=== PATIENT | female | born 1955 | race Caucasian/White ===

== ENCOUNTER 2018-04-28 15:55 | Inpatient (IN) | payer MEDICARE, OTHER, SELFPAY ==
--- NOTE | 2018-04-28 16:03 | DI.US.S_ITS ---
PROCEDURE: US ABDOMEN COMPLETE INDICATIONS: ruq pain TECHNIQUE: Real-time scanning was performed of the abdominal and retroperitoneal organs, with image documentation. COMPARISON: None. FINDINGS: Liver: Liver is normal in size and homogeneous in echotexture, prominently hyperechoic likely representing fatty infiltration. Gallbladder: 1 appears to be a combination of sludge and gallstones within the gallbladder lumen render the gallbladder fossa relatively poorly visualized. The gallbladder wall is at the upper limits of normal at 3 mm. Biliary ducts: Intrahepatic bile ducts are non-dilated. Extrahepatic bile duct caliber measures 5.0 mm. Normal is 6-7 mm or less in diameter, or 10 mm or less post-cholecystectomy. Pancreas: Visualized portions of the pancreas are sonographically normal. Spleen: Spleen is normal in size and homogeneous in echotexture. Kidneys: Kidneys are normal in size and echotexture. Right kidney measures 11.6 cm long; left kidney measures 12.6 cm long. No hydronephrosis or nephrolithiasis. No solid masses. Aorta: Not seen due to bowel gas. Iliacs: Not seen due to bowel gas. IVC: Not seen due to bowel gas and fatty infiltration throughout the liver. Miscellaneous: No free abdominal fluid. IMPRESSION: Prominently hyperechoic liver echotexture consistent with severe fatty infiltration. Gallstones are present within the gallbladder lumen of the gallbladder wall is at the upper limits of normal at 3 mm. Acute cholecystitis is not currently suspected. Note is made of poor visualization of significant portions of the retroperitoneum and peritoneal space due to bowel gas. It may be warranted to obtain followup CT scanning, depending on clinical status. Dictated by: Nico Barbosa M.D. on 04/28/2018 at 17:07 Approved by: Nico Barbosa M.D. on 04/28/2018 at 17:09
[2018-04-28 16:05] VITALS: BP 150/91; PULSE 105; RESP 18; TEMP 36.5; O2SAT 96
--- NOTE | 2018-04-28 16:58 | ED.ABDPAIN ---
HPI - Abdominal Pain General Chief Complaint: Abdominal Pain Stated Complaint: ETOH W/D, Abd pain Time Seen by Provider: 04/28/18 16:02 Source: patient and EMS Limitations: no limitations History of Present Illness HPI narrative: Patient is 62-year-old female who presents with right upper quadrant pain and epigastric pain. She has a known alcoholic she says she has not had anything to drink for the last 4 days. She has not been nauseated or vomiting. She was given Ativan, thiamine and magnesium on [place] she is feeling a bit better but still having some epigastric pain. She has not had any fever no pain or shortness of breath. She has only that she does have fatty liver MD complaint: abdominal pain Related Data Previous Rx's Medication Instructions Recorded clonidine HCl 0.1 mg tablet 0.3 mg PO HS #90 tab 11/02/17 gabapentin 300 mg capsule 900 mg PO SEE INSTRUCTIONS #90 cap 11/02/17 fluoxetine 20 mg capsule 60 mg PO QDAY #90 cap 03/02/18 lamotrigine 100 mg tablet 150 mg PO QDAY #45 tab 03/02/18 trazodone 50 mg tablet 50 mg PO HS #30 tab 03/02/18 Allergies Allergy/AdvReac Type Severity Reaction Status Date / Time clindamycin Allergy Mild RASH & N/V Verified 04/28/18 17:49 Review of Systems Review of Systems GENERAL: Denies chills, fatigue, malaise, fever, sweats, travel HEENT: Denies sinus pain, ear pain, sore throat, difficulty swallowing, neck pain RESPIRATORY: Denies dyspnea, cough, wheezing, hemoptysis, sputum. CARDIOVASCULAR: Denies chest pain, palpitations, orthopnea, edema GASTROINTESTINAL: See HPI : Denies dysuria, frequency, incontinence, hematuria, urinary retention, flank pain. MUSCULOSKELETAL: Denies weakness, joint pain, or bony pain SKIN: No rash, no erythema, no pruritus NEUROLOGIC: Denies weakness, dizziness, headache, numbness, change in speech, confusion PSYCHIATRIC: Alcohol abuse 12 point review of systems is negative except for those stated above and HPI PFSH Surgical History Status post appendectomy Status post surgery (06/23/14) Social History alcohol intake: current Exam Initial Vital Signs Initial Vital Signs: Vital Signs Temperature 97.7 F 04/28/18 16:05 Pulse Rate 105 H 04/28/18 16:05 Respiratory Rate 18 04/28/18 16:05 Blood Pressure 150/91 H 04/28/18 16:05 Pulse Oximetry 96 04/28/18 16:05 GENERAL: Disheveled alert female no acute distress, overweight HEENT: Head atraumatic,EOMI, pupils reactive, face symmetric, CARDIOVASCULAR: Regular rate and rhythm without murmurs, rubs or gallops. RESPIRATORY: Breath sounds equal bilaterally, no wheezes rales or rhonchi. ABDOMEN: Obese, epigastric pain mild right upper quadrant pain no guarding no rebound EXTREMITIES: Normal range of motion, no clubbing or edema. Neurovascularly intact NEUROLOGICAL: Alert and oriented x4.Normal gait and speech. Cranial nerves II through XII grossly intact. SKIN: Warm, dry, no laceration, no petechiae, no rashes or lesions. Course Orders Ordered: ED Orders 04/28/18 16:03 US abdomen complete Stat EKG-12 Lead Stat 04/28/18 16:35 Complete Blood Count AUTO DIFF Stat Comprehensive Metabolic Panel Stat Lipase Stat Discontinued Medications Magnesium Sulfate 2 gm/ Folic Acid 1 mg/ Thiamine HCl 100 mg / Multivitamins 10 ml/ Sodium Chloride 1,015.2 mls @ 125 mls/hr IV NOW ONE Stop: 04/29/18 00:10 Sodium Chloride (Normal Saline 0.9%) 1,000 mls @ 1,000 mls/hr IV BOLUS ONE Stop: 04/28/18 17:14 Last Infusion: 04/28/18 18:37 Dose: 0 mls/hr Admin: 04/28/18 17:05 Dose: 1,000 mls/hr Lorazepam (Ativan) 1 mg IV NOW ONE Stop: 04/28/18 16:04 Last Admin: 04/28/18 17:05 Dose: 1 mg Morphine Sulfate (Morphine) 4 mg IV NOW ONE Stop: 04/28/18 18:11 Last Admin: 04/28/18 18:15 Dose: 4 mg Ondansetron HCl (Zofran) 4 mg IV NOW ONE Stop: 04/28/18 16:04 Pantoprazole Sodium (Protonix) 40 mg IV NOW ONE Stop: 04/28/18 16:08 Last Admin: 04/28/18 17:05 Dose: 40 mg Vital Signs - 8 hr 04/28/18 16:05 04/28/18 18:27 Temperature 97.7 F Pulse Rate 105 H 103 H Respiratory Rate 18 15 Blood Pressure 150/91 H Blood Pressure [Left Arm] 139/66 Pulse Oximetry 96 95 MDM - Abdominal Pain Lab Data Attestation: I reviewed the patient's lab results. Result diagrams: 04/28/18 16:35 04/28/18 16:35 Lab Results 04/28/18 04/28/18 Range/Units 16:35 16:35 WBC 6.7 (4.5-11.0) X10^3/uL RBC 3.32 L (4.0-5.2) X10^6/uL Hgb 11.3 L (12.0-16.0) g/dL Hct 33.2 L (36-46) % MCV 99.9 (80-100) fL MCH 34.1 H (26-34) PG MCHC 34.1 (30-36) % RDW 17.6 H (11.6-14.8) % Plt Count 61 L (150-400) X10^3/uL Neut % (Auto) 82.1 H (50-75) % Lymph % (Auto) 6.3 L (25-40) % [place] % (Auto) 11.4 (3-14) % Eos % (Auto) 0.0 L (2-4) % Baso % (Auto) 0.2 (0-2) % Neut # (Auto) 5500 (7901-6163) /uL Sodium 135 L (137-145) mmol/L Potassium 3.5 (3.4-5.1) mmol/L Chloride 92 L (98-107) mmol/L Carbon Dioxide 24 (22-32) mmol/L BUN 25 H (7-17) mg/dL Creatinine 0.90 (0.52-1.04) mg/dL Estimated GFR > 60.0 (>60) mL/min BUN/Creatinine Ratio 27.8 H (6-22) Glucose 88 (80-110) mg/dL Calcium 9.3 (8.4-10.2) mg/dL Total Bilirubin 2.4 H (0.2-1.3) mg/dL AST 152 H (14-36) IU/L ALT 98 H (9-52) IU/L Alkaline Phosphatase 259 H (38-126) U/L Total Protein 7.1 (6.3-8.2) g/dL Albumin 4.5 (3.5-5.0) g/dL Globulin 2.6 (1.7-4.1) g/dL Albumin/Globulin Ratio 1.7 (1.0-2.8) Lipase 1639 H (23-300) U/L Imaging Data US - abdomen: Radiologist's impression: ADDENDUM This report includes an Addendum and supersedes previous reports for this exam. PROCEDURE: US ABDOMEN COMPLETE INDICATIONS: ruq pain TECHNIQUE: Real-time scanning was performed of the abdominal and retroperitoneal organs, with image documentation. COMPARISON: None. FINDINGS: Liver: Liver is normal in size and homogeneous in echotexture, prominently hyperechoic likely representing fatty infiltration. Gallbladder: 1 appears to be a combination of sludge and gallstones within the gallbladder lumen render the gallbladder fossa relatively poorly visualized. The gallbladder wall is at the upper limits of normal at 3 mm. Biliary ducts: Intrahepatic bile ducts are non-dilated. Extrahepatic bile duct caliber measures 5.0 mm. Normal is 6-7 mm or less in diameter, or 10 mm or less post-cholecystectomy. Pancreas: Visualized portions of the pancreas are sonographically normal. Spleen: Spleen is normal in size and homogeneous in echotexture. Kidneys: Kidneys are normal in size and echotexture. Right kidney measures 11.6 cm long; left kidney measures 12.6 cm long. No hydronephrosis or nephrolithiasis. No solid masses. Aorta: Not seen due to bowel gas. Iliacs: Not seen due to bowel gas. IVC: Not seen due to bowel gas and fatty infiltration throughout the liver. Miscellaneous: No free abdominal fluid. IMPRESSION: Prominently hyperechoic liver echotexture consistent with severe fatty infiltration. Gallstones are present within the gallbladder lumen of the gallbladder wall is at the upper limits of normal at 3 mm. Acute cholecystitis is not currently suspected. Note is made of poor visualization of significant portions of the retroperitoneum and peritoneal space due to bowel gas. It may be warranted to obtain followup CT scanning, depending on clinical status. Dictated by: Nico Barbosa M.D. on 04/28/2018 at 17:07 Approved by: Nico Barbosa M.D. on 04/28/2018 at 17:09 ADDENDUM: Correction to be above: The common bile duct measures 5 mm. Dictated by: Char Rosado M.D. on 04/28/2018 at 18:09 Approved by: Char Rosado M.D. on 04/28/2018 at 18:10 Addendum Dictated By: Char Rosado MD Addendum Signed By: Addendum Cosigned By: DD/ TD/TT: 04/28/18 PROCEDURE: US ABDOMEN COMPLETE INDICATIONS: ruq pain TECHNIQUE: Real-time scanning was performed of the abdominal and retroperitoneal organs, with image documentation. COMPARISON: None. FINDINGS: Liver: Liver is normal in size and homogeneous in echotexture, prominently hyperechoic likely representing fatty infiltration. Gallbladder: 1 appears to be a combination of sludge and gallstones within the gallbladder lumen render the gallbladder fossa relatively poorly visualized. The gallbladder wall is at the upper limits of normal at 3 mm. Biliary ducts: Intrahepatic bile ducts are non-dilated. Extrahepatic bile duct caliber measures 5.0 mm. Normal is 6-7 mm or less in diameter, or 10 mm or less post-cholecystectomy. Pancreas: Visualized portions of the pancreas are sonographically normal. Spleen: Spleen is normal in size and homogeneous in echotexture. Kidneys: Kidneys are normal in size and echotexture. Right kidney measures 11.6 cm long; left kidney measures 12.6 cm long. No hydronephrosis or nephrolithiasis. No solid masses. Aorta: Not seen due to bowel gas. Iliacs: Not seen due to bowel gas. IVC: Not seen due to bowel gas and fatty infiltration throughout the liver. Miscellaneous: No free abdominal fluid. IMPRESSION: Prominently hyperechoic liver echotexture consistent with severe fatty infiltration. Gallstones are present within the gallbladder lumen of the gallbladder wall is at the upper limits of normal at 3 mm. Acute cholecystitis is not currently suspected. Note is made of poor visualization of significant portions of the retroperitoneum and peritoneal space due to bowel gas. It may be warranted to obtain followup CT scanning, depending on clinical status. Dictated by: Nico Barbosa M.D. on 04/28/2018 at 17:07 ECG Data Attestation: I personally reviewed and interpreted this ECG as follows: Prior ECG tracings: not available for review Interpretation: Normal sinus rhythm rate 101 artifact noted no significant ST changes difficult to tell no prior to compare appear interval 144 MDM Narrative Medical decision making narrative: Patient's mildly elevated lipase of 1600 slightly elevated bilirubin 2.4 and mild elevated liver enzymes. Patient is a known alcoholic with known fatty liver disease, choledocholithiasis versus cholelithiasis and pancreatitis. At this time I have specifically spoken with Radiology common bile duct is normal. She will likely need an MRCP to fully rule out choledocholithiasis. I spoke with Dr. Tineo who accepts patient for admission Discharge Plan Departure Patient Disposition: Admitted As Inpatient Clinical Impression: Acute pancreatitis, Cholelithiasis Admit Date/Time: 04/28/18 18:38 Admit Provider: Shayan Walsh
[2018-04-28] MEDS: SODIUM CHLORIDE 0.9% 1,000 ML 1000 ML IV (17:05)
[2018-04-28] MEDS: LORazepam 2 MG/ML SYRINGE 1 MG IV (17:05)
[2018-04-28] MEDS: PANTOPRAZOLE 40 MG VIAL IV (17:05)
[2018-04-28 17:07] LABS: Alanine Aminotransferase 98 IU/L (9-52); Albumin 4.5 g/dL (3.5-5.0); Albumin Globulin Ratio 1.7 (1.0-2.8); Alkaline Phosphatase 259 U/L (38-126); Aspartate Aminotransferase 152 IU/L (14-36); BUN Creatinine Ratio 27.8 (6-22); Bilirubin Total 2.4 mg/dL (0.2-1.3); Blood Urea Nitrogen 25 mg/dL (7-17); Calcium 9.3 mg/dL (8.4-10.2); Carbon Dioxide 24 mmol/L (22-32); Chloride 92 mmol/L (98-107); Estimated Glomerular Filt Rate > 60.0 mL/min (>60); Globulin 2.6 g/dL (1.7-4.1); Glucose 88 mg/dL (80-110); HEMOLYSIS < 15 (0-50); Lipase 1639 U/L (23-300); Potassium 3.5 mmol/L (3.4-5.1); Sodium 135 mmol/L (137-145); Total Protein 7.1 g/dL (6.3-8.2)
[2018-04-28 17:25] LABS: Add Manual Diff / Slide Review NO; Basophils Percent Auto 0.2 % (0-2); Hematocrit 33.2 % (36-46); Hemoglobin 11.3 g/dL (12.0-16.0); Lymphocytes Percent Auto 6.3 % (25-40); Mean Corpuscular HGB Conc 34.1 % (30-36); Mean Corpuscular Hemoglobin 34.1 PG (26-34); Mean Corpuscular Volume 99.9 fL (80-100); Monocytes Percent Auto 11.4 % (3-14); Neutrophils Absolute Auto 5500 /uL (1500-7000); Neutrophils Percent Auto 82.1 % (50-75); Red Blood Cell Count 3.32 X10^6/uL (4.0-5.2); Red Cell Distribution Width 17.6 % (11.6-14.8); White Blood Cell Count 6.7 X10^3/uL (4.5-11.0)
[2018-04-28 17:36] LABS: Platelet Count 61 X10^3/uL (150-400)
[2018-04-28] MEDS: MORPHINE 4 MG/ML INJ IV (18:15)
[2018-04-28 18:27] VITALS: BP 139/66; PULSE 103; RESP 15; O2SAT 95
[2018-04-28 18:51] VITALS: BMI 27.4
[2018-04-28 19:20] VITALS: BP 154/85; PULSE 105; RESP 22; TEMP 36.8; O2SAT 97
[2018-04-28 20:30] LABS: Appearance Urine UA CLEAR; Color Urine UA YELLOW; Glucose Urine UA TRACE g/dL (Normal); Ketones Urine UA 3+ (NEGATIVE); Leukocyte Esterase Urine UA NEGATIVE (NEGATIVE); Nitrite Urine UA NEGATIVE (Negative); Occult Blood Urine UA 2+ (Negative); Protein Urine UA 2+ (Negative); pH Urine UA 6.5 (4.5-8.0)
[2018-04-28 21:03] LABS: Bilirubin Urine UA 2+ (NEGATIVE)
[2018-04-28 21:04] LABS: Bacteria Urine None Seen; Culture Indicated Urine Cult Not Indicated; Ictotest Urine Negative (Negative); RBC Urine 5-10/HPF (0-5/HPF); Squamous Epithelial Cell Urine 0-1 /HPF; WBC Urine 0-1/HPF (0-5/HPF)
[2018-04-28] MEDS: lamoTRIgine 100 MG TABLET 150 MG PO (21:06)
[2018-04-28] MEDS: cloNIDine 0.1 MG TABLET 0.3 MG PO (21:06)
[2018-04-28] MEDS: FLUoxetine 20 MG CAPSULE 60 MG PO (21:06)
[2018-04-28] MEDS: SODIUM CHLORIDE 0.9% 1,000 ML 150 ML IV (21:11)
--- NOTE | 2018-04-28 23:05 | P.HP_ITS ---
History of Present Illness Date Patient Seen: 04/28/18 Time Patient Seen: 22:33 Chief complaint: ETOH W/D, Abd pain Narrative: This is a 62-year-old female patient with a history ETOH abuse and cerebral palsy who presents to the emergency department with 3 days of epigastric pain. The patient was sent and at the recommendation of her home physical therapist. The patient had associated symptoms bowel movements looser than normal, nausea but denies fevers or chills, headaches or dizziness, cough or shortness of. The patient also has history of significant alcohol abuse which she states she drinking approximately age 38 and drink addendum more years. Patient subsequent was sober for 15 years until father when she returned back to drinking. The patient reports he does not drink daily but approximately 3 times week consuming 1 pt to 1 qt vodka. The patient has been abstinent alcohol for 5 days and is somewhat tremulous but remains alert and responsive. In the ER the patient did receive Ativan given in the the same. Under laboratory analysis the patient is found have a low platelet count with a hemoglobin of 11.3 and hematocrit 33.8 she has a white count of 6.7 and platelets 61. Lactate is negative at 1.2. On chemistries has mildly low sodium 135 borderline potassium at 3 5 with good renal function with BUN 250.9 and blood sugar of 88. Additional labs are significant for bilirubin of 2 4 AST 152 and ALT of 90. She has no loss of 259 rosales. She has undergone abdominal ultrasound which finds the liver that is normal size homogeneous exotexture to the review this consistent with severe fatty infiltrates. She has a common bile duct 5 mm and no evidence cholecystitis though the wall thickness at the upper end of normal at 3 mm. Gallbladder contains sludge and stones with no stones visualized in the duct system. The pancreas is visualized as normal. On exam the patient reports abdominal pain is improved with no further nausea. She denies shortness of breath or chest pain. Patient History Medical History Achilles tendon injury (Acute) Cellulitis (Acute) Cerebral palsy (Acute) Flesh-eating bacteria (Acute) History of esophageal dilatation (Acute) History of esophageal stricture (Acute) Sepsis (Acute) Surgical History History of dilatation and curettage (Acute) Hx of total knee arthroplasty (Acute) Status post appendectomy Status post surgery (06/23/14) Family & Social History Social History: household members none Prior Living Arrangements Apartment/Condo Safety & Behavioral: Feels Safe in Current Yes Environment Been Physically Hurt or No Threatened By a Person Suicidal Ideation Description None Suicide Plan Description No Plan Tobacco & Substance use: Smoking Status Never smoker alcohol intake current alcohol intake frequency 3 or more drinks per day Substance Use Type does not use Meds Home Medications Medication Instructions Recorded Confirmed Type clonidine HCl 0.1 mg tablet 0.3 mg PO HS #90 tab 11/02/17 04/28/18 Rx gabapentin 300 mg capsule 900 mg PO SEE INSTRUCTIONS #90 cap 11/02/17 04/28/18 Rx fluoxetine 20 mg capsule 60 mg PO QDAY #90 cap 03/02/18 04/28/18 Rx lamotrigine 100 mg tablet 150 mg PO QDAY #45 tab 03/02/18 04/28/18 Rx trazodone 50 mg tablet 50 mg PO HS #30 tab 03/02/18 04/28/18 Rx acetaminophen [Tylenol] 650 mg PO Q6H PRN 04/28/18 04/28/18 History ibuprofen 200 mg PO Q4-6H PRN 04/28/18 04/28/18 History lisinopril-hydrochlorothiazide 1 tab PO DAILY 04/28/18 04/28/18 History Allergies Allergy/AdvReac Type Severity Reaction Status Date / Time clindamycin Allergy Mild RASH & N/V Verified 04/28/18 17:49 Review of Systems Review of Systems Constitutional: Denies fevers, chills, sweats, fatigue, good appetite with stable weight Eyes: Denies visual changes, denies floaters, diplopia ENT: Positive for history of esophageal stricture and esophageal dilation, Denies hearing changes, ear pain, no nasal congestion, no rhinorrhea, no sore throat or dentalgia, no neck stiffness or pain Respiratory: Positive for wheezing, Denies SOB, cough, exertional dyspnea, wheezing Cardiovascular: Positive for edema bilateral lower extremities, Denies chest pain, palpitations, no orthostatic dizziness, syncope Gastrointestinal: Positive for abdominal pain for last 3 days, denies vomiting , no reflux symptoms or bloating, constipation or diarrhea, denies blood in stool. Genitourinary: denies vaginal discharge, no complains of frequency, burning or urgency, hematuria on voiding Musculoskeletal: Positive for history of cerebral palsy with weakness on the right side, denies falls, limited movement, cramps, edema or joint swelling. Integumentary: denies skin lesions, masses, rashes, hives, itching or hair loss Neurological: Positive history of cerebral palsy, denies dizziness, confusion, numbness or tingling, no seizures Psychiatric: denies disturbances in thought, attentions or mood, denies substance abuse Endocrine: denies goiter, lethargy, abnormal sweating, and heat/cold intolerance. Exam Vital Signs (past 8 hours): - 04/28/18 16:05 04/28/18 18:27 04/28/18 19:20 Temperature 97.7 F 98.2 F Pulse Rate 105 H 103 H 105 H Respiratory Rate 18 15 22 Blood Pressure 150/91 H 154/85 H Blood Pressure [Left Arm] 139/66 Pulse Oximetry 96 95 97 Oxygen Delivery Method Room Air Narrative Exam Narrative: General: Well developed, obese with BMI of 37.7, in no acute distress. Skin: Warm, dry, pink, no rashes, no visible lesions HEENT: Normocephalic, PERRLA, conjunctiva clear, no facial tenderness, oropharynx is dry and pink without exudate lesions, posterior pharynx pink without inflammation, no lymphadenopathy Neck: Supple, no masses, no thyromegaly, no carotid bruits or JVD Cardiac: Regular rate and rhythm, S1-S2, no murmur, no gallops or rubs, 2+ radial pulse, 1+ dorsalis pedis pulse, 1+ edema Chest: Nontender to palpation on AP and lateral compression, symmetrical movement, breathing non labored without accessory muscle use, no cough present, BS with scattered wheezes bilaterally, no coarseness or crackles. Abdomen: Pain on palpation with guarding over bilateral upper quadrants and epigastrium, no peritoneal signs,no masses or organomegaly, no flank or suprapubic pain, BS normal. Back: No tenderness to palpation, no CVA tenderness Extremities: Full ROM, no synovial effusions or deformities, strength is 5/5 and symmetrical, gait not assessed Neuro: AAOx 3, drowsy, no localizing neurological findings, cranial nerves 2-12 grossly intact, distal sensation intact to light touch Psych: pleasant, thought coherent, stable mood and congruent affect Objective Labs Result Diagrams: 04/28/18 16:35 04/28/18 16:35 Labs: Laboratory Results - last 24 hr 04/28/18 04/28/18 04/28/18 16:35 16:35 20:15 WBC 6.7 RBC 3.32 L Hgb 11.3 L Hct 33.2 L MCV 99.9 MCH 34.1 H MCHC 34.1 RDW 17.6 H Plt Count 61 L Neut % (Auto) 82.1 H Lymph % (Auto) 6.3 L [place] % (Auto) 11.4 Eos % (Auto) 0.0 L Baso % (Auto) 0.2 Neut # (Auto) 5500 Sodium 135 L Potassium 3.5 Chloride 92 L Carbon Dioxide 24 BUN 25 H Creatinine 0.90 Estimated GFR > 60.0 BUN/Creatinine Ratio 27.8 H Glucose 88 Calcium 9.3 Total Bilirubin 2.4 H AST 152 H ALT 98 H Alkaline Phosphatase 259 H Total Protein 7.1 Albumin 4.5 Globulin 2.6 Albumin/Globulin Ratio 1.7 Lipase 1639 H Urine Color Yellow Urine Appearance Clear Urine pH 6.5 Ur Specific Jackson 1.020 Urine Protein 2+ H Urine Glucose (UA) Trace Urine Ketones 3+ H Urine Occult Blood 2+ H Urine Nitrate Negative Urine Bilirubin 2+ H Urine Ictotest Urine Urobilinogen 2.0 H Ur Leukocyte Esterase Negative Urine RBC 5-10/hpf H Urine WBC 0-1/hpf Ur Squamous Epith Cells 0-1 /hpf Urine Bacteria None seen Ur Culture Indicated? Cult not indicated Micro UA Comment Not Reportable 04/28/18 20:15 WBC RBC Hgb Hct MCV MCH MCHC RDW Plt Count Neut % (Auto) Lymph % (Auto) [place] % (Auto) Eos % (Auto) Baso % (Auto) Neut # (Auto) Sodium Potassium Chloride Carbon Dioxide BUN Creatinine Estimated GFR BUN/Creatinine Ratio Glucose Calcium Total Bilirubin AST ALT Alkaline Phosphatase Total Protein Albumin Globulin Albumin/Globulin Ratio Lipase Urine Color Urine Appearance Urine pH Ur Specific Jackson Urine Protein Urine Glucose (UA) Urine Ketones Urine Occult Blood Urine Nitrate Urine Bilirubin Urine Ictotest Negative Urine Urobilinogen Ur Leukocyte Esterase Urine RBC Urine WBC Ur Squamous Epith Cells Urine Bacteria Ur Culture Indicated? Micro UA Comment Patient: Tanya Qiu MR#: [id number] : 1955 Acct:[id number] Age/Sex: 62 / F Date of Service: 04/28/18 Loc: ED Accession Number: [id number] Procedure: US abdomen complete Ordering Provider: Sarah Mcarthur D.O. ADDENDUM This report includes an Addendum and supersedes previous reports for this exam. PROCEDURE: US ABDOMEN COMPLETE INDICATIONS: ruq pain TECHNIQUE: Real-time scanning was performed of the abdominal and retroperitoneal organs, with image documentation. COMPARISON: None. FINDINGS: Liver: Liver is normal in size and homogeneous in echotexture, prominently hyperechoic likely representing fatty infiltration. Gallbladder: 1 appears to be a combination of sludge and gallstones within the gallbladder lumen render the gallbladder fossa relatively poorly visualized. The gallbladder wall is at the upper limits of normal at 3 mm. Biliary ducts: Intrahepatic bile ducts are non-dilated. Extrahepatic bile duct caliber measures 5.0 mm. Normal is 6-7 mm or less in diameter, or 10 mm or less post-cholecystectomy. Pancreas: Visualized portions of the pancreas are sonographically normal. Spleen: Spleen is normal in size and homogeneous in echotexture. Kidneys: Kidneys are normal in size and echotexture. Right kidney measures 11.6 cm long; left kidney measures 12.6 cm long. No hydronephrosis or nephrolithiasis. No solid masses. Aorta: Not seen due to bowel gas. Iliacs: Not seen due to bowel gas. IVC: Not seen due to bowel gas and fatty infiltration throughout the liver. Miscellaneous: No free abdominal fluid. IMPRESSION: Prominently hyperechoic liver echotexture consistent with severe fatty infiltration. Gallstones are present within the gallbladder lumen of the gallbladder wall is at the upper limits of normal at 3 mm. Acute cholecystitis is not currently suspected. Note is made of poor visualization of significant portions of the retroperitoneum and peritoneal space due to bowel gas. It may be warranted to obtain followup CT scanning, depending on clinical status. Dictated by: Nico Barbosa M.D. on 04/28/2018 at 17:07 Approved by: Nico Barbosa M.D. on 04/28/2018 at 17:09 ADDENDUM: Correction to be above: The common bile duct measures 5 mm. Dictated by: Char Rosado M.D. on 04/28/2018 at 18:09 Approved by: Char Rosado M.D. on 04/28/2018 at 18:10 Addendum Dictated By: Char Rosado MD Addendum Signed By: Addendum Cosigned By: KARY/ TD/TT: 04/28/18 PROCEDURE: US ABDOMEN COMPLETE INDICATIONS: ruq pain TECHNIQUE: Real-time scanning was performed of the abdominal and retroperitoneal organs, with image documentation. COMPARISON: None. FINDINGS: Liver: Liver is normal in size and homogeneous in echotexture, prominently hyperechoic likely representing fatty infiltration. Gallbladder: 1 appears to be a combination of sludge and gallstones within the gallbladder lumen render the gallbladder fossa relatively poorly visualized. The gallbladder wall is at the upper limits of normal at 3 mm. Biliary ducts: Intrahepatic bile ducts are non-dilated. Extrahepatic bile duct caliber measures 5.0 mm. Normal is 6-7 mm or less in diameter, or 10 mm or less post-cholecystectomy. Pancreas: Visualized portions of the pancreas are sonographically normal. Spleen: Spleen is normal in size and homogeneous in echotexture. Kidneys: Kidneys are normal in size and echotexture. Right kidney measures 11.6 cm long; left kidney measures 12.6 cm long. No hydronephrosis or nephrolithiasis. No solid masses. Aorta: Not seen due to bowel gas. Iliacs: Not seen due to bowel gas. IVC: Not seen due to bowel gas and fatty infiltration throughout the liver. Miscellaneous: No free abdominal fluid. IMPRESSION: Prominently hyperechoic liver echotexture consistent with severe fatty infiltration. Gallstones are present within the gallbladder lumen of the gallbladder wall is at the upper limits of normal at 3 mm. Acute cholecystitis is not currently suspected. Note is made of poor visualization of significant portions of the retroperitoneum and peritoneal space due to bowel gas. It may be warranted to obtain followup CT scanning, depending on clinical status. Dictated by: Nico Barbosa M.D. on 04/28/2018 at 17:07 Approved by: Nico Barbosa M.D. on 04/28/2018 at 17:09 Assessment & Plan Plan: Assessment/Plan Narrative: 1. Acute pancreatitis -patient is elevated lipase at 1639. -common bile duct is at normal caliber that 5 mm with no evidence of stone on ultrasound examination -patient with severe fatty liver disease by ultrasound examination supported by bilirubin of 2.4, AST of 152, ALT of 89 and alkaline phosphatase at 259. -will proceed with IV hydration and normal saline 150 cc/hour -the patient will remain NPO except for ice chips and oral medication -hydromorphone 0.5 mg IV as needed pain -we will track CBC, BMP and lipase on serial labs 2. Hypertension, chronic, stable -blood pressure in the ER is 139/86. -will continue patient's home clonidine 0.3 mg p.o. q.h.s. -the patient is presently dry but however has 1+ bilateral pedal edema. Will continue lisinopril 10 mg and hold hydrochlorothiazide at this time. 3. Thrombocytopenia -no evidence of bleeding purpura or petechiae, no complaints of rectal or vaginal bleeding -contraindication to chemical VTE -will track and trend on CBC. 4. Wheezing, present on admission -patient reports having wheezing longstanding but is not on bronchodilators. -Patient's room air oxygen saturation is 97%. -Will obtain a chest x-ray -respiratory therapy to evaluate and treat and written for DuoNeb 3 mL q.6h as needed wheezing or shortness of breath 5. cerebral palsy, chronic, stable -will continue lamotrigine and fluoxetine. -will have PT consult to evaluate and treat -we will refer to 7th grade social studies teacher for evaluation of a risk person with concerns of patient's presentation on arrival, per ER nurse poor hygiene, disheveled, torn clothing with urine smell
[2018-04-28] MEDS: chlordiazePOXIDE 25 MG CAPSULE 50 MG PO (23:51)
[2018-04-29] VITALS (8 sets, daily range): BP systolic 97–142; BP diastolic 52–80; PULSE 80–92; RESP 16–96; TEMP 36.6–37.1; O2SAT 95–99
--- NOTE | 2018-04-29 | DI.RAD.S_ITS ---
PROCEDURE: XR CHEST 1V INDICATIONS: Wheezing TECHNIQUE: One view of the chest was acquired. COMPARISON: None. FINDINGS: Surgical changes and devices: None. Lungs and pleura: Increased pulmonary vascularity is present. Mediastinum: Mediastinal contours appear normal. Heart size is enlarged. Bones and chest wall: No suspicious bony lesions. Overlying soft tissues appear unremarkable. IMPRESSION: Cardiomegaly with increased vascularity suggestive of edema. Dictated by: Char Rosado M.D. on 04/29/2018 at 8:30 Approved by: Char Rosado M.D. on 04/29/2018 at 8:41
[2018-04-29] MEDS: ACETAMINOPHEN 325 MG TABLET 650 MG PO ×2 (03:33→16:09)
[2018-04-29] MEDS: SODIUM CHLORIDE 0.9% 1,000 ML 150 ML IV (03:35)
[2018-04-29 05:49] LABS: Prothrombin Time 11.4 SECONDS (10.1-12.7)
[2018-04-29 05:54] LABS: Alanine Aminotransferase 78 IU/L (9-52); Albumin 3.4 g/dL (3.5-5.0); Albumin Globulin Ratio 1.5 (1.0-2.8); Alkaline Phosphatase 200 U/L (38-126); Aspartate Aminotransferase 109 IU/L (14-36); BUN Creatinine Ratio 26.3 (6-22); Bilirubin Total 1.1 mg/dL (0.2-1.3); Blood Urea Nitrogen 21 mg/dL (7-17); Calcium 8.3 mg/dL (8.4-10.2); Carbon Dioxide 24 mmol/L (22-32); Chloride 100 mmol/L (98-107); Estimated Glomerular Filt Rate > 60.0 mL/min (>60); Globulin 2.3 g/dL (1.7-4.1); Glucose 79 mg/dL (80-110); HEMOLYSIS < 15 (0-50); Magnesium 2.3 mg/dL (1.6-2.3); Potassium 3.3 mmol/L (3.4-5.1); Sodium 136 mmol/L (137-145); Total Protein 5.7 g/dL (6.3-8.2)
[2018-04-29 06:09] LABS: Procalcitonin 0.28 ng/mL (<0.5)
[2018-04-29 07:16] LABS: Lipase 735 U/L (23-300)
[2018-04-29] MEDS: ALBUTEROL/IPRATROPIUM 3 ML AMPUL INH ×2 (07:55→17:03)
[2018-04-29 08:00] LABS: Add Manual Diff / Slide Review NO; Basophils Percent Auto 0.2 % (0-2); Eosinophils Percent Auto 0.1 % (2-4); Hematocrit 29.2 % (36-46); Hemoglobin 9.7 g/dL (12.0-16.0); Lymphocytes Percent Auto 7.5 % (25-40); Mean Corpuscular HGB Conc 33.4 % (30-36); Mean Corpuscular Volume 101.8 fL (80-100); Neutrophils Absolute Auto 4000 /uL (1500-7000); Neutrophils Percent Auto 80.2 % (50-75); Platelet Count 46 X10^3/uL (150-400); Red Blood Cell Count 2.87 X10^6/uL (4.0-5.2); Red Cell Distribution Width 17.9 % (11.6-14.8)
[2018-04-29] MEDS: lamoTRIgine 100 MG TABLET 150 MG PO (08:43)
--- NOTE | 2018-04-29 10:29 | PT.IIE ---
Current Diagnoses Acute pancreatitis without necrosis or infection, unspecified (04/28/18) Surgical History (Last Updated 04/28/18 @ 23:40 by VICTOR HUGO Gaspar) History of dilatation and curettage (Acute) Hx of total knee arthroplasty (Acute) Status post appendectomy Status post surgery (06/23/14) Medical History (Last Updated 04/28/18 @ 23:36 by VICTOR HUGO Gaspar) Achilles tendon injury (Acute) Cellulitis (Acute) Cerebral palsy (Acute) Flesh-eating bacteria (Acute) History of esophageal dilatation (Acute) History of esophageal stricture (Acute) Sepsis (Acute) Physical Therapy Inpatient Evaluation/Re-Eval M1 PT/OT-IP Prior Functional Status Start: 04/29/18 11:33 Freq: NEEDED Status: Active Protocol: Document 04/29/18 10:29 AB (Rec: 04/29/18 11:47 AB [id number]) Medical Review Prior Functional Status Medical History Reviewed Yes Communication able to make needs known Mobility and Gait pt stated that she is modified independent with all mobilities and ambulation using 4WW Prior Functional Level (Other details) stated that she usually does not wear her R AFO at home and uses it outdoors. Social History Household Members none Living Arrangements Apartment/Condo Number of Floors (Floors) One Floor Number of Stairs To Enter/Railing? lives in [place]: no steps to enter Home Environment Standard Height Toilet Tub/Shower Home Equipment Four Wheel Walker Shower Seat with Backrest Grab Bars Near Toilet Grab Bars In Shower Additional Social History Comment stated that her brother checks on her; she has a counsellor that comes in once a week to check on her M2 PT-IP Current Condition Start: 04/29/18 11:33 Freq: NEEDED Status: Active Protocol: Document 04/29/18 10:29 AB (Rec: 04/29/18 11:47 AB [id number]) Physical Therapy Current Condition Current Condition Evaluation Date 04/29/18 Treatment Diagnosis acute pancreatitis; choleclithiasis; generalized weakness Onset Date 04/28/18 Precautions Brace R AFO Other Precautions falls M3 PT-IP Subjective Start: 04/29/18 11:33 Freq: NEEDED Status: Active Protocol: Document 04/29/18 10:29 AB (Rec: 04/29/18 11:47 AB [id number]) Subjective Physical Therapy Visit Type Type Initial Evaluation Visit Start Time 10:29 Visit Stop Time 11:05 Total Visit Minutes 36 Number of NEW PRODUCT TRAINER Visits 0 Physical Therapy Visit Comments Patient Comments pt agreeable to do PT Patient Goals to go home Therapy Pain Assessment Pain When Pain Assessed During Mobility Pain Present Pain Present Pain Reported Location Back Scale Used pain scale not stated M4 PT-IP Mobility and Gait Start: 04/29/18 11:33 Freq: NEEDED Status: Active Protocol: Document 04/29/18 10:29 AB (Rec: 04/29/18 11:47 AB [id number]) PT-Bed Mobility Assessment Supine to Sit Supine to Sit Standby Assistance Scooting Scooting to Edge of Bed Standby Assistance PT-Transfer Assessment Sit to and From Stand Sit to and from Stand Standby Assistance Equipment Transfer Assistive Device Gait Belt 4 Wheeled Walker Gait Assessment Gait Gait Assistance Required: Standby Assistance Contact Guard Assist Distance (Feet) 175 Able to Maintain Weight Bearing Status Yes During Gait Assistive Devices Assistive Device Gait Belt 4 Wheeled Walker Orthotic/Prosthetic Devices or Brace: Yes Gait Deviations General Gait Pattern Within Normal Limits Antalgic Decreased Stride Length Decreased Feet Clearance Factors Limiting Gait Function Factors Limiting Gait Function Abnormal Tonal Influences Decreased Activity Tolerance Decreased Sensation Decreased Strength Incoordination Pain Poor Balance Poor Safety Awareness Comments Gait Comments pt with R foot drop and wears an AFO; (+) LOB but with recovery requiring CGA for safety during ambulation with pt tripping on R foot. cued to elevated R foot up higher. pt stated that she usually drags RLE at home since she does not wear AFO at home and only when outdoors. PT-Balance Assessment Sitting Balance and Reactions Static Sitting Balance Ability Good Dynamic Sitting Balance Ability Good Standing Balance and Reactions Static Standing Balance Ability Fair Dynamic Standing Balance Ability Fair Device Used FWW M5 PT-IP Objective Assessments Start: 04/29/18 11:33 Freq: NEEDED Status: Active Protocol: Document 04/29/18 10:29 AB (Rec: 04/29/18 11:47 AB [id number]) Orientation Orientation/Cognition Level of Alertness Alert Orientation Name Age Birthday Month Date Year Day of Week Place Situation Safety Awareness Decreased Safety Awareness Memory Description Short Term Impaired Senior Care Impaired Gross Range of Motion Lower Extremity ROM Assessment Right Impaired Impairments limited on R DF/PF Strength Lower Extremity Strength Assessment Right Impaired Ankle 2-/5 M6 PT-IP Treatment Start: 04/29/18 11:33 Freq: NEEDED Status: Active Protocol: Document 04/29/18 10:29 AB (Rec: 04/29/18 11:47 AB [id number]) Physical Therapy Treatment Education Education Provided Safety Other Treatments Other Treatment Performed pt able to sang AFO and shoes only requiring set up M7 PT-IP Assessment and Plan Start: 04/29/18 11:33 Freq: NEEDED Status: Active Protocol: Document 04/29/18 10:29 AB (Rec: 04/29/18 11:47 AB [id number]) PT Summary Assessment and Plan Potential Rehabilitation Potential Good Status of Condition at Evaluation Stable Summary Impairments Pain ROM Strength Balance Coordination Sensation Tone Cognition Bed Mobility Transfers Gait Activity Tolerance Assessment Summary pt requiring SBA to occasional CGA with mobility using 4WW. pt will likley improve mobility during hospital stay and pt may go home when medically stable. Goals Bed Mobility Goal Independent Transfer Goal Independent Four Wheeled Walker Gait Goal Independent Four Wheel Walker Gait Distance 200 Days to Meet Goals 3 Frequency of Treatment Frequency Of Treatment Once a Day Treatment Plan Physical Therapy Treatment Plan Bed Mobility Training Transfer Training Gait Training Therapeutic Exercise Balance Retraining Discharge Planning Hot or Cold Pack Neuromuscular Re-ed Coordination Retraining Manual Therapy Recommendations To Nursing Amount of Assist Needed Standby Assistance 1 Person Assist Discharge Recommendations PT Discharge Recommendations Home with Assistance
[2018-04-29] MEDS: FLUoxetine 20 MG CAPSULE 60 MG PO (12:27)
--- NOTE | 2018-04-29 13:58 | OT.IP.EVAL ---
Current Diagnoses Acute pancreatitis without necrosis or infection, unspecified (04/28/18) Past Medical History (Last Updated 04/28/18 @ 23:36 by VICTOR HUGO Gaspar) Achilles tendon injury (Acute) Cellulitis (Acute) Cerebral palsy (Acute) Flesh-eating bacteria (Acute) History of esophageal dilatation (Acute) History of esophageal stricture (Acute) Sepsis (Acute) Surgical History (Last Updated 04/28/18 @ 23:40 by VICTOR HUGO Gaspar) History of dilatation and curettage (Acute) Hx of total knee arthroplasty (Acute) Status post appendectomy Status post surgery (06/23/14) Occupational Therapy Inpatient Evaluation/Re-Eval M1 PT/OT-IP Prior Functional Status Start: 04/29/18 11:33 Freq: NEEDED Status: Active Protocol: Document 04/29/18 13:58 PJM (Rec: 04/29/18 14:52 PJM [id number]) Medical Review Prior Functional Status Medical History Reviewed Yes Diet/Fluid Consistency Regular Communication able to make needs known Mobility and Gait Pt stated that she is modified independent with all mobilities and ambulation. She uses no device or cane in small apt and uses 4WW in the community. She stores 4WW outside her apt door. Activities of Daily Living and IADL's Pt states she is indep with all self care including shower . She does her own laundry in laundry room on same floor as her apt, cooking, and manages her own meds. She is working with her family resource counselor on a bill paying program. She states her brother comes over 1x week to assist with cleaning. Pt drives and does her own grocery shopping. Prior Functional Level (Other details) stated that she usually does not wear her R AFO at home and uses it outdoors only. Social History Household Members none Living Arrangements Apartment/Condo Number of Floors (Floors) One Floor Number of Stairs To Enter/Railing? no stairs to enter Home Environment Standard Height Toilet Tub/Shower Home Equipment Four Wheel Walker Straight Cane Tub Transfer Bench Grab Bars Near Toilet Grab Bars In Shower Employment Status Retired Additional Social History Comment pt cares for a cat M2 OT-IP Current Condition Start: 04/29/18 14:25 Freq: Status: Active Protocol: Document 04/29/18 13:58 PJM (Rec: 04/29/18 14:52 [facility] NR) Occupational Therapy Current Condition Current Condition Evaluation Date 04/29/18 Treatment Diagnosis decreased activity tolerance, self care, mobility due to acute pancreatitis Diagnosis Onset Date 04/28 Post Operative Precautions Other Precautions fall risk, R foot drop M3 OT- IP Subjective and Pain Start: 04/29/18 14:25 Freq: Status: Active Protocol: Document 04/29/18 13:58 PJM (Rec: 04/29/18 14:52 [facility] NR) OT- Subjective Occupational Therapy Visit Type Type Initial Evaluation Visit Start Time 13:15 Visit Stop Time 13:58 Total Visit Minutes 43 Occupational Therapy Visit Comments Patient Comments I get anxious when I am away from home. Patient/Caregiver Goals to go home tomorrow OT Pain Assessment Pain When Pain Assessed After Treatment Pain Present Pain Present Denied Pain Location Abdomen Intensity 2 Scale Used Numeric (1 - 10) Description Aching M4 OT- IP ADL's Start: 04/29/18 14:25 Freq: Status: Active Protocol: Document 04/29/18 13:58 PJM (Rec: 04/29/18 14:52 [facility] NR) OT [id number] General Evaluation Self-Feeding Ability Independent OT ADL-Grooming General Evaluation Grooming Ability Standby Assistance Comments OT Grooming Comments min verbal cues to problem solve unfamiliar sink set up and position 4WW fro hand washing OT ADL-Oral Care Comments Oral Care Comments did not occur OT ADL-Dressing General Eval Lower Body Dressing Ability Minimal Assistance Areas Needing Assistance Underpants/Brief OT ADL-Toileting General Evaluation Toileting Ability Standby Assistance Areas Needing Assistance Manage Clothing Perform Perineal Hygiene Comments OT Toileting Comments pt incontinent of blood tinged urine upon standing; RN notified OT ADL-Bathing Comments OT Bathing Comments to be assessed M5 OT- IP IADL's Start: 04/29/18 14:25 Freq: Status: Active Protocol: Document 04/29/18 13:58 PJM (Rec: 04/29/18 14:52 [facility] NR) OT-Instrumental Activities of Daily Living Deficits IADL Deficits Identified Deficits Home Safety Awareness Awareness of Need for Assistance at Home Good Awareness Medication Management Medication Management Comments pt states she manages her own meds at home Money Management Money Management Caregiver Provides Supervision Money Management Comments family resource counselor assisting pt with bill paying plan Meal Preparation Meal Preparation No Deficits Identified Senior Living Advisor Senior Living Advisor Caregiver Provides Assist Senior Living Advisor Comments pt states brother assists 1x week Driving Driving Comments pt states she drives to grocery store M6 OT- IP Functional Cognition Start: 04/29/18 14:25 Freq: Status: Active Protocol: Document 04/29/18 13:58 PJM (Rec: 04/29/18 14:52 PJ [id number]) Cognitive Factors Limiting Selfcare Function Cognitive Ability Level of Alertness Alert Patient Orientation Name Month Date Year Place Situation Attention Span Ability Capable of Focused Attention Ability to Follow Commands Able to Follow One Step Commands Safety Awareness Underestimates Need for Assistance Problem Solving Ability Needs Assist to Identify Solutions Cognitive Comments Cognitive Assessment Comments mildly sloed speed of processing noted OT- Vision and Hearing OT- Hearing Assessment OT- Hearing Assessment WFL OT- Vision Assessment Visual Acuity WFL Vision Assessment Comments Pt denies any recent vision changes; states she wears glasses for driving. M7 OT- IP Mobility and Balance Start: 04/29/18 14:25 Freq: Status: Active Protocol: Document 04/29/18 13:58 PJM (Rec: 04/29/18 14:52 [facility] [id number]) OT-Transfer Assessment Sit to and From Stand Sit to and from Stand Minimal Assistance 1 Person Assistance Transfers Transfer Ability Contact Guard Assistance Technique Transfer Destination Chair Toilet Transfer Technique Stand Step Pivot Devices Transfer Assistive Devices Gait Belt 4 Wheeled Walker Comments Mobility Comments Pt needs min assist to problem solve hand placement and arise from low chair with 4WW OT- Gait Assessment Gait Gait Assistance Required: Contact Guard Assist Distance (Feet) 20 Assistive Devices Assistive Device Straight Cane 4 Wheeled Walker Comments Gait Ability Comments unorganized approach to toilet with cues needs for unfamiliar 4WW use and IV pole OT- Balance Assessment Sitting Balance and Reactions Static Sitting Balance Ability Good Standing Balance and Reactions Static Standing Balance Ability Good M8 OT- IP Objective Assessments Start: 04/29/18 14:25 Freq: Status: Active Protocol: Document 04/29/18 13:58 PJM (Rec: 04/29/18 14:52 [facility] [id number]) OT Gross Range of Motion Upper Extremity Range of Motion Assessment Within Functional Limits OT Strength Upper Extremity Strength Assessment Within Functional Limits Hand Meters Superintendent Strength Hand Dominance Left OT- Coordination Assessment Upper Extremity Finger to Nose Test Right UE Impaired Finger Tapping Test Right UE Impaired Comments Coordination Comments Pt has decreased fine isolated motor control in slowed rapid alternating movements in RUE/ hand with hx of cerebral palsy noted OT-Muscle Tone Assessment Muscle Tone WNL Yes Comments Muscle Tone Comments Pt has isolated movement throughout RUE except in fingers. OT Sensation Assessment Comments Summary Comments Pt denies sensory deficits in BUE's M9 OT- IP Assessment and Plan Start: 04/29/18 14:25 Freq: Status: Active Protocol: Document 04/29/18 13:58 PJM (Rec: 04/29/18 14:52 PJM [id number]) OT Summary Assessment and Plan Potential Rehabilitation Potential Good Analytic Complexity at Evaluation Low Summary OT Impairments Functional Mobility Grooming Dressing Toileting Bathing Toilet Transfers Shower Transfers Assessment Summary Low complexity OT assessment completed. Pt has decreased activity tolerance and difficulty arising from her low chair today. She is mildly unsteady on her feet in tight areas such as bathroom and is currently using unfamiliar 4WW. Plan 1 additional OT session in AM to further assessment and training re: bathroom transfers, bathing and toileting skills as needed for return home alone. Brother to bring pt's own 4WW tomorrow and pt states she plans to obtain smaller FWW to use in her small apartment. Goals Grooming Goal Independent Dressing Goal Independent Toileting Goal Independent Bathing Goal Standby Assistance Toilet Transfer Goal Independent Shower Transfer Goal Standby Assistance Patient/Caregiver Education Goal Demonstrate Energy Conservation and Pacing OT-Other Goals Grooming to be done standing at sink with good safety awareness and no loss of balance noted. Days to Meet Goals 2 Frequency of Treatment Frequency Of Treatment Once a Day Treatment Plan OT Treatment Plan ADL Training Functional Mobility Patient/Family Education Discharge Recommendations OT Discharge Recommendations Home with Assistance Other Discharge Recommendations Pt states she will have weekly assistance with cleaning from her brother and family resource counselor checks in weekly with pt.
--- NOTE | 2018-04-29 14:39 | P.PN_ITS ---
Subjective Date Patient Seen: 04/29/18 Time Patient Seen: 14:28 Interval history: REPORTED SOME NAUSEA AND ABD PAIN NO FEVER OR CHILLS NO CP/SOB NO SIGNIFICANT ISSUES OVERNIGHT Exam Vital Signs (past 8 hours): - 04/29/18 08:00 04/29/18 12:00 Temperature 98.1 F 98.8 F Pulse Rate 85 82 Respiratory Rate 20 20 Blood Pressure 97/52 L 111/80 Pulse Oximetry 98 98 Oxygen Delivery Method Room Air Narrative Exam Narrative: NO ACUTE DISTRESS. PATIENT IS ALERT ORIENTED X3. VITAL SIGNS STABLE HEAD ATRAUMATIC NORMOCEPHALIC NECK : SUPPLE WITHOUT ADENOPATHY NO CAROTID BRUITS EYE: EOMI, PERRLA, NORMAL CONJUNCTIVA; NO JAUNDICE CHEST: REGULAR RATE. NO RUBS. PMI IS NON DISPLACED. NO MURMURS; NORMAL S1- S2 PULMONARY: DECREASED BS OVER THE BASES. MILD BIBASILAR CRACKLES NOTED; NO INCREASED DULLNESS TO PERCUSSION ABDOMEN: SOFT. NONTENDER. NONDISTENDED. BOWEL SOUNDS ARE PRESENT IN ALL 4 QUADRANTS. NO MASS. EXTREMITIES: NO EDEMA.. NO CYANOSIS CLUBBING NOTED. NEURO: CRANIAL NERVES 2-12 GROSSLY INTACT. NO FOCAL NEUROLOGICAL DEFICIT NOTED. MSK: NORMAL RANGE OF MOTION FOR AGE. NO JOINT EFFUSION. SKIN: NORMAL FOR ETHNICITY; NO ECCHYMOSIS. NO LESION. GOOD TURGOR.; NO RASHES : NORMAL EXTERNAL GENITALIA. PSYCH : APPROPRIATE MOOD AND AFFECT. ALERT AWAKE ORIENTED X3 Objective Labs Result Diagrams: 04/29/18 05:05 04/29/18 05:05 Labs: Laboratory Results - last 24 hr 04/28/18 04/28/18 04/28/18 16:35 16:35 20:15 WBC 6.7 RBC 3.32 L Hgb 11.3 L Hct 33.2 L MCV 99.9 MCH 34.1 H MCHC 34.1 RDW 17.6 H Plt Count 61 L Neut % (Auto) 82.1 H Lymph % (Auto) 6.3 L [place] % (Auto) 11.4 Eos % (Auto) 0.0 L Baso % (Auto) 0.2 Neut # (Auto) 5500 PT INR Sodium 135 L Potassium 3.5 Chloride 92 L Carbon Dioxide 24 BUN 25 H Creatinine 0.90 Estimated GFR > 60.0 BUN/Creatinine Ratio 27.8 H Glucose 88 Calcium 9.3 Magnesium Total Bilirubin 2.4 H AST 152 H ALT 98 H Alkaline Phosphatase 259 H Total Protein 7.1 Albumin 4.5 Globulin 2.6 Albumin/Globulin Ratio 1.7 Lipase 1639 H Procalcitonin Urine Color Yellow Urine Appearance Clear Urine pH 6.5 Ur Specific [place] 1.020 Urine Protein 2+ H Urine Glucose (UA) Trace Urine Ketones 3+ H Urine Occult Blood 2+ H Urine Nitrate Negative Urine Bilirubin 2+ H Urine Ictotest Urine Urobilinogen 2.0 H Ur Leukocyte Esterase Negative Urine RBC 5-10/hpf H Urine WBC 0-1/hpf Ur Squamous Epith Cells 0-1 /hpf Urine Bacteria None seen Ur Culture Indicated? Cult not indicated Micro UA Comment Not Reportable 04/28/18 04/29/18 04/29/18 20:15 05:05 05:05 WBC 5.0 RBC 2.87 L Hgb 9.7 L Hct 29.2 L MCV 101.8 H MCH 34.0 MCHC 33.4 RDW 17.9 H Plt Count 46 L Neut % (Auto) 80.2 H Lymph % (Auto) 7.5 L [place] % (Auto) 12.0 Eos % (Auto) 0.1 L Baso % (Auto) 0.2 Neut # (Auto) 4000 PT INR Sodium Potassium Chloride Carbon Dioxide BUN Creatinine Estimated GFR BUN/Creatinine Ratio Glucose Calcium Magnesium Total Bilirubin AST ALT Alkaline Phosphatase Total Protein Albumin Globulin Albumin/Globulin Ratio Lipase Procalcitonin 0.28 Urine Color Urine Appearance Urine pH Ur Specific [place] Urine Protein Urine Glucose (UA) Urine Ketones Urine Occult Blood Urine Nitrate Urine Bilirubin Urine Ictotest Negative Urine Urobilinogen Ur Leukocyte Esterase Urine RBC Urine WBC Ur Squamous Epith Cells Urine Bacteria Ur Culture Indicated? Micro UA Comment 04/29/18 04/29/18 04/29/18 05:05 05:05 05:05 WBC RBC Hgb Hct MCV MCH MCHC RDW Plt Count Neut % (Auto) Lymph % (Auto) [place] % (Auto) Eos % (Auto) Baso % (Auto) Neut # (Auto) PT 11.4 INR 1.0 Sodium 136 L Potassium 3.3 L Chloride 100 Carbon Dioxide 24 BUN 21 H Creatinine 0.80 Estimated GFR > 60.0 BUN/Creatinine Ratio 26.3 H Glucose 79 L Calcium 8.3 L Magnesium 2.3 Total Bilirubin 1.1 AST 109 H ALT 78 H Alkaline Phosphatase 200 H Total Protein 5.7 L Albumin 3.4 L Globulin 2.3 Albumin/Globulin Ratio 1.5 Lipase 735 H D Procalcitonin Urine Color Urine Appearance Urine pH Ur Specific [place] Urine Protein Urine Glucose (UA) Urine Ketones Urine Occult Blood Urine Nitrate Urine Bilirubin Urine Ictotest Urine Urobilinogen Ur Leukocyte Esterase Urine RBC Urine WBC Ur Squamous Epith Cells Urine Bacteria Ur Culture Indicated? 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
[2018-04-29 18:00] LABS: Appearance Urine UA SL CLOUDY; Color Urine UA YELLOW; Glucose Urine UA 1+ g/dL (Negative); Ketones Urine UA 2+ (NEGATIVE); Leukocyte Esterase Urine UA NEGATIVE (NEGATIVE); Nitrite Urine UA NEGATIVE (Negative); Occult Blood Urine UA 3+ (Negative); Protein Urine UA 1+ (Negative); Specific Gravity Urine UA 1.015 (1.000-1.035); pH Urine UA 6.5 (4.5-8.0)
[2018-04-29 18:03] LABS: RBC Urine 30-100/HPF (0-5/HPF)
[2018-04-29 18:04] LABS: Amorphous Sediment Urine 1+; Bacteria Urine Few (2-10); Culture Indicated Urine Specimen Cultured; Mucus Urine 1+ (Negative); Squamous Epithelial Cell Urine 1-5 /HPF; WBC Urine 5-10/HPF (0-5/HPF)
[2018-04-29 18:26] LABS: Lipase 506 U/L (23-300)
[2018-04-29 19:00] LABS: Bilirubin Urine UA 2+ (NEGATIVE)
[2018-04-29] MEDS: chlordiazePOXIDE 25 MG CAPSULE 50 MG PO (21:07)
[2018-04-29] MEDS: cloNIDine 0.1 MG TABLET 0.3 MG PO (21:08)
[2018-04-29] MEDS: LORazepam 0.5 MG TABLET PO (21:08)
[2018-04-30 00:48] VITALS: BP 110/61; PULSE 80; RESP 16; TEMP 37; O2SAT 97
[2018-04-30 02:17] LABS: Vitamin B12 402 pg/mL (239-931)
[2018-04-30 05:56] LABS: Add Manual Diff / Slide Review NO; Basophils Percent Auto 0.2 % (0-2); Hematocrit 27.9 % (36-46); Hemoglobin 9.7 g/dL (12.0-16.0); Lymphocytes Percent Auto 14.7 % (25-40); Mean Corpuscular HGB Conc 34.8 % (30-36); Mean Corpuscular Hemoglobin 35.2 PG (26-34); Mean Corpuscular Volume 101.1 fL (80-100); Monocytes Percent Auto 9.4 % (3-14); Neutrophils Absolute Auto 3600 /uL (1500-7000); Neutrophils Percent Auto 74.7 % (50-75); Platelet Count 42 X10^3/uL (150-400); Red Blood Cell Count 2.76 X10^6/uL (4.0-5.2); Red Cell Distribution Width 18.1 % (11.6-14.8); White Blood Cell Count 4.8 X10^3/uL (4.5-11.0)
[2018-04-30 06:00] LABS: BUN Creatinine Ratio 26.7 (6-22); Blood Urea Nitrogen 16 mg/dL (7-17); Calcium 8.6 mg/dL (8.4-10.2); Carbon Dioxide 26 mmol/L (22-32); Chloride 100 mmol/L (98-107); Estimated Glomerular Filt Rate > 60.0 mL/min (>60); Glucose 117 mg/dL (80-110); HEMOLYSIS < 15 (0-50); Sodium 137 mmol/L (137-145)
[2018-04-30 06:12] VITALS: BP 124/74; PULSE 79; RESP 16; TEMP 36.8; O2SAT 94
[2018-04-30 07:50] VITALS: BP 122/68; PULSE 89; RESP 18; TEMP 36.6; O2SAT 94
[2018-04-30] MEDS: FOLIC ACID 1 MG TABLET PO (08:33)
[2018-04-30] MEDS: THIAMINE 100 MG TABLET PO (08:33)
[2018-04-30] MEDS: FLUoxetine 20 MG CAPSULE 60 MG PO (08:33)
[2018-04-30] MEDS: lamoTRIgine 100 MG TABLET 150 MG PO (08:34)
[2018-04-30] MEDS: LISINOPRIL 10 MG TABLET PO (08:34)
[2018-04-30] MEDS: LORazepam 0.5 MG TABLET PO (08:34)
[2018-04-30] MEDS: ACETAMINOPHEN 325 MG TABLET 650 MG PO (08:35)
[2018-04-30] MEDS: ALBUTEROL/IPRATROPIUM 3 ML AMPUL INH (08:41)
--- NOTE | 2018-04-30 10:10 | CM.DPC ---
DCP Discharge Home Per MD, pt is medically stable to d/c home today with no identified barriers to discharge. Pt's brother Clayton plans to be bedside around 1100 to transport pt to [facility] on preferably the [facility] home. Per PT/OT, pt is safe for d/c home with brother assist. Plan: Patient to d/c home to [place] today via brother POV around 1130 to catch the [address] home. No SW needs at this time. SERGIO López
[2018-04-30] MEDS: POTASSIUM CHLORIDE 20 MEQ TAB 40 MEQ PO (10:15)
[2018-04-30] MEDS: MAGNESIUM OXIDE 400 MG TABLET 800 MG PO (10:16)
--- NOTE | 2018-04-30 10:45 | OT.IP.TRT ---
Current Diagnoses Acute pancreatitis without necrosis or infection, unspecified (04/28/18) Occupational Therapy Treatment Note M3 OT- IP Subjective and Pain Start: 04/29/18 14:25 Freq: Status: Active Protocol: Document 04/30/18 10:45 PJM (Rec: 04/30/18 13:10 PJM NRTM) OT- Subjective Occupational Therapy Visit Type Type Treatment Note Visit Start Time 09:21 Visit Stop Time 10:45 Total Visit Minutes 84 Occupational Therapy Visit Comments Patient Comments My [place] his way [place]. Patient/Caregiver Goals to go home today OT Pain Assessment Pain When Pain Assessed After Treatment Pain Present Pain Present Denied Pain M4 OT- IP ADL's Start: 04/29/18 14:25 Freq: Status: Active Protocol: Document 04/30/18 10:45 PJM (Rec: 04/30/18 13:10 PJM NRTM) OT [id number] General Evaluation Self-Feeding Ability Independent OT ADL-Grooming General Evaluation Grooming Ability Independent Comments OT Grooming Comments seated at sink on 4WW; pt states she normally sits on toilet at home OT ADL-Oral Care General Eval Oral Care Ability Independent Comments Oral Care Comments seated at sink on 4WW OT ADL-Dressing General Eval Upper Body Dressing Ability Independent Lower Body Dressing Ability Independent Areas Needing Assistance Pull-Over Shirt Underpants/Brief Pants/Shorts Socks Shoes Comments OT Dressing Comments Pt performs very slowly but is independent with upper and lower body dressing seated in chair including R AFO. OT ADL-Toileting General Evaluation Toileting Ability Independent Areas Needing Assistance Perform Perineal Hygiene Devices Toileting Assistive Devices Grab Bars OT ADL-Bathing Bathing Type Bathing Type Shower General Evaluation Bathing Ability Standby Assistance Areas Needing Assistance Retrieving/Setting Up Items Devices Bathing Equipment Long Handled Sponge or Back Shoe Worker Held Shower Sprayer Shower Chair with Arms Grab Bars Comments OT Bathing Comments Pt needed min verbal cues to problem solve unfamiliar set up. Provided long bath sponge to assist pt with washing lower legs and feet. Provided education re: energy conservation, pacing and safety. M5 OT- IP IADL's Start: 04/29/18 14:25 Freq: Status: Active Protocol: Document 04/30/18 10:45 PJM (Rec: 04/30/18 13:10 PJM NRTM) OT-Instrumental Activities of Daily Living Deficits IADL Deficits Identified Deficits Home Safety Awareness Awareness of Need for Assistance at Home Good Awareness Medication Management Medication Management Comments pt states she normally manages own emds but brother can provide some supervision Money Management Money Management Caregiver Provides Supervision Money Management Comments pt working on bill paying plan with family resource counselor Meal Preparation Meal Preparation No Deficits Identified Non Emergency Services Ambulance Driver Non Emergency Services Ambulance Driver Caregiver Provides Assist Non Emergency Services Ambulance Driver Comments pt states brother will assist with boating safety officer 1x week. pt states she uses 4WW to carry laundry to laundry room in her apt complex Driving Driving Caregiver Provides Assist Concerns Identified Regarding Safety Driving Comments Pt now stating her car is not working and her brother does not want her to drive since she went up on the curb. Pt states her brother will assist with grocery shopping and transport to appts. M6 OT- IP Functional Cognition Start: 04/29/18 14:25 Freq: Status: Active Protocol: Document 04/30/18 10:45 PJM (Rec: 04/30/18 13:10 PJ [id number]) Cognitive Factors Limiting Selfcare Function Cognitive Ability Level of Alertness Alert Patient Orientation Name Age Birthday Month Date Year Day of Week Place Situation Attention Span Ability Capable of Focused Attention Capable of Sustained Attention Ability to Follow Commands Able to Follow One Step Commands Memory Description No Deficits Noted Safety Awareness No Deficits Noted Problem Solving Ability Needs Assist to Identify Solutions Cognitive Comments Cognitive Assessment Comments Pt presents with slow speed of processing today, stating she did not get much sleep then received Ativan overnight to assist with sleep. M7 OT- IP Mobility and Balance Start: 04/29/18 14:25 Freq: Status: Active Protocol: Document 04/30/18 10:45 PJM (Rec: 04/30/18 13:10 PJ [id number]) OT- Bed Mobility Assessment Rolling Type of Rolling Roll to Right Level of Assistance Independent Supine to Sit Supine to Sit Assist Independent Scooting Scooting to Edge of Bed Independent OT-Transfer Assessment Sit to and From Stand Sit to and from Stand Standby Assistance Transfers Transfer Ability Standby Assistance Technique Transfer Destination Chair Shower Stall Toilet Transfer Technique Stand Step Pivot Devices Transfer Assistive Devices Gait Belt 4 Wheeled Walker Comments Mobility Comments No loss of balance noted this session. Pt states she can sit and swivel onto her tub seat in tub shower combo at home. OT- Gait Assessment Gait Gait Assistance Required: Standby Assistance Distance (Feet) 30 Assistive Devices Assistive Device Gait Belt 4 Wheeled Walker Comments Gait Ability Comments no loss of balance noted with 4ww use in room this session. OT- Balance Assessment Sitting Balance and Reactions Static Sitting Balance Ability Good Dynamic Sitting Balance Ability Good Standing Balance and Reactions Static Standing Balance Ability Good Dynamic Standing Balance Ability Fair M9 OT- IP Assessment and Plan Start: 04/29/18 14:25 Freq: Status: Active Protocol: Document 04/30/18 10:45 PJM (Rec: 04/30/18 13:10 PJM [id number]) OT Summary Assessment and Plan Potential Rehabilitation Potential Good Summary Progress Towards Goals Safe For Discharge Goals Met Assessment Summary Pt now SBA to independent with basic self care in hospital room setting but performed tasks very slowly today, perhaps due to meds. She frequently distracts self with conversation. Pt appears to be close to or at her self care baseline and is safe to return home from OT standpoint if P.T. clears her for independent ambulation, as she lives alone. Pt would benefit from home health OT followup to ensure pt's return to independence and safety with IADLs in home setting. All acute care OT goals achieved. Frequency of Treatment Frequency Of Treatment Discharge Discharge Recommendations OT Discharge Recommendations Home Health Home Equipment Needs long bath sponge provided, recommend hand held shower hose
--- NOTE | 2018-04-30 11:33 | PC.NURSE ---
discharge: md notified of microbiology ua report. order for abx script called in to [facility]. they asked that the frequency be clarified with md, as is usually prescribed bid. clarification obtained on script. called [facility] again w/ clarification and faxed script to their pharmacy. priority boarding pass provided to patient. her brother arrived to pick her up and patient left in no s/sx's of distress after cleared by physical therapy and OT.
--- NOTE | 2018-04-30 14:12 | P.DS_ITS ---
History of Present Illness Date Patient Seen: 04/30/18 Time Patient Seen: 10:22 Chief complaint: ETOH W/D, Abd pain Narrative: Date Patient Seen: 04/28/18 Time Patient Seen: 22:33 Chief complaint: ETOH W/D, Abd pain Narrative: This is a 62-year-old female patient with a history ETOH abuse and cerebral palsy who presents to the emergency department with 3 days of epigastric pain. The patient was sent and at the recommendation of her home physical therapist. The patient had associated symptoms bowel movements looser than normal, nausea but denies fevers or chills, headaches or dizziness, cough or shortness of. The patient also has history of significant alcohol abuse which she states she drinking approximately age 38 and drink addendum more years. Patient subsequent was sober for 15 years until father when she returned back to drinking. The patient reports he does not drink daily but approximately 3 times week consuming 1 pt to 1 qt vodka. The patient has been abstinent alcohol for 5 days and is somewhat tremulous but remains alert and responsive. In the ER the patient did receive Ativan given in the the same. Under laboratory analysis the patient is found have a low platelet count with a hemoglobin of 11.3 and hematocrit 33.8 she has a white count of 6.7 and platelets 61. Lactate is negative at 1.2. On chemistries has mildly low sodium 135 borderline potassium at 3 5 with good renal function with BUN 250.9 and blood sugar of 88. Additional labs are significant for bilirubin of 2 4 AST 152 and ALT of 90. She has no loss of 259 rosales. She has undergone abdominal ultrasound which finds the liver that is normal size homogeneous exotexture to the review this consistent with severe fatty infiltrates. She has a common bile duct 5 mm and no evidence cholecystitis though the wall thickness at the upper end of normal at 3 mm. Gallbladder contains sludge and stones with no stones visualized in the duct system. The pancreas is visualized as normal. On exam the patient reports abdominal pain is improved with no further nausea. She denies shortness of breath or chest pain. Discharge Providers Date of admission: 04/28/18 18:38 Primary care physician: VICTOR HUGO Wiggins Consults: 04/29/18 00:18 Consult to Physical Therapy Evaluate & Treat Comment: Cerebral palsy, right-sided weakness Physician Instructions: Evaluate and Treat 04/29/18 00:25 Consult to Machine Tracer Routine Comment: Concerns for living environment, hygiene, at risk 04/29/18 10:14 Consult to Occupational Therapy Evaluate & Treat Comment: Physician Instructions: Evaluate and treat Discharge provider: Corey Anand DO Discharge Date: 04/30/18 Summary Discharge Diagnosis: ETOH ABUSE; EXTENSIVE COUNSELING GIVEN ETOH INDUCED PANCREATITIS; MILD; RESOLVED ETOH INDUCED FATTY LIVER DISEASE; OUTPATIENT MANAGEMENT MORBID OBESITY; COUNSELING GIVEN CHOLELITHIASIS ; OUTPATIENT MANAGEMENT HYPOKALEMIA; REPLACE ORALLY PRIOR TO DC Hospital Course: - PATIENT IS AN ADMITTED ETOH ABUSER WHO PRESENTED WITH ELEVATED LIPASE - COMMON BILE DUCT OBSTRUCTION RULED OUT THE CAUSE - SUSPECT ETOH THE CAUSE PATIENT ADMITS TO USING ETOH EXCESSIVELY - LIPASE IS IMPROVING AND PATIENT PADMA PO WELL - PATIENT GIVEN EXTENSIVE COUNSELING REGARDING ETOH ABUSE AND ITS EFFECTS ON HER HEALTH - INSTRUCTED TO SELF REFERRED TO AA OR OTHER COMM RESOURCES IF NEEDED FOR HELP Status at Discharge Functional status at discharge: independent ambulation Overall status at discharge: patient is back to baseline Time Spent with Patient Greater than 30 minutes Exam Vital Signs (past 8 hours): - 04/30/18 06:12 04/30/18 07:50 Temperature 98.3 F 97.8 F Pulse Rate 79 89 Respiratory Rate 16 18 Blood Pressure 124/74 122/68 Pulse Oximetry 94 94 Oxygen Delivery Method Room Air Oxygen Flow Rate 0 Narrative Exam Narrative: NO ACUTE DISTRESS. PATIENT IS ALERT ORIENTED X3. VITAL SIGNS STABLE HEAD ATRAUMATIC NORMOCEPHALIC NECK : SUPPLE WITHOUT ADENOPATHY NO CAROTID BRUITS EYE: EOMI, PERRLA, NORMAL CONJUNCTIVA; NO JAUNDICE CHEST: REGULAR RATE. NO RUBS. PMI IS NON DISPLACED. NO MURMURS; NORMAL S1- S2 PULMONARY: DECREASED BS OVER THE BASES. MILD BIBASILAR CRACKLES NOTED; NO INCREASED DULLNESS TO PERCUSSION ABDOMEN: SOFT. NONTENDER. NONDISTENDED. BOWEL SOUNDS ARE PRESENT IN ALL 4 QUADRANTS. NO MASS. EXTREMITIES: NO EDEMA.. NO CYANOSIS CLUBBING NOTED. NEURO: CRANIAL NERVES 2-12 GROSSLY INTACT. NO FOCAL NEUROLOGICAL DEFICIT NOTED. MSK: NORMAL RANGE OF MOTION FOR AGE. NO JOINT EFFUSION. SKIN: NORMAL FOR ETHNICITY; NO ECCHYMOSIS. NO LESION. GOOD TURGOR.; NO RASHES : NORMAL EXTERNAL GENITALIA. PSYCH : APPROPRIATE MOOD AND AFFECT. ALERT AWAKE ORIENTED X3 Objective Labs Result Diagrams: 12/28/18 04:59 04/30/18 04:59 Labs: Laboratory Results - last 24 hr 04/29/18 04/29/18 04/29/18 05:03 17:09 17:45 WBC RBC Hgb Hct MCV MCH MCHC RDW Plt Count Neut % (Auto) Lymph % (Auto) [place] % (Auto) Eos % (Auto) Baso % (Auto) Neut # (Auto) Sodium Potassium Chloride Carbon Dioxide BUN Creatinine Estimated GFR BUN/Creatinine Ratio Glucose Calcium Lipase 506 H Vitamin B12 402 Urine Color Yellow Urine Appearance Sl cloudy Urine pH 6.5 Ur Specific [place] 1.015 Urine Protein 1+ H Urine Glucose (UA) 1+ H Urine Ketones 2+ H Urine Occult Blood 3+ H Urine Nitrate Negative Urine Bilirubin 2+ H Urine Urobilinogen 4.0 H Ur Leukocyte Esterase Negative Urine RBC 30-100/hpf H Urine WBC 5-10/hpf H Ur Squamous Epith Cells 1-5 /hpf Amorphous Sediment 1+ Urine Bacteria Few (2-10) H Urine Mucus 1+ H Ur Culture Indicated? Specimen cultured Micro UA Comment Not Reportable 04/30/18 04/30/18 04:59 04:59 WBC 4.8 RBC 2.76 L Hgb 9.7 L Hct 27.9 L MCV 101.1 H MCH 35.2 H MCHC 34.8 RDW 18.1 H Plt Count 42 L Neut % (Auto) 74.7 Lymph % (Auto) 14.7 L [place] % (Auto) 9.4 Eos % (Auto) 1.0 L Baso % (Auto) 0.2 Neut # (Auto) 3600 Sodium 137 Potassium 3.0 L Chloride 100 Carbon Dioxide 26 BUN 16 Creatinine 0.60 Estimated GFR > 60.0 BUN/Creatinine Ratio 26.7 H Glucose 117 H Calcium 8.6 Lipase Vitamin B12 Urine Color Urine Appearance Urine pH Ur Specific [place] Urine Protein Urine Glucose (UA) Urine Ketones Urine Occult Blood Urine Nitrate Urine Bilirubin Urine Urobilinogen Ur Leukocyte Esterase Urine RBC Urine WBC Ur Squamous Epith Cells Amorphous Sediment Urine Bacteria Urine Mucus Ur Culture Indicated? Micro UA Comment Discharge Plan Discharge Plan Patient Disposition: Home Discharge comment: ACT PADMA CARDIAC DIET F/U WITH PCP 3-10 DAYS AVOID TOBACCO OR ETOH PRODUCTS Discharge Med Rec/Prescriptions Prescriptions: New nitrofurantoin monohyd/m-cryst 100 mg capsule 100 mg PO Q6H 10 Days Qty: 40 RF: 0 Continue gabapentin [Neurontin] 300 mg capsule 900 mg PO SEE INSTRUCTIONS Qty: 90 RF: 2 clonidine HCl 0.1 mg tablet 0.3 mg PO HS Qty: 90 RF: 2 fluoxetine 20 mg capsule 60 mg PO QDAY Qty: 90 RF: 2 trazodone 50 mg tablet 50 mg PO HS Qty: 30 RF: 2 lamotrigine [Lamictal] 100 mg tablet 150 mg PO QDAY Qty: 45 RF: 2 lisinopril-hydrochlorothiazide 10-12.5 mg Tablet 1 tab PO DAILY RF: 0 acetaminophen [Tylenol] 325 mg Capsule 650 mg PO Q6H PRN (Reason: Pain (Scale Score 1-3)) RF: 0 ibuprofen 200 mg Tablet 200 mg PO Q4-6H PRN (Reason: Pain, Mild) RF: 0 Follow up/Referrals: Alcira Petit ARNP [Primary Care Provider] - (please call & schedule a follow up appointment with your primary care provider 3-10 days from discharge ) Provider Discharge Instructions Diet: Carb-consistent/Diabetic, Low-fat and Low-cholesterol Skin/Wound/Dressing Care Report to your healthcare provider any signs of infection, such as:: chills, fever, night sweats, increased pain, unusual drainage and unusual redness Visit Report/Discharge Packet Instructions: DI for Pancreatitis, DI for Urinary Tract Infection (UTI) Visit Report Forms: Stroke Signs & Symptoms Discharge Data Primary Care Provider: Alcira Petit Attending Provider: Shayan Walsh Admit Date/Time: 04/28/18 18:38 Discharges patient from system. Discharge Date/Time: 04/30/18 11:25
== END 2018-04-30 11:25 | disposition home or self-care (01) | DRG 440 ==
LOC: ED 18:34 → AC 18:39
PROVIDERS: Hospitalist; Admitting Provider Nurse Practitioner Adult Health; Emergency Provider Emergency Medicine; Family Provider Nurse Practitioner; PCP Nurse Practitioner; Visit Provider Nurse Practitioner Adult Health
DX: K85.20 Alcohol induced acute pancreatitis without necrosis or infection (principal); E66.9 Obesity, unspecified; Z68.37 Body mass index [BMI] 37.0-37.9, adult; G80.9 Cerebral palsy, unspecified; D64.89 Other specified anemias; E87.6 Hypokalemia; D69.59 Other secondary thrombocytopenia; F10.10 Alcohol abuse, uncomplicated; K80.20 Calculus of gallbladder without cholecystitis without obstruction; I10 Essential (primary) hypertension; K70.0 Alcoholic fatty liver
CPT/HCPCS: 36415; 71045; 76700; 80048; 80053; 81001; 81003; 81015; 82607; 83690; 83735; 84145; 85025; 85610; 87077; 87086; 87186; 93005; 94640; 96361; 96374; 96375; 97116; 97161; 97165; 97535; 99283; 99285; C9113; J2060; J2270

== ENCOUNTER 2018-05-08 18:04 | Inpatient (IN) | payer MEDICARE, OTHER, SELFPAY ==
[2018-05-08] VITALS (8 sets, daily range): BP systolic 79–149; BP diastolic 32–86; PULSE 60–86; RESP 12–20; TEMP 36.3; O2SAT 94–100; BMI 37.0; BMI 37.8
--- NOTE | 2018-05-08 18:24 | ED.WEAKNESS ---
HPI - Weakness General Chief complaint: Weakness Stated complaint: burn left arm Time Seen by Provider: 05/08/18 18:18 Source: patient and family Mode of arrival: wheelchair Limitations: no limitations History of Present Illness HPI Narrative: 62-year-old female, nonsmoker with history of heavy alcohol abuse and cerebral palsy presents for evaluation of significantly worsening weakness. She has had multiple falls in the past few days and yesterday spilled hot water on her left upper arm while trying to navigate through her kitchen. Her increasing weakness has kept her wheelchair-bound for the past few days and she can no longer transfer into bed. She has had trouble with food and drink and as stated above has had multiple falls and even burn herself. She lives at home alone on [address]. She was recently admitted here for alcoholic pancreatitis and discharged home on April 30. She states she has not had an alcoholic drink since April 24. She denies fever or chills nor nausea or vomiting. She has had no chest pain or shortness of breath. She is significantly weak and states her legs will not support her anymore and she becomes quite weak with any exertion. She denies any head neck or back pain as the result of her falls MD Complaint: generalized weakness Onset (ago): day(s) Duration: constant Location: generalized Relieving factors: none Exacerbating factors: exertion Related Data Home Medications Medication Instructions Recorded Confirmed lisinopril-hydrochlorothiazide 1 tab PO DAILY 04/28/18 05/08/18 naproxen 250 mg PO BID PRN 05/08/18 05/08/18 Previous Rx's Medication Instructions Recorded clonidine HCl 0.1 mg tablet 0.3 mg PO HS #90 tab 11/02/17 gabapentin 300 mg capsule 900 mg PO SEE INSTRUCTIONS #90 cap 11/02/17 fluoxetine 20 mg capsule 60 mg PO QDAY #90 cap 03/02/18 lamotrigine 100 mg tablet 150 mg PO QDAY #45 tab 03/02/18 trazodone 50 mg tablet 50 mg PO HS #30 tab 03/02/18 Allergies Allergy/AdvReac Type Severity Reaction Status Date / Time clindamycin Allergy Mild RASH & N/V Verified 05/08/18 18:20 Review of Systems Review of Systems All systems reviewed & are unremarkable except as noted in HPI and below Constitutional Denies chills, Denies fever(s), Denies lethargy and Reports weakness Eyes Denies change in vision, Denies eye discharge, Denies irritation and Denies loss of vision ENT Ears, Nose, Mouth, and Throat: Denies change in voice, Denies neck pain and Denies sore throat Cardiovascular Denies chest pain, Denies irregular heart rhythm, Denies lightheadedness, Denies palpitations, Denies dyspnea, Denies dyspnea on exertion and Denies orthopnea Respiratory Denies cough, Denies dyspnea, Denies dyspnea on exertion and Denies wheezing Gastrointestinal Gastrointestinal: Denies abdominal pain, Denies change in bowel habits, Denies diarrhea, Denies nausea and Denies vomiting Genitourinary Denies hematuria, Denies flank pain, Denies urinary incontinence and Denies urinary urgency Musculoskeletal Denies neck pain Integumentary/Breasts Denies pruritus, Denies erythema, Denies rash and Denies wounds Comments: payne to L arm Neurologic Denies confusion, Denies loss of vision and Reports weakness Psychiatric Denies anxiety, Denies confusion, Denies depression, Denies homicidal ideation and Denies suicidal ideation Endocrine Denies palpitations Hematologic/Lymphatic Denies easy bruising Allergic/Immunologic Denies wheezing [facility] Medical History Achilles tendon injury (Acute) Cellulitis (Acute) Cerebral palsy (Acute) Flesh-eating bacteria (Acute) History of esophageal dilatation (Acute) History of esophageal stricture (Acute) Sepsis (Acute) Surgical History History of dilatation and curettage (Acute) Hx of total knee arthroplasty (Acute) Status post appendectomy Status post surgery (06/23/14) Family History: Reviewed 05/08/18 by VICTOR HUGO Gaspar Social History household members: none Smoking Status: Never smoker alcohol intake: current Exam Narrative Exam Narrative: 62-year-old female in obvious distress, obviously ill Initial Vital Signs Initial Vital Signs: Vital Signs Temperature 97.4 F L 05/08/18 18:15 Pulse Rate 75 05/08/18 18:15 Respiratory Rate 18 05/08/18 18:15 Pulse Oximetry 95 05/08/18 18:15 Const General: cooperative, well developed, in distress, disheveled and ill appearing Orientation: alert, awake, oriented x3 and not confused [facility] Head: normal to inspection Ears: hearing grossly normal bilaterally Nose: external nose normal Face and sinus: normal facial exam and dry mucous membranes Teeth and gingiva: dentition normal Eyes General: appearance normal, both eyes and all related structures Eyelids: eyelids normal Conjunctivae: conjunctivae normal Sclera: sclerae normal Pupils: PERRL EOM: EOM intact bilaterally Chest Chest: normal inspection of the chest Resp Effort & Inspection: normal respiratory effort, able to speak in complete sentences, no respiratory distress and no use of accessory muscles Auscultation: clear to auscultation bilaterally, no rales, no rhonchi and no wheezes Cardio Rate: regular rate Rhythm: regular rhythm Heart Sounds: no click, no gallops, no murmurs and no rubs Pulses: normal peripheral pulses GI Inspection: non-distended Palpation: soft, no hepatosplenomegaly, No guarding, No pulsatile mass and No tender Auscultation: normal bowel sounds Back/Spine/Pelvis Back: normal to inspection Skin Other: poor turgor, tenting superficial partial thickness payne to LUE. Ruptured bullae on dorsum of forearm. Not circumferential. In tact bullae to upper arm. TBSA 3%. Not circumferential. Neuro General: alert, oriented x3, gait normal and no focal motor deficits Speech: speech normal Psych Appearance: well kempt Mental Status: mental status grossly normal Attitude: cooperative Thought Content: normal and suicidality Judgment: judgment good Course Orders Ordered: ED Orders 05/08/18 18:32 XR chest 1V Stat 05/08/18 18:58 Urine Drug Screen, Rapid Stat 05/08/18 19:35 Complete Blood Count AUTO DIFF Stat Comprehensive Metabolic Panel Stat Ethanol (ETOH) Stat Lactate (Lactic Acid) Stat Lactate Dehydrogenase Stat Lipase Stat Magnesium Stat Procalcitonin Stat Troponin I Stat 05/08/18 21:26 EKG-12 Lead Stat 05/08/18 22:28 Consult to Dietitian, Adult Routine Consult to Pastoral Services Routine 05/08/18 22:35 Consult to Pooling Operator Routine 05/08/18 23:01 Consult to Dietitian, Adult Routine Acetaminophen (Tylenol) 650 mg PO Q6HR PRN PRN Reason: As Needed for Fever/Mild Pain Al Hydrox/Mg Hydrox/Simethicone (Maalox Plus) 30 ml PO Q6HR PRN PRN Reason: Dyspepsia Bisacodyl (Dulcolax) 10 mg RI DAILY PRN PRN Reason: Constipation Calcium Carbonate (Tums) 1,000 mg PO Q4HR PRN PRN Reason: Dyspepsia Clonidine HCl (Catapres) 0.1 mg PO BID [facility] Enoxaparin Sodium (Lovenox) 40 mg SUBCUT DAILY [facility] Fluoxetine HCl (Prozac) 60 mg PO DAILY [facility] Sodium Chloride (Normal Saline 0.9%) 1,000 mls @ 125 mls/hr IV CONT VIGNESH Last Infusion: 05/08/18 20:58 Dose: 0 mls/hr Infusion: 05/08/18 20:22 Dose: 999 mls/hr Infusion: 05/08/18 19:15 Dose: 125 mls/hr Admin: 05/08/18 18:45 Dose: 999 mls/hr Ampicillin Sodium 2,000 mg/ (Sodium Chloride) 100 mls @ 200 mls/hr IV Q6H [facility] Lamotrigine (Lamictal) 150 mg PO DAILY [facility] Magnesium Hydroxide (Milk Of Magnesia) 30 ml PO DAILY PRN PRN Reason: Constipation Morphine Sulfate (Morphine) 2 mg IV Q4HR PRN PRN Reason: Pain, Moderate (4-6) Naloxone HCl (Narcan) 0.2 mg IV Q2MIN PRN PRN Reason: Opiate Reversal Ondansetron HCl (Zofran Odt) 4 mg PO Q8HR PRN PRN Reason: Nausea And Vomiting Trazodone HCl (Desyrel) 50 mg PO BEDTIME [facility] Discontinued Medications Sodium Chloride (Normal Saline 0.9%) 1,000 mls @ 1,000 mls/hr IV BOLUS ONE Stop: 05/08/18 22:07 Last Infusion: 05/08/18 22:04 Dose: 0 mls/hr Admin: 05/08/18 21:00 Dose: 1,000 mls/hr Consultations Consultation #1: hospitalist happy to accept patient on his service Vital Signs - 8 hr 05/08/18 18:15 05/08/18 18:36 05/08/18 19:15 Temperature 97.4 F L Pulse Rate 75 80 85 Respiratory Rate 18 15 17 Blood Pressure Blood Pressure [Right Arm] 149/70 H 102/86 Pulse Oximetry 95 95 05/08/18 20:19 05/08/18 21:00 05/08/18 21:16 Temperature Pulse Rate 67 60 64 Respiratory Rate 18 12 13 Blood Pressure Blood Pressure [Right Arm] 86/32 L 83/40 L 79/39 L Pulse Oximetry 96 100 96 05/08/18 21:49 05/08/18 22:37 Temperature 97.3 F L Pulse Rate 73 86 Respiratory Rate 14 20 Blood Pressure 128/71 Blood Pressure [Right Arm] 113/52 L Pulse Oximetry 98 94 MDM - Weakness Lab Data Result diagrams: 05/08/18 19:35 05/08/18 19:35 Lab Results 05/08/18 05/08/18 05/08/18 Range/Units 18:58 19:35 19:35 WBC 11.5 H (4.5-11.0) X10^3/uL RBC 3.49 L (4.0-5.2) X10^6/uL Hgb 11.4 L (12.0-16.0) g/dL Hct 35.7 L (36-46) % MCV 102.3 H (80-100) fL MCH 32.6 (26-34) PG MCHC 31.9 (30-36) % RDW 18.2 H (11.6-14.8) % Plt Count 285 (150-400) X10^3/uL Neut % (Auto) Not Reportable Lymph % (Auto) Not Reportable [place] % (Auto) Not Reportable Eos % (Auto) Not Reportable Baso % (Auto) Not Reportable Seg Neutrophils % 58.0 (38-70) % Band Neutrophils % 8.0 H (3-7) % Lymphocytes % (Manual) 16.0 L (25-45) % Monocytes % (Manual) 16.0 H (2-11) % Eosinophils % (Manual) 2.0 (2-4) % RBC Morphology Not Reportable Anisocytosis 2+ H Macrocytosis 2+ H Sodium (137-145) mmol/L Potassium (3.4-5.1) mmol/L Chloride (98-107) mmol/L Carbon Dioxide (22-32) mmol/L BUN (7-17) mg/dL Creatinine (0.52-1.04) mg/dL Estimated GFR (>60) mL/min BUN/Creatinine Ratio (6-22) Glucose (80-110) mg/dL Lactate (0.7-2.1) mmol/L Calcium (8.4-10.2) mg/dL Magnesium (1.6-2.3) mg/dL Total Bilirubin (0.2-1.3) mg/dL AST (14-36) IU/L ALT (9-52) IU/L Alkaline Phosphatase (38-126) U/L Lactate Dehydrogenase (313-618) U/L Troponin I (0.01-0.034) ng/mL Total Protein (6.3-8.2) g/dL Albumin (3.5-5.0) g/dL Globulin (1.7-4.1) g/dL Albumin/Globulin Ratio (1.0-2.8) Lipase 168 D (23-300) U/L Procalcitonin (<0.5) ng/mL Urine Opiates Screen Negative (Negative) Ur Oxycodone Screen Negative (Negative) Urine Methadone Screen Negative (Negative) Ur Barbiturates Screen Negative (Negative) U Tricyclic Antidepress Negative (Negative) Ur Phencyclidine Scrn Negative (Negative) Ur Amphetamines Screen Negative (Negative) U Methamphetamines Scrn Negative (Negative) Ur MDMA Scrn (Ecstasy) Negative (Negative) U Benzodiazepines Scrn Positive H (Negative) Urine Cocaine Screen Negative (Negative) U Marijuana (THC) Screen Positive H (Negative) Ethyl Alcohol < 10 mg/dL 05/08/18 05/08/18 05/08/18 Range/Units 19:35 19:35 19:35 WBC (4.5-11.0) X10^3/uL RBC (4.0-5.2) X10^6/uL Hgb (12.0-16.0) g/dL Hct (36-46) % MCV (80-100) fL MCH (26-34) PG MCHC (30-36) % RDW (11.6-14.8) % Plt Count (150-400) X10^3/uL Neut % (Auto) Lymph % (Auto) [place] % (Auto) Eos % (Auto) Baso % (Auto) Seg Neutrophils % (38-70) % Band Neutrophils % (3-7) % Lymphocytes % (Manual) (25-45) % Monocytes % (Manual) (2-11) % Eosinophils % (Manual) (2-4) % RBC Morphology Anisocytosis Macrocytosis Sodium 138 (137-145) mmol/L Potassium 4.4 D (3.4-5.1) mmol/L Chloride 100 (98-107) mmol/L Carbon Dioxide 28 (22-32) mmol/L BUN 33 H (7-17) mg/dL Creatinine 1.20 H (0.52-1.04) mg/dL Estimated GFR 45.2 L (>60) mL/min BUN/Creatinine Ratio 27.5 H (6-22) Glucose 104 (80-110) mg/dL Lactate 1.5 (0.7-2.1) mmol/L Calcium 9.0 (8.4-10.2) mg/dL Magnesium (1.6-2.3) mg/dL Total Bilirubin 0.5 (0.2-1.3) mg/dL AST 40 H (14-36) IU/L ALT 58 H (9-52) IU/L Alkaline Phosphatase 196 H (38-126) U/L Lactate Dehydrogenase (313-618) U/L Troponin I < 0.012 (0.01-0.034) ng/mL Total Protein 6.0 L (6.3-8.2) g/dL Albumin 3.5 (3.5-5.0) g/dL Globulin 2.5 (1.7-4.1) g/dL Albumin/Globulin Ratio 1.4 (1.0-2.8) Lipase (23-300) U/L Procalcitonin 0.17 (<0.5) ng/mL Urine Opiates Screen (Negative) Ur Oxycodone Screen (Negative) Urine Methadone Screen (Negative) Ur Barbiturates Screen (Negative) U Tricyclic Antidepress (Negative) Ur Phencyclidine Scrn (Negative) Ur Amphetamines Screen (Negative) U Methamphetamines Scrn (Negative) Ur MDMA Scrn (Ecstasy) (Negative) U Benzodiazepines Scrn (Negative) Urine Cocaine Screen (Negative) U Marijuana (THC) Screen (Negative) Ethyl Alcohol mg/dL 05/08/18 Range/Units 19:35 WBC (4.5-11.0) X10^3/uL RBC (4.0-5.2) X10^6/uL Hgb (12.0-16.0) g/dL Hct (36-46) % MCV (80-100) fL MCH (26-34) PG MCHC (30-36) % RDW (11.6-14.8) % Plt Count (150-400) X10^3/uL Neut % (Auto) Lymph % (Auto) [place] % (Auto) Eos % (Auto) Baso % (Auto) Seg Neutrophils % (38-70) % Band Neutrophils % (3-7) % Lymphocytes % (Manual) (25-45) % Monocytes % (Manual) (2-11) % Eosinophils % (Manual) (2-4) % RBC Morphology Anisocytosis Macrocytosis Sodium (137-145) mmol/L Potassium (3.4-5.1) mmol/L Chloride (98-107) mmol/L Carbon Dioxide (22-32) mmol/L BUN (7-17) mg/dL Creatinine (0.52-1.04) mg/dL Estimated GFR (>60) mL/min BUN/Creatinine Ratio (6-22) Glucose (80-110) mg/dL Lactate (0.7-2.1) mmol/L Calcium (8.4-10.2) mg/dL Magnesium 2.2 (1.6-2.3) mg/dL Total Bilirubin (0.2-1.3) mg/dL AST (14-36) IU/L ALT (9-52) IU/L Alkaline Phosphatase (38-126) U/L Lactate Dehydrogenase 952 H (313-618) U/L Troponin I (0.01-0.034) ng/mL Total Protein (6.3-8.2) g/dL Albumin (3.5-5.0) g/dL Globulin (1.7-4.1) g/dL Albumin/Globulin Ratio (1.0-2.8) Lipase (23-300) U/L Procalcitonin (<0.5) ng/mL Urine Opiates Screen (Negative) Ur Oxycodone Screen (Negative) Urine Methadone Screen (Negative) Ur Barbiturates Screen (Negative) U Tricyclic Antidepress (Negative) Ur Phencyclidine Scrn (Negative) Ur Amphetamines Screen (Negative) U Methamphetamines Scrn (Negative) Ur MDMA Scrn (Ecstasy) (Negative) U Benzodiazepines Scrn (Negative) Urine Cocaine Screen (Negative) U Marijuana (THC) Screen (Negative) Ethyl Alcohol mg/dL Urine Dip Bedside Urine Glucose Negative Bedside Urine Bilirubin - Negative Bedside Urine Ketone - Negative Urine Specific [place] 1.015 Bedside Urine Occult Blood - Negative Bedside Urine pH 6.0 Bedside Urine Protein +/- 15 Bedside Urine Urobilinogen +/- 1mg Bedside Urine Nitrite - Negative Bedside Urine Leukocytes - Negative Esterase MDM Narrative Medical decision making narrative: 62F clearly is failing to thrive at home. She is no longer able to safely perform her ADLs. She is dehydrated and weak and has fallen multiple times. She requires fluid hydration and stabilization of her condition and will likely need placement to assisted living facility Discharge Plan Departure Patient Disposition: Admitted As Inpatient Clinical Impression: Acute dehydration, Weakness, Adult failure to thrive Discharge Date/Time: 05/08/18 22:08 Interventions: ED Discharge Assessment Last Done: 05/08/18 22:07 Admit Date/Time: 05/08/18 22:00 Admit Provider: Shayan Walsh
--- NOTE | 2018-05-08 18:32 | DI.RAD.S_ITS ---
PROCEDURE: XR CHEST 1V INDICATIONS: weakness, failure to thrive TECHNIQUE: One view of the chest was acquired. COMPARISON: [facility], CR, XR CHEST 1V, 04/29/2018, 5:51. FINDINGS: Surgical changes and devices: None. Lungs and pleura: There is interstitial prominence. No focal pulmonary opacities. There may be a small left effusion. Mediastinum: Mediastinal contours appear normal. Heart size is enlarged. Bones and chest wall: No suspicious bony lesions. Overlying soft tissues appear unremarkable. IMPRESSION: Cardiomegaly and interstitial prominence suggesting fluid overload. Dictated by: Holly Moon M.D. on 05/08/2018 at 19:02 Approved by: Holly Moon M.D. on 05/08/2018 at 19:03
[2018-05-08] MEDS: SODIUM CHLORIDE 0.9% 1,000 ML 999 ML IV (18:45)
[2018-05-08 19:18] LABS: Urine Amphetamines Negative (Negative); Urine Barbiturates Negative (Negative); Urine Benzodiazepines Positive (Negative); Urine Cocaine Negative (Negative); Urine MDMA Negative (Negative); Urine Methadone Negative (Negative); Urine Methamphetamines Negative (Negative); Urine Morphine/Opi cutoff 2000 Negative (Negative); Urine Oxycodone Negative (Negative); Urine Phencyclidine Negative (Negative); Urine Tetrahydrocannabinol Positive (Negative); Urine Tricyclic Antidepressant Negative (Negative)
--- NOTE | 2018-05-08 19:39 | PC.NURSE ---
Multiple weeping blisters on the left forearm and upper arm. The hand is bruised dorsally, patient states due to blood draws from recent hospitalization. Pulses are equal bilaterally in upper extremities. She denies numbness in the hand and can move it without issue. Patient was also seen at [facility] for cellulitis of bilateral lower extremities. She presents with bilateral compression wrappings on the lower legs which have yellow drainage seeping through. There are no visible open wounds on the lower extremities, but there is generalized erythema and puffy, non-pitting edema. She states she has been unable to transfer from her wheelchair to the toilet or bed. She has been using a hat to toilet herself in her wheelchair. She has maceration and erythema to the scarlet area and bilateral buttocks. Multiple areas of open skin is noted to the buttocks. There is some breakdown noted to the right groin area in the folds of the skin. The patient states she has been treating this with an antifungal.
--- NOTE | 2018-05-08 19:56 | ED_ITS ---
HPI - Weakness General Chief complaint: Weakness Stated complaint: burn left arm Time Seen by Provider: 05/08/18 18:18 Source: patient and family Mode of arrival: wheelchair Limitations: no limitations History of Present Illness HPI Narrative: 62-year-old female, nonsmoker with history of heavy alcohol abuse and cerebral palsy presents for evaluation of significantly worsening weakness. She has had multiple falls in the past few days and yesterday spilled hot water on her left upper arm while trying to navigate through her kitchen. Her increasing weakness has kept her wheelchair-bound for the past few days and she can no longer transfer into bed. She has had trouble with food and drink and as stated above has had multiple falls and even burn herself. She lives at home alone on [address]. She was recently admitted here for alcoholic pancreatitis and discharged home on April 30. She states she has not had an alcoholic drink since April 24. She denies fever or chills nor nausea or vomiting. She has had no chest pain or shortness of breath. She is significantly weak and states her legs will not support her anymore and she becomes quite weak with any exertion. She denies any head neck or back pain as the result of her falls MD Complaint: generalized weakness Onset (ago): day(s) Duration: constant Location: generalized Relieving factors: none Exacerbating factors: exertion Related Data Home Medications Medication Instructions Recorded Confirmed lisinopril-hydrochlorothiazide 1 tab PO DAILY 04/28/18 05/08/18 naproxen 250 mg PO BID PRN 05/08/18 05/08/18 Previous Rx's Medication Instructions Recorded clonidine HCl 0.1 mg tablet 0.3 mg PO HS #90 tab 11/02/17 gabapentin 300 mg capsule 900 mg PO SEE INSTRUCTIONS #90 cap 11/02/17 fluoxetine 20 mg capsule 60 mg PO QDAY #90 cap 03/02/18 lamotrigine 100 mg tablet 150 mg PO QDAY #45 tab 03/02/18 trazodone 50 mg tablet 50 mg PO HS #30 tab 03/02/18 Allergies Allergy/AdvReac Type Severity Reaction Status Date / Time clindamycin Allergy Mild RASH & N/V Verified 05/08/18 18:20 Review of Systems Review of Systems All systems reviewed & are unremarkable except as noted in HPI and below Constitutional Denies chills, Denies fever(s), Denies lethargy and Reports weakness Eyes Denies change in vision, Denies eye discharge, Denies irritation and Denies loss of vision ENT Ears, Nose, Mouth, and Throat: Denies change in voice, Denies neck pain and Denies sore throat Cardiovascular Denies chest pain, Denies irregular heart rhythm, Denies lightheadedness, Denies palpitations, Denies dyspnea, Denies dyspnea on exertion and Denies orthopnea Respiratory Denies cough, Denies dyspnea, Denies dyspnea on exertion and Denies wheezing Gastrointestinal Gastrointestinal: Denies abdominal pain, Denies change in bowel habits, Denies diarrhea, Denies nausea and Denies vomiting Genitourinary Denies hematuria, Denies flank pain, Denies urinary incontinence and Denies urinary urgency Musculoskeletal Denies neck pain Integumentary/Breasts Denies pruritus, Denies erythema, Denies rash and Denies wounds Comments: payne to L arm Neurologic Denies confusion, Denies loss of vision and Reports weakness Psychiatric Denies anxiety, Denies confusion, Denies depression, Denies homicidal ideation and Denies suicidal ideation Endocrine Denies palpitations Hematologic/Lymphatic Denies easy bruising Allergic/Immunologic Denies wheezing [facility] Medical History Achilles tendon injury (Acute) Cellulitis (Acute) Cerebral palsy (Acute) Flesh-eating bacteria (Acute) History of esophageal dilatation (Acute) History of esophageal stricture (Acute) Sepsis (Acute) Surgical History History of dilatation and curettage (Acute) Hx of total knee arthroplasty (Acute) Status post appendectomy Status post surgery (06/23/14) Family History: Reviewed 05/08/18 by VICTOR HUGO Gaspar Social History household members: none Smoking Status: Never smoker alcohol intake: current Exam Narrative Exam Narrative: 62-year-old female in obvious distress, obviously ill Initial Vital Signs Initial Vital Signs: Vital Signs Temperature 97.4 F L 05/08/18 18:15 Pulse Rate 75 05/08/18 18:15 Respiratory Rate 18 05/08/18 18:15 Pulse Oximetry 95 05/08/18 18:15 Const General: cooperative, well developed, in distress, disheveled and ill appearing Orientation: alert, awake, oriented x3 and not confused [facility] Head: normal to inspection Ears: hearing grossly normal bilaterally Nose: external nose normal Face and sinus: normal facial exam and dry mucous membranes Teeth and gingiva: dentition normal Eyes General: appearance normal, both eyes and all related structures Eyelids: eyelids normal Conjunctivae: conjunctivae normal Sclera: sclerae normal Pupils: PERRL EOM: EOM intact bilaterally Chest Chest: normal inspection of the chest Resp Effort & Inspection: normal respiratory effort, able to speak in complete sentences, no respiratory distress and no use of accessory muscles Auscultation: clear to auscultation bilaterally, no rales, no rhonchi and no wheezes Cardio Rate: regular rate Rhythm: regular rhythm Heart Sounds: no click, no gallops, no murmurs and no rubs Pulses: normal peripheral pulses GI Inspection: non-distended Palpation: soft, no hepatosplenomegaly, No guarding, No pulsatile mass and No tender Auscultation: normal bowel sounds Back/Spine/Pelvis Back: normal to inspection Skin Other: poor turgor, tenting superficial partial thickness payne to LUE. Ruptured bullae on dorsum of forearm. Not circumferential. In tact bullae to upper arm. TBSA 3%. Not circumferential. Neuro General: alert, oriented x3, gait normal and no focal motor deficits Speech: speech normal Psych Appearance: well kempt Mental Status: mental status grossly normal Attitude: cooperative Thought Content: normal and suicidality Judgment: judgment good Course Orders Ordered: ED Orders 05/08/18 18:32 XR chest 1V Stat 05/08/18 18:58 Urine Drug Screen, Rapid Stat 05/08/18 19:35 Complete Blood Count AUTO DIFF Stat Comprehensive Metabolic Panel Stat Ethanol (ETOH) Stat Lactate (Lactic Acid) Stat Lactate Dehydrogenase Stat Lipase Stat Magnesium Stat Procalcitonin Stat Troponin I Stat 05/08/18 21:26 EKG-12 Lead Stat 05/08/18 22:28 Consult to Dietitian, Adult Routine Consult to Pastoral Services Routine 05/08/18 22:35 Consult to Transportation Maintenance Operator Routine 05/08/18 23:01 Consult to Dietitian, Adult Routine Acetaminophen (Tylenol) 650 mg PO Q6HR PRN PRN Reason: As Needed for Fever/Mild Pain Al Hydrox/Mg Hydrox/Simethicone (Maalox Plus) 30 ml PO Q6HR PRN PRN Reason: Dyspepsia Bisacodyl (Dulcolax) 10 mg AL DAILY PRN PRN Reason: Constipation Calcium Carbonate (Tums) 1,000 mg PO Q4HR PRN PRN Reason: Dyspepsia Clonidine HCl (Catapres) 0.1 mg PO BID [facility] Enoxaparin Sodium (Lovenox) 40 mg SUBCUT DAILY [facility] Fluoxetine HCl (Prozac) 60 mg PO DAILY [facility] Sodium Chloride (Normal Saline 0.9%) 1,000 mls @ 125 mls/hr IV CONT VIGNESH Last Infusion: 05/08/18 20:58 Dose: 0 mls/hr Infusion: 05/08/18 20:22 Dose: 999 mls/hr Infusion: 05/08/18 19:15 Dose: 125 mls/hr Admin: 05/08/18 18:45 Dose: 999 mls/hr Ampicillin Sodium 2,000 mg/ (Sodium Chloride) 100 mls @ 200 mls/hr IV Q6H [facility] Lamotrigine (Lamictal) 150 mg PO DAILY [facility] Magnesium Hydroxide (Milk Of Magnesia) 30 ml PO DAILY PRN PRN Reason: Constipation Morphine Sulfate (Morphine) 2 mg IV Q4HR PRN PRN Reason: Pain, Moderate (4-6) Naloxone HCl (Narcan) 0.2 mg IV Q2MIN PRN PRN Reason: Opiate Reversal Ondansetron HCl (Zofran Odt) 4 mg PO Q8HR PRN PRN Reason: Nausea And Vomiting Trazodone HCl (Desyrel) 50 mg PO BEDTIME [facility] Discontinued Medications Sodium Chloride (Normal Saline 0.9%) 1,000 mls @ 1,000 mls/hr IV BOLUS ONE Stop: 05/08/18 22:07 Last Infusion: 05/08/18 22:04 Dose: 0 mls/hr Admin: 05/08/18 21:00 Dose: 1,000 mls/hr Consultations Consultation #1: hospitalist happy to accept patient on his service Vital Signs - 8 hr 05/08/18 18:15 05/08/18 18:36 05/08/18 19:15 Temperature 97.4 F L Pulse Rate 75 80 85 Respiratory Rate 18 15 17 Blood Pressure Blood Pressure [Right Arm] 149/70 H 102/86 Pulse Oximetry 95 95 05/08/18 20:19 05/08/18 21:00 05/08/18 21:16 Temperature Pulse Rate 67 60 64 Respiratory Rate 18 12 13 Blood Pressure Blood Pressure [Right Arm] 86/32 L 83/40 L 79/39 L Pulse Oximetry 96 100 96 05/08/18 21:49 05/08/18 22:37 Temperature 97.3 F L Pulse Rate 73 86 Respiratory Rate 14 20 Blood Pressure 128/71 Blood Pressure [Right Arm] 113/52 L Pulse Oximetry 98 94 MDM - Weakness Lab Data Result diagrams: 05/08/18 19:35 05/08/18 19:35 Lab Results 05/08/18 05/08/18 05/08/18 Range/Units 18:58 19:35 19:35 WBC 11.5 H (4.5-11.0) X10^3/uL RBC 3.49 L (4.0-5.2) X10^6/uL Hgb 11.4 L (12.0-16.0) g/dL Hct 35.7 L (36-46) % MCV 102.3 H (80-100) fL MCH 32.6 (26-34) PG MCHC 31.9 (30-36) % RDW 18.2 H (11.6-14.8) % Plt Count 285 (150-400) X10^3/uL Neut % (Auto) Not Reportable Lymph % (Auto) Not Reportable [place] % (Auto) Not Reportable Eos % (Auto) Not Reportable Baso % (Auto) Not Reportable Seg Neutrophils % 58.0 (38-70) % Band Neutrophils % 8.0 H (3-7) % Lymphocytes % (Manual) 16.0 L (25-45) % Monocytes % (Manual) 16.0 H (2-11) % Eosinophils % (Manual) 2.0 (2-4) % RBC Morphology Not Reportable Anisocytosis 2+ H Macrocytosis 2+ H Sodium (137-145) mmol/L Potassium (3.4-5.1) mmol/L Chloride (98-107) mmol/L Carbon Dioxide (22-32) mmol/L BUN (7-17) mg/dL Creatinine (0.52-1.04) mg/dL Estimated GFR (>60) mL/min BUN/Creatinine Ratio (6-22) Glucose (80-110) mg/dL Lactate (0.7-2.1) mmol/L Calcium (8.4-10.2) mg/dL Magnesium (1.6-2.3) mg/dL Total Bilirubin (0.2-1.3) mg/dL AST (14-36) IU/L ALT (9-52) IU/L Alkaline Phosphatase (38-126) U/L Lactate Dehydrogenase (313-618) U/L Troponin I (0.01-0.034) ng/mL Total Protein (6.3-8.2) g/dL Albumin (3.5-5.0) g/dL Globulin (1.7-4.1) g/dL Albumin/Globulin Ratio (1.0-2.8) Lipase 168 D (23-300) U/L Procalcitonin (<0.5) ng/mL Urine Opiates Screen Negative (Negative) Ur Oxycodone Screen Negative (Negative) Urine Methadone Screen Negative (Negative) Ur Barbiturates Screen Negative (Negative) U Tricyclic Antidepress Negative (Negative) Ur Phencyclidine Scrn Negative (Negative) Ur Amphetamines Screen Negative (Negative) U Methamphetamines Scrn Negative (Negative) Ur MDMA Scrn (Ecstasy) Negative (Negative) U Benzodiazepines Scrn Positive H (Negative) Urine Cocaine Screen Negative (Negative) U Marijuana (THC) Screen Positive H (Negative) Ethyl Alcohol < 10 mg/dL 05/08/18 05/08/18 05/08/18 Range/Units 19:35 19:35 19:35 WBC (4.5-11.0) X10^3/uL RBC (4.0-5.2) X10^6/uL Hgb (12.0-16.0) g/dL Hct (36-46) % MCV (80-100) fL MCH (26-34) PG MCHC (30-36) % RDW (11.6-14.8) % Plt Count (150-400) X10^3/uL Neut % (Auto) Lymph % (Auto) [place] % (Auto) Eos % (Auto) Baso % (Auto) Seg Neutrophils % (38-70) % Band Neutrophils % (3-7) % Lymphocytes % (Manual) (25-45) % Monocytes % (Manual) (2-11) % Eosinophils % (Manual) (2-4) % RBC Morphology Anisocytosis Macrocytosis Sodium 138 (137-145) mmol/L Potassium 4.4 D (3.4-5.1) mmol/L Chloride 100 (98-107) mmol/L Carbon Dioxide 28 (22-32) mmol/L BUN 33 H (7-17) mg/dL Creatinine 1.20 H (0.52-1.04) mg/dL Estimated GFR 45.2 L (>60) mL/min BUN/Creatinine Ratio 27.5 H (6-22) Glucose 104 (80-110) mg/dL Lactate 1.5 (0.7-2.1) mmol/L Calcium 9.0 (8.4-10.2) mg/dL Magnesium (1.6-2.3) mg/dL Total Bilirubin 0.5 (0.2-1.3) mg/dL AST 40 H (14-36) IU/L ALT 58 H (9-52) IU/L Alkaline Phosphatase 196 H (38-126) U/L Lactate Dehydrogenase (313-618) U/L Troponin I < 0.012 (0.01-0.034) ng/mL Total Protein 6.0 L (6.3-8.2) g/dL Albumin 3.5 (3.5-5.0) g/dL Globulin 2.5 (1.7-4.1) g/dL Albumin/Globulin Ratio 1.4 (1.0-2.8) Lipase (23-300) U/L Procalcitonin 0.17 (<0.5) ng/mL Urine Opiates Screen (Negative) Ur Oxycodone Screen (Negative) Urine Methadone Screen (Negative) Ur Barbiturates Screen (Negative) U Tricyclic Antidepress (Negative) Ur Phencyclidine Scrn (Negative) Ur Amphetamines Screen (Negative) U Methamphetamines Scrn (Negative) Ur MDMA Scrn (Ecstasy) (Negative) U Benzodiazepines Scrn (Negative) Urine Cocaine Screen (Negative) U Marijuana (THC) Screen (Negative) Ethyl Alcohol mg/dL 05/08/18 Range/Units 19:35 WBC (4.5-11.0) X10^3/uL RBC (4.0-5.2) X10^6/uL Hgb (12.0-16.0) g/dL Hct (36-46) % MCV (80-100) fL MCH (26-34) PG MCHC (30-36) % RDW (11.6-14.8) % Plt Count (150-400) X10^3/uL Neut % (Auto) Lymph % (Auto) [place] % (Auto) Eos % (Auto) Baso % (Auto) Seg Neutrophils % (38-70) % Band Neutrophils % (3-7) % Lymphocytes % (Manual) (25-45) % Monocytes % (Manual) (2-11) % Eosinophils % (Manual) (2-4) % RBC Morphology Anisocytosis Macrocytosis Sodium (137-145) mmol/L Potassium (3.4-5.1) mmol/L Chloride (98-107) mmol/L Carbon Dioxide (22-32) mmol/L BUN (7-17) mg/dL Creatinine (0.52-1.04) mg/dL Estimated GFR (>60) mL/min BUN/Creatinine Ratio (6-22) Glucose (80-110) mg/dL Lactate (0.7-2.1) mmol/L Calcium (8.4-10.2) mg/dL Magnesium 2.2 (1.6-2.3) mg/dL Total Bilirubin (0.2-1.3) mg/dL AST (14-36) IU/L ALT (9-52) IU/L Alkaline Phosphatase (38-126) U/L Lactate Dehydrogenase 952 H (313-618) U/L Troponin I (0.01-0.034) ng/mL Total Protein (6.3-8.2) g/dL Albumin (3.5-5.0) g/dL Globulin (1.7-4.1) g/dL Albumin/Globulin Ratio (1.0-2.8) Lipase (23-300) U/L Procalcitonin (<0.5) ng/mL Urine Opiates Screen (Negative) Ur Oxycodone Screen (Negative) Urine Methadone Screen (Negative) Ur Barbiturates Screen (Negative) U Tricyclic Antidepress (Negative) Ur Phencyclidine Scrn (Negative) Ur Amphetamines Screen (Negative) U Methamphetamines Scrn (Negative) Ur MDMA Scrn (Ecstasy) (Negative) U Benzodiazepines Scrn (Negative) Urine Cocaine Screen (Negative) U Marijuana (THC) Screen (Negative) Ethyl Alcohol mg/dL Urine Dip Bedside Urine Glucose Negative Bedside Urine Bilirubin - Negative Bedside Urine Ketone - Negative Urine Specific [place] 1.015 Bedside Urine Occult Blood - Negative Bedside Urine pH 6.0 Bedside Urine Protein +/- 15 Bedside Urine Urobilinogen +/- 1mg Bedside Urine Nitrite - Negative Bedside Urine Leukocytes - Negative Esterase MDM Narrative Medical decision making narrative: 62F clearly is failing to thrive at home. She is no longer able to safely perform her ADLs. She is dehydrated and weak and has fallen multiple times. She requires fluid hydration and stabilization of her condition and will likely need placement to assisted living facility Discharge Plan Departure Patient Disposition: Admitted As Inpatient Clinical Impression: Acute dehydration, Weakness, Adult failure to thrive Discharge Date/Time: 05/08/18 22:08 Interventions: ED Discharge Assessment Last Done: 05/08/18 22:07 Admit Date/Time: 05/08/18 22:00 Admit Provider: Shayan Walsh
[2018-05-08 20:00] LABS: Lactate (Lactic Acid) 1.5 mmol/L (0.7-2.1)
[2018-05-08 20:01] LABS: Lactate Dehydrogenase 952 U/L (313-618); Magnesium 2.2 mg/dL (1.6-2.3)
[2018-05-08 20:02] LABS: Alanine Aminotransferase 58 IU/L (9-52); Albumin 3.5 g/dL (3.5-5.0); Albumin Globulin Ratio 1.4 (1.0-2.8); Alkaline Phosphatase 196 U/L (38-126); Aspartate Aminotransferase 40 IU/L (14-36); BUN Creatinine Ratio 27.5 (6-22); Bilirubin Total 0.5 mg/dL (0.2-1.3); Blood Urea Nitrogen 33 mg/dL (7-17); Carbon Dioxide 28 mmol/L (22-32); Chloride 100 mmol/L (98-107); Estimated Glomerular Filt Rate 45.2 mL/min (>60); Globulin 2.5 g/dL (1.7-4.1); Glucose 104 mg/dL (80-110); HEMOLYSIS 23 (0-50); Potassium 4.4 mmol/L (3.4-5.1); Sodium 138 mmol/L (137-145)
[2018-05-08 20:19] LABS: Troponin I < 0.012 ng/mL (0.01-0.034)
[2018-05-08 20:22] LABS: Ethanol (ETOH) < 10 mg/dL; Lipase 168 U/L (23-300)
[2018-05-08 20:28] LABS: Procalcitonin 0.17 ng/mL (<0.5)
[2018-05-08 20:32] LABS: Hematocrit 35.7 % (36-46); Hemoglobin 11.4 g/dL (12.0-16.0); Mean Corpuscular Hemoglobin 32.6 PG (26-34); Mean Corpuscular Volume 102.3 fL (80-100); Red Blood Cell Count 3.49 X10^6/uL (4.0-5.2); Red Cell Distribution Width 18.2 % (11.6-14.8); White Blood Cell Count 11.5 X10^3/uL (4.5-11.0)
[2018-05-08 20:33] LABS: Add Manual Diff / Slide Review YES; Mean Corpuscular HGB Conc 31.9 % (30-36); Platelet Count 285 X10^3/uL (150-400)
[2018-05-08 20:42] LABS: Anisocytosis 2+; Macrocytosis 2+
[2018-05-08] MEDS: SODIUM CHLORIDE 0.9% 1,000 ML 1000 ML IV (21:00)
--- NOTE | 2018-05-08 21:28 | PC.NURSE ---
Patient blood pressure at 79/39. Fluid bolus running currently. Patient is alert and oriented. Producing urine. Cap refill less than 2seconds. Second IV started and EKG obtained, per provider.
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
[2018-05-08 23:44] LABS: Bacteria Urine None Seen; RBC Urine None Seen (0-5/HPF)
[2018-05-08 23:45] LABS: Appearance Urine UA CLEAR; Bilirubin Urine UA NEGATIVE (NEGATIVE); Color Urine UA YELLOW; Glucose Urine UA TRACE g/dL (Negative); Ketones Urine UA NEGATIVE (NEGATIVE); Leukocyte Esterase Urine UA TRACE (NEGATIVE); Nitrite Urine UA NEGATIVE (Negative); Occult Blood Urine UA NEGATIVE (Negative); Protein Urine UA NEGATIVE (Negative); Specific Gravity Urine UA 1.015 (1.000-1.035)
[2018-05-09] VITALS (13 sets, daily range): BP systolic 77–129; BP diastolic 37–66; PULSE 72–87; RESP 16–20; TEMP 36.4–36.8; O2SAT 92–97
--- NOTE | 2018-05-09 | DI.ECHO.S_ITS ---
[facility]---------+ [facility] +---------+ : : [address] : : : : [id number] : : : : Phone: [phone]+ Echocardiogram Report + + :Name: FABIEN CHEATHAM Study Date: 05/11/2018 Height: 68 in : :[facility] Exam Location: [facility] Weight: 252 lb : : Gender: Female BSA: 2.3 m2 : :: 1955 Age: 62 yrs BP: 161/81 mmHg: :Reason For Study: Cough, Cardiomeagly : :Ordering Physician: [facility] : :Hospitalist Performed By: Anayeli Nunez : :Referring: [facility] Hospitalist : + + Interpretation Summary Normal sinus rhythm. Normal LV size; mild concentric LVH; normal wall motion and LV systolic function. EF is 60-65%. No evidence of diastolic dysfunction. Severe LA enhlargement, mild RA enlargement; mild RV enlargement. Estimated PA systolic pressure is 45 mm Hg assuming RA pressure of 15 mm Hg. No pleural effusion or pericardial effusion. No prior study available for comparison. Procedure: A two-dimensional transthoracic echocardiogram with color flow and Doppler was performed. The study quality was technically adequate. There is no prior echocardiogram noted for this patient. The patient was in normal sinus rhythm during the exam. Left Ventricle: The left ventricle is normal in size. Left ventricular wall thickness is mildly increased. The ejection fraction is estimated to be 60- 65%. Right Ventricle: The right ventricle is mildly dilated. The right ventricular systolic function is normal. Atria: The left atrium is severely dilated. The right atrium is mild to moderately dilated. The interatrial septum is intact with no evidence for an atrial septal defect. Mitral Valve: The mitral valve is normal in structure and function. There is mild mitral regurgitation. There are multiple regurgitant jets present. Aortic Valve: The aortic valve is trileaflet. The aortic valve opens well. There is mild aortic regurgitation. Tricuspid Valve: The tricuspid valve is normal in structure and function. There is mild to moderate tricuspid regurgitation. The right ventricular systolic pressure is estimated to be at least 45 mmHg based on an estimated right atrial pressure of 15 mm Hg. Pulmonic Valve: The pulmonic valve is not well seen, but is grossly normal. There is a trace or physiologic amount of pulmonic regurgitation. Great Vessels: The ascending aorta is normal in size. The IVC is dilated (diameter is greater than 2.1 cm) and it collapses less than 50% with a sniff. This suggests a high right atrial pressure of 15 mm Hg. Pericardium/ Pleura There is an anterior echo-free space consistent with a fat pad. There is no pericardial effusion. There is no pleural effusion. MMode/2D Measurements & Calculations LVIDd: 4.7 cm LVOT diam: 2.0 cm LVIDs: 2.5 cm asc Aorta Diam: 3.4 cm FS: 46.1 % Ao Arch Diam (Prox Trans): 2.7 cm IVSd: 1.1 cm LVPWd: 1.1 cm LV hackett. diameter/BSA (cm/m^2): 2.1 LV sys. diameter/BSA (cm/m^2): 1.1 LA A2 area: 34.1 cm2 RA long axis: 4.6 cm LA A4 area: 35.5 cm2 RA area: 16.5 cm2 LA length (vol): 7.4 cm RA vol: 50.2 ml LA vol: 138.9 ml RA : 22.3 ml/m2 LA vol index: 61.6 ml/m2 IVC diam: 2.4 cm TAPSE: 2.4 cm Doppler Measurements & Calculations Ao V2 max: 183.5 cm/sec LVOT Max Augusto: 136.5 cm/sec Ao V2 mean: 125.7 cm/sec LV V1 max P.4 mmHg Ao max P.5 mmHg LV V1 VTI: 26.0 cm Ao mean P.1 mmHg MARIA ISABEL(I,D): 2.2 cm2 Ao V2 VTI: 39.0 cm MARIA ISABEL(V,D): 2.4 cm2 sev ratio: 0.67 MARIA ISABEL indexed to BSA (cm^2/m^2): 0.96 AI P1/2t: 383.4 msec AI dec slope: 297.2 cm/sec2 MV E max augusto: 89.6 cm/sec TR max augusto: 273.3 cm/sec MV A max augusto: 79.8 cm/sec TR max P.9 mmHg MV E/A: 1.1 PA V2 max: 97.2 cm/sec Med Peak E' Augusto: 6.9 cm/sec PA V2 mean: 71.9 cm/sec E/E' med: 12.9 PA mean P.3 mmHg Lat Peak E' Augusto: 9.5 cm/sec PA pr(Accel): 21.6 mmHg E/E' lat: 9.5 E/e' average: 11.2 MV dec time: 0.15 sec SV(LVOT): 84.6 ml Reading Physician:12:49 PM
[2018-05-09 00:32] LABS: Culture Indicated Urine Specimen Cultured; WBC Urine 0-1/HPF (0-5/HPF)
[2018-05-09] MEDS: AMPICILLIN 2,000 MG in SODIUM CHLORIDE 0.9% 100 ML 200 ML IV ×3 (00:45→11:42)
[2018-05-09] MEDS: cloNIDine 0.1 MG TABLET PO (00:46)
[2018-05-09] MEDS: TRAZODONE 50 MG TABLET PO ×2 (00:46→20:53)
[2018-05-09] MEDS: MAGNESIUM HYDROXIDE 30 ML UDC PO (01:57)
[2018-05-09 05:57] LABS: BUN Creatinine Ratio 24.5 (6-22); Blood Urea Nitrogen 27 mg/dL (7-17); Calcium 8.5 mg/dL (8.4-10.2); Carbon Dioxide 28 mmol/L (22-32); Chloride 104 mmol/L (98-107); Glucose 127 mg/dL (80-110); HEMOLYSIS < 15 (0-50); Magnesium 2.2 mg/dL (1.6-2.3); Phosphorous 3.7 mg/dL (2.8-4.1); Sodium 137 mmol/L (137-145)
[2018-05-09 06:00] LABS: B Type Natriuretic Peptide 243 (<100)
--- NOTE | 2018-05-09 06:43 | PC.NURSE ---
Hospitalist notified of BP of 77/38. States pt was fluid overloaded per ER CT, will continue to monitor, no additional orders at this time. Recheck of BP 90/37. Pt asymptomatic t/o.
[2018-05-09] MEDS: ACETAMINOPHEN 325 MG TABLET 650 MG PO (06:53)
[2018-05-09 07:18] LABS: Add Manual Diff / Slide Review NO; Basophils Percent Auto 0.5 % (0-2); Eosinophils Percent Auto 0.6 % (2-4); Hemoglobin 9.4 g/dL (12.0-16.0); Mean Corpuscular HGB Conc 33.5 % (30-36); Mean Corpuscular Hemoglobin 33.8 PG (26-34); Mean Corpuscular Volume 100.8 fL (80-100); Monocytes Percent Auto 17.2 % (3-14); Neutrophils Absolute Auto 4400 /uL (1500-7000); Neutrophils Percent Auto 66.7 % (50-75); Platelet Count 246 X10^3/uL (150-400); Red Blood Cell Count 2.78 X10^6/uL (4.0-5.2); Red Cell Distribution Width 17.7 % (11.6-14.8); White Blood Cell Count 6.6 X10^3/uL (4.5-11.0)
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
[2018-05-09] MEDS: ENOXAPARIN 40 MG/0.4 ML SYRINGE SUBCUT (09:17)
[2018-05-09] MEDS: lamoTRIgine 100 MG TABLET 150 MG PO (09:17)
[2018-05-09] MEDS: FLUoxetine 20 MG CAPSULE 60 MG PO (09:17)
[2018-05-09] MEDS: SILVER SULFADIAZINE 1% CREAM 25 GM 1 APPLIC TOP (09:18)
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
[2018-05-09] MEDS: NAPROXEN 250 MG TABLET 500 MG PO (11:45)
[2018-05-09] MEDS: SODIUM CHLORIDE 0.9% 1,000 ML 75 ML IV (14:31)
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
[2018-05-09] MEDS: AMPICILLIN/SULBACTAM 3 GM 3 GM in SODIUM CHLORIDE 0.9% 100 ML IV (17:50)
[2018-05-09] MEDS: SODIUM CHLORIDE 0.9% FLUSH 10 ML IV (20:53)
[2018-05-09] MEDS: GABAPENTIN 600 MG TABLET PO (20:53)
[2018-05-10] VITALS (10 sets, daily range): BP systolic 114–144; BP diastolic 61–80; PULSE 74–85; RESP 14–20; TEMP 36.3–36.9; O2SAT 92–96
[2018-05-10] MEDS: AMPICILLIN/SULBACTAM 3 GM 3 GM in SODIUM CHLORIDE 0.9% 100 ML IV ×2 (00:36→06:02)
[2018-05-10] MEDS: SODIUM CHLORIDE 0.9% FLUSH 10 ML IV ×3 (06:04→21:02)
[2018-05-10 06:07] LABS: Add Manual Diff / Slide Review NO; Basophils Percent Auto 0.7 % (0-2); Eosinophils Percent Auto 0.7 % (2-4); Hematocrit 28.1 % (36-46); Hemoglobin 9.4 g/dL (12.0-16.0); Lymphocytes Percent Auto 21.6 % (25-40); Mean Corpuscular HGB Conc 33.4 % (30-36); Mean Corpuscular Hemoglobin 34.1 PG (26-34); Monocytes Percent Auto 15.6 % (3-14); Neutrophils Absolute Auto 3700 /uL (1500-7000); Neutrophils Percent Auto 61.4 % (50-75); Platelet Count 244 X10^3/uL (150-400); Red Blood Cell Count 2.76 X10^6/uL (4.0-5.2); Red Cell Distribution Width 17.8 % (11.6-14.8)
[2018-05-10 06:11] LABS: Alanine Aminotransferase 44 IU/L (9-52); Albumin Globulin Ratio 1.2 (1.0-2.8); Alkaline Phosphatase 152 U/L (38-126); Aspartate Aminotransferase 29 IU/L (14-36); BUN Creatinine Ratio 21.1 (6-22); Bilirubin Total 0.5 mg/dL (0.2-1.3); Blood Urea Nitrogen 19 mg/dL (7-17); Calcium 8.7 mg/dL (8.4-10.2); Carbon Dioxide 29 mmol/L (22-32); Chloride 105 mmol/L (98-107); Estimated Glomerular Filt Rate > 60.0 mL/min (>60); Globulin 2.5 g/dL (1.7-4.1); Glucose 112 mg/dL (80-110); HEMOLYSIS < 15 (0-50); Potassium 4.1 mmol/L (3.4-5.1); Sodium 142 mmol/L (137-145); Total Protein 5.5 g/dL (6.3-8.2)
[2018-05-10 06:28] LABS: Procalcitonin < 0.05 ng/mL (<0.5)
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
[2018-05-10] MEDS: FLUoxetine 20 MG CAPSULE 60 MG PO (08:29)
[2018-05-10] MEDS: ENOXAPARIN 40 MG/0.4 ML SYRINGE SUBCUT (08:29)
[2018-05-10] MEDS: NAPROXEN 250 MG TABLET 500 MG PO ×2 (08:29→19:20)
[2018-05-10] MEDS: NYSTATIN POWDER 30 GM 1 APPLIC TOP (08:29)
[2018-05-10] MEDS: SILVER SULFADIAZINE 1% CREAM 25 GM 1 APPLIC TOP (08:30)
[2018-05-10] MEDS: lamoTRIgine 100 MG TABLET 150 MG PO (08:30)
[2018-05-10] MEDS: ALBUTEROL HFA 60 PUFF/8 GM INH INH ×2 (08:58→23:52)
--- NOTE | 2018-05-10 10:31 | PC.NURSE ---
Pt up to shower today. Reports feeling improved. Given naprozyn for chronic back pain. Cellulitus bilat LEs resolved. O2 sats = 96% on RA. Some wheezing - pt given inhaler by RT with good response. Dressing will be done once shower completed.
--- NOTE | 2018-05-10 11:29 | CM.DPC ---
Referral faxed to [facility]
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
[2018-05-10] MEDS: LISINOPRIL 10 MG TABLET PO (14:52)
[2018-05-10] MEDS: hydroCHLOROthiazide 12.5 MG CAPSULE PO (14:52)
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
--- NOTE | 2018-05-10 15:03 | CM.DPC ---
Referral faxed to [facility]
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
[2018-05-10] MEDS: FUROSEMIDE 20 MG TABLET PO (19:20)
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
[2018-05-10] MEDS: GABAPENTIN 600 MG TABLET PO (21:02)
[2018-05-10] MEDS: TRAZODONE 50 MG TABLET PO (21:02)
[2018-05-11 05:36] VITALS: BP 132/82; PULSE 79; RESP 16; TEMP 36.6; O2SAT 94
[2018-05-11 06:20] LABS: Add Manual Diff / Slide Review NO; Basophils Percent Auto 1.2 % (0-2); Eosinophils Percent Auto 1.2 % (2-4); Hematocrit 29.6 % (36-46); Mean Corpuscular Hemoglobin 34.1 PG (26-34); Mean Corpuscular Volume 100.4 fL (80-100); Monocytes Percent Auto 14.3 % (3-14); Neutrophils Absolute Auto 2800 /uL (1500-7000); Neutrophils Percent Auto 51.3 % (50-75); Platelet Count 253 X10^3/uL (150-400); Red Blood Cell Count 2.95 X10^6/uL (4.0-5.2); Red Cell Distribution Width 17.9 % (11.6-14.8); White Blood Cell Count 5.4 X10^3/uL (4.5-11.0)
[2018-05-11 06:28] LABS: Blood Urea Nitrogen 16 mg/dL (7-17); Calcium 8.9 mg/dL (8.4-10.2); Carbon Dioxide 31 mmol/L (22-32); Chloride 102 mmol/L (98-107); Estimated Glomerular Filt Rate > 60.0 mL/min (>60); Glucose 104 mg/dL (80-110); HEMOLYSIS < 15 (0-50); Sodium 140 mmol/L (137-145)
[2018-05-11 07:00] VITALS: O2SAT 96
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
[2018-05-11 08:05] VITALS: BP 161/81; PULSE 89; RESP 20; TEMP 36.7; O2SAT 97
[2018-05-11 08:06] VITALS: BP 161/81; PULSE 85
[2018-05-11] MEDS: LISINOPRIL 10 MG TABLET PO (08:06)
[2018-05-11] MEDS: ENOXAPARIN 40 MG/0.4 ML SYRINGE SUBCUT (08:06)
[2018-05-11] MEDS: FLUoxetine 20 MG CAPSULE 60 MG PO (08:09)
[2018-05-11] MEDS: NAPROXEN 250 MG TABLET 500 MG PO ×2 (08:09→14:13)
[2018-05-11] MEDS: hydroCHLOROthiazide 12.5 MG CAPSULE PO (08:09)
[2018-05-11] MEDS: lamoTRIgine 100 MG TABLET 150 MG PO (08:09)
[2018-05-11] MEDS: SILVER SULFADIAZINE 1% CREAM 25 GM 1 APPLIC TOP (08:10)
[2018-05-11] MEDS: SODIUM CHLORIDE 0.9% FLUSH 10 ML IV (08:10)
--- NOTE | 2018-05-11 11:11 | CM.DPC ---
DCP/continued: Reviewed chart. Spoke with MD in AM rounds. Patient scheduled for ECHO today at approximately 11:00am. Per MD in AM rounds patient will be medically stable for discharge today. Current plan is for patient to d/c home on [place] with HH. MD and therapy recommend home. Met with patient and she is aware and agreeable. F2F signed and completed. Order obtained for PT/OT/CALENDER MACHINE OPERATOR/RN/FILM WAXER. Asked [facility]/Naomie to call [facility] to check on HH availability on [place]. Per Naomie they can accept referral but cannot see patient until next week. MD, and patient aware and agreeable. P: Home when medically stable. Patient's brother will be providing transport and patient will need priority boarding pass. RN updated. Hopeful d/c today. Name/Number of agency provided. SERGIO Malcolm
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
[2018-05-11 13:30] VITALS: BP 133/64; PULSE 75; RESP 16; TEMP 36.6; O2SAT 97
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
--- NOTE | 2018-05-11 14:23 | CM.DPC ---
DCP/continued: Received request from RN that patient would like to meet with VOICE NETWORK ADMINISTRATOR. Met with patient earlier today to discuss d/c plan. Current recommendation for d/c plan is home with HH. Patient ambulated 50ft and has improved throughout hospitalization. Initially it was thought patient may need SNF. Patient currently does not qualify under [place] guidelines. Patient agreeable to go home with current recommendation which is HH. Orders, and [facility] faxed to [facility]. Start date expected on 05-17-18. P: Home today. Family to provide transport. Priority boarding pass will be completed for return to [place]. SERGIO Malcolm
--- NOTE | 2018-05-13 13:00 | CM.DPNOTE ---
Spoke w/ Leanne, RN at [facility] on [address]. P# [phone] ext [phone]. She explained that Tanya came home on May 11 and has been failing at home; she feels Tanya requires a [facility] facility to manage her needs and Tanya agrees. Reviewed chart, confirmed that Tanya had been admitted for 3 nights, during her recent admission, and encouraged Leanne to coordinate w/one of the Shelter Facilities, w/the provider's orders, utilizing Tanya's Med A coverage. Verbally gave SNF contact information from the Medicare SNF choice list and Leanne appreciative. SERGIO Herrera
--- NOTE | 2018-05-14 09:13 | CM.DPNOTE ---
MELISSA from [facility], provided DC date and dispo per request. JW
--- NOTE | 2018-05-14 09:56 | CM.DPC ---
Faxed AIRPORT MAINTENANCE CHIEF notes to Valeria [place] @[facility] [phone] for SNF auth/denial
== END 2018-05-11 15:40 | disposition home or self-care (01) | DRG 641 ==
LOC: ED 21:41 → AC 22:01
PROVIDERS: Internal Medicine; Admitting Provider Nurse Practitioner Adult Health; Emergency Provider Emergency Medicine; Family Provider Nurse Practitioner; PCP Nurse Practitioner; Visit Provider Nurse Practitioner Adult Health
DX: E86.0 Dehydration (principal); N17.9 Acute kidney failure, unspecified; K86.1 Other chronic pancreatitis; I13.0 Hypertensive heart and chronic kidney disease with heart failure and stage 1 through stage 4 chronic kidney disease, or unspecified chronic kidney disease; I50.30 Unspecified diastolic (congestive) heart failure; I95.9 Hypotension, unspecified; T31.0 Burns involving less than 10% of body surface; T22.212A Burn of second degree of left forearm, initial encounter; R07.9 Chest pain, unspecified; F10.10 Alcohol abuse, uncomplicated; N18.3 Chronic kidney disease, stage 3 (moderate); B37.2 Candidiasis of skin and nail
CPT/HCPCS: 36415; 51701; 71045; 80048; 80053; 80305; 80320; 81001; 81003; 83605; 83615; 83690; 83735; 83880; 84100; 84145; 84484; 85025; 87086; 93005; 93306; 94640; 96360; 96361; 97110; 97116; 97127; 97162; 97165; 97530; 97535; 99284; 99285; J0290; J0295; J1650

== ENCOUNTER → 2018-05-17 07:08 | Outpatient (REF) | payer OTHER, SELFPAY ==
[2018-05-08 22:22] VITALS: BMI 37.8
[2018-05-17 08:38] LABS: BUN Creatinine Ratio 13.1 (6-22); Blood Urea Nitrogen 17 mg/dL (7-17); Calcium 9.3 mg/dL (8.4-10.2); Carbon Dioxide 25 mmol/L (22-32); Chloride 104 mmol/L (98-107); Estimated Glomerular Filt Rate 41.2 mL/min (>60); Glucose 94 mg/dL (80-110); HEMOLYSIS < 15 (0-50); Potassium 4.3 mmol/L (3.4-5.1); Sodium 140 mmol/L (137-145)
[2018-05-17 08:42] LABS: Add Manual Diff / Slide Review NO; Basophils Absolute Auto 100 /uL (0-100); Basophils Percent Auto 1.2 % (0-2); Eosinophils Absolute Auto 100 /uL (0-450); Eosinophils Percent Auto 1.5 % (2-4); Hematocrit 31.8 % (36-46); Hemoglobin 10.2 g/dL (12.0-16.0); Lymphocytes Absolute Auto 1600 /uL (1100-4500); Lymphocytes Percent Auto 21.3 % (25-40); Mean Corpuscular HGB Conc 32.2 % (30-36); Mean Corpuscular Hemoglobin 32.7 PG (26-34); Mean Corpuscular Volume 101.6 fL (80-100); Monocytes Absolute Auto 1100 /uL (0-900); Monocytes Percent Auto 14.3 % (3-14); Neutrophils Absolute Auto 4500 /uL (1500-7000); Neutrophils Percent Auto 61.7 % (50-75); Platelet Count 258 X10^3/uL (150-400); Red Blood Cell Count 3.13 X10^6/uL (4.0-5.2); Red Cell Distribution Width 17.4 % (11.6-14.8); White Blood Cell Count 7.4 X10^3/uL (4.5-11.0)
== END ==
LOC: LAB 07:08
PROVIDERS: Family Provider Nurse Practitioner; PCP Nurse Practitioner; Visit Provider Hospitalist
DX: G80.9 Cerebral palsy, unspecified (principal); Z91.81 History of falling
CPT/HCPCS: 36415; 80048; 85025

== ENCOUNTER → 2018-05-18 14:42 | Outpatient (CLI) | payer OTHER, SELFPAY ==
[2018-05-08 22:22] VITALS: BMI 37.8
== END ==
PROVIDERS: Family Provider Nurse Practitioner; PCP Nurse Practitioner; Visit Provider Family Medicine

== ENCOUNTER → 2018-05-21 13:03 | Outpatient (CLI) | payer OTHER, SELFPAY ==
[2018-05-08 22:22] VITALS: BMI 37.8
== END ==
PROVIDERS: Family Provider Nurse Practitioner Family; PCP Nurse Practitioner Family; Visit Provider Family Medicine
DX: T22.312A Burn of third degree of left forearm, initial encounter (principal)
CPT/HCPCS: 16020; 99203; 99211

== ENCOUNTER → 2018-05-26 09:38 | Outpatient (CLI) | payer OTHER, SELFPAY ==
[2018-05-08 22:22] VITALS: BMI 37.8
== END ==
PROVIDERS: Family Provider Nurse Practitioner Family; PCP Nurse Practitioner Family; Visit Provider Family Medicine
DX: T22.312A Burn of third degree of left forearm, initial encounter (principal); T31.0 Burns involving less than 10% of body surface
CPT/HCPCS: 16020

== ENCOUNTER → 2018-06-02 08:54 | Outpatient (CLI) | payer OTHER, SELFPAY ==
[2018-05-08 22:22] VITALS: BMI 37.8
== END ==
PROVIDERS: Family Provider Nurse Practitioner Family; PCP Nurse Practitioner Family; Visit Provider Family Medicine
DX: T22.312A Burn of third degree of left forearm, initial encounter (principal)
CPT/HCPCS: 16020; 87070; 87075; 87077; 87186; 87205

== ENCOUNTER → 2018-06-09 08:48 | Outpatient (CLI) | payer OTHER, SELFPAY ==
[2018-05-08 22:22] VITALS: BMI 37.8
== END ==
PROVIDERS: Family Provider Nurse Practitioner Family; PCP Nurse Practitioner Family; Visit Provider Family Medicine
DX: T23.312A Burn of third degree of left thumb (nail), initial encounter (principal)
CPT/HCPCS: 16020

== ENCOUNTER → 2018-07-05 08:34 | Outpatient (CLI) | payer OTHER, SELFPAY ==
[2018-05-08 22:22] VITALS: BMI 37.8
== END ==
PROVIDERS: Family Provider Nurse Practitioner Family; PCP Nurse Practitioner Family; Visit Provider Family Medicine
DX: T22.312A Burn of third degree of left forearm, initial encounter (principal)
CPT/HCPCS: 16020

== ENCOUNTER → 2018-07-13 08:33 | Outpatient (CLI) | payer OTHER, SELFPAY ==
[2018-05-08 22:22] VITALS: BMI 37.8
== END ==
PROVIDERS: Family Provider Nurse Practitioner Family; PCP Nurse Practitioner Family; Visit Provider Family Medicine
DX: T22.312A Burn of third degree of left forearm, initial encounter (principal)
CPT/HCPCS: 16020

== ENCOUNTER 2019-07-01 17:56 | Emergency (ER) | payer MEDICARE, SELFPAY ==
[2018-05-08 22:22] VITALS: BMI 37.8
--- NOTE | 2019-07-01 18:00 | DI.US.S_ITS ---
PROCEDURE: US PERIPH VENOUS LOW EXTREM RT INDICATIONS: RT LEG SWELLING TECHNIQUE: Real-time imaging, as well as color and pulse Doppler interrogation, were performed of the lower extremity deep veins from the inguinal ligament to the popliteal fossa. COMPARISON: None. FINDINGS: The common femoral, femoral and popliteal veins are normally compressible, and free of intraluminal thrombus. Color and pulse Doppler demonstrate normal phasic intraluminal flow. There is normal augmentation response to distal compression maneuver. IMPRESSION: No deep venous thrombosis. Dictated by: Char Rosado M.D. on 07/01/2019 at 19:09 Approved by: Char Rosado M.D. on 07/01/2019 at 19:10
[2019-07-01 18:24] VITALS: BMI 36.3
[2019-07-01 20:00] LABS: Hemoglobin 12.4 g/dL (12.0-16.0); White Blood Cell Count 8.3 X10^3/uL (4.5-11.0)
[2019-07-01 20:03] LABS: Hematocrit 38.1 % (36-46); Mean Corpuscular HGB Conc 32.6 % (30-36); Mean Corpuscular Hemoglobin 32.7 PG (26-34); Mean Corpuscular Volume 100.2 fL (80-100); Platelet Count 238 X10^3/uL (150-400); Red Blood Cell Count 3.81 X10^6/uL (4.0-5.2); Red Cell Distribution Width 17.6 % (11.6-14.8)
[2019-07-01 20:06] LABS: INR 0.9 (0.9-1.3); Prothrombin Time 10.2 SECONDS (10.1-12.7)
[2019-07-01 20:09] LABS: Add Manual Diff / Slide Review YES; D Dimer 505 ng/mL (<230); PTT Partial Thromboplastin Tim 26 SECONDS (26.4-36.2)
[2019-07-01 20:18] LABS: BUN Creatinine Ratio 21.4 (6-22); Blood Urea Nitrogen 15 mg/dL (7-17); Calcium 9.2 mg/dL (8.4-10.2); Carbon Dioxide 37 mmol/L (22-32); Chloride 96 mmol/L (98-107); Estimated Glomerular Filt Rate > 60.0 mL/min (>60); Glucose 116 mg/dL (80-110); HEMOLYSIS < 15 (0-50); Potassium 3.1 mmol/L (3.4-5.1); Sodium 139 mmol/L (137-145)
[2019-07-01 20:27] LABS: NT-proBNP (BNP-Adult 18+) 668 pg/mL (<125)
[2019-07-01 20:31] LABS: Neutrophils Absolute Manual 6142 /uL (3000-5900); Total Cells Counted 100
[2019-07-01 20:32] LABS: Macrocytosis 1+
[2019-07-01] MEDS: POTASSIUM CHLORIDE 20 MEQ TAB 40 MEQ PO (21:00)
--- NOTE | 2019-07-01 21:18 | ED.EXTPRO ---
HPI - Extremity Problem <VICTOR HUGO Ghosh - Last Filed: 07/01/19 23:42> General Chief complaint: Extremity Problem,Nontraumatic Stated complaint: right leg swelling, thinks blood clot Time Seen by Provider: 07/01/19 17:59 Source: patient Mode of arrival: Family Vehicle Limitations: physical limitation (uses w/c for mobility) History of Present Illness HPI Narrative: This is a 63 year female, who presents to ED from [place] after she was referred by her PCP, SABINO Peters for evaluation of right foot and leg swelling. Patient states she was hospitalized for alcohol related pancreatitis at [facility] for 5 days since last week Thursday and discharged to home 2 days ago. Patient denies chest pain, breathing difficulty, fainting episodes. She has a history of CP but noticed increased weakness, paresthesia and also swelling to her legs much worse in right side. She has been using wheelchair for mobility. Since she was discharged to home, patient has home healthcare nurse visiting and also home health physical therapy and occupational therapy services. Patient denies injury to affected leg. Patient denies history of heart failure but reports hypertension, asthma. Patient arrived to [facility] ED transportation arranged by [facility]. Related Data Home Medications Medication Instructions Recorded Confirmed lisinopril-hydrochlorothiazide 1 tab PO DAILY 04/28/18 05/08/18 naproxen 250 mg PO BID PRN 05/08/18 05/08/18 albuterol sulfate 2 puff INHALATION Q4H PRN 05/09/18 05/09/18 Previous Rx's Medication Instructions Recorded clonidine HCl 0.1 mg tablet 0.3 mg PO HS #90 tab 11/02/17 gabapentin 300 mg capsule 900 mg PO SEE INSTRUCTIONS #90 cap 11/02/17 fluoxetine 20 mg capsule 60 mg PO QDAY #90 cap 03/02/18 lamotrigine 100 mg tablet 150 mg PO QDAY #45 tab 03/02/18 trazodone 50 mg tablet 50 mg PO HS #30 tab 03/02/18 gabapentin [Neurontin] 600 mg PO BEDTIME #30 tab 05/11/18 hydrochlorothiazide 12.5 mg PO DAILY #30 cap 05/11/18 lisinopril 10 mg PO DAILY #30 tab 05/11/18 nystatin 1 applictn TOP BID #30 gram 05/11/18 silver sulfadiazine [Silvadene] 1 applictn TOP DAILY #20 gram 05/11/18 furosemide 20 mg PO DAILY #3 tab 07/01/19 potassium chloride 20 meq PO DAILY 3 Days #3 tab 07/01/19 Allergies Allergy/AdvReac Type Severity Reaction Status Date / Time clindamycin Allergy Mild RASH & N/V Verified 05/08/18 18:20 Review of Systems <OLGA GhoshP - Last Filed: 07/01/19 23:42> Review of Systems Narrative: General: Denies fever, chills, (+) fatigue, malaise, sweats. HEENT: Denies sinus pain, ear pain, sore throat, difficulty swallowing, dizziness. Respiratory: Denies dyspnea, cough, wheezing, hemoptysis, sputum. Cardiovascular: Denies chest pain, palpitations, orthopnea, edema. Gastrointestinal: Denies nausea, vomiting, abdominal pain, diarrhea, constipation, melena. : Denies dysuria, frequency, incontinence, hematuria, urinary retention. Musculoskeletal: See HPI Skin: Denies rash, skin lesions, or other. Neurologic: Denies weakness, headache, numbness, change in speech, confusion, seizures, incoordination. Psychiatric: No concerning psychosocial issues. 12-point review of systems is negative except for those stated above. Patient History <Spencer Calvo [employer] - Last Filed: 07/01/19 23:42> Social History household members: none Smoking Status: Never smoker alcohol intake: current Smoking Status: Never smoker alcohol intake frequency: other Substance Use Type: does not use Exam <Spencer [place] [facility] - Last Filed: 07/01/19 23:42> Narrative Exam Narrative: GEN: Alert, oriented x 3, well appearing and nourished, and in no acute distress. Head: Normal cephalic, atraumatic. No scalp or temporal tenderness, palpable mass or rash. EYES: Pupils are equal, round, and reactive to light and accommodation. Extraocular muscles are intact bilaterally. There is no subconjunctival hemorrhage, exudate and sclera non-icteric. ENT: Bilateral auditory canals and tympanic membranes clear. Hearing grossly intact. Nose without bleeding, purulent discharge or deviation. Facial sinuses nontender to palpate. Mucous membrane moist, no mucosal lesion. Throat without erythema, tonsillar hypertrophy or exudate. Uvula in midline, airway patent. Neck: Trachea in midline. No JVD, non-tender without lymphadenopathy. No masses or thyroid megaly. Supple, non-tender and no meningeal signs. CARDIAC: Normal regular rate and rhythm without murmurs, gallops, or rubs. No chest wall tenderness. No peripheral edema, cyanosis or pallor. Capillary refill is less than 2 seconds. RESPIRATORY: Lungs are clear to auscultate bilaterally. No cough, wheezes, rales, or rhonchi. No stridor, respiratory distress, increase work of breathing, or accessary muscle used. ABD: Abdomen soft, nontender and non-distended. No guarding or rebound tenderness to palpate. Bowel sounds are normal in all 4 quadrants. There is no palpable masses or organomegaly. SKIN: Warm, dry, normal color for patient. No erythema, lesions or rash over visible areas. BACK: Nontender without deformity or crepitance. No flank tenderness. NEUROLOGICAL: Alert and oriented to place, time and person. Sensation and motor function intact bilaterally. No facial droops, dysphasia. PSYCHIATRIC: Good judgement and reason, without hallucinations, abnormal affect or abnormal behaviors during the examination. Patient is not suicidal. Initial Vital Signs Initial Vital Signs: Vital Signs Pulse Rate 81 07/01/19 22:21 Respiratory Rate 20 07/01/19 22:21 Blood Pressure 153/73 H 07/01/19 22:21 Pulse Oximetry 98 07/01/19 22:21 Extrem Right lower extremity: knee Details: normal to inspection and normal ROM; no tenderness, lower leg Details: pitting edema Details: 2+; no erythema, no tenderness, no abrasions, no lacerations, no ecchymosis, no deformity and no unusual warmth, ankle Details: abnormal to inspection and edema; no unusual warmth and no ecchymosis and foot Details: abnormal to inspection Details: pallor; no cyanosis and not erythematous, toes with normal ROM, edema Location: of the dorsal foot (3+), vascular exam Details: dorsalis pedis pulse present (faint), tendon exam and motor-sensory exam Details: light-touch normal; no tenderness, no unusual warmth, no abrasion, no laceration, no ecchymosis and no crepitus Left lower extremity: knee Details: swelling; no tenderness and no unusual warmth, lower leg Details: no erythema, no tenderness and no unusual warmth, ankle and foot Details: normal to inspection, edema Location: of the dorsal foot, vascular exam Details: normal capillary refill and motor-sensory exam Details: light-touch normal; no tenderness, ROM of toes abnormal, no unusual warmth, no abrasions, no lacerations, no ecchymosis and no crepitus <Margarita Swift DO - Last Filed: 07/02/19 06:17> Initial Vital Signs Initial Vital Signs: Vital Signs Pulse Rate 81 07/01/19 22:21 Respiratory Rate 20 07/01/19 22:21 Blood Pressure 153/73 H 07/01/19 22:21 Pulse Oximetry 98 07/01/19 22:21 <Lukasz Escobar DO - Last Filed: 07/02/19 07:04> Initial Vital Signs Initial Vital Signs: Vital Signs Pulse Rate 81 07/01/19 22:21 Respiratory Rate 20 07/01/19 22:21 Blood Pressure 153/73 H 07/01/19 22:21 Pulse Oximetry 98 07/01/19 22:21 Scores <VICTOR HUGO Ghosh - Last Filed: 07/01/19 23:42> GCS [place] coma scale eye opening: Spontaneous [place] coma scale verbal response: Orientated [place] coma scale motor response: Obey commands [place] coma scale total score: 15 Wells' Criteria for DVT Active Cancer (Treatment within 6 months): No Bedridden recently >3 days or major surgery within 4 weeks: Yes Calf Swelling >3cm compared to other leg: No Collateral (nonvericose) superficial veins present: No Entire leg swollen: Yes Localized tenderness along the deep vein system: No Pitting edema, confined to symtomatic leg: Yes Paralysis, paresis, or recent plaster immobilization of ext: Yes Previously documented DVT: No Alternative dx to DVT as likely or more likely: Yes Wells' criteria for DVT: 2 Course <VICTOR HUGO Ghosh - Last Filed: 07/01/19 23:42> Orders Ordered: ED Orders 07/02/19 06:47 Electrolytes Stat Albuterol (Ventolin) 2.5 mg INH [id number] PRN PRN Reason: Shortness Of Breath Fluoxetine HCl (Prozac) 60 mg PO NOW ONE Stop: 07/02/19 09:01 Furosemide (Lasix) 20 mg PO NOW ONE Stop: 07/02/19 09:01 Gabapentin (Neurontin) 300 mg PO BID VIGNESH Hydrochlorothiazide (Hydrochlorothiazide) 12.5 mg PO NOW ONE Stop: 07/02/19 09:01 Lisinopril (Zestril) 10 mg PO NOW ONE Stop: 07/02/19 09:01 Montelukast Sodium (Singulair) 10 mg PO DAILY VIGNESH Potassium Chloride (Klor-Con M20) 20 meq PO DAILYCC VIGNESH Trazodone HCl (Desyrel) 50 mg PO BEDTIME VIGNESH Last Admin: 07/01/19 22:59 Dose: 50 mg Documented by: MYLENE Discontinued Medications Furosemide (Lasix) 20 mg PO NOW ONE Stop: 07/02/19 06:48 Gabapentin (Neurontin) 600 mg PO NOW ONE Stop: 07/01/19 21:44 Last Admin: 07/01/19 22:59 Dose: 600 mg Documented by: MYLENE Lamotrigine (Lamictal) 100 mg PO NOW ONE Stop: 07/01/19 21:38 Last Admin: 07/01/19 22:58 Dose: 100 mg Documented by: MYLENE Potassium Chloride (Klor-Con M20) 40 meq PO NOW ONE Stop: 07/01/19 20:29 Last Admin: 07/01/19 21:00 Dose: 40 meq Documented by: MYLENE Vital Signs Vital signs: Vital Signs - 8 hr 07/02/19 06:26 Pulse Rate 80 Respiratory Rate 18 Blood Pressure [Left Arm] 155/73 H Pulse Oximetry 98 <Margarita Swift, - Last Filed: 07/02/19 06:17> Orders Ordered: ED Orders 07/02/19 06:47 Electrolytes Stat Albuterol (Ventolin) 2.5 mg INH [id number] PRN PRN Reason: Shortness Of Breath Fluoxetine HCl (Prozac) 60 mg PO NOW ONE Stop: 07/02/19 09:01 Furosemide (Lasix) 20 mg PO NOW ONE Stop: 07/02/19 09:01 Gabapentin (Neurontin) 300 mg PO BID VIGNESH Hydrochlorothiazide (Hydrochlorothiazide) 12.5 mg PO NOW ONE Stop: 07/02/19 09:01 Lisinopril (Zestril) 10 mg PO NOW ONE Stop: 07/02/19 09:01 Montelukast Sodium (Singulair) 10 mg PO DAILY VIGNESH Potassium Chloride (Klor-Con M20) 20 meq PO DAILYCC VIGNESH Trazodone HCl (Desyrel) 50 mg PO BEDTIME VIGNESH Last Admin: 07/01/19 22:59 Dose: 50 mg Documented by: MYLENE Discontinued Medications Furosemide (Lasix) 20 mg PO NOW ONE Stop: 07/02/19 06:48 Gabapentin (Neurontin) 600 mg PO NOW ONE Stop: 07/01/19 21:44 Last Admin: 07/01/19 22:59 Dose: 600 mg Documented by: MYLENE Lamotrigine (Lamictal) 100 mg PO NOW ONE Stop: 07/01/19 21:38 Last Admin: 07/01/19 22:58 Dose: 100 mg Documented by: MYLENE Potassium Chloride (Klor-Con M20) 40 meq PO NOW ONE Stop: 07/01/19 20:29 Last Admin: 07/01/19 21:00 Dose: 40 meq Documented by: MYLENE Vital Signs Vital signs: Vital Signs - 8 hr 07/02/19 06:26 Pulse Rate 80 Respiratory Rate 18 Blood Pressure [Left Arm] 155/73 H Pulse Oximetry 98 <Lukasz Escobar DO - Last Filed: 07/02/19 07:04> Orders Ordered: ED Orders 07/02/19 06:47 Electrolytes Stat Albuterol (Ventolin) 2.5 mg INH [id number] PRN PRN Reason: Shortness Of Breath Fluoxetine HCl (Prozac) 60 mg PO NOW ONE Stop: 07/02/19 09:01 Furosemide (Lasix) 20 mg PO NOW ONE Stop: 07/02/19 09:01 Gabapentin (Neurontin) 300 mg PO BID VIGNESH Hydrochlorothiazide (Hydrochlorothiazide) 12.5 mg PO NOW ONE Stop: 07/02/19 09:01 Lisinopril (Zestril) 10 mg PO NOW ONE Stop: 07/02/19 09:01 Montelukast Sodium (Singulair) 10 mg PO DAILY VIGNESH Potassium Chloride (Klor-Con M20) 20 meq PO DAILYCC VIGNESH Trazodone HCl (Desyrel) 50 mg PO BEDTIME VIGNESH Last Admin: 07/01/19 22:59 Dose: 50 mg Documented by: MYLENE Discontinued Medications Furosemide (Lasix) 20 mg PO NOW ONE Stop: 07/02/19 06:48 Gabapentin (Neurontin) 600 mg PO NOW ONE Stop: 07/01/19 21:44 Last Admin: 07/01/19 22:59 Dose: 600 mg Documented by: MYLENE Lamotrigine (Lamictal) 100 mg PO NOW ONE Stop: 07/01/19 21:38 Last Admin: 07/01/19 22:58 Dose: 100 mg Documented by: MYLENE Potassium Chloride (Klor-Con M20) 40 meq PO NOW ONE Stop: 07/01/19 20:29 Last Admin: 07/01/19 21:00 Dose: 40 meq Documented by: MYLENE Vital Signs Vital signs: Vital Signs - 8 hr 07/02/19 06:26 Pulse Rate 80 Respiratory Rate 18 Blood Pressure [Left Arm] 155/73 H Pulse Oximetry 98 MDM - Extremity (Nontraumatic) <VICTOR HUGO Ghosh - Last Filed: 07/01/19 23:42> Differential Diagnosis Differential diagnosis: Likely cellulitis, lower extremity edema, deep vein thrombosis of lower extremity and other (Heart failure, fluid overload) Medical Records Attestation: I reviewed the patient's medical records. Lab Data Attestation: I reviewed the patient's lab results. Result diagrams: 07/01/19 19:52 07/01/19 19:52 Labs: Lab Results 07/01/19 07/01/19 07/01/19 Range/Units 19:52 19:52 19:52 WBC 8.3 (4.5-11.0) X10^3/uL RBC 3.81 L (4.0-5.2) X10^6/uL Hgb 12.4 (12.0-16.0) g/dL Hct 38.1 (36-46) % MCV 100.2 H (80-100) fL MCH 32.7 (26-34) PG MCHC 32.6 (30-36) % RDW 17.6 H (11.6-14.8) % Plt Count 238 (150-400) X10^3/uL Neut % (Auto) Not Reportable Lymph % (Auto) Not Reportable [place] % (Auto) Not Reportable Eos % (Auto) Not Reportable Baso % (Auto) Not Reportable Lymph # (Auto) Not Reportable [place] # (Auto) Not Reportable Baso # (Auto) Not Reportable Total Counted 100 Seg Neutrophils % 73.0 H (38-70) % Band Neutrophils % 1.0 L (3-7) % Lymphocytes % (Manual) 19.0 L (25-45) % Monocytes % (Manual) 7.0 (2-11) % Neutrophils # (Manual) 6142 H (2112-4302) /uL RBC Morphology See below Macrocytosis 1+ H PT 10.2 (10.1-12.7) SECONDS INR 0.9 (0.9-1.3) APTT 26 L (26.4-36.2) SECONDS D-Dimer 505 H (<230) ng/mL Sodium 139 (137-145) mmol/L Potassium 3.1 L (3.4-5.1) mmol/L Chloride 96 L (98-107) mmol/L Carbon Dioxide 37 H (22-32) mmol/L BUN 15 (7-17) mg/dL Creatinine 0.70 (0.52-1.04) mg/dL Estimated GFR > 60.0 (>60) mL/min BUN/Creatinine Ratio 21.4 (6-22) Glucose 116 H (80-110) mg/dL Calcium 9.2 (8.4-10.2) mg/dL NT-Pro-B Natriuret Pep (<125) pg/mL 07/01/19 Range/Units 19:52 WBC (4.5-11.0) X10^3/uL RBC (4.0-5.2) X10^6/uL Hgb (12.0-16.0) g/dL Hct (36-46) % MCV (80-100) fL MCH (26-34) PG MCHC (30-36) % RDW (11.6-14.8) % Plt Count (150-400) X10^3/uL Neut % (Auto) Lymph % (Auto) [place] % (Auto) Eos % (Auto) Baso % (Auto) Lymph # (Auto) [place] # (Auto) Baso # (Auto) Total Counted Seg Neutrophils % (38-70) % Band Neutrophils % (3-7) % Lymphocytes % (Manual) (25-45) % Monocytes % (Manual) (2-11) % Neutrophils # (Manual) (2939-2991) /uL RBC Morphology Macrocytosis PT (10.1-12.7) SECONDS INR (0.9-1.3) APTT (26.4-36.2) SECONDS D-Dimer (<230) ng/mL Sodium (137-145) mmol/L Potassium (3.4-5.1) mmol/L Chloride (98-107) mmol/L Carbon Dioxide (22-32) mmol/L BUN (7-17) mg/dL Creatinine (0.52-1.04) mg/dL Estimated GFR (>60) mL/min BUN/Creatinine Ratio (6-22) Glucose (80-110) mg/dL Calcium (8.4-10.2) mg/dL NT-Pro-B Natriuret Pep 668 H (<125) pg/mL Imaging Data US - DVT: Radiologist's Impression: [place] [address] Ultrasound Report Signed Patient: Tanya Qiu [facility]#: [id number] : 4Acct:[id number] Age/Sex: 63 / FDate of Service: 07/01/19 Loc: ED Accession Number: [id number] Procedure: US periph venous low extrem rt Ordering Provider: Humble Tanner D.O. PROCEDURE: US PERIPH VENOUS LOW EXTREM RT INDICATIONS: RT LEG SWELLING TECHNIQUE: Real-time imaging, as well as color and pulse Doppler interrogation, were performed of the lower extremity deep veins from the inguinal ligament to the popliteal fossa. COMPARISON: None. FINDINGS: The common femoral, femoral and popliteal veins are normally compressible, and free of intraluminal thrombus. Color and pulse Doppler demonstrate normal phasic intraluminal flow. There is normal augmentation response to distal compression maneuver. IMPRESSION: No deep venous thrombosis. Dictated by: Char Rosado M.D. on 07/01/2019 at 19:09 Approved by: Char Rosado M.D. on 07/01/2019 at 19:10 [facility] Narrative Medical decision making narrative: This is a 63-year-old female who presents to ED from [place] after she was referred by her PCP for an evaluation of non-traumatic right leg swelling and to rule out DVT. Patient was recently hospitalized for 5 days at [facility] for alcohol related pancreatitis. Patient also has cerebral palsy and has weak lower extremities this became worse with some paresthesia. Significant swelling to right foot w/o redness, warmth to palpate in lower extremity. Although patient reports no history of heart failure in the past, chest x-ray that was taken in April 2018 showed enlarged heart with echocardiogram in May 2018 shows ejection fraction of 60-65% in LV with mildly increase wall thickness. The mitral valve and tricuspid valves had mild to moderate regurgitation. Ultrasound test for right lower extremity a shows negative for DVT. ProBNP was elevated to 668 today. D-dimer was 505 which is WNL for her age. Lower extremities physical exam is not consistent with cellulitis and there is no leukocytosis. Potassium and chlorides were mildly decreased to 3.1/96. Hypokalemia was addressed with 40 mEq of potassium chloride. Patient reports she has received IV fluids for 3 days during hospitalization. Patient's leg swelling is likely due to fluid overload from IV hydration, immobility. Findings were discussed with the patient and plan to treat lower leg swelling a short burst of Lasix 3 day course with potassium replacement and patient elects to start Lasix tomorrow a.m. to prevent disrupting her sleep at night. Since patient has travel from [place] and she only able to get a ride tonight she will staying in ED overnight till early tomorrow afternoon. Health transplant coordinator Ms. Harvey has been contacted for transportation back to [place] and was informed that this will be arranged after 10 am and she projected that the patient will be picked up around 2 pm. Since the patient needs to use wheelchair for mobility and after the discussion with the patient, it is decided to keep patient in ED until she will be picked up tomorrow afternoon since patient is not meeting admission criteria at this time. Patient provided p.m. dose of medications with nutritional support. Patient's morning dose medications have been ordered including additional Lasix and potassium should be discharged to home with additional 3 day dose course. Patient advised to follow up with PCP in 2-3 days for re-evaluation and return precautions were discussed with the patient. Patient verbalized understanding and in agreement with treatment plan. <Margarita Swift, DO - Last Filed: 07/02/19 06:17> Lab Data Labs: Lab Results 07/01/19 07/01/19 07/01/19 Range/Units 19:52 19:52 19:52 WBC 8.3 (4.5-11.0) X10^3/uL RBC 3.81 L (4.0-5.2) X10^6/uL Hgb 12.4 (12.0-16.0) g/dL Hct 38.1 (36-46) % MCV 100.2 H (80-100) fL MCH 32.7 (26-34) PG MCHC 32.6 (30-36) % RDW 17.6 H (11.6-14.8) % Plt Count 238 (150-400) X10^3/uL Neut % (Auto) Not Reportable Lymph % (Auto) Not Reportable [place] % (Auto) Not Reportable Eos % (Auto) Not Reportable Baso % (Auto) Not Reportable Lymph # (Auto) Not Reportable [place] # (Auto) Not Reportable Baso # (Auto) Not Reportable Total Counted 100 Seg Neutrophils % 73.0 H (38-70) % Band Neutrophils % 1.0 L (3-7) % Lymphocytes % (Manual) 19.0 L (25-45) % Monocytes % (Manual) 7.0 (2-11) % Neutrophils # (Manual) 6142 H (2978-6181) /uL RBC Morphology See below Macrocytosis 1+ H PT 10.2 (10.1-12.7) SECONDS INR 0.9 (0.9-1.3) APTT 26 L (26.4-36.2) SECONDS D-Dimer 505 H (<230) ng/mL Sodium 139 (137-145) mmol/L Potassium 3.1 L (3.4-5.1) mmol/L Chloride 96 L (98-107) mmol/L Carbon Dioxide 37 H (22-32) mmol/L BUN 15 (7-17) mg/dL Creatinine 0.70 (0.52-1.04) mg/dL Estimated GFR > 60.0 (>60) mL/min BUN/Creatinine Ratio 21.4 (6-22) Glucose 116 H (80-110) mg/dL Calcium 9.2 (8.4-10.2) mg/dL NT-Pro-B Natriuret Pep (<125) pg/mL 07/01/19 Range/Units 19:52 WBC (4.5-11.0) X10^3/uL RBC (4.0-5.2) X10^6/uL Hgb (12.0-16.0) g/dL Hct (36-46) % MCV (80-100) fL MCH (26-34) PG MCHC (30-36) % RDW (11.6-14.8) % Plt Count (150-400) X10^3/uL Neut % (Auto) Lymph % (Auto) [place] % (Auto) Eos % (Auto) Baso % (Auto) Lymph # (Auto) [place] # (Auto) Baso # (Auto) Total Counted Seg Neutrophils % (38-70) % Band Neutrophils % (3-7) % Lymphocytes % (Manual) (25-45) % Monocytes % (Manual) (2-11) % Neutrophils # (Manual) (2771-4229) /uL RBC Morphology Macrocytosis PT (10.1-12.7) SECONDS INR (0.9-1.3) APTT (26.4-36.2) SECONDS D-Dimer (<230) ng/mL Sodium (137-145) mmol/L Potassium (3.4-5.1) mmol/L Chloride (98-107) mmol/L Carbon Dioxide (22-32) mmol/L BUN (7-17) mg/dL Creatinine (0.52-1.04) mg/dL Estimated GFR (>60) mL/min BUN/Creatinine Ratio (6-22) Glucose (80-110) mg/dL Calcium (8.4-10.2) mg/dL NT-Pro-B Natriuret Pep 668 H (<125) pg/mL MDM Narrative Medical decision making narrative: Patient signed out to myself. Patient lives in the [facility] and cannot return till tomorrow morning. She had some issues with transferring and although patient wished to return home plan for evaluation in the am. She has K of 3.1 which was replaced orally and swelling in lower extremities and plan to give short term lasix prescription. Plan for social work and PT consult tomorrow as patient does not meet any admission criteria, agreeable to return home but health information resources manager was reluctant and states they cannot coordinate merchandise pickup/receiving associate until 2pm tomorrow. Patient resting comfortably in department with home medications ordered overnight with no complications. <Lukasz Escobar DO - Last Filed: 07/02/19 07:04> Lab Data Labs: Lab Results 07/01/19 07/01/19 07/01/19 Range/Units 19:52 19:52 19:52 WBC 8.3 (4.5-11.0) X10^3/uL RBC 3.81 L (4.0-5.2) X10^6/uL Hgb 12.4 (12.0-16.0) g/dL Hct 38.1 (36-46) % MCV 100.2 H (80-100) fL MCH 32.7 (26-34) PG MCHC 32.6 (30-36) % RDW 17.6 H (11.6-14.8) % Plt Count 238 (150-400) X10^3/uL Neut % (Auto) Not Reportable Lymph % (Auto) Not Reportable [place] % (Auto) Not Reportable Eos % (Auto) Not Reportable Baso % (Auto) Not Reportable Lymph # (Auto) Not Reportable [place] # (Auto) Not Reportable Baso # (Auto) Not Reportable Total Counted 100 Seg Neutrophils % 73.0 H (38-70) % Band Neutrophils % 1.0 L (3-7) % Lymphocytes % (Manual) 19.0 L (25-45) % Monocytes % (Manual) 7.0 (2-11) % Neutrophils # (Manual) 6142 H (0135-1474) /uL RBC Morphology See below Macrocytosis 1+ H PT 10.2 (10.1-12.7) SECONDS INR 0.9 (0.9-1.3) APTT 26 L (26.4-36.2) SECONDS D-Dimer 505 H (<230) ng/mL Sodium 139 (137-145) mmol/L Potassium 3.1 L (3.4-5.1) mmol/L Chloride 96 L (98-107) mmol/L Carbon Dioxide 37 H (22-32) mmol/L BUN 15 (7-17) mg/dL Creatinine 0.70 (0.52-1.04) mg/dL Estimated GFR > 60.0 (>60) mL/min BUN/Creatinine Ratio 21.4 (6-22) Glucose 116 H (80-110) mg/dL Calcium 9.2 (8.4-10.2) mg/dL NT-Pro-B Natriuret Pep (<125) pg/mL 07/01/19 Range/Units 19:52 WBC (4.5-11.0) X10^3/uL RBC (4.0-5.2) X10^6/uL Hgb (12.0-16.0) g/dL Hct (36-46) % MCV (80-100) fL MCH (26-34) PG MCHC (30-36) % RDW (11.6-14.8) % Plt Count (150-400) X10^3/uL Neut % (Auto) Lymph % (Auto) [place] % (Auto) Eos % (Auto) Baso % (Auto) Lymph # (Auto) [place] # (Auto) Baso # (Auto) Total Counted Seg Neutrophils % (38-70) % Band Neutrophils % (3-7) % Lymphocytes % (Manual) (25-45) % Monocytes % (Manual) (2-11) % Neutrophils # (Manual) (6867-6912) /uL RBC Morphology Macrocytosis PT (10.1-12.7) SECONDS INR (0.9-1.3) APTT (26.4-36.2) SECONDS D-Dimer (<230) ng/mL Sodium (137-145) mmol/L Potassium (3.4-5.1) mmol/L Chloride (98-107) mmol/L Carbon Dioxide (22-32) mmol/L BUN (7-17) mg/dL Creatinine (0.52-1.04) mg/dL Estimated GFR (>60) mL/min BUN/Creatinine Ratio (6-22) Glucose (80-110) mg/dL Calcium (8.4-10.2) mg/dL NT-Pro-B Natriuret Pep 668 H (<125) pg/mL Discharge Plan Departure Clinical Impression: Right leg swelling, Hypokalemia, Elevated brain natriuretic peptide (BNP) level Instructions: DI for Hypokalemia, DI for Peripheral Edema, Unilateral Activity Restrictions/Additional Instructions: You have been diagnosed with [right leg and foot swelling, hypokalemia, and elevated BNP. Your US on R leg did not show DVT. Chemistry test shows mildly low in potassium at 3.1 and elevated NT-pro BNP of 668. D dimer was mildly elevated but normal level for the age. You were treated with potassium and additional Lasix for leg swelling.]. What to do: *Take your medications as directed. Please continue to take her medications. Continue with home physical and occupational therapy and follow-up with home health nurse. You were given a short 3 day course Lasix and potassium replacement for leg swelling. You can discussed with your primary care physician about compression stocking to help with leg swelling. *Follow up with your primary care provider in 2-3 days, call for an appointment. Let them know you were seen in the ED and that we asked you to be seen in follow up. *Return to ED if you have any new, worsening, or concerning symptoms, such as [chest pain, breathing difficulty, fainting episodes, unable to tolerate fluids, increasing weakness, fever or any acute concerns]. Prescriptions: New furosemide 20 mg tablet 20 mg PO DAILY Qty: 3 RF: 0 potassium chloride 20 mEq tablet extended release 20 meq PO DAILY 3 Days Qty: 3 RF: 0 No Action gabapentin [Neurontin] 300 mg capsule 900 mg PO SEE INSTRUCTIONS Qty: 90 RF: 2 clonidine HCl 0.1 mg tablet 0.3 mg PO HS Qty: 90 RF: 2 fluoxetine 20 mg capsule 60 mg PO QDAY Qty: 90 RF: 2 trazodone 50 mg tablet 50 mg PO HS Qty: 30 RF: 2 lamotrigine [Lamictal] 100 mg tablet 150 mg PO QDAY Qty: 45 RF: 2 lisinopril-hydrochlorothiazide 10-12.5 mg Tablet 1 tab PO DAILY RF: 0 naproxen 250 mg Tablet 250 mg PO BID PRN (Reason: Pain (Scale Score 1-3)) RF: 0 albuterol sulfate 90 mcg/actuation HFA aerosol inhaler 2 puff Inhalation Q4H PRN (Reason: Wheezing) RF: 0 gabapentin [Neurontin] 600 mg Tablet 600 mg PO BEDTIME Qty: 30 RF: 0 lisinopril 10 mg Tablet 10 mg PO DAILY Qty: 30 RF: 0 hydrochlorothiazide 12.5 mg Capsule 12.5 mg PO DAILY Qty: 30 RF: 0 silver sulfadiazine [Silvadene] 1 % cream 1 applictn TOP DAILY Qty: 20 RF: 0 nystatin 100,000 unit/gram powder 1 applictn TOP BID Qty: 30 RF: 0 Referrals: Aleksandra Peters ARNP [Primary Care Provider] -
--- NOTE | 2019-07-01 21:48 | PC.NURSE ---
Shelbie updated on plan to board patient in ER till ride becomes available tomorrow. Patient provided with snack, phone to make calls and blanket. Call mg in reach.
[2019-07-01 22:21] VITALS: BP 153/73; PULSE 81; RESP 20; O2SAT 98
[2019-07-01] MEDS: lamoTRIgine 100 MG TABLET PO (22:58)
[2019-07-01 22:59] VITALS: BP 153/73; PULSE 83; RESP 16; TEMP 36.6; O2SAT 100
[2019-07-01] MEDS: GABAPENTIN 600 MG TABLET PO (22:59)
[2019-07-01] MEDS: TRAZODONE 50 MG TABLET PO (22:59)
[2019-07-02 06:26] VITALS: BP 155/73; PULSE 80; RESP 18; O2SAT 98
[2019-07-02 08:05] LABS: Carbon Dioxide 31 mmol/L (22-32); Chloride 101 mmol/L (98-107); HEMOLYSIS < 15 (0-50); Potassium 3.6 mmol/L (3.4-5.1); Sodium 140 mmol/L (137-145)
[2019-07-02] MEDS: MONTELUKAST 10 MG TABLET PO (09:35)
[2019-07-02] MEDS: POTASSIUM CHLORIDE 20 MEQ TAB PO (09:36)
[2019-07-02] MEDS: FLUoxetine 20 MG CAPSULE 60 MG PO (09:36)
[2019-07-02] MEDS: GABAPENTIN 300 MG CAPSULE PO (09:36)
[2019-07-02] MEDS: lisinopriL 10 MG TABLET PO (09:36)
[2019-07-02] MEDS: hydroCHLOROthiazide 12.5 MG CAPSULE PO (09:44)
[2019-07-02 09:50] VITALS: BP 125/97; PULSE 82; RESP 18; O2SAT 98
--- NOTE | 2019-07-02 10:00 | PC.NURSE ---
Pt getting dressed, declined any assistance.
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
== END 2019-07-02 10:31 | disposition home or self-care (01) ==
PROVIDERS: Emergency Medicine; Nurse Practitioner Family; Emergency Provider Emergency Medicine; Family Provider Nurse Practitioner Family; PCP Nurse Practitioner Family
DX: R22.41 Localized swelling, mass and lump, right lower limb (principal); E87.6 Hypokalemia; R79.89 Other specified abnormal findings of blood chemistry; I34.0 Nonrheumatic mitral (valve) insufficiency; I07.1 Rheumatic tricuspid insufficiency
CPT/HCPCS: 36415; 80048; 80051; 83880; 85025; 85379; 85610; 85730; 93971; 99284

== ENCOUNTER 2021-07-23 05:05 | Inpatient (IN) | payer MEDICARE, SELFPAY ==
[2018-05-08 22:22] VITALS: BMI 37.8
[2021-07-23] VITALS (56 sets, daily range): BP systolic 83–164; BP diastolic 39–93; PULSE 58–92; RESP 12–41; TEMP 36.6–37.4; O2SAT 87–100; BMI 40.3; BMI 43.7
--- NOTE | 2021-07-23 05:08 | DI.RAD.S_ITS ---
PROCEDURE: XR CHEST 1V INDICATIONS: sepsis TECHNIQUE: One view of the chest was acquired. COMPARISON: None. FINDINGS: Surgical changes and devices: None. Lungs and pleura: Lungs are clear. No pleural effusions or pneumothorax. Mediastinum: Mediastinal contours appear normal. Heart size is normal. Bones and chest wall: No suspicious bony lesions. Overlying soft tissues appear unremarkable. IMPRESSION: No acute cardiopulmonary disease process. Dictated by: Riri Murphy MD, PhD on 07/23/2021 at 8:26 Approved by: Riri Murphy MD, PhD on 07/23/2021 at 8:27
--- NOTE | 2021-07-23 05:13 | W.ED.SEPSIS ---
HPI - Sepsis General Chief Complaint: Fever Evaluation Narrative: 65-year-old female nonsmoker with history of, cerebral palsy, hypertension, pancreatitis presents by EMS for evaluation of presumed sepsis. Patient had been seen earlier today by her primary care provider and diagnosed with bilateral lower extremity cellulitis. She had been started on Bactrim and was able to take her 1st dose earlier today but could not find her pills and therefore took no more. She activated EMS when she slid out of her wheelchair onto the ground and was unable to get up after 1 hour. They found her on the ground and in evaluating her noted abnormal vitals consistent with possible sepsis and as a result patient had 1200 cc of lactated Ringer's administered as well as 2 g of Rocephin, this was done prior to the ability to obtain blood cultures after consultation with their medical research/program director. She denies any runny nose, sore throat or cough. She denies any obvious fever but has had chills. She denies any chest pain or shortness of breath. She denies nausea, vomiting or diarrhea. while being transported patient started developing low blood pressure and subjective fever. She was started on Levophed for the bulk of the transport but on arrival and had been turned off as she had responded to fluids and we have of Review of Systems Review of Systems Narrative: GENERAL: see HPI HEENT: Denies sinus pain, ear pain, sore throat, difficulty swallowing, dizziness. RESPIRATORY: Denies dyspnea, cough, wheezing, hemoptysis, sputum. CARDIOVASCULAR: Denies chest pain, palpitations, orthopnea, edema, GASTROINTESTINAL: Denies nausea, vomiting, abdominal pain, diarrhea, constipation, melena. : Denies dysuria, frequency, incontinence, hematuria, urinary retention. MUSCULOSKELETAL: denies weakness, joint pain, or bony pain SKIN: see HPI NEUROLOGIC: Denies weakness, headache, numbness, change in speech, confusion, seizures, incoordination. PSYCHIATRIC: No concerning psychosocial issues. 12 point review of systems is negative except for those stated above Patient History Medical History Achilles tendon injury Cellulitis Cerebral palsy Flesh-eating bacteria History of esophageal dilatation History of esophageal stricture Sepsis Surgical History History of dilatation and curettage Hx of total knee arthroplasty Status post appendectomy Status post surgery (06/23/14) Family History Mother Cardiac disease Father Diabetes mellitus COPD (chronic obstructive pulmonary disease) Brother In good health Social History household members: none Smoking Status: Never smoker alcohol intake: current Smoking Status: Never smoker alcohol intake frequency: other Substance Use Type: does not use Exam Narrative Exam Narrative: GENERAL: [65] year old patient appears stated age. Well-developed patient, in mild distress. HEAD: Atraumatic. Normocephalic. EYES: Pupils equal round and reactive. Extraocular motions intact. No scleral icterus. No injection or drainage. ENT: Nose without bleeding, purulent drainage. Throat without erythema, tonsillar hypertrophy or exudate. Airway patent. NECK: Trachea midline. Non tender CARDIOVASCULAR: Regular rate and rhythm without murmurs, gallops, or rubs. RESPIRATORY: Clear to auscultation. Breath sounds equal bilaterally. No wheezes, rales, or rhonchi. GASTROINTESTINAL: Abdomen soft, non-tender, nondistended. EXTREMITIES: dark red, painful skin circumferential LLE BACK: Nontender without deformity or crepitance. No flank tenderness. NEURO: AOx3. SKIN: No rash or erythema of visible areas Initial Vital Signs Initial Vital Signs: Vital Signs Temperature 99.3 F 07/23/21 05:08 Pulse Rate 87 07/23/21 05:08 Respiratory Rate 18 07/23/21 05:08 Blood Pressure 129/59 L 07/23/21 05:08 Pulse Oximetry 97 07/23/21 05:08 Course Orders Ordered: Acetaminophen (Acetaminophen 325 Mg Tablet) 975 mg PO Q8HR PRN PRN Reason: pain Last Admin: 07/23/21 21:19 Dose: 975 mg Documented by: CWHITE Enoxaparin Sodium (Enoxaparin 40 Mg/0.4 Ml Syringe) 40 mg SUBCUT BID VIGNESH Gabapentin (Gabapentin 600 Mg Tablet) 1,200 mg PO BEDTIME VIGNESH Last Admin: 07/23/21 21:19 Dose: 1,200 mg Documented by: CWHITE Gabapentin (Gabapentin 300 Mg Capsule) 900 mg PO DAILY VIGNESH NOREPINEPHRINE BITARTRATE/D5W (Levophed) 4 mg in 250 mls @ 30 mls/hr IV TITRATE VIGNESH; Protocol Last Titration: 07/23/21 10:05 Dose: 0 mcg/min, 0 mls/hr Documented by: Titration: 07/23/21 09:45 Dose: 2 mcg/min, 7.5 mls/hr Documented by: Titration: 07/23/21 09:10 Dose: 5 mcg/min, 18.75 mls/hr Documented by: Admin: 07/23/21 06:40 Dose: 8 mcg/min, 30 mls/hr Documented by: ANTHONY Lactated Ringer's (Lactated Ringers) 1,000 mls @ 100 mls/hr IV CONT VIGNESH Last Admin: 07/23/21 21:27 Dose: 100 mls/hr Documented by: Infusion: 07/23/21 21:27 Dose: 100 mls/hr Documented by: Admin: 07/23/21 12:46 Dose: 100 mls/hr Documented by: Infusion: 07/23/21 12:46 Dose: 100 mls/hr Documented by: Admin: 07/23/21 11:22 Dose: Not Given Documented by: Admin: 07/23/21 09:15 Dose: 100 mls/hr Documented by: JYOTI Ceftriaxone Sodium 1,000 mg/ (Sodium Chloride) 100 mls @ 200 mls/hr IV Q24H VIGNESH Last Admin: 07/23/21 22:23 Dose: 200 mls/hr Documented by: BRIAN Vancomycin HCl/Dextrose (Vancomycin) 1,500 mg in 300 mls @ 200 mls/hr IV Q24H VIGNESH Sodium Chloride (Sodium Chloride 0.9% Flush) 10 ml IV PRN PRN PRN Reason: Flush Sodium Chloride (Sodium Chloride 0.9% Flush) 10 ml IV BID VIGNESH Last Admin: 07/23/21 21:20 Dose: Not Given Documented by: BRIAN Vancomycin HCl (Vancomycin [place]) 1 [place] [facility] [place] Stop: 07/26/21 08:31 Vancomycin HCl (Vancomycin Trough) 1 [place] [facility] [place] Stop: 07/26/21 05:31 Discontinued Medications Lactated Ringer's (Lactated Ringers) 1,779 mls @ 593 mls/hr 30 ml/kg infuse over 3 hr (1779 ml) IV NOW ONE Stop: 07/23/21 08:33 Last Infusion: 07/23/21 09:39 Dose: 0 mls/hr Documented by: Infusion: 07/23/21 08:50 Dose: 593 mls/hr Documented by: Admin: 07/23/21 05:43 Dose: 593 mls/hr Documented by: SOHAM Vancomycin HCl/Dextrose (Vancomycin) 2,000 mg in 400 mls @ 200 mls/hr IV NOW ONE Stop: 07/23/21 07:33 Last Infusion: 07/23/21 08:14 Dose: 0 mls/hr Documented by: Admin: 07/23/21 05:42 Dose: 200 mls/hr Documented by: SOHAM Vital Signs Vital signs: Vital Signs - 8 hr 07/23/21 05:08 Temperature 99.3 F Pulse Rate 87 Respiratory Rate 18 Blood Pressure 129/59 L Pulse Oximetry 97 Sepsis Guideline Criteria Treatment Initiated Antibiotics:: IV antimicrobials will be initiated as soon as possible after recognition of sepsis state and within one hour for both sepsis and septic shock. MDM - Sepsis Lab Data Result diagrams: 07/23/21 05:55 07/23/21 05:55 Labs: Lab Results 07/23/21 07/23/21 07/23/21 Range/Units 05:55 05:55 05:55 WBC 14.6 H (4.5-11.0) X10^3/uL RBC 3.49 L (4.0-5.2) X10^6/uL Hgb 10.2 L (12.0-16.0) g/dL Hct 31.6 L (36-46) % MCV 90.5 (80-100) fL MCH 29.2 (26-34) PG MCHC 32.2 (30-36) % RDW 13.8 (11.6-14.8) % Plt Count (150-400) X10^3/uL Neut % (Auto) 85.9 H (50-75) % Lymph % (Auto) 6.0 L (25-40) % [place] % (Auto) 7.9 (3-14) % Eos % (Auto) 0.1 L (2-4) % Baso % (Auto) 0.1 (0-2) % Neut # (Auto) 20105 H (1308-8881) /uL Lymph # (Auto) 900 L (3885-1088) /uL [place] # (Auto) 1200 H (0-900) /uL Eos # (Auto) 0 (0-450) /uL Baso # (Auto) 0 (0-100) /uL D-Dimer 439 H (<230) ng/mL Sodium 139 (137-145) mmol/L Potassium 5.1 (3.4-5.1) mmol/L Chloride 103 (98-107) mmol/L Carbon Dioxide 28 (22-32) mmol/L BUN 30 H (7-17) mg/dL Creatinine 1.20 H (0.52-1.04) mg/dL Estimated GFR 44.8 L (>60) mL/min BUN/Creatinine Ratio 25.0 H (6-22) Glucose 154 H (80-110) mg/dL Lactate (0.7-2.1) mmol/L Calcium 8.8 (8.4-10.2) mg/dL Total Bilirubin 0.4 (0.2-1.3) mg/dL AST 20 (14-36) IU/L ALT 14 (<35) IU/L Alkaline Phosphatase 132 H (38-126) U/L Total Creatine Kinase 66 (30-135) U/L CK-MB (CK-2) TNP CK-MB (CK-2) Rel Index TNP Troponin I < 0.012 (0.01-0.034) ng/mL NT-Pro-B Natriuret Pep 885 H (<125) pg/mL Total Protein 6.7 (6.3-8.2) g/dL Albumin 4.1 (3.5-5.0) g/dL Globulin 2.6 (1.7-4.1) g/dL Albumin/Globulin Ratio 1.6 (1.0-2.8) Procalcitonin 1.28 H (<0.5) ng/mL Urine Color Urine Appearance Urine pH (4.5-8.0) Ur Specific [place] (1.000-1.035) Urine Protein (Negative) Urine Glucose (UA) (Negative) g/dL Urine Ketones (NEGATIVE) Urine Occult Blood (Negative) Urine Nitrate (Negative) Urine Bilirubin (NEGATIVE) Urine Urobilinogen (0.2) E.U./dL Ur Leukocyte Esterase (NEGATIVE) Urine RBC (0-5/HPF) Urine WBC (0-5/HPF) Ur Squamous Epith Cells (0-5/HPF) Urine Bacteria (None) Ur Culture Indicated? SARS-CoV-2 (PCR) (Negative) 07/23/21 07/23/21 07/23/21 Range/Units 05:55 06:00 06:00 WBC (4.5-11.0) X10^3/uL RBC (4.0-5.2) X10^6/uL Hgb (12.0-16.0) g/dL Hct (36-46) % MCV (80-100) fL MCH (26-34) PG MCHC (30-36) % RDW (11.6-14.8) % Plt Count (150-400) X10^3/uL Neut % (Auto) (50-75) % Lymph % (Auto) (25-40) % [place] % (Auto) (3-14) % Eos % (Auto) (2-4) % Baso % (Auto) (0-2) % Neut # (Auto) (0782-3921) /uL Lymph # (Auto) (2512-3680) /uL [place] # (Auto) (0-900) /uL Eos # (Auto) (0-450) /uL Baso # (Auto) (0-100) /uL D-Dimer (<230) ng/mL Sodium (137-145) mmol/L Potassium (3.4-5.1) mmol/L Chloride (98-107) mmol/L Carbon Dioxide (22-32) mmol/L BUN (7-17) mg/dL Creatinine (0.52-1.04) mg/dL Estimated GFR (>60) mL/min BUN/Creatinine Ratio (6-22) Glucose (80-110) mg/dL Lactate 2.2 H (0.7-2.1) mmol/L Calcium (8.4-10.2) mg/dL Total Bilirubin (0.2-1.3) mg/dL AST (14-36) IU/L ALT (<35) IU/L Alkaline Phosphatase (38-126) U/L Total Creatine Kinase (30-135) U/L CK-MB (CK-2) CK-MB (CK-2) Rel Index Troponin I (0.01-0.034) ng/mL NT-Pro-B Natriuret Pep (<125) pg/mL Total Protein (6.3-8.2) g/dL Albumin (3.5-5.0) g/dL Globulin (1.7-4.1) g/dL Albumin/Globulin Ratio (1.0-2.8) Procalcitonin (<0.5) ng/mL Urine Color Yellow Urine Appearance Clear Urine pH 7.0 (4.5-8.0) Ur Specific [place] 1.015 (1.000-1.035) Urine Protein Trace H (Negative) Urine Glucose (UA) Negative (Negative) g/dL Urine Ketones Negative (NEGATIVE) Urine Occult Blood Negative (Negative) Urine Nitrate Negative (Negative) Urine Bilirubin Negative (NEGATIVE) Urine Urobilinogen 0.2 (0.2) E.U./dL Ur Leukocyte Esterase Trace H (NEGATIVE) Urine RBC None seen (0-5/HPF) Urine WBC 0-1/hpf (0-5/HPF) Ur Squamous Epith Cells 5-10 /hpf H (0-5/HPF) Urine Bacteria Occasional (0-1) (None) Ur Culture Indicated? Cult not indicated SARS-CoV-2 (PCR) Negative (Negative) Urine Dip Bedside Urine Glucose Negative Bedside Urine Bilirubin - Negative Bedside Urine Ketone - Negative Urine Specific [place] 1.015 Bedside Urine Occult Blood - Negative Bedside Urine pH 6.5 Bedside Urine Protein - Negative Bedside Urine Urobilinogen - Negative Bedside Urine Nitrite - Negative Bedside Urine Leukocytes - Negative Esterase Discharge Plan Departure Patient Disposition: Admitted As Inpatient Clinical Impression: Sepsis, Cellulitis of left anterior lower leg Admit Date/Time: 07/23/21 06:44 Admit Provider: Anahi Sepulveda
[2021-07-23] MEDS: VANCOMYCIN 2,000 MG/400 ML PIGGYBACK 200 MG IV (05:42)
[2021-07-23] MEDS: LACTATED RINGERS 1,779 ML 593 ML IV (05:43)
[2021-07-23 06:10] LABS: Appearance Urine UA CLEAR; Bilirubin Urine UA NEGATIVE (NEGATIVE); Color Urine UA YELLOW; Glucose Urine UA NEGATIVE (Negative); Ketones Urine UA NEGATIVE (NEGATIVE); Leukocyte Esterase Urine UA TRACE (NEGATIVE); Nitrite Urine UA NEGATIVE (Negative); Occult Blood Urine UA NEGATIVE (Negative); Protein Urine UA TRACE (Negative); Specific Gravity Urine UA 1.015 (1.000-1.035); Urobilinogen Urine UA 0.2 E.U./dL (0.2)
[2021-07-23 06:24] LABS: COVID19 -Nasal RAPID Negative (Negative)
[2021-07-23 06:31] LABS: RBC Urine None Seen (0-5/HPF); Squamous Epithelial Cell Urine 5-10 /HPF (0-5/HPF); WBC Urine 0-1/HPF (0-5/HPF)
[2021-07-23 06:32] LABS: Bacteria Urine Occasional (0-1); Culture Indicated Urine Cult Not Indicated
[2021-07-23 06:34] LABS: Lactate (Lactic Acid) 2.2 mmol/L (0.7-2.1)
[2021-07-23 06:35] LABS: Add Manual Diff / Slide Review NO; Alanine Aminotransferase 14 IU/L (<35); Albumin 4.1 g/dL (3.5-5.0); Albumin Globulin Ratio 1.6 (1.0-2.8); Alkaline Phosphatase 132 U/L (38-126); Aspartate Aminotransferase 20 IU/L (14-36); Basophils Absolute Auto 0 /uL (0-100); Basophils Percent Auto 0.1 % (0-2); Bilirubin Total 0.4 mg/dL (0.2-1.3); Blood Urea Nitrogen 30 mg/dL (7-17); Calcium 8.8 mg/dL (8.4-10.2); Carbon Dioxide 28 mmol/L (22-32); Chloride 103 mmol/L (98-107); Creatine Kinase 66 U/L (30-135); D Dimer 439 ng/mL (<230); Eosinophils Absolute Auto 0 /uL (0-450); Eosinophils Percent Auto 0.1 % (2-4); Estimated Glomerular Filt Rate 44.8 mL/min (>60); Globulin 2.6 g/dL (1.7-4.1); Glucose 154 mg/dL (80-110); HEMOLYSIS 16 (0-50); Hematocrit 31.6 % (36-46); Hemoglobin 10.2 g/dL (12.0-16.0); Lymphocytes Absolute Auto 900 /uL (1100-4500); Mean Corpuscular HGB Conc 32.2 % (30-36); Mean Corpuscular Hemoglobin 29.2 PG (26-34); Mean Corpuscular Volume 90.5 fL (80-100); Monocytes Absolute Auto 1200 /uL (0-900); Monocytes Percent Auto 7.9 % (3-14); Neutrophils Absolute Auto 12500 /uL (1500-7000); Neutrophils Percent Auto 85.9 % (50-75); Potassium 5.1 mmol/L (3.4-5.1); Red Blood Cell Count 3.49 X10^6/uL (4.0-5.2); Red Cell Distribution Width 13.8 % (11.6-14.8); Sodium 139 mmol/L (137-145); Total Protein 6.7 g/dL (6.3-8.2); White Blood Cell Count 14.6 X10^3/uL (4.5-11.0)
[2021-07-23] MEDS: NOREPINEPHRINE BITARTRATE/D5W 4 MG/250 ML PLAST..BAG 30 MG IV (06:40)
--- NOTE | 2021-07-23 06:42 | PC.NURSE ---
Mary klein from [facility] restarted for BP 86/39 at 7 mcg/min, Dr Escobar notified. BP improving now 92/49 with MAP of 66.
[2021-07-23 06:48] LABS: NT-proBNP (BNP-Adult 18+) 885 pg/mL (<125); Troponin I < 0.012 ng/mL (0.01-0.034)
[2021-07-23 06:52] LABS: Procalcitonin 1.28 ng/mL (<0.5)
[2021-07-23 08:12] LABS: Reflexed Lactate in 2 Hours Y
[2021-07-23] MEDS: LACTATED RINGERS 1,000 ML 100 ML IV ×3 (09:15→21:27)
--- NOTE | 2021-07-23 09:23 | PM.HP.1 ---
History of Present Illness History of Present Illness Date Patient Seen: 07/23/21 Time Patient Seen: 09:23 Chief complaint: Weakness Narrative: This is a 62-year-old female patient with history of cerebral palsy, chronic low back pain and pancreatitis presents to the ER via EMS with concerns for sepsis. Patient was treated yesterday by PCP for bilateral lower extremity cellulitis. Was given a dose of bactrim in the clinic but did not take 2nd dose. She fell out of her wheel chair last night and could not get up. EMS noted low BP, gave dose of ceftriaxone and LR bolus. BP remained low and was started on levophed. She remains on small amounts of levophed currently. She denies recent fever, chills, cough, shortness of breath, abdominal pain, nausea, vomiting. Laboratory evaluation revealed a mild leukocytosis with WBC of 14.6, other than this her initial CBC was unremarkable. Chemistries revealed a mild NEPTALI with a creatinine of 1.2 up from her baseline of 0.7 is 0.8. Lactic acid but stable at 2.2. Troponin was negative. ProBNP was mildly elevated 185. Procalcitonin was 1.28. Urinalysis was contaminated but there was no evidence of active infection. COVID-19 testing was negative. Patient was admitted to the ICU for further management. Patient History Medical History Achilles tendon injury Cellulitis Cerebral palsy Flesh-eating bacteria History of esophageal dilatation History of esophageal stricture Sepsis Surgical History History of dilatation and curettage Hx of total knee arthroplasty Status post appendectomy Status post surgery (06/23/14) Family & Social History Family History Mother Cardiac disease Father Diabetes mellitus COPD (chronic obstructive pulmonary disease) Brother In good health Social History: household members none Safety & Behavioral: Feels Safe in Current Yes Environment Tobacco & Substance use: Smoking Status Never smoker alcohol intake current alcohol intake frequency other Substance Use Type does not use Meds Home Medications and Allergies Home Medications Medication Instructions Recorded Confirmed Type trazodone 50 mg tablet 50 mg PO HS #30 tab 03/02/18 07/23/21 Rx albuterol sulfate 90 mcg/actuation 2 puff INHALATION Q4H PRN 05/09/18 07/23/21 History aerosol inhaler lisinopril 10 mg tablet 10 mg PO DAILY #30 tab 05/11/18 07/23/21 Rx fluoxetine 20 mg capsule 40 mg PO QDAY 07/23/21 07/23/21 History gabapentin 300 mg capsule 900 mg PO QAM 07/23/21 07/23/21 History (Neurontin) gabapentin 600 mg tablet 1,200 mg PO BEDTIME 07/23/21 07/23/21 History (Neurontin) lamotrigine 100 mg tablet 300 mg PO QDAY 07/23/21 07/23/21 History (Lamictal) Allergies Allergy/AdvReac Type Severity Reaction Status Date / Time clindamycin Allergy Mild RASH & N/V Verified 05/08/18 18:20 Review of Systems Review of Systems Narrative: All other systems reviewed with the patient and are negative unless otherwise stated. Exam Vital Signs (past 8 hours): - 07/23/21 05:08 07/23/21 06:05 07/23/21 06:17 Temperature 99.3 F Pulse Rate 87 76 77 Respiratory Rate 18 19 22 Blood Pressure 129/59 L 89/40 L Pulse Oximetry 97 99 07/23/21 06:30 07/23/21 06:31 07/23/21 06:35 Temperature Pulse Rate 77 76 77 Respiratory Rate 23 18 24 Blood Pressure 86/39 L 86/39 L Pulse Oximetry 98 98 97 07/23/21 06:40 07/23/21 06:45 07/23/21 06:46 Temperature Pulse Rate 76 76 75 Respiratory Rate 24 28 H 32 H Blood Pressure 92/49 L 91/48 L Pulse Oximetry 98 98 97 07/23/21 06:50 07/23/21 06:55 07/23/21 07:00 Temperature Pulse Rate 76 73 73 Respiratory Rate 34 H 33 H 26 H Blood Pressure 94/48 L 100/50 L 102/49 L Pulse Oximetry 98 98 97 07/23/21 07:05 07/23/21 07:10 07/23/21 07:15 Temperature Pulse Rate 73 75 76 Respiratory Rate 26 H 28 H 29 H Blood Pressure 105/52 L 107/54 L 108/57 L Pulse Oximetry 98 98 98 07/23/21 07:20 07/23/21 07:25 07/23/21 07:30 Temperature Pulse Rate 77 75 79 Respiratory Rate 26 H 41 H 30 H Blood Pressure 102/56 L 111/59 L 116/56 L Pulse Oximetry 97 98 97 07/23/21 07:35 07/23/21 07:40 07/23/21 07:41 Temperature Pulse Rate 90 88 88 Respiratory Rate 38 H 38 H 32 H Blood Pressure 130/77 Pulse Oximetry 95 98 99 07/23/21 07:45 07/23/21 07:46 07/23/21 07:50 Temperature Pulse Rate 88 92 H 89 Respiratory Rate 23 36 H 26 H Blood Pressure 164/86 H Pulse Oximetry 99 98 99 07/23/21 07:55 07/23/21 07:56 07/23/21 08:00 Temperature Pulse Rate 87 86 80 Respiratory Rate 28 H 26 H 28 H Blood Pressure 98/50 L Pulse Oximetry 87 L 99 98 07/23/21 08:01 07/23/21 08:05 07/23/21 08:06 Temperature Pulse Rate 88 84 84 Respiratory Rate 29 H 35 H 26 H Blood Pressure 87/47 L 96/52 L Pulse Oximetry 93 98 98 07/23/21 08:10 07/23/21 08:15 07/23/21 08:16 Temperature Pulse Rate 80 78 78 Respiratory Rate 28 H 20 16 Blood Pressure 98/53 L 141/55 H Pulse Oximetry 98 98 98 07/23/21 08:20 07/23/21 08:21 07/23/21 08:25 Temperature Pulse Rate 76 76 76 Respiratory Rate 20 26 H Blood Pressure 93/48 L Pulse Oximetry 98 98 98 07/23/21 08:26 07/23/21 08:30 07/23/21 08:31 Temperature Pulse Rate 76 76 77 Respiratory Rate Blood Pressure 100/54 L 97/64 Pulse Oximetry 98 97 97 07/23/21 08:35 07/23/21 08:36 07/23/21 08:40 Temperature Pulse Rate 76 76 77 Respiratory Rate Blood Pressure 83/54 L Pulse Oximetry 97 97 98 07/23/21 08:41 Temperature Pulse Rate 75 Respiratory Rate Blood Pressure 86/50 L Pulse Oximetry 98 Oxygen Delivery Method Room Air Narrative Exam Narrative: General:? Patient is well developed and well nourished, mildly ill-appearing but alert female in no acute distress. HEENT:? Normocephalic, atraumatic, extraocular muscles intact, oral pharynx is clear and mucous membranes are moist. Neck: supple and symmetric, trachea is midline, no cervical adenopathy. Negative for JVD Chest:? Normal AP diameter and contour without kyphoscoliosis, no tachypnea, equal chest rise bilaterally. Lungs:? CTA b/l no wheezing rhonchi or rales. Cardio:?RRR no m/r/g. Abdomen: S NT ND. No CVA tenderness. Musculoskeletal:? Muscle strength and tone are equal within normal limits, no deformity. Extremities: bilateral LE edema with venous stasis changes. No clubbing. Skin:?left cicumferential erythema, warmth, and tenderness of the lower leg. right leg mild erythema and minimal tenderness without warmth. Neuro:? Alert and orientated x3,? sensation to touch intact in all extremities, no gross deficits noted of cranial nerves. Psych:? Patient has a well-kept appearance, appropriate affect, mental status attitude thought context and judgment are appropriate for age. Objective Labs Result Diagrams: 07/23/21 05:55 07/23/21 05:55 Labs: Laboratory Results - last 24 hr 07/23/21 07/23/21 07/23/21 05:55 05:55 05:55 WBC 14.6 H RBC 3.49 L Hgb 10.2 L Hct 31.6 L MCV 90.5 MCH 29.2 MCHC 32.2 RDW 13.8 Plt Count Neut % (Auto) 85.9 H Lymph % (Auto) 6.0 L [place] % (Auto) 7.9 Eos % (Auto) 0.1 L Baso % (Auto) 0.1 Neut # (Auto) 91989 H Lymph # (Auto) 900 L [place] # (Auto) 1200 H Eos # (Auto) 0 Baso # (Auto) 0 D-Dimer 439 H Sodium 139 Potassium 5.1 Chloride 103 Carbon Dioxide 28 BUN 30 H Creatinine 1.20 H Estimated GFR 44.8 L BUN/Creatinine Ratio 25.0 H Glucose 154 H Lactate Calcium 8.8 Total Bilirubin 0.4 AST 20 ALT 14 Alkaline Phosphatase 132 H Total Creatine Kinase 66 CK-MB (CK-2) TNP CK-MB (CK-2) Rel Index TNP Troponin I < 0.012 NT-Pro-B Natriuret Pep 885 H Total Protein 6.7 Albumin 4.1 Globulin 2.6 Albumin/Globulin Ratio 1.6 Procalcitonin 1.28 H Urine Color Urine Appearance Urine pH Ur Specific [place] Urine Protein Urine Glucose (UA) Urine Ketones Urine Occult Blood Urine Nitrate Urine Bilirubin Urine Urobilinogen Ur Leukocyte Esterase Urine RBC Urine WBC Ur Squamous Epith Cells Urine Bacteria Ur Culture Indicated? SARS-CoV-2 (PCR) 07/23/21 07/23/21 07/23/21 05:55 06:00 06:00 WBC RBC Hgb Hct MCV MCH MCHC RDW Plt Count Neut % (Auto) Lymph % (Auto) [place] % (Auto) Eos % (Auto) Baso % (Auto) Neut # (Auto) Lymph # (Auto) [place] # (Auto) Eos # (Auto) Baso # (Auto) D-Dimer Sodium Potassium Chloride Carbon Dioxide BUN Creatinine Estimated GFR BUN/Creatinine Ratio Glucose Lactate 2.2 H Calcium Total Bilirubin AST ALT Alkaline Phosphatase Total Creatine Kinase CK-MB (CK-2) CK-MB (CK-2) Rel Index Troponin I NT-Pro-B Natriuret Pep Total Protein Albumin Globulin Albumin/Globulin Ratio Procalcitonin Urine Color Yellow Urine Appearance Clear Urine pH 7.0 Ur Specific [place] 1.015 Urine Protein Trace H Urine Glucose (UA) Negative Urine Ketones Negative Urine Occult Blood Negative Urine Nitrate Negative Urine Bilirubin Negative Urine Urobilinogen 0.2 Ur Leukocyte Esterase Trace H Urine RBC None seen Urine WBC 0-1/hpf Ur Squamous Epith Cells 5-10 /hpf H Urine Bacteria Occasional (0-1) Ur Culture Indicated? Cult not indicated SARS-CoV-2 (PCR) Negative Assessment & Plan Assessment & Plan narrative: 1. Septic shock secondary to bilateral lower extremity cellulitis - CXR and UA negative - continue ceftriaxone and vancomycin per pharmacy. - check DVT study - wean from levophed as tolerated, can do peripheral levophed temporarily but if persistent need will do PICC or central line. 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 2. NEPTALI - creatinine 1.2, baseline 0.7 - 0.8. - continue to follow, suspect in setting of septic shock. 3. Hypertension, chronic - hold home antihypertensives 4.? Bilateral lower extremity edema, present on admission, stable - hold home diuretic. check US DVT study as noted above 5.? Chronic low back pain, present on admission, stable - continue home medications. 7.? Cerebral Palsy. - baseline is ambulatory with assistive devices, uses wheelchair as well. Code: Full, surrogate decision maker is her brother Dispo: Admit to ICU. I spent 35 minutes providing critical care management this patient. This excludes time spent in performing separately billed procedures. I have utilized all available immediate resources to obtain, update, or review the patient's current medications. Time Spent With Patient Critical Care time: I spent a total of [] minutes of critical care time on this patient's care today; this time is exclusive of procedural time. Quality MIPS - Admit I confirm the patient?s Advance Care Plan is present, Code status is documented, Surrogate decision maker is in patient?s record [If Yes, STOP here]: Yes
--- NOTE | 2021-07-23 09:36 | DI.ECHO.S_ITS ---
[place] [facility]---------+ [facility] +---------+ : : [address] : : : : [id number] : : : : Phone: [phone]+ Echocardiogram Report + + :Name: FABIEN CHEATHAM Study Date: 07/23/2021 Height: 66 in : :[facility] ReadingLocation: Weight: 250 lb : : Gender: Female BSA: 2.2 m2 : :: 1955 Age: 65 yrs BP: 112/52 mmHg: :Reason For Study: EDEMA : :Ordering Physician: TINO, : :AKASH WESTBROOK Performed By: Lucrecia Romeo : :Referring: AKASH JIMÉNEZ : + + Interpretation Summary The study quality was technically difficult. The ejection fraction is estimated to be 60-65%. Grade I diastolic dysfunction The right ventricle is normal in size and function. The right ventricular systolic pressure is estimated to be at least 46 mmHg based on an estimated right atrial pressure of 15 mm Hg. The left atrium is severely dilated. The right atrium is mildly dilated. Mild mitral regurgitation. Mild to moderate Tricuspid regurgitation. No significant change from prior stuyd in 05/2018. Procedure: A two-dimensional transthoracic echocardiogram with color flow and Doppler was performed. The study quality was technically difficult. A contrast injection of Definity was performed to improve assessment of LV function. The patient was in sinus rhythm with heart rates between 69-83 bpm during the exam. Left Ventricle: RWT 0.54, concentric remodeling. The left ventricle is mildly dilated. The ejection fraction is estimated to be 60-65%. There are no obvious focal wall motion abnormalities noted but poor endocardial definition reduces the sensitivity for the detection of such. Grade I diastolic dysfunction. Right Ventricle: The right ventricle is normal in size and function. Atria: The left atrium is severely dilated. The right atrium is mildly dilated. There is no Doppler evidence for an interatrial shunt. Mitral Valve: The mitral valve leaflets appear mildly thickened, but open well. There is mild mitral regurgitation. Aortic Valve: The aortic valve is trileaflet. The aortic valve opens well. The peak aortic velocity is 2.28 m/sec. The aortic valve mean gradient is 10 mmHg. There is no hemodynamically significant valvular aortic stenosis. There is trace aortic regurgitation. Tricuspid Valve: The tricuspid valve is normal in structure and function. There is mild to moderate tricuspid regurgitation. The right ventricular systolic pressure is estimated to be at least 46 mmHg based on an estimated right atrial pressure of 15 mm Hg. Pulmonic Valve: The pulmonic valve is not well visualized. There is no pulmonic valvular regurgitation. Great Vessels: The aortic root is normal size. The dimensions of the ascending aorta are normal. The IVC is dilated (diameter is greater than 2.1 cm) and it collapses less than 50% with a sniff. This suggests a high right atrial pressure of 15 mm Hg. Pericardium/ Pleura There is no pericardial effusion. There is no pleural effusion. MMode/2D Measurements & Calculations LVIDd: 4.1 cm LVOT diam: 1.8 cm LVIDs: 3.0 cm Ao root diam: 2.8 cm FS: 25.1 % asc Aorta Diam: 3.1 cm IVSd: 1.0 cm Ao Arch Diam (Prox Trans): 3.0 cm LVPWd: 1.1 cm LV hackett. diameter/BSA (cm/m^2): 1.8 LV sys. diameter/BSA (cm/m^2): 1.4 LA A2 area: 30.0 cm2 RA long axis: 4.9 cm LA A4 area: 29.0 cm2 RA area: 19.6 cm2 LA length (vol): 6.2 cm RA vol: 66.0 ml LA vol: 119.5 ml RA : 30.0 ml/m2 LA vol index: 54.4 ml/m2 IVC diam: 2.3 cm RVD1 (basal): 4.0 cm RVD2 (mid): 3.2 cm TAPSE: 2.3 cm Doppler Measurements & Calculations Ao V2 max: 228.2 cm/sec LVOT Max Augusto: 136.0 cm/sec Ao V2 mean: 146.7 cm/sec LV V1 max P.4 mmHg Ao max P.4 mmHg LV V1 VTI: 27.8 cm Ao mean P.2 mmHg MARIA ISABEL(I,D): 1.6 cm2 Ao V2 VTI: 45.2 cm MARIA ISABEL(V,D): 1.5 cm2 sev ratio: 0.61 MARIA ISABEL indexed to BSA (cm^2/m^2): 0.72 MV E max augusto: 105.6 cm/sec TR max augusto: 277.8 cm/sec MV A max augusto: 94.8 cm/sec TR max P.9 mmHg MV E/A: 1.1 PA V2 max: 130.1 cm/sec Med Peak E' Augusto: 7.3 cm/sec PA V2 mean: 87.3 cm/sec E/E' med: 14.4 PA mean P.4 mmHg Lat Peak E' Augusto: 9.8 cm/sec PA pr(Accel): 43.0 mmHg E/E' lat: 10.8 E/e' average: 12.6 MV dec time: 0.27 sec MVA(VTI): 1.9 cm2 MV V2 mean: 72.4 cm/sec SV(LVOT): 71.1 ml MV mean P.4 mmHg MV V2 VTI: 37.2 cm Reading Physician:DAGMAR
[2021-07-23 11:05] LABS: Lactate 2HR (Lactic Acid Rflx) 2.2 mmol/L (0.7-2.1)
--- NOTE | 2021-07-23 12:35 | DI.US.S_ITS ---
PROCEDURE: US PERIPH VENOUS LOW EXTREM BI INDICATIONS: EDEMA; SEPSIS TECHNIQUE: Real-time imaging, as well as color and pulse Doppler interrogation, were performed of the deep veins of both legs from the inguinal ligament to the popliteal fossa. COMPARISON: None. FINDINGS: Right: The common femoral, femoral and popliteal veins are normally compressible, and free of intraluminal thrombus. Color and pulse Doppler demonstrate normal phasic intravascular flow. There is normal augmentation response to distal compression maneuver. Left: The common femoral, femoral and popliteal veins are normally compressible, and free of intraluminal thrombus. Color and pulse Doppler demonstrate normal phasic intravascular flow. There is normal augmentation response to distal compression maneuver. IMPRESSION: No evidence of deep vein thrombosis involving either the right or left lower extremities. Dictated by: Riri Murphy MD, PhD on 07/23/2021 at 13:45 Approved by: Riri Murphy MD, PhD on 07/23/2021 at 13:45
--- NOTE | 2021-07-23 14:11 | P.TELICUCN_ITS ---
History of Present Illness Consult details Date Patient Seen: 07/23/21 Chief complaint: Weakness :: This patient was seen via real time interactive two-way audiovisual telecommunication. FOR[facility], LATER [facility] Medical History Achilles tendon injury Cellulitis Cerebral palsy Flesh-eating bacteria History of esophageal dilatation History of esophageal stricture Sepsis Surgical History History of dilatation and curettage Hx of total knee arthroplasty Status post appendectomy Status post surgery (06/23/14) Family History Mother Cardiac disease Father Diabetes mellitus COPD (chronic obstructive pulmonary disease) Brother In good health Social History household members: none Smoking Status: Never smoker alcohol intake: current Current Medications Current Medications Medications: Home Medications trazodone 50 mg tablet 50 mg PO HS #30 tab 03/02/18 [Rx Confirmed 07/23/21] albuterol sulfate 90 mcg/actuation aerosol inhaler 2 puff INHALATION Q4H PRN 05/09/18 [History Confirmed 07/23/21] lisinopril 10 mg tablet 10 mg PO DAILY #30 tab 05/11/18 [Rx Confirmed 07/23/21] fluoxetine 20 mg capsule 40 mg PO QDAY 07/23/21 [History Confirmed 07/23/21] gabapentin 300 mg capsule (Neurontin) 900 mg PO QAM 07/23/21 [History Confirmed 07/23/21] gabapentin 600 mg tablet (Neurontin) 1,200 mg PO BEDTIME 07/23/21 [History Co nfirmed 07/23/21] lamotrigine 100 mg tablet (Lamictal) 300 mg PO QDAY 07/23/21 [History Confirmed 07/23/21] Visit Medications (administered) Generic Name Dose Route Start Last Admin Trade Name Freq PRN Reason Stop Dose Admin NOREPINEPHRINE BITARTRATE/D5W 4 mg in 250 mls @ 30 mls/hr 07/23/21 06:35 07/23/21 10:05 Levophed IV 0 mcg/min TITRATE VIGNESH 0 mls/hr Titration Protocol 8 MCG/MIN Lactated Ringer's 1,000 mls @ 100 mls/hr 07/23/21 09:30 07/23/21 12:46 Lactated Ringers IV 100 mls/hr CONT VIGNESH Administration Exam Vital Signs (past 8 hours): - 07/23/21 06:17 07/23/21 06:30 07/23/21 06:31 Pulse Rate 77 77 76 Respiratory Rate 22 23 18 Blood Pressure 89/40 L 86/39 L 86/39 L Pulse Oximetry 99 98 98 07/23/21 06:35 07/23/21 06:40 07/23/21 06:45 Pulse Rate 77 76 76 Respiratory Rate 24 24 28 H Blood Pressure 92/49 L Pulse Oximetry 97 98 98 07/23/21 06:46 07/23/21 06:50 07/23/21 06:55 Pulse Rate 75 76 73 Respiratory Rate 32 H 34 H 33 H Blood Pressure 91/48 L 94/48 L 100/50 L Pulse Oximetry 97 98 98 07/23/21 07:00 07/23/21 07:05 07/23/21 07:10 Pulse Rate 73 73 75 Respiratory Rate 26 H 26 H 28 H Blood Pressure 102/49 L 105/52 L 107/54 L Pulse Oximetry 97 98 98 07/23/21 07:15 07/23/21 07:20 07/23/21 07:25 Pulse Rate 76 77 75 Respiratory Rate 29 H 26 H 41 H Blood Pressure 108/57 L 102/56 L 111/59 L Pulse Oximetry 98 97 98 07/23/21 07:30 07/23/21 07:35 07/23/21 07:40 Pulse Rate 79 90 88 Respiratory Rate 30 H 38 H 38 H Blood Pressure 116/56 L Pulse Oximetry 97 95 98 07/23/21 07:41 07/23/21 07:45 07/23/21 07:46 Pulse Rate 88 88 92 H Respiratory Rate 32 H 23 36 H Blood Pressure 130/77 164/86 H Pulse Oximetry 99 99 98 07/23/21 07:50 07/23/21 07:55 07/23/21 07:56 Pulse Rate 89 87 86 Respiratory Rate 26 H 28 H 26 H Blood Pressure 98/50 L Pulse Oximetry 99 87 L 99 07/23/21 08:00 07/23/21 08:01 07/23/21 08:05 Pulse Rate 80 88 84 Respiratory Rate 28 H 29 H 35 H Blood Pressure 87/47 L Pulse Oximetry 98 93 98 07/23/21 08:06 07/23/21 08:10 07/23/21 08:15 Pulse Rate 84 80 78 Respiratory Rate 26 H 28 H 20 Blood Pressure 96/52 L 98/53 L Pulse Oximetry 98 98 98 07/23/21 08:16 07/23/21 08:20 07/23/21 08:21 Pulse Rate 78 76 76 Respiratory Rate 16 20 26 H Blood Pressure 141/55 H 93/48 L Pulse Oximetry 98 98 98 07/23/21 08:25 07/23/21 08:26 07/23/21 08:30 Pulse Rate 76 76 76 Respiratory Rate Blood Pressure 100/54 L Pulse Oximetry 98 98 97 07/23/21 08:31 07/23/21 08:35 07/23/21 08:36 Pulse Rate 77 76 76 Respiratory Rate Blood Pressure 97/64 83/54 L Pulse Oximetry 97 97 97 07/23/21 08:40 07/23/21 08:41 07/23/21 09:16 Pulse Rate 77 75 81 Respiratory Rate 25 H Blood Pressure 86/50 L 114/51 L Pulse Oximetry 98 98 99 07/23/21 09:31 07/23/21 09:46 07/23/21 10:01 Pulse Rate 83 87 85 Respiratory Rate 12 12 18 Blood Pressure 112/52 L 153/93 H 134/81 Pulse Oximetry 99 98 97 07/23/21 10:58 07/23/21 11:31 07/23/21 12:01 Pulse Rate 75 80 Respiratory Rate 22 16 Blood Pressure 107/57 L 114/59 L Pulse Oximetry 98 96 96 07/23/21 13:01 Pulse Rate 79 Respiratory Rate 15 Blood Pressure 101/55 L Pulse Oximetry 97 Oxygen Delivery Method Room Air Objective Labs Result Diagrams: 07/23/21 05:55 07/23/21 05:55 Labs: Laboratory Results - last 24 hr 07/23/21 07/23/21 07/23/21 05:55 05:55 05:55 WBC 14.6 H RBC 3.49 L Hgb 10.2 L Hct 31.6 L MCV 90.5 MCH 29.2 MCHC 32.2 RDW 13.8 Plt Count Neut % (Auto) 85.9 H Lymph % (Auto) 6.0 L [place] % (Auto) 7.9 Eos % (Auto) 0.1 L Baso % (Auto) 0.1 Neut # (Auto) 20240 H Lymph # (Auto) 900 L [place] # (Auto) 1200 H Eos # (Auto) 0 Baso # (Auto) 0 D-Dimer 439 H Sodium 139 Potassium 5.1 Chloride 103 Carbon Dioxide 28 BUN 30 H Creatinine 1.20 H Estimated GFR 44.8 L BUN/Creatinine Ratio 25.0 H Glucose 154 H Lactate Calcium 8.8 Total Bilirubin 0.4 AST 20 ALT 14 Alkaline Phosphatase 132 H Total Creatine Kinase 66 CK-MB (CK-2) TNP CK-MB (CK-2) Rel Index TNP Troponin I < 0.012 NT-Pro-B Natriuret Pep 885 H Total Protein 6.7 Albumin 4.1 Globulin 2.6 Albumin/Globulin Ratio 1.6 Procalcitonin 1.28 H Urine Color Urine Appearance Urine pH Ur Specific [place] Urine Protein Urine Glucose (UA) Urine Ketones Urine Occult Blood Urine Nitrate Urine Bilirubin Urine Urobilinogen Ur Leukocyte Esterase Urine RBC Urine WBC Ur Squamous Epith Cells Urine Bacteria Ur Culture Indicated? Nasal Screen MRSA (PCR) SARS-CoV-2 (PCR) 07/23/21 07/23/21 07/23/21 05:55 06:00 06:00 WBC RBC Hgb Hct MCV MCH MCHC RDW Plt Count Neut % (Auto) Lymph % (Auto) [place] % (Auto) Eos % (Auto) Baso % (Auto) Neut # (Auto) Lymph # (Auto) [place] # (Auto) Eos # (Auto) Baso # (Auto) D-Dimer Sodium Potassium Chloride Carbon Dioxide BUN Creatinine Estimated GFR BUN/Creatinine Ratio Glucose Lactate 2.2 H Calcium Total Bilirubin AST ALT Alkaline Phosphatase Total Creatine Kinase CK-MB (CK-2) CK-MB (CK-2) Rel Index Troponin I NT-Pro-B Natriuret Pep Total Protein Albumin Globulin Albumin/Globulin Ratio Procalcitonin Urine Color Yellow Urine Appearance Clear Urine pH 7.0 Ur Specific [place] 1.015 Urine Protein Trace H Urine Glucose (UA) Negative Urine Ketones Negative Urine Occult Blood Negative Urine Nitrate Negative Urine Bilirubin Negative Urine Urobilinogen 0.2 Ur Leukocyte Esterase Trace H Urine RBC None seen Urine WBC 0-1/hpf Ur Squamous Epith Cells 5-10 /hpf H Urine Bacteria Occasional (0-1) Ur Culture Indicated? Cult not indicated Nasal Screen MRSA (PCR) SARS-CoV-2 (PCR) Negative 07/23/21 07/23/21 10:05 10:35 WBC RBC Hgb Hct MCV MCH MCHC RDW Plt Count Neut % (Auto) Lymph % (Auto) [place] % (Auto) Eos % (Auto) Baso % (Auto) Neut # (Auto) Lymph # (Auto) [place] # (Auto) Eos # (Auto) Baso # (Auto) D-Dimer Sodium Potassium Chloride Carbon Dioxide BUN Creatinine Estimated GFR BUN/Creatinine Ratio Glucose Lactate 2.2 H Calcium Total Bilirubin AST ALT Alkaline Phosphatase Total Creatine Kinase CK-MB (CK-2) CK-MB (CK-2) Rel Index Troponin I NT-Pro-B Natriuret Pep Total Protein Albumin Globulin Albumin/Globulin Ratio Procalcitonin Urine Color Urine Appearance Urine pH Ur Specific [place] Urine Protein Urine Glucose (UA) Urine Ketones Urine Occult Blood Urine Nitrate Urine Bilirubin Urine Urobilinogen Ur Leukocyte Esterase Urine RBC Urine WBC Ur Squamous Epith Cells Urine Bacteria Ur Culture Indicated? Nasal Screen MRSA (PCR) Negative for mrsa SARS-CoV-2 (PCR) Assessment & Plan Assessment & Plan narrative: ?patient seen with bedside nurse and provider chart/labs/imaging reviewed 62 year old female with PMHx CP, Chronic back pain, pancreatitis. admitted to ICU due to severe sepsis with shock likely 2/2 left lower extremity cellulitis currently pt is afebrille, mental status intact plan -check cxs -check UA -check echo -check renal sono -continue abx, can downgrade to ancef if mrsa screen is -ve -venous duplex -ve for dvt -monitor ins/outs -continue ivf -keep glucose 140-180s -hold home bp meds -pt/ot -please call eICU prn Time Spent With Patient Critical Care time: I spent a total of [] minutes of critical care time on this patient's care today; this time is exclusive of procedural time.
[2021-07-23] MEDS: GABAPENTIN 600 MG TABLET 1200 MG PO (21:19)
[2021-07-23] MEDS: ACETAMINOPHEN 325 MG TABLET 975 MG PO (21:19)
[2021-07-23] MEDS: cefTRIAXone 1,000 MG in SODIUM CHLORIDE 0.9% 100 ML 200 ML IV (22:23)
[2021-07-23] MEDS: TRAMADOL 50 MG TABLET PO (23:47)
[2021-07-24] VITALS (8 sets, daily range): BP systolic 100–153; BP diastolic 53–79; PULSE 67–86; RESP 16–20; TEMP 36.5–37.2; O2SAT 93–98
[2021-07-24 04:47] LABS: Add Manual Diff / Slide Review NO; Basophils Absolute Auto 0 /uL (0-100); Basophils Percent Auto 0.3 % (0-2); Eosinophils Absolute Auto 100 /uL (0-450); Hematocrit 28.4 % (36-46); Hemoglobin 9.1 g/dL (12.0-16.0); Lymphocytes Absolute Auto 1300 /uL (1100-4500); Mean Corpuscular HGB Conc 32.2 % (30-36); Mean Corpuscular Hemoglobin 29.5 PG (26-34); Mean Corpuscular Volume 91.5 fL (80-100); Monocytes Absolute Auto 1000 /uL (0-900); Monocytes Percent Auto 14.6 % (3-14); Neutrophils Absolute Auto 4500 /uL (1500-7000); Neutrophils Percent Auto 64.1 % (50-75); Platelet Count 133 X10^3/uL (150-400); Red Cell Distribution Width 13.4 % (11.6-14.8)
[2021-07-24 04:59] LABS: Alanine Aminotransferase 16 IU/L (<35); Albumin 3.4 g/dL (3.5-5.0); Albumin Globulin Ratio 1.3 (1.0-2.8); Alkaline Phosphatase 132 U/L (38-126); Aspartate Aminotransferase 28 IU/L (14-36); BUN Creatinine Ratio 26.5 (6-22); Bilirubin Total 0.3 mg/dL (0.2-1.3); Blood Urea Nitrogen 36 mg/dL (7-17); Calcium 8.5 mg/dL (8.4-10.2); Carbon Dioxide 29 mmol/L (22-32); Chloride 104 mmol/L (98-107); Estimated Glomerular Filt Rate 38.8 mL/min (>60); Globulin 2.6 g/dL (1.7-4.1); Glucose 136 mg/dL (80-110); HEMOLYSIS < 15 (0-50); Potassium 4.6 mmol/L (3.4-5.1); Sodium 138 mmol/L (137-145)
[2021-07-24] MEDS: VANCOMYCIN 1,500 MG/300 ML PIGGYBACK 200 MG IV (05:29)
[2021-07-24] MEDS: GABAPENTIN 300 MG CAPSULE 900 MG PO (09:50)
[2021-07-24] MEDS: ENOXAPARIN 40 MG/0.4 ML SYRINGE SUBCUT ×2 (09:50→21:07)
[2021-07-24] MEDS: TRAMADOL 50 MG TABLET PO (09:50)
--- NOTE | 2021-07-24 11:41 | CM.DANOTE ---
DCP: Case received, EMR reviewed and met with patient. Introduced self and role. Was able to obtain information from patient regarding her baseline activity level at home as well as her current living situation. DCP assessment completed with information currently available. Patient is a 65 year old female who admitted yesterday morning to the care of the hospitalist team. PCP: Dr. Peters. Payer: confirmed: [employer]. Patient came to the hospital via EMS from [place] secondary to sliding out of her wheel-chair on to the ground. According to notes, she had recently been seen [place] and diagnosed with bilateral lower extremity cellulitis. She had been given prescription for Bactrim, took her first dose, and then, could not find her pills. Upon arrival to her home, patient had abnormal vitals consistent with sepsis. She was put on Levophed upon transport before then responding to fluids. Patient holds diagnosis of sepsis,cellulitis of left anterior lower leg. Met with patient in her room. She is alert and oriented, pleasant. Confirmed that she lives alone on [address]. She has a brother named Clayton, who lives locally, and a friend named Genesis Calzadaaquilino He, who is also local. She stated that she has been managing at home, has a wheel-chair power chair. Her car no longer has a battery tht works, and she stated, I use my power chair to get to appointments, as everything is close. Discussed penitentiary, she stated, my brother is most likely going to want me to go to rehab. Brought her in the Medicare Choice List. Patient indicated, she has been at [facility] before (now, [facility]), and would not mind returning there. Called Elena and gave her the referral. This DC internet media planner placed orders after speaking to hospitalist for P.T, and O.T, for these notes will be needed to support her going to skilled rehab with her [facility]. Elena will look for these notes so she can submit authorization. Have vaccine information, and will complete PASSR. P: DCP to continue to follow. Placed P.T, and O.T. notes, and Elena will watch for these so she can submit auth for her to go to [facility]. Pearl Brown RN/Metrology Specialist Discharge Planning/Care Management Discharge Assessment Start: 07/24/21 11:38 Freq: Status: Active Protocol: Document 07/24/21 11:38 (Rec: 07/24/21 11:41 [id number]) Discharge Planning Assessment Assigned Engineer Systems Pearl Brown RN/Metrology Specialist Advance Directives? Yes: pol Advance Directives on File Yes History Provided By Patient,Family Member,Medical Record Household Members none Type of transporation used prior to Drives own vehicle admit Comment Patient is not currently driving, her car battery does not work. She uses power chair to get out to appointments. Independent with ADL's Yes Is patient alert and oriented? Yes Needs Assistance With Home Chores / Shopping DME Already Rented / Owned Wheelchair,FWW / Walker Discharge Plan Alf Facility Referrals Initiated Alf,Italian Teacher Additional Comment Sent referral to [facility]. Elena will need to get insurance auth, but need P.T and O.T. to work with her first. Whiteboard Updated in Patient Room with Yes name and ext. # of Engineer Systems Review Status In Process Next Review Type Continued Stay Review
[2021-07-24] MEDS: LACTATED RINGERS 1,000 ML 100 ML IV (12:22)
--- NOTE | 2021-07-24 14:55 | PT.IIE ---
Current Diagnoses Sepsis, unspecified organism (07/23/21) Surgical History (Last Reviewed 07/23/21 @ 22:46 by Lukasz Escobar DO) Status post appendectomy Status post surgery (06/23/14) Medical History (Last Reviewed 07/23/21 @ 22:46 by Lukasz Escobar DO) Achilles tendon injury Cellulitis Cerebral palsy Flesh-eating bacteria History of esophageal dilatation History of esophageal stricture Sepsis Physical Therapy Inpatient Evaluation/Re-Eval M1 PT/OT-IP Prior Functional Status Start: 07/24/21 17:37 Freq: NEEDED Status: Active Protocol: Document 07/24/21 14:55 AB (Rec: 07/24/21 17:55 AB [id number]) Medical Review Prior Functional Status Medical History Reviewed Yes Communication able to make needs known Mobility and Gait pt stated that she is modified independent with all mobilities: uses motorized w/c for outdoor mobility and uses her manual w/c for indoor mobility but stated that she ambulates inside her apartment without AD but tends to furniture cruise just short distance/ functional ambulation only. pt stated that she does wear her R AFO at home but wears it outdoors but pt stated that she developed a lateral side foot callus on R and AFO is aggravating the callus and her doctor gave her a boot to use instead. Activities of Daily Living and IADL's Pt states that she typically performs all ADLs with IND or MOD I and has help with IADLs from her brother and sister in law. Social History Household Members none Living Arrangements Apartment/Condo Number of Floors (Floors) One Floor Number of Stairs To Enter/Railing? no steps to enter Home Environment Standard Height Toilet,Tub/ Shower Home Equipment Front Wheel Walker,Four Wheel Walker,Manual Wheelchair,Power Wheelchair/Scooter,Tub Transfer Bench,Hand Held Shower,Grab Bars Near Toilet, Grab Bars In Shower Employment Status Unemployed Additional Social History Comment Pt lives on [address]; pt's brother checks on pt M2 PT-IP Current Condition Start: 07/24/21 17:37 Freq: NEEDED Status: Active Protocol: Document 07/24/21 14:55 AB (Rec: 07/24/21 17:55 AB [id number]) Physical Therapy Current Condition Current Condition Evaluation Date 07/24/21 Treatment Diagnosis sepsis; L lower led cellulitis Onset Date 07/23/21 M3 PT-IP Subjective Start: 07/24/21 17:37 Freq: NEEDED Status: Active Protocol: Document 07/24/21 14:55 AB (Rec: 07/24/21 17:55 AB [id number]) Subjective Physical Therapy Visit Type Type Initial Evaluation Visit Start Time 14:55 Visit Stop Time 15:22 Total Visit Minutes 27 Number of EQUIPMENT SUPERINTENDENT Visits 0 Physical Therapy Visit Comments Patient Comments agreeable to do PT Therapy Pain Assessment Pain When Pain Assessed At Rest Pain Present Pain Present Pain Reported Location Left Lower Leg Intensity 4 Scale Used Numeric (0 - 10) Pain Management Techniques Modification of Treatment,Re- positioning,Timing of Activity with Medications M4 PT-IP Mobility and Gait Start: 07/24/21 17:37 Freq: NEEDED Status: Active Protocol: Document 07/24/21 14:55 AB (Rec: 07/24/21 17:55 AB [id number]) PT-Bed Mobility Assessment Supine to Sit Supine to Sit Standby Assistance,Head of Bed Elevated,Bedrails PT-Transfer Assessment Sit to and From Stand Sit to and from Stand Minimal Assistance,1 Person Assistance,Use of Upper Extremities Equipment Transfer Assistive Device Gait Belt,Front Wheeled Walker Orthotic/Prosthetic Devices or Brace: No Transfers Transfer Destination Toilet Transfer Technique ambulated to the toilet Transfer Ability Level of Assist Minimal Assistance,1 Person Assistance,Use of Upper Extremities Comments Mobility Comments pt completed supine to sit with HOB elevated and pt used bed rail to assist. pt requested to use the toilet. completed sit to stand min A and cues and ambulated using FWW to the toilet ~ 20 ft. presents with antalgic gait with decrease BLE elevation. pt ambulated out of the toilet using FWW min a and sat on chair. Left pt with OT. Gait Assessment Gait Gait Assistance Required: Minimum Assistance Distance (Feet) 20 Able to Maintain Weight Bearing Status Yes During Gait Assistive Devices Assistive Device Gait Belt,Front Wheeled Walker Orthotic/Prosthetic Devices or Brace: No Gait Deviations General Gait Pattern Antalgic,Decreased Stride Length,Decreased Feet Clearance,Step-to Gait Factors Limiting Gait Function Factors Limiting Gait Function Decreased Activity Tolerance, Decreased Sensation,Decreased Strength,Limited Range of Motion,Pain,Poor Balance,Poor Safety Awareness PT-Balance Assessment Sitting Balance and Reactions Static Sitting Balance Ability Good Dynamic Sitting Balance Ability Good Standing Balance and Reactions Static Standing Balance Ability Fair Dynamic Standing Balance Ability Fair Device Used FWW M5 PT-IP Objective Assessments Start: 07/24/21 17:37 Freq: NEEDED Status: Active Protocol: Document 07/24/21 14:55 AB (Rec: 07/24/21 17:55 AB [id number]) Orientation Orientation/Cognition Level of Alertness Alert Orientation Name,Age,Birthday,Month,Date, Year,Day of Week,Place, Situation Language Function Ability No Deficits Noted Safety Awareness Understands Safety Issues Memory Description No Deficits Noted Gross Range of Motion Lower Extremity ROM Impairments B ankle tightness with decrease DF R>L Strength Lower Extremity Strength Assessment Left Impaired Ankle 3-/5 Muscle Tone Muscle Tone WNL Yes M6 PT-IP Treatment Start: 07/24/21 17:37 Freq: NEEDED Status: Active Protocol: Document 07/24/21 14:55 AB (Rec: 07/24/21 17:55 AB [id number]) Physical Therapy Treatment Education Education Provided Safety M7 PT-IP Assessment and Plan Start: 07/24/21 17:37 Freq: NEEDED Status: Active Protocol: Document 07/24/21 14:55 AB (Rec: 07/24/21 17:55 AB [id number]) PT Summary Assessment and Plan Potential Rehabilitation Potential Good Status of Condition at Evaluation Stable Summary Impairments Pain,ROM,Strength,Balance, Coordination,Sensation,Tone, Cognition,Bed Mobility, Transfers,Gait,Activity Tolerance Assessment Summary pt requiring min A with mobility using FWW. pt lives alone and will not have assistance at home. d/c plan depending on progress and will continue to assist. Pt will need services when she goes home. Goals Bed Mobility Goal Independent Transfer Goal Independent,Front Wheeled Walker Gait Goal Independent,Front Wheel Walker Gait Distance 50 Days to Meet Goals 5 Frequency of Treatment Frequency Of Treatment Once a Day Treatment Plan Physical Therapy Treatment Plan Bed Mobility Training,Transfer Training,Gait Training, Therapeutic Exercise,Balance Retraining,Discharge Planning, Neuromuscular Re-ed, Coordination Retraining Recommendations To Nursing Amount of Assist Needed 1 Person Assist Discharge Recommendations PT Discharge Recommendations Home with Assistance,Home Health Transportation Needs at Discharge Private Vehicle,Wheelchair/ Cabulance
--- NOTE | 2021-07-24 15:32 | OT.IP.EVAL ---
Current Diagnoses Sepsis, unspecified organism (07/23/21) Past Medical History (Last Reviewed 07/23/21 @ 22:46 by Lukasz Escobar DO) Achilles tendon injury Cellulitis Cerebral palsy Flesh-eating bacteria History of dilatation and curettage History of esophageal dilatation History of esophageal stricture Hx of total knee arthroplasty Sepsis Surgical History (Last Reviewed 07/23/21 @ 22:46 by Lukasz Escobar DO) History of dilatation and curettage Hx of total knee arthroplasty Status post appendectomy Status post surgery (06/23/14) Occupational Therapy Inpatient Evaluation/Re-Eval M1 PT/OT-IP Prior Functional Status Start: 07/24/21 16:14 Freq: NEEDED Status: Active Protocol: Document 07/24/21 16:14 CGR (Rec: 07/24/21 16:31 CGR [id number]) Medical Review Prior Functional Status Medical History Reviewed Yes Communication Pt is an effective verbal communicator. Mobility and Gait Pt states that she often walked short distances in her apt without AD using the furniture for support. She sometimes uses the 4ww for mobility but typically uses the manual w/c in the apt and the moterized w/c out in the community. Pt states she fell out of the moterized w/c and could not get up requiring EMS to come assess. Activities of Daily Living and IADL's Pt states that she typically performs all ADLs with IND or MOD I and has help with IADLs from her brother and sister in law. Social History Household Members none Living Arrangements Apartment/Condo Number of Floors (Floors) One Floor Number of Stairs To Enter/Railing? no steps to enter with board over the threshold for easier movement in and out with the w /c Home Environment Standard Height Toilet,Tub/ Shower Home Equipment Four Wheel Walker,Manual Wheelchair,Power Wheelchair/ Scooter,Tub Transfer Bench, Hand Held Shower,Grab Bars Near Toilet,Grab Bars In Shower Employment Status Unemployed Additional Social History Comment Pt [place] on [address] [id number] OT-IP Current Condition Start: 07/24/21 16:14 Freq: Status: Active Protocol: Document 07/24/21 16:14 CGR (Rec: 07/24/21 16:31 CGR [id number]) Occupational Therapy Current Condition Current Condition Evaluation Date 07/24/21 Treatment Diagnosis Sepsis from LE cellulitis Diagnosis Onset Date 07/24/21 M3 OT- IP Subjective and Pain Start: 07/24/21 16:14 Freq: Status: Active Protocol: Document 07/24/21 16:14 CGR (Rec: 07/24/21 16:31 CGR [id number]) OT- Subjective Occupational Therapy Visit Type Type Initial Evaluation Visit Start Time 14:59 Visit Stop Time 15:32 Total Visit Minutes 33 Notes Partial co-treat with P.T. M4 OT- IP ADL's Start: 07/24/21 16:14 Freq: Status: Active Protocol: Document 07/24/21 16:14 CGR (Rec: 07/24/21 16:31 CGR [id number]) OT [id number] Comments OT Self-Feeding Comments Not meal time OT ADL-Grooming General Evaluation Grooming Ability Standby Assistance Areas Needing Assistance Retrieving/Set-up of Grooming Items,Combing/Brushing Hair, Face Washing Comments OT Grooming Comments Pt is able to brush teeth without difficulty but has some difficulty brushing her hair using her L arm. OT ADL-Oral Care General Eval Oral Care Ability Standby Assistance Areas of Assistance Brushing Teeth,Retrieving/Set- Up of Items Comments Oral Care Comments seated in chair OT ADL-Dressing General Eval Lower Body Dressing Ability Contact Guard Assistance Areas Needing Assistance Retrieving/Set-up of Clothing, Underpants/Brief Comments OT Dressing Comments Pt donned clean brief seated on toilet OT ADL-Toileting General Evaluation Toileting Ability Standby Assistance Comments OT Toileting Comments Pt performed pericare and managed clothing but states that pericare is difficult. OT ADL-Bathing Comments OT Bathing Comments not performed M5 OT- IP IADL's Start: 07/24/21 16:14 Freq: Status: Active Protocol: Document 07/24/21 16:14 CGR (Rec: 07/24/21 16:31 CGR [id number]) OT-Instrumental Activities of Daily Living Deficits IADL Deficits Identified No Deficits Home Safety Awareness Awareness of Need for Assistance at Home Good Awareness Ability to Problem Solve Emergency Able to Problem Solve Situations Medication Management Medication Management No Deficits Identified Money Management Money Management No Deficits Identified Meal Preparation Meal Preparation No Deficits Identified Sausage Linker Sausage Linker No Deficits Identified Driving Driving Comments Pt does not drive M6 OT- IP Functional Cognition Start: 07/24/21 16:14 Freq: Status: Active Protocol: Document 07/24/21 16:14 CGR (Rec: 07/24/21 16:31 CGR [id number]) Cognitive Factors Limiting Selfcare Function Cognitive Ability Level of Alertness Alert Patient Orientation Name,Age,Birthday,Month,Date, Year,Day of Week,Place, Situation Attention Span Ability Capable of Focused Attention, Capable of Sustained Attention Ability to Follow Commands Able to Follow Multi-Step Commands OT- Vision and Hearing OT- Hearing Assessment OT- Hearing Assessment WFL OT- Vision Assessment Visual Acuity Glasses All The Time Visual Attentiveness WFL Occular Pursuits WFL Visual Convergence Impaired Vision Assessment Comments Pt states that she has 2 seperate pairs of glasses, one for distance and one for reading. M7 OT- IP Mobility and Balance Start: 07/24/21 16:14 Freq: Status: Active Protocol: Document 07/24/21 16:14 CGR (Rec: 07/24/21 16:31 CGR [id number]) OT- Bed Mobility Assessment Rolling Type of Rolling Roll to Left Level of Assistance Standby Assistance,Head of Bed Elevated Supine to Sit Supine to Sit Assist Standby Assistance,Head of Bed Elevated Scooting Scooting to Edge of Bed Standby Assistance,Bedrails OT-Transfer Assessment Sit to and From Stand Sit to and from Stand Minimal Assistance,1 Person Assistance Transfers Transfer Ability Minimal Assistance,1 Person Assistance Technique Transfer Destination Bed,Chair,Toilet Transfer Technique Stand Step Pivot Devices Transfer Assistive Devices Gait Belt,Front Wheeled Walker Comments Mobility Comments Pt ambulated from far side of the bed into the bathroom for toileting and then to the chair. Pt grossly min a throughout. OT- Balance Assessment Sitting Balance and Reactions Static Sitting Balance Ability Good Dynamic Sitting Balance Ability Good M8 OT- IP Objective Assessments Start: 07/24/21 16:14 Freq: Status: Active Protocol: Document 07/24/21 16:14 CGR (Rec: 07/24/21 16:31 CGR [id number]) OT Gross Range of Motion Upper Extremity Range of Motion Assessment Left Impaired ROM Impairments R shld 0-90, L shld 0-45 OT Strength Upper Extremity Strength Assessment Within Functional Limits Comments Strength Comments shlds not tested, arms and hands grossly 4/5 OT- Coordination Assessment Upper Extremity Finger to Nose Test Within Functional Limits Finger Tapping Test Within Functional Limits OT-Muscle Tone Assessment Muscle Tone WNL Yes OT Sensation Assessment Edema Edema Present Edema Comments BLE M9 OT- IP Assessment and Plan Start: 07/24/21 16:14 Freq: Status: Active Protocol: Document 07/24/21 16:14 CGR (Rec: 07/24/21 16:31 CGR [id number]) OT Summary Assessment and Plan Potential Rehabilitation Potential Excellent Analytic Complexity at Evaluation Moderate Summary OT Impairments Range of Motion,Strength, Balance,Functional Mobility, Grooming,Dressing,Toileting, Bathing,Toilet Transfers, Shower Transfers,Activity Tolerance Progress Towards Goals Slow Progress due to Medical Issues Assessment Summary Pt presents as a moderate complexity evaluation s/p admit for sepsis from cellulites. Pt would benefit from general strengthening and modification ideas as pt states some tasks are getting harder to perform. Recommend d /c to home vs SNF depending on progress. Goals Grooming Goal Independent Dressing Goal Independent Toileting Goal Independent Bathing Goal Independent Toilet Transfer Goal Independent Shower Transfer Goal Independent Days to Meet Goals 20 Frequency of Treatment Frequency Of Treatment Once a Day Treatment Plan OT Treatment Plan ADL Training,Functional Mobility,Patient/Family Education,Discharge Planning Discharge Recommendations OT Discharge Recommendations Home vs SNF Transportation Needs at Discharge Private Vehicle
--- NOTE | 2021-07-24 16:12 | P.PN_ITS ---
Subjective Subjective Date Patient Seen: 07/24/21 Time Patient Seen: 16:12 Interval history: This is a 65-year-old female with a past medical history of cerebral palsy, substance abuse admitted with septic shock secondary to left leg cellulitis. Her blood pressures are much improved today, as is her cellulitis though it is still a bit warm and tender. She denies any fevers, chills, abdominal pain, nausea, or vomiting. Exam Vital Signs (past 8 hours): - 07/24/21 11:39 07/24/21 12:00 Temperature 98.2 F Pulse Rate 70 Respiratory Rate 16 Blood Pressure 117/56 L Pulse Oximetry 96 94 Oxygen Delivery Method Room Air Oxygen Flow Rate 0 Narrative Exam Narrative: General:? Patient is well developed and well nourished, mildly ill-appearing but alert female in no acute distress. HEENT:? Normocephalic, atraumatic, extraocular muscles intact, oral pharynx is clear and mucous membranes are moist. Neck: supple and symmetric, trachea is midline, no cervical adenopathy. Negative for JVD Chest:? Normal AP diameter and contour without kyphoscoliosis, no tachypnea, equal chest rise bilaterally. Lungs:? CTA b/l no wheezing rhonchi or rales. Cardio:?RRR no m/r/g. Abdomen: S NT ND. No CVA tenderness. Musculoskeletal:? Muscle strength and tone are equal within normal limits, no deformity. Extremities: bilateral LE edema with venous stasis changes. No clubbing. Skin:?left cicumferential erythema, warmth, and tenderness of the lower leg. much improved today and only on the anterior aspect today. right leg mild erythema and minimal tenderness without warmth. Neuro:? Alert and orientated x3,? sensation to touch intact in all extremities, no gross deficits noted of cranial nerves. Psych:? Patient has a well-kept appearance, appropriate affect, mental status attitude thought context and judgment are appropriate for age. Objective Labs Result Diagrams: 07/24/21 04:14 07/24/21 04:14 Labs: Laboratory Results - last 24 hr 07/24/21 07/24/21 04:14 04:14 WBC 7.0 D RBC 3.10 L Hgb 9.1 L Hct 28.4 L MCV 91.5 MCH 29.5 MCHC 32.2 RDW 13.4 Plt Count 133 L Neut % (Auto) 64.1 D Lymph % (Auto) 19.0 L [place] % (Auto) 14.6 H Eos % (Auto) 2.0 Baso % (Auto) 0.3 Neut # (Auto) 4500 Lymph # (Auto) 1300 [place] # (Auto) 1000 H Eos # (Auto) 100 Baso # (Auto) 0 Sodium 138 Potassium 4.6 Chloride 104 Carbon Dioxide 29 BUN 36 H Creatinine 1.36 H Estimated GFR 38.8 L BUN/Creatinine Ratio 26.5 H Glucose 136 H Calcium 8.5 Total Bilirubin 0.3 AST 28 ALT 16 Alkaline Phosphatase 132 H Total Protein 6.0 L Albumin 3.4 L Globulin 2.6 Albumin/Globulin Ratio 1.3 PFSH Medical History Achilles tendon injury Cellulitis Cerebral palsy Flesh-eating bacteria History of esophageal dilatation History of esophageal stricture Sepsis Surgical History History of dilatation and curettage Hx of total knee arthroplasty Status post appendectomy Status post surgery (06/23/14) Family History Mother Cardiac disease Father Diabetes mellitus COPD (chronic obstructive pulmonary disease) Brother In good health Social History household members: none Smoking Status: Never smoker alcohol intake: current Assessment & Plan Assessment & Plan narrative: 1. Septic shock secondary to bilateral lower extremity cellulitis, improving. ?- CXR and UA negative ?- continue ceftriaxone, vancomycin discontinued with negative MRSA screen. ?- DVT study negative for clots. ?- off of levophed since yesterday morning. ?- appreciate tele-dough catcher consultation. 2. NEPTALI ?- creatinine 1.2 slight increase to 1.36 today, baseline 0.7 - 0.8. ?- continue to follow, suspect in setting of septic shock. 3. Hypertension, chronic ?- continue hold home antihypertensives in setting of shock and current normotension. 4.? Bilateral lower extremity edema, present on admission, stable ?- hold home diuretic for now. DVT study negative. Likely venous insufficiency. 5.? Chronic low back pain, present on admission, stable ?- continue home medications. 6. Substance abuse - continue home suboxone. 7.? Cerebral Palsy. ?- baseline is ambulatory with assistive devices, uses wheelchair as well. Code: Full, surrogate decision maker is her brother Dispo: downgraded to regular floor yesterday. Remains acute care. Possible discharge to SNF vs home depending on PT / OT evaluations. I have utilized all available immediate resources to obtain, update, or review the patient's current medications. Time Spent With Patient Critical Care time: I spent a total of [] minutes of critical care time on this patient's care today; this time is exclusive of procedural time. Quality VTE Deep Vein Thrombosis/Pulmonary Embolism Present on Admission: No
[2021-07-24] MEDS: ACETAMINOPHEN 325 MG TABLET 975 MG PO (16:17)
[2021-07-24] MEDS: BUPRENORPHINE/NALOXONE 8MG/2MG 1 TAB SL ×2 (16:27→21:07)
[2021-07-24] MEDS: GABAPENTIN 600 MG TABLET 1200 MG PO (21:07)
[2021-07-24] MEDS: TRAZODONE 50 MG TABLET PO (21:07)
[2021-07-24] MEDS: SODIUM CHLORIDE 0.9% FLUSH 10 ML IV (21:08)
[2021-07-24] MEDS: cefTRIAXone 1,000 MG in SODIUM CHLORIDE 0.9% 100 ML 200 ML IV (23:12)
[2021-07-25] VITALS (7 sets, daily range): BP systolic 135–192; BP diastolic 64–116; PULSE 71–79; RESP 18–21; TEMP 36.6–37.1; O2SAT 93–100
[2021-07-25] MEDS: TRAMADOL 50 MG TABLET PO (04:05)
[2021-07-25 06:00] LABS: Add Manual Diff / Slide Review NO; Basophils Absolute Auto 0 /uL (0-100); Basophils Percent Auto 0.4 % (0-2); Eosinophils Absolute Auto 200 /uL (0-450); Eosinophils Percent Auto 2.6 % (2-4); Hematocrit 30.5 % (36-46); Hemoglobin 9.9 g/dL (12.0-16.0); Lymphocytes Absolute Auto 1600 /uL (1100-4500); Lymphocytes Percent Auto 21.2 % (25-40); Mean Corpuscular HGB Conc 32.6 % (30-36); Mean Corpuscular Hemoglobin 29.6 PG (26-34); Mean Corpuscular Volume 90.5 fL (80-100); Monocytes Absolute Auto 800 /uL (0-900); Monocytes Percent Auto 11.2 % (3-14); Neutrophils Absolute Auto 4800 /uL (1500-7000); Neutrophils Percent Auto 64.6 % (50-75); Platelet Count 154 X10^3/uL (150-400); Red Blood Cell Count 3.36 X10^6/uL (4.0-5.2); Red Cell Distribution Width 13.5 % (11.6-14.8); White Blood Cell Count 7.5 X10^3/uL (4.5-11.0)
--- NOTE | 2021-07-25 06:01 | PC.NURSE ---
2100- Patient Mid Line will not flush. Heparin dwell did not produce any flow. Will leave in for DI nurse to trouble shoot in the Am.
[2021-07-25 06:08] LABS: Alanine Aminotransferase 27 IU/L (<35); Albumin 3.7 g/dL (3.5-5.0); Albumin Globulin Ratio 1.4 (1.0-2.8); Alkaline Phosphatase 173 U/L (38-126); Aspartate Aminotransferase 31 IU/L (14-36); BUN Creatinine Ratio 26.2 (6-22); Bilirubin Total 0.3 mg/dL (0.2-1.3); Blood Urea Nitrogen 28 mg/dL (7-17); Calcium 8.7 mg/dL (8.4-10.2); Carbon Dioxide 27 mmol/L (22-32); Chloride 106 mmol/L (98-107); Estimated Glomerular Filt Rate 51.1 mL/min (>60); Globulin 2.7 g/dL (1.7-4.1); Glucose 119 mg/dL (80-110); HEMOLYSIS < 15 (0-50); Potassium 4.5 mmol/L (3.4-5.1); Sodium 140 mmol/L (137-145); Total Protein 6.4 g/dL (6.3-8.2)
[2021-07-25] MEDS: GABAPENTIN 300 MG CAPSULE 900 MG PO (08:38)
[2021-07-25] MEDS: FLUoxetine 20 MG CAPSULE 40 MG PO (08:38)
[2021-07-25] MEDS: lamoTRIgine 100 MG TABLET 300 MG PO (08:38)
[2021-07-25] MEDS: BUPRENORPHINE/NALOXONE 8MG/2MG 1 TAB SL ×3 (08:38→20:46)
[2021-07-25] MEDS: ENOXAPARIN 40 MG/0.4 ML SYRINGE SUBCUT ×2 (08:38→20:46)
--- NOTE | 2021-07-25 12:28 | CM.DPNOTE ---
Faxed referral packet to [facility] per [place], and received fax conf. Karen Brand CM Assist.
--- NOTE | 2021-07-25 12:29 | PT.IPTN ---
Current Diagnoses Sepsis, unspecified organism (07/23/21) Physical Therapy Treatment Note M2 PT-IP Current Condition Start: 07/24/21 17:37 Freq: NEEDED Status: Active Protocol: Document 07/24/21 14:55 AB (Rec: 07/24/21 17:55 AB [id number]) Physical Therapy Current Condition Current Condition Evaluation Date 07/24/21 Treatment Diagnosis sepsis; L lower led cellulitis Onset Date 07/23/21 M3 PT-IP Subjective Start: 07/24/21 17:37 Freq: NEEDED Status: Active Protocol: Document 07/25/21 12:04 KS (Rec: 07/25/21 14:25 KS [id number]) Subjective Physical Therapy Visit Type Type Treatment Note Visit Start Time 12:04 Visit Stop Time 12:29 Total Visit Minutes [address] RECORDER Visits 1 Physical Therapy Visit Comments Patient Comments agreeable to do PT Therapy Pain Assessment Pain When Pain Assessed At Rest Pain Present Pain Present Pain Reported Location Lateral R foot Intensity 8 Scale Used Numeric (0 - 10) Description Tender,Throbbing,With Movement Pain Behaviors Facial Grimacing,Guarding Pain Management Techniques Elevation,Modification of Treatment M4 PT-IP Mobility and Gait Start: 07/24/21 17:37 Freq: NEEDED Status: Active Protocol: Document 07/25/21 12:04 KS (Rec: 07/25/21 14:25 KS [id number]) PT-Bed Mobility Assessment Supine to Sit Supine to Sit Contact Guard Assistance,1 Person Assistance,Bedrails PT-Transfer Assessment Sit to and From Stand Sit to and from Stand Minimal Assistance,1 Person Assistance,Use of Upper Extremities Equipment Transfer Assistive Device Gait Belt,Front Wheeled Walker Orthotic/Prosthetic Devices or Brace: No Transfers Transfer Destination Chair Transfer Technique Pt ambulated w/ FWW Transfer Ability Level of Assist Minimal Assistance,1 Person Assistance,Use of Upper Extremities Comments Mobility Comments Pt in bed upon arrival. CGA for sup<>sit and scooting EOB. Min A for sit<>stand w/ FWW. Pt ambulated ~20 ft in room but limited by low activity tolerance and high pain in callus on lateral R foot. Pt returned to chair and completed 1x10 bilateral ankle pumps, quad sets, and glute sets followed by 1x5 bilateral heel slides. Pt w/ mildly labored breathing. Left in room w/ OT. Gait Assessment Gait Gait Assistance Required: Minimum Assistance,1 Person Assist Distance (Feet) 20 Able to Maintain Weight Bearing Status Yes During Gait Assistive Devices Assistive Device Gait Belt,Front Wheeled Walker Orthotic/Prosthetic Devices or Brace: No Gait Deviations General Gait Pattern Antalgic,Decreased Stride Length,Decreased Feet Clearance,Step-to Gait Factors Limiting Gait Function Factors Limiting Gait Function Decreased Activity Tolerance, Decreased Sensation,Decreased Strength,Limited Range of Motion,Pain,Poor Balance,Poor Safety Awareness Comments Gait Comments Poor tolerance for gait due to pain, weakness, and low activity tolerance. PT-Balance Assessment Sitting Balance and Reactions Static Sitting Balance Ability Good Dynamic Sitting Balance Ability Good Standing Balance and Reactions Static Standing Balance Ability Fair Dynamic Standing Balance Ability Fair Device Used FWW M5 PT-IP Objective Assessments Start: 07/24/21 17:37 Freq: NEEDED Status: Active Protocol: Document 07/24/21 14:55 AB (Rec: 07/24/21 17:55 AB [id number]) Orientation Orientation/Cognition Level of Alertness Alert Orientation Name,Age,Birthday,Month,Date, Year,Day of Week,Place, Situation Language Function Ability No Deficits Noted Safety Awareness Understands Safety Issues Memory Description No Deficits Noted Gross Range of Motion Lower Extremity ROM Impairments B ankle tightness with decrease DF R>L Strength Lower Extremity Strength Assessment Left Impaired Ankle 3-/5 Muscle Tone Muscle Tone WNL Yes M6 PT-IP Treatment Start: 07/24/21 17:37 Freq: NEEDED Status: Active Protocol: Document 07/25/21 12:04 KS (Rec: 07/25/21 14:25 KS [id number]) Physical Therapy Treatment Exercises Exercises Ankle Pumps,Gluteal Sets,Quad Sets,Heel Slides Education Education Provided Safety M7 PT-IP Assessment and Plan Start: 07/24/21 17:37 Freq: NEEDED Status: Active Protocol: Document 07/25/21 12:04 KS (Rec: 07/25/21 14:25 KS [id number]) PT Summary Assessment and Plan Potential Rehabilitation Potential Good Status of Condition at Evaluation Stable Summary Impairments Pain,ROM,Strength,Balance, Coordination,Sensation,Tone, Cognition,Bed Mobility, Transfers,Gait,Activity Tolerance Progress Towards Goals Slow Progress - Other Assessment Summary Pt continues to require CGA to Min A throughout treatment. Limited by weakness, pain, and low tolerance for activity. Pt will benefit from SNF to improve strength and functional mobility but at very least will require HHPT. Goals Bed Mobility Goal Independent Transfer Goal Independent,Front Wheeled Walker Gait Goal Independent,Front Wheel Walker Gait Distance 50 Days to Meet Goals 5 Frequency of Treatment Frequency Of Treatment Once a Day Treatment Plan Physical Therapy Treatment Plan Bed Mobility Training,Transfer Training,Gait Training, Therapeutic Exercise,Balance Retraining,Discharge Planning, Neuromuscular Re-ed, Coordination Retraining Recommendations To Nursing Amount of Assist Needed 1 Person Assist Discharge Recommendations PT Discharge Recommendations Home with Assistance,Home Health Transportation Needs at Discharge Private Vehicle,Wheelchair/ Cabulance
--- NOTE | 2021-07-25 13:03 | OT.IP.TRT ---
Current Diagnoses Sepsis, unspecified organism (07/23/21) Occupational Therapy Treatment Note M2 OT-IP Current Condition Start: 07/24/21 16:14 Freq: Status: Active Protocol: Document 07/24/21 16:14 CGR (Rec: 07/24/21 16:31 CGR [id number]) Occupational Therapy Current Condition Current Condition Evaluation Date 07/24/21 Treatment Diagnosis Sepsis from LE cellulitis Diagnosis Onset Date 07/24/21 M3 OT- IP Subjective and Pain Start: 07/24/21 16:14 Freq: Status: Active Protocol: Document 07/25/21 14:31 CGR (Rec: 07/25/21 14:50 CGR [id number]) OT- Subjective Occupational Therapy Visit Type Type Progress Note Visit Start Time 12:16 Visit Stop Time 13:03 Total Visit Minutes 47 Notes Pt finishing up with P.T.A when OT entered. OT Pain Assessment Pain When Pain Assessed During Mobility Pain Present Pain Present Pain Reported Location Lateral R foot Scale Used did not rate Management Techniques Distraction,Modification of Treatment,Re-positioning M4 OT- IP ADL's Start: 07/24/21 16:14 Freq: Status: Active Protocol: Document 07/25/21 14:31 CGR (Rec: 07/25/21 14:50 CGR [id number]) OT [id number] General Evaluation Self-Feeding Ability Independent Comments OT Self-Feeding Comments lunch delivered during session OT ADL-Grooming General Evaluation Grooming Ability Standby Assistance,Moderate Assistance Areas Needing Assistance Retrieving/Set-up of Grooming Items,Combing/Brushing Hair, Face Washing Comments OT Grooming Comments mod a for brushing hair d/t it being tangled and wet. SBA for washing face OT ADL-Oral Care Comments Oral Care Comments not performed OT ADL-Dressing General Eval Lower Body Dressing Ability Minimal Assistance,Maximum Assistance Areas Needing Assistance Underpants/Brief,Socks Comments OT Dressing Comments min a for donning brief and max a for donning socks in the shower stall OT ADL-Toileting Comments OT Toileting Comments not performed OT ADL-Bathing Bathing Type Bathing Type Shower General Evaluation Bathing Ability Minimal Assistance Areas Needing Assistance Wash/Dry Perineal Area,Wash/ Dry Lower Extremities Devices Bathing Equipment Hand Held Shower Sprayer, Shower Chair with Arms,Grab Bars Comments OT Bathing Comments Pt states that she is typically able to perform her own pericare in the shower but is having difficulty today. M5 OT- IP IADL's Start: 07/24/21 16:14 Freq: Status: Active Protocol: Document 07/24/21 16:14 CGR (Rec: 07/24/21 16:31 CGR [id number]) OT-Instrumental Activities of Daily Living Deficits IADL Deficits Identified No Deficits Home Safety Awareness Awareness of Need for Assistance at Home Good Awareness Ability to Problem Solve Emergency Able to Problem Solve Situations Medication Management Medication Management No Deficits Identified Money Management Money Management No Deficits Identified Meal Preparation Meal Preparation No Deficits Identified Trail Construction Worker Trail Construction Worker No Deficits Identified Driving Driving Comments Pt does not drive M6 OT- IP Functional Cognition Start: 07/24/21 16:14 Freq: Status: Active Protocol: Document 07/24/21 16:14 CGR (Rec: 07/24/21 16:31 CGR [id number]) Cognitive Factors Limiting Selfcare Function Cognitive Ability Level of Alertness Alert Patient Orientation Name,Age,Birthday,Month,Date, Year,Day of Week,Place, Situation Attention Span Ability Capable of Focused Attention, Capable of Sustained Attention Ability to Follow Commands Able to Follow Multi-Step Commands OT- Vision and Hearing OT- Hearing Assessment OT- Hearing Assessment WFL OT- Vision Assessment Visual Acuity Glasses All The Time Visual Attentiveness WFL Occular Pursuits WFL Visual Convergence Impaired Vision Assessment Comments Pt states that she has 2 seperate pairs of glasses, one for distance and one for reading. M7 OT- IP Mobility and Balance Start: 07/24/21 16:14 Freq: Status: Active Protocol: Document 07/25/21 14:31 CGR (Rec: 07/25/21 14:50 CGR [id number]) OT-Transfer Assessment Sit to and From Stand Sit to and from Stand Contact Guard Assistance, Minimal Assistance,1 Person Assistance Transfers Transfer Ability Contact Guard Assistance, Minimal Assistance,1 Person Assistance Technique Transfer Destination Chair,Shower Stall Transfer Technique Stand Step Pivot Devices Transfer Assistive Devices Gait Belt,Front Wheeled Walker Comments Mobility Comments Pt ambulated around the room with CGA and min a for initial sit to stand. OT- Balance Assessment Sitting Balance and Reactions Static Sitting Balance Ability Good Dynamic Sitting Balance Ability Good M8 OT- IP Objective Assessments Start: 07/24/21 16:14 Freq: Status: Active Protocol: Document 07/24/21 16:14 CGR (Rec: 07/24/21 16:31 CGR [id number]) OT Gross Range of Motion Upper Extremity Range of Motion Assessment Left Impaired ROM Impairments R shld 0-90, L shld 0-45 OT Strength Upper Extremity Strength Assessment Within Functional Limits Comments Strength Comments shlds not tested, arms and hands grossly 4/5 OT- Coordination Assessment Upper Extremity Finger to Nose Test Within Functional Limits Finger Tapping Test Within Functional Limits OT-Muscle Tone Assessment Muscle Tone WNL Yes OT Sensation Assessment Edema Edema Present Edema Comments BLE M9 OT- IP Assessment and Plan Start: 07/24/21 16:14 Freq: Status: Active Protocol: Document 07/25/21 14:31 CGR (Rec: 07/25/21 14:50 CGR [id number]) OT Summary Assessment and Plan Potential Rehabilitation Potential Excellent Analytic Complexity at Evaluation Moderate Summary OT Impairments Range of Motion,Strength, Balance,Functional Mobility, Grooming,Dressing,Toileting, Bathing,Toilet Transfers, Shower Transfers,Activity Tolerance Progress Towards Goals Slow Progress due to Medical Issues Assessment Summary Pt presents as a moderate complexity evaluation s/p admit for sepsis from cellulitis. Pt would benefit from general strengthing and modification ideas as pt states some tasks are getting harder to perform. Pt participated in shower on this date and demonstrates grossly CGA to min a for mobility and min to mod for ADLs. Pt states she is typically able to do more. Per nursing, pt is needing a heavy 2 person assist but this was not demonstrated in todays session with this communications writer. Pt does have pain to the R foot from a callus that impacts her mobility. Recommend d/c to SNF given less endurance today and increased need for ADL assist. Goals Grooming Goal Independent Dressing Goal Independent Toileting Goal Independent Bathing Goal Independent Toilet Transfer Goal Independent Shower Transfer Goal Independent Days to Meet Goals 20 Frequency of Treatment Frequency Of Treatment Once a Day Treatment Plan OT Treatment Plan ADL Training,Functional Mobility,Patient/Family Education,Discharge Planning Discharge Recommendations OT Discharge Recommendations SNF Rehab Transportation Needs at Discharge Private Vehicle
--- NOTE | 2021-07-25 13:36 | CM.DPC ---
Discharge Plan Cont: [employer] has submitted auth to insurance for SNF. Updated PT/OT notes will be provided to insurance company as well to bolster auth request. Patient resides alone on [address]. [facility] would be able to service this patient but PT/OT and assigned nurse today indicating patient would not be safe at this time to discharge home with HH. Awaiting ins auth response via [employer] at this time. Marko DU
--- NOTE | 2021-07-25 15:10 | PM.PN.1 ---
Subjective Subjective Date Patient Seen: 07/25/21 Time Patient Seen: 15:11 Interval history: This is a 65-year-old female with a past medical history of cerebral palsy, substance abuse admitted with septic shock secondary to left leg cellulitis.? Her blood pressures are much improved today, as is her cellulitis and it is much less warm and tender.? She denies any fevers, chills, abdominal pain, nausea, or vomiting. She nearly fell with nursing staff today. awaiting insurance authorization for possible SNF. Exam Vital Signs (past 8 hours): - 07/25/21 07:47 07/25/21 09:55 07/25/21 11:00 Temperature 98.7 F 97.8 F Pulse Rate 77 77 Respiratory Rate 19 20 Blood Pressure 192/91 H 158/116 H Pulse Oximetry 96 95 95 Oxygen Delivery Method Room Air Oxygen Flow Rate 0 Narrative Exam Narrative: General:? Patient is well developed and well nourished, mildly ill-appearing but alert female in no acute distress. HEENT:? Normocephalic, atraumatic, extraocular muscles intact, oral pharynx is clear and mucous membranes are moist. Neck: supple and symmetric, trachea is midline, no cervical adenopathy. Negative for JVD Chest:? Normal AP diameter and contour without kyphoscoliosis, no tachypnea, equal chest rise bilaterally. Lungs:? CTA b/l no wheezing rhonchi or rales. Cardio:?RRR no m/r/g. Abdomen: S NT ND. No CVA tenderness. Musculoskeletal:? Muscle strength and tone are equal within normal limits, no deformity. Extremities: bilateral LE edema with venous stasis changes. No clubbing. Skin:?left cicumferential erythema, warmth, and tenderness of the lower leg. much improved today and only on the anterior aspect today. right leg mild erythema and minimal tenderness without warmth. Neuro:? Alert and orientated x3,? sensation to touch intact in all extremities, no gross deficits noted of cranial nerves. Psych:? Patient has a well-kept appearance, appropriate affect, mental status attitude thought context and judgment are appropriate for age. Objective Labs Result Diagrams: 07/25/21 05:13 07/25/21 05:13 Labs: Laboratory Results - last 24 hr 07/25/21 07/25/21 05:13 05:13 WBC 7.5 RBC 3.36 L Hgb 9.9 L Hct 30.5 L MCV 90.5 MCH 29.6 MCHC 32.6 RDW 13.5 Plt Count 154 Neut % (Auto) 64.6 Lymph % (Auto) 21.2 L [place] % (Auto) 11.2 Eos % (Auto) 2.6 Baso % (Auto) 0.4 Neut # (Auto) 4800 Lymph # (Auto) 1600 [place] # (Auto) 800 Eos # (Auto) 200 Baso # (Auto) 0 Sodium 140 Potassium 4.5 Chloride 106 Carbon Dioxide 27 BUN 28 H Creatinine 1.07 H Estimated GFR 51.1 L BUN/Creatinine Ratio 26.2 H Glucose 119 H Calcium 8.7 Total Bilirubin 0.3 AST 31 ALT 27 Alkaline Phosphatase 173 H Total Protein 6.4 Albumin 3.7 Globulin 2.7 Albumin/Globulin Ratio 1.4 PFSH Medical History Achilles tendon injury Cellulitis Cerebral palsy Flesh-eating bacteria History of esophageal dilatation History of esophageal stricture Sepsis Surgical History History of dilatation and curettage Hx of total knee arthroplasty Status post appendectomy Status post surgery (06/23/14) Family History Mother Cardiac disease Father Diabetes mellitus COPD (chronic obstructive pulmonary disease) Brother In good health Social History household members: none Smoking Status: Never smoker alcohol intake: current Assessment & Plan Assessment & Plan narrative: 1. Septic shock secondary to bilateral lower extremity cellulitis, improving. ?- CXR and UA negative ?- continue ceftriaxone, vancomycin discontinued with negative MRSA screen. ?- DVT study negative for clots. ?- off of levophed since yesterday morning. ?- appreciate tele-electro optics engineer consultation. 2. NEPTALI ?- creatinine 1.2 slight increase to 1.36 today, baseline 0.7 - 0.8. ?- continue to follow, suspect in setting of septic shock. 3. Hypertension, chronic ?- continue hold home antihypertensives in setting of shock and current normotension. 4.? Bilateral lower extremity edema, present on admission, stable ?- hold home diuretic for now. DVT study negative. Likely venous insufficiency. 5.? Chronic low back pain, present on admission, stable ?- continue home medications. 6. Substance abuse ?- continue home suboxone. 7.? Cerebral Palsy. ?- baseline is ambulatory with assistive devices, uses wheelchair as well. Code: Full, surrogate decision maker is her brother Dispo: downgraded to regular floor yesterday. Remains acute care. Possible discharge to SNF vs home depending on PT / OT evaluations. I have utilized all available immediate resources to obtain, update, or review the patient's current medications. Time Spent With Patient Critical Care time: I spent a total of [] minutes of critical care time on this patient's care today; this time is exclusive of procedural time. Quality VTE Deep Vein Thrombosis/Pulmonary Embolism Present on Admission: No
[2021-07-25] MEDS: GABAPENTIN 600 MG TABLET 1200 MG PO (20:45)
[2021-07-25] MEDS: SODIUM CHLORIDE 0.9% FLUSH 10 ML IV (20:46)
[2021-07-25] MEDS: TRAZODONE 50 MG TABLET PO (20:46)
[2021-07-25] MEDS: cefTRIAXone 1,000 MG in SODIUM CHLORIDE 0.9% 100 ML 200 ML IV (22:52)
[2021-07-26] MEDS: TRAMADOL 50 MG TABLET PO ×2 (01:11→19:33)
[2021-07-26 05:06] VITALS: BP 155/72; PULSE 78; RESP 19; O2SAT 95
[2021-07-26 05:41] LABS: Add Manual Diff / Slide Review NO; Basophils Absolute Auto 0 /uL (0-100); Basophils Percent Auto 0.7 % (0-2); Eosinophils Absolute Auto 200 /uL (0-450); Eosinophils Percent Auto 2.5 % (2-4); Hematocrit 31.4 % (36-46); Hemoglobin 10.3 g/dL (12.0-16.0); Lymphocytes Absolute Auto 1400 /uL (1100-4500); Lymphocytes Percent Auto 19.1 % (25-40); Mean Corpuscular HGB Conc 32.7 % (30-36); Mean Corpuscular Hemoglobin 29.4 PG (26-34); Mean Corpuscular Volume 89.8 fL (80-100); Monocytes Absolute Auto 800 /uL (0-900); Monocytes Percent Auto 10.7 % (3-14); Neutrophils Absolute Auto 4800 /uL (1500-7000); Platelet Count 173 X10^3/uL (150-400); Red Cell Distribution Width 13.5 % (11.6-14.8); White Blood Cell Count 7.2 X10^3/uL (4.5-11.0)
[2021-07-26 05:50] LABS: Alanine Aminotransferase 21 IU/L (<35); Albumin 3.8 g/dL (3.5-5.0); Albumin Globulin Ratio 1.4 (1.0-2.8); Alkaline Phosphatase 164 U/L (38-126); Aspartate Aminotransferase 19 IU/L (14-36); BUN Creatinine Ratio 25.6 (6-22); Bilirubin Total 0.4 mg/dL (0.2-1.3); Blood Urea Nitrogen 23 mg/dL (7-17); Carbon Dioxide 31 mmol/L (22-32); Chloride 106 mmol/L (98-107); Estimated Glomerular Filt Rate > 60.0 mL/min (>60); Globulin 2.7 g/dL (1.7-4.1); Glucose 119 mg/dL (80-110); HEMOLYSIS < 15 (0-50); Potassium 4.3 mmol/L (3.4-5.1); Sodium 137 mmol/L (137-145); Total Protein 6.5 g/dL (6.3-8.2)
[2021-07-26] MEDS: GABAPENTIN 300 MG CAPSULE 900 MG PO (09:12)
[2021-07-26] MEDS: lamoTRIgine 100 MG TABLET 300 MG PO (09:12)
[2021-07-26] MEDS: FLUoxetine 20 MG CAPSULE 40 MG PO (09:12)
[2021-07-26] MEDS: ENOXAPARIN 40 MG/0.4 ML SYRINGE SUBCUT ×2 (09:12→20:45)
[2021-07-26] MEDS: BUPRENORPHINE/NALOXONE 8MG/2MG 1 TAB SL ×3 (09:13→20:44)
[2021-07-26] MEDS: SODIUM CHLORIDE 0.9% FLUSH 10 ML IV ×2 (09:14→20:45)
--- NOTE | 2021-07-26 11:07 | PT.IPTN ---
Current Diagnoses Sepsis, unspecified organism (07/23/21) Physical Therapy Treatment Note M2 PT-IP Current Condition Start: 07/24/21 17:37 Freq: NEEDED Status: Active Protocol: Document 07/24/21 14:55 AB (Rec: 07/24/21 17:55 AB [id number]) Physical Therapy Current Condition Current Condition Evaluation Date 07/24/21 Treatment Diagnosis sepsis; L lower led cellulitis Onset Date 07/23/21 M3 PT-IP Subjective Start: 07/24/21 17:37 Freq: NEEDED Status: Active Protocol: Document 07/26/21 10:37 KS (Rec: 07/26/21 12:15 KS [id number]) Subjective Physical Therapy Visit Type Type Treatment Note Visit Start Time 10:37 Visit Stop Time 11:07 Total Visit Minutes 30 Number of COUNTERINTELLIGENCE AGENT Visits 2 Physical Therapy Visit Comments Patient Comments agreeable to do PT M4 PT-IP Mobility and Gait Start: 07/24/21 17:37 Freq: NEEDED Status: Active Protocol: Document 07/26/21 10:37 KS (Rec: 07/26/21 12:15 KS [id number]) PT-Bed Mobility Assessment Supine to Sit Supine to Sit Contact Guard Assistance,1 Person Assistance,Bedrails Scooting Scooting to Edge of Bed Contact Guard Assistance PT-Transfer Assessment Sit to and From Stand Sit to and from Stand Minimal Assistance,1 Person Assistance,Use of Upper Extremities Equipment Transfer Assistive Device Gait Belt,Front Wheeled Walker Orthotic/Prosthetic Devices or Brace: No Transfers Transfer Destination Chair,Toilet Transfer Technique Pt ambulated w/ FWW Transfer Ability Level of Assist Minimal Assistance,1 Person Assistance,Use of Upper Extremities Comments Mobility Comments Pt in bed upon arrival and agreeable to PT and requesting to use bathroom. CGA and increased time for sup<>sit and scooting EOB. Min A for sit<>stand w/ FWW. Pt then ambulated to toilet CGA, cues for using hand rail when sitting. After bowel movement, RN arrived to assist w/ pericare as pt unable to perform on her own. Pt then ambulated to sink to wash hands resting on forearms on counter due to fatigue. She then ambulated to chair to sit . Pt performed 1x10 bilateral ankle pumps, quad sets, and glute sets and reported fatigue. Pt left in chair w/ all needs in reach. Gait Assessment Gait Gait Assistance Required: Minimum Assistance,1 Person Assist Distance (Feet) 40 Able to Maintain Weight Bearing Status Yes During Gait Assistive Devices Assistive Device Gait Belt,Front Wheeled Walker Orthotic/Prosthetic Devices or Brace: No Factors Limiting Gait Function Factors Limiting Gait Function Decreased Activity Tolerance, Decreased Sensation,Decreased Strength,Limited Range of Motion,Pain,Poor Balance,Poor Safety Awareness Comments Gait Comments Poor tolerance for gait due to pain, weakness, and low activity tolerance. PT-Balance Assessment Sitting Balance and Reactions Static Sitting Balance Ability Good Dynamic Sitting Balance Ability Good Standing Balance and Reactions Static Standing Balance Ability Fair Dynamic Standing Balance Ability Fair Device Used FWW M5 PT-IP Objective Assessments Start: 07/24/21 17:37 Freq: NEEDED Status: Active Protocol: Document 07/24/21 14:55 AB (Rec: 07/24/21 17:55 AB [id number]) Orientation Orientation/Cognition Level of Alertness Alert Orientation Name,Age,Birthday,Month,Date, Year,Day of Week,Place, Situation Language Function Ability No Deficits Noted Safety Awareness Understands Safety Issues Memory Description No Deficits Noted Gross Range of Motion Lower Extremity ROM Impairments B ankle tightness with decrease DF R>L Strength Lower Extremity Strength Assessment Left Impaired Ankle 3-/5 Muscle Tone Muscle Tone WNL Yes M6 PT-IP Treatment Start: 07/24/21 17:37 Freq: NEEDED Status: Active Protocol: Document 07/26/21 10:37 KS (Rec: 07/26/21 12:15 KS [id number]) Physical Therapy Treatment Exercises Exercises Ankle Pumps,Gluteal Sets,Quad Sets Education Education Provided Safety M7 PT-IP Assessment and Plan Start: 07/24/21 17:37 Freq: NEEDED Status: Active Protocol: Document 07/26/21 10:37 KS (Rec: 07/26/21 12:15 KS [id number]) PT Summary Assessment and Plan Potential Rehabilitation Potential Good Status of Condition at Evaluation Stable Summary Impairments Pain,ROM,Strength,Balance, Coordination,Sensation,Tone, Cognition,Bed Mobility, Transfers,Gait,Activity Tolerance Progress Towards Goals Slow Progress - Other Assessment Summary Pt requiring CGA for bed mobility, Min A for transfers and CGA for short bouts of ambulation. She requires cues and increased time for all tasks. Good effort w/ treatment however limited by pain, weakness, and low activity tolerance. Unable to perform her own pericare today . She will require SNF to improve strength and functional mobility independence. Goals Bed Mobility Goal Independent Transfer Goal Independent,Front Wheeled Walker Gait Goal Independent,Front Wheel Walker Gait Distance 50 Days to Meet Goals 5 Frequency of Treatment Frequency Of Treatment Once a Day Treatment Plan Physical Therapy Treatment Plan Bed Mobility Training,Transfer Training,Gait Training, Therapeutic Exercise,Balance Retraining,Discharge Planning, Neuromuscular Re-ed, Coordination Retraining Recommendations To Nursing Amount of Assist Needed 1 Person Assist Discharge Recommendations PT Discharge Recommendations Home with 24/11 Assist Available,Home Health,SNF Rehab Transportation Needs at Discharge Private Vehicle,Wheelchair/ Cabulance
[2021-07-26] MEDS: LINEZOLID 600 MG TABLET PO (11:47)
[2021-07-26 12:00] VITALS: BP 136/62; PULSE 79; RESP 19; TEMP 36.9; O2SAT 94
--- NOTE | 2021-07-26 13:11 | CM.DPC ---
Addendum entered by SERGIO López 07/26/21 14:44: ADD: BIANCA called [facility]ily around 1430 and confirmed still no answer on insurance auth and [facility] has been checking regularly and anticipate possible option that if no answer by end of day today may get the answer tomorrow even with it being Sat since auth process already started. [facility]ily could accept tomorrow if auth obtained. BF Original Note: DCP SNF vs HH Cont Per MD, pt is medically stable to d/c and recommendation is SNF and still awaiting insurance determination if they will auth SNF. BIANCA called Mily and confirmed they submitted updated PT/OT notes and still awaiting determination from pt's Pre MCR. BIANCA spoke to [facility] RN on [facility] [phone] who confirms they are very aware of pt and have worked with her many times. BIANCA updated on no open or weeping lower extremity cellulitis wounds and pt has been admitted since 07/21/21 and therefore if pt's insurance denies SNF then [facility] would be willing to accept the referral but preference would be SNF if insurance approves. [facility] states SW can call her number to update when pt discharges and if to SNF or home with HH. ADDIE Jones kindly updated pt that still awaiting insurance determination. Plan: SW to follow closely for insurance determination for SNF and if pt will d/c to [facility] vs home to [place] with new [facility] referral. PASRR done in anticipation of SNF but if home the F2F needed for HH. SERGIO López
[2021-07-26] MEDS: cephALEXin 250 MG CAPSULE 500 MG PO ×2 (15:05→20:44)
--- NOTE | 2021-07-26 15:17 | P.PN_ITS ---
Subjective Subjective Date Patient Seen: 07/26/21 Time Patient Seen: 15:17 Interval history: This is a 65-year-old female with a past medical history of cerebral palsy, substance abuse admitted with septic shock secondary to left leg cellulitis.? Her blood pressures are much improved today, as is her cellulitis and it is much less warm and tender.? She denies any fevers, chills, abdominal pain, nausea, or vomiting. She nearly fell with nursing staff today. awaiting insurance authorization for possible SNF. Exam Vital Signs (past 8 hours): - 07/26/21 12:00 Temperature 98.5 F Pulse Rate 79 Respiratory Rate 19 Blood Pressure 136/62 Pulse Oximetry 94 Oxygen Delivery Method Room Air Oxygen Flow Rate 0 Narrative Exam Narrative: General:? Patient is well developed and well nourished, mildly ill-appearing but alert female in no acute distress. HEENT:? Normocephalic, atraumatic, extraocular muscles intact, oral pharynx is clear and mucous membranes are moist. Neck: supple and symmetric, trachea is midline, no cervical adenopathy. Negative for JVD Chest:? Normal AP diameter and contour without kyphoscoliosis, no tachypnea, equal chest rise bilaterally. Lungs:? CTA b/l no wheezing rhonchi or rales. Cardio:?RRR no m/r/g. Abdomen: S NT ND. No CVA tenderness. Musculoskeletal:? Muscle strength and tone are equal within normal limits, no deformity. Extremities: bilateral LE edema with venous stasis changes. No clubbing. Skin:?left cicumferential erythema, warmth, and tenderness of the lower leg. much improved today and only on the anterior aspect today. right leg mild erythema and minimal tenderness without warmth. Neuro:? Alert and orientated x3,? sensation to touch intact in all extremities, no gross deficits noted of cranial nerves. Psych:? Patient has a well-kept appearance, appropriate affect, mental status attitude thought context and judgment are appropriate for age. Objective Labs Result Diagrams: 07/26/21 05:08 07/26/21 05:08 Labs: Laboratory Results - last 24 hr 07/26/21 07/26/21 05:08 05:08 WBC 7.2 RBC 3.50 L Hgb 10.3 L Hct 31.4 L MCV 89.8 MCH 29.4 MCHC 32.7 RDW 13.5 Plt Count 173 Neut % (Auto) 67.0 Lymph % (Auto) 19.1 L Pratt % (Auto) 10.7 Eos % (Auto) 2.5 Baso % (Auto) 0.7 Neut # (Auto) 4800 Lymph # (Auto) 1400 Pratt # (Auto) 800 Eos # (Auto) 200 Baso # (Auto) 0 Sodium 137 Potassium 4.3 Chloride 106 Carbon Dioxide 31 BUN 23 H Creatinine 0.90 Estimated GFR > 60.0 BUN/Creatinine Ratio 25.6 H Glucose 119 H Calcium 9.0 Total Bilirubin 0.4 AST 19 ALT 21 Alkaline Phosphatase 164 H Total Protein 6.5 Albumin 3.8 Globulin 2.7 Albumin/Globulin Ratio 1.4 PFSH Medical History Achilles tendon injury Cellulitis Cerebral palsy Flesh-eating bacteria History of esophageal dilatation History of esophageal stricture Sepsis Surgical History History of dilatation and curettage Hx of total knee arthroplasty Status post appendectomy Status post surgery (06/23/14) Family History Mother Cardiac disease Father Diabetes mellitus COPD (chronic obstructive pulmonary disease) Brother In good health Social History household members: none Smoking Status: Never smoker alcohol intake: current Assessment & Plan Assessment & Plan narrative: 1. Septic shock secondary to bilateral lower extremity cellulitis, improving. ?- CXR and UA negative ?- continued ceftriaxone, vancomycin discontinued with negative MRSA screen. Slight worsening of redness after vancomycin discontinued but still mild. Switched antibiotic therapy to cephalexin and linezolid PO. ?- DVT study negative for clots. ?- off of levophed since 07/24 AM. ?- appreciate tele-peer health promoter consultation. 2. NEPTALI ?- creatinine 1.2 slight increase to 1.36 the following day but now improved to 1.0. baseline 0.7 - 0.8. ?- continue to follow, suspect in setting of septic shock. 3. Hypertension, chronic ?- held home antihypertensives in setting of shock and current normotension. Resume home lisinopril tomorrow. 4.? Bilateral lower extremity edema, present on admission, stable ?- hold home diuretic for now given NEPTALI. DVT study negative. Likely venous insufficiency. 5.? Chronic low back pain, present on admission, stable ?- continue home medications. 6. Substance abuse ?- continue home suboxone. 7.? Cerebral Palsy. ?- baseline is ambulatory with assistive devices, uses wheelchair as well. Code: Full, surrogate decision maker is her brother Dispo: downgraded to regular floor. Remains acute care. Possible discharge to SNF pending insurance authorization. Time Spent With Patient Critical Care time: I spent a total of [] minutes of critical care time on this patient's care today; this time is exclusive of procedural time. Quality VTE Deep Vein Thrombosis/Pulmonary Embolism Present on Admission: No
[2021-07-26 16:00] VITALS: BP 131/64; PULSE 73; RESP 17; TEMP 36.7; O2SAT 94
[2021-07-26 20:00] VITALS: BP 132/72; PULSE 80; RESP 19; TEMP 37.3; O2SAT 93
[2021-07-26] MEDS: TRAZODONE 50 MG TABLET PO (20:44)
[2021-07-26] MEDS: DOXYCYCLINE HYCLATE 100 MG TABLET PO (20:44)
[2021-07-26] MEDS: GABAPENTIN 600 MG TABLET 1200 MG PO (20:44)
[2021-07-27] VITALS (7 sets, daily range): BP systolic 95–152; BP diastolic 55–85; PULSE 72–88; RESP 16–21; TEMP 36.3–37; O2SAT 92–95
[2021-07-27] MEDS: TRAMADOL 50 MG TABLET PO (06:28)
[2021-07-27] MEDS: GABAPENTIN 300 MG CAPSULE 900 MG PO (08:21)
[2021-07-27] MEDS: DOXYCYCLINE HYCLATE 100 MG TABLET PO ×2 (08:21→20:44)
[2021-07-27] MEDS: cephALEXin 250 MG CAPSULE 500 MG PO ×3 (08:21→20:44)
[2021-07-27] MEDS: lamoTRIgine 100 MG TABLET 300 MG PO (08:21)
[2021-07-27] MEDS: BUPRENORPHINE/NALOXONE 8MG/2MG 1 TAB SL ×3 (08:22→20:43)
[2021-07-27] MEDS: ENOXAPARIN 40 MG/0.4 ML SYRINGE SUBCUT ×2 (08:22→20:45)
[2021-07-27] MEDS: FLUoxetine 20 MG CAPSULE 40 MG PO (08:22)
[2021-07-27] MEDS: lisinopriL 10 MG TABLET PO (08:22)
[2021-07-27] MEDS: SODIUM CHLORIDE 0.9% FLUSH 10 ML IV ×2 (08:23→21:36)
--- NOTE | 2021-07-27 10:53 | OT.IP.TRT ---
Current Diagnoses Sepsis, unspecified organism (07/23/21) Occupational Therapy Treatment Note M2 OT-IP Current Condition Start: 07/24/21 16:14 Freq: Status: Active Protocol: Document 07/24/21 16:14 CGR (Rec: 07/24/21 16:31 CGR [id number]) Occupational Therapy Current Condition Current Condition Evaluation Date 07/24/21 Treatment Diagnosis Sepsis from LE cellulitis Diagnosis Onset Date 07/24/21 M3 OT- IP Subjective and Pain Start: 07/24/21 16:14 Freq: Status: Active Protocol: Document 07/27/21 11:57 CGR (Rec: 07/27/21 12:01 CGR [id number]) OT- Subjective Occupational Therapy Visit Type Type Progress Note Visit Start Time 10:08 Visit Stop Time 10:53 Total Visit Minutes 45 Notes Pt agreeable to ADls at sink M4 OT- IP ADL's Start: 07/24/21 16:14 Freq: Status: Active Protocol: Document 07/27/21 11:57 CGR (Rec: 07/27/21 12:01 CGR [id number]) OT [id number] Comments OT Self-Feeding Comments not meal time OT ADL-Grooming General Evaluation Grooming Ability Standby Assistance Areas Needing Assistance Retrieving/Set-up of Grooming Items,Face Washing Comments OT Grooming Comments standing at sink OT ADL-Oral Care Comments Oral Care Comments pt already performed OT ADL-Dressing Comments OT Dressing Comments not performed OT ADL-Toileting Comments OT Toileting Comments pt declined need OT ADL-Bathing Bathing Type Bathing Type Sponge Bath General Evaluation Bathing Ability Standby Assistance Areas Needing Assistance Retrieving/Setting Up Items Comments OT Bathing Comments Pt performed under arm and under breast cleaning standing at sink M5 OT- IP IADL's Start: 07/24/21 16:14 Freq: Status: Active Protocol: Document 07/24/21 16:14 CGR (Rec: 07/24/21 16:31 CGR [id number]) OT-Instrumental Activities of Daily Living Deficits IADL Deficits Identified No Deficits Home Safety Awareness Awareness of Need for Assistance at Home Good Awareness Ability to Problem Solve Emergency Able to Problem Solve Situations Medication Management Medication Management No Deficits Identified Money Management Money Management No Deficits Identified Meal Preparation Meal Preparation No Deficits Identified Vice President Global Digital Marketing Vice President Global Digital Marketing No Deficits Identified Driving Driving Comments Pt does not drive M6 OT- IP Functional Cognition Start: 07/24/21 16:14 Freq: Status: Active Protocol: Document 07/27/21 11:57 CGR (Rec: 07/27/21 12:01 CGR [id number]) Cognitive Factors Limiting Selfcare Function Cognitive Ability Level of Alertness Alert Patient Orientation Name,Age,Birthday,Month,Date, Year,Day of Week,Place, Situation Attention Span Ability Capable of Focused Attention, Capable of Sustained Attention Ability to Follow Commands Able to Follow Multi-Step Commands M7 OT- IP Mobility and Balance Start: 07/24/21 16:14 Freq: Status: Active Protocol: Document 07/27/21 11:57 CGR (Rec: 07/27/21 12:01 CGR [id number]) OT- Bed Mobility Assessment Rolling Type of Rolling Roll to Right Level of Assistance Standby Assistance,Head of Bed Elevated Supine to Sit Supine to Sit Assist Standby Assistance,Head of Bed Elevated,Bedrails Scooting Scooting to Edge of Bed Standby Assistance,Head of Bed Elevated,Bedrails OT-Transfer Assessment Sit to and From Stand Sit to and from Stand Standby Assistance Transfers Transfer Ability Standby Assistance Technique Transfer Destination Bed,Bedside Commode,Chair Transfer Technique Stand Step Pivot Devices Transfer Assistive Devices Gait Belt,Front Wheeled Walker Comments Mobility Comments Pt ambulated from bed to sink and stood for ADLs but requesting sitting rest break before ambulating to chair. OT- Balance Assessment Sitting Balance and Reactions Static Sitting Balance Ability Good Dynamic Sitting Balance Ability Good M8 OT- IP Objective Assessments Start: 07/24/21 16:14 Freq: Status: Active Protocol: Document 07/24/21 16:14 CGR (Rec: 07/24/21 16:31 CGR [id number]) OT Gross Range of Motion Upper Extremity Range of Motion Assessment Left Impaired ROM Impairments R shld 0-90, L shld 0-45 OT Strength Upper Extremity Strength Assessment Within Functional Limits Comments Strength Comments shlds not tested, arms and hands grossly 4/5 OT- Coordination Assessment Upper Extremity Finger to Nose Test Within Functional Limits Finger Tapping Test Within Functional Limits OT-Muscle Tone Assessment Muscle Tone WNL Yes OT Sensation Assessment Edema Edema Present Edema Comments BLE M9 OT- IP Assessment and Plan Start: 07/24/21 16:14 Freq: Status: Active Protocol: Document 07/27/21 11:57 CGR (Rec: 07/27/21 12:01 CGR [id number]) OT Summary Assessment and Plan Potential Rehabilitation Potential Excellent Analytic Complexity at Evaluation Moderate Summary OT Impairments Range of Motion,Strength, Balance,Functional Mobility, Grooming,Dressing,Toileting, Bathing,Toilet Transfers, Shower Transfers,Activity Tolerance Progress Towards Goals Slow Progress due to Medical Issues Assessment Summary Pt presents as a moderate complexity evaluation s/p admit for sepsis from cellulites. Pt would benefit from general strengthening and modification ideas as pt states some tasks are getting harder to perform. Pt participated ADLs at sink and then returned to chair. Pt was emotional on this date regarding her ability to perform tasks normally. Discussed at length with pt and pt states feeling better at end of session. Goals Grooming Goal Independent Dressing Goal Independent Toileting Goal Independent Bathing Goal Independent Toilet Transfer Goal Independent Shower Transfer Goal Independent Days to Meet Goals 20 Frequency of Treatment Frequency Of Treatment Once a Day Treatment Plan OT Treatment Plan ADL Training,Functional Mobility,Patient/Family Education,Discharge Planning Discharge Recommendations OT Discharge Recommendations SNF Rehab Transportation Needs at Discharge Private Vehicle
--- NOTE | 2021-07-27 11:40 | PT.IPTN ---
Current Diagnoses Sepsis, unspecified organism (07/23/21) Physical Therapy Treatment Note M2 PT-IP Current Condition Start: 07/24/21 17:37 Freq: NEEDED Status: Active Protocol: Document 07/24/21 14:55 AB (Rec: 07/24/21 17:55 AB [id number]) Physical Therapy Current Condition Current Condition Evaluation Date 07/24/21 Treatment Diagnosis sepsis; L lower led cellulitis Onset Date 07/23/21 M3 PT-IP Subjective Start: 07/24/21 17:37 Freq: NEEDED Status: Active Protocol: Document 07/27/21 11:30 KS (Rec: 07/27/21 13:02 KS [id number]) Subjective Physical Therapy Visit Type Type Treatment Note Visit Start Time 11:30 Visit Stop Time 11:40 Total Visit Minutes 10 Notes Pt reporting high level of fatigue following OT treatment . Number of REAL ESTATE SUBAGENT Visits 3 Physical Therapy Visit Comments Patient Comments agreeable to do PT M4 PT-IP Mobility and Gait Start: 07/24/21 17:37 Freq: NEEDED Status: Active Protocol: Document 07/27/21 11:30 KS (Rec: 07/27/21 13:02 KS [id number]) PT-Transfer Assessment Comments Mobility Comments Pt in chair and initially wanting to sleep but then agreeable to exercises in chair. Pt able to complete 2x10 bilateral ankle pumps, quad sets, glute sets, and SLR and then reporting fatigue and difficulty staying awake. Pt left in chair w/ all needs in reach. M5 PT-IP Objective Assessments Start: 07/24/21 17:37 Freq: NEEDED Status: Active Protocol: Document 07/24/21 14:55 AB (Rec: 07/24/21 17:55 AB [id number]) Orientation Orientation/Cognition Level of Alertness Alert Orientation Name,Age,Birthday,Month,Date, Year,Day of Week,Place, Situation Language Function Ability No Deficits Noted Safety Awareness Understands Safety Issues Memory Description No Deficits Noted Gross Range of Motion Lower Extremity ROM Impairments B ankle tightness with decrease DF R>L Strength Lower Extremity Strength Assessment Left Impaired Ankle 3-/5 Muscle Tone Muscle Tone WNL Yes M6 PT-IP Treatment Start: 07/24/21 17:37 Freq: NEEDED Status: Active Protocol: Document 07/27/21 11:30 KS (Rec: 07/27/21 13:02 KS [id number]) Physical Therapy Treatment Exercises Exercises Ankle Pumps,Gluteal Sets,Quad Sets,Straight Leg Raises Education Education Provided Safety M7 PT-IP Assessment and Plan Start: 07/24/21 17:37 Freq: NEEDED Status: Active Protocol: Document 07/27/21 11:30 KS (Rec: 07/27/21 13:02 PA [id number]) PT Summary Assessment and Plan Potential Rehabilitation Potential Good Status of Condition at Evaluation Stable Summary Impairments Pain,ROM,Strength,Balance, Coordination,Sensation,Tone, Cognition,Bed Mobility, Transfers,Gait,Activity Tolerance Progress Towards Goals Slow Progress - Other Assessment Summary Pt too fatigued following OT treatment this AM to perform any more than LE exercises to promote blood flow and strengthening. Pt will require SNF to improve strength and activity tolerance as well as functional mobility independence. Goals Bed Mobility Goal Independent Transfer Goal Independent,Front Wheeled Walker Gait Goal Independent,Front Wheel Walker Gait Distance 50 Days to Meet Goals 5 Frequency of Treatment Frequency Of Treatment Once a Day Treatment Plan Physical Therapy Treatment Plan Bed Mobility Training,Transfer Training,Gait Training, Therapeutic Exercise,Balance Retraining,Discharge Planning, Neuromuscular Re-ed, Coordination Retraining Recommendations To Nursing Amount of Assist Needed 1 Person Assist Discharge Recommendations PT Discharge Recommendations Home with 24/11 Assist Available,Home Health,SNF Rehab Transportation Needs at Discharge Private Vehicle,Wheelchair/ Cabulance
[2021-07-27] MEDS: ALBUTEROL 2.5 MG/3 ML NEB (ADULT) INH (11:49)
--- NOTE | 2021-07-27 13:30 | P.PN_ITS ---
Subjective Subjective Date Patient Seen: 07/27/21 Time Patient Seen: 08:00 Interval history: Today she says her leg pain is less painful and less swollen. Exam Vital Signs (past 8 hours): - 07/27/21 08:00 07/27/21 11:51 07/27/21 13:00 Temperature 98 F 97.8 F Pulse Rate 84 88 Respiratory Rate 17 17 Blood Pressure 152/85 H 103/57 L Pulse Oximetry 92 94 94 Oxygen Delivery Method Room Air Oxygen Flow Rate 0 Narrative Exam Narrative: General:? no acute distress. Lungs:? clear bilaterally Cardio:?regular rate and rhyhtm no murmurs Abdomen: soft, nontender, nondistended, no organomegaly Skin:?left cicumferential erythema, likely chronic component present with tenderness of the lower leg. Right leg mild erythema and minimal tenderness and no warmth Objective Labs Result Diagrams: 07/26/21 05:08 07/26/21 05:08 [facility] Medical History Achilles tendon injury Cellulitis Cerebral palsy Flesh-eating bacteria History of esophageal dilatation History of esophageal stricture Sepsis Surgical History History of dilatation and curettage Hx of total knee arthroplasty Status post appendectomy Status post surgery (06/23/14) Family History Mother Cardiac disease Father Diabetes mellitus COPD (chronic obstructive pulmonary disease) Brother In good health Social History household members: none Smoking Status: Never smoker alcohol intake: current Assessment & Plan Assessment & Plan narrative: 1. Septic shock secondary to bilateral lower extremity cellulitis, improving. ?- CXR and UA negative ?- continued ceftriaxone, vancomycin discontinued with negative MRSA screen. Slight worsening of redness after vancomycin discontinued but still mild. Switched antibiotic therapy to cephalexin and doxycycline ?- DVT study negative for clots. ?- off of levophed since 07/24 AM. 2. NEPTALI ?- creatinine 1.2 slight increase to 1.36 the following day but now improved to 1.0. baseline 0.7 - 0.8. ?- continue to follow, suspect in setting of septic shock. 3. Hypertension, chronic ?- held home antihypertensives in setting of shock and current normotension. Resume home lisinopril tomorrow. 4.? Bilateral lower extremity edema, present on admission, stable ?- hold home diuretic for now given NEPTALI. DVT study negative. Likely venous insufficiency. 5.? Chronic low back pain, present on admission, stable ?- continue home medications. 6. Substance abuse ?- continue home suboxone. 7.? Cerebral Palsy. ?- baseline is ambulatory with assistive devices, uses wheelchair as well. Code: Full, surrogate decision maker is her brother Dispo: medically stable for discharge pending dispo Time Spent With Patient Critical Care time: I spent a total of [] minutes of critical care time on this patient's care today; this time is exclusive of procedural time. Quality VTE Deep Vein Thrombosis/Pulmonary Embolism Present on Admission: No
--- NOTE | 2021-07-27 14:05 | CM.DPC ---
Addendum entered by Pearl Brown R.N. 07/27/21 14:50: Spoke to Avis at [facility]. She can accept patient tomorrow, with supervisor opening and picking time of 11:30.Have updated nurse, Lenny, and patient is updated. COVID swab is collected today. Original Note: DCP Cont: Spoke to Avis this morning, she is doing admissions for [facility]. Stated, they had not yet received the auth for patient's insurance, but would call her [employer] and follow up. Avis then called back and stated that she had left a message on their after hours voice mail. Updated patient, as she wanted to know what was going on. She stated, 'I would really rather go home, but I know that my brother wants me to have some rehab before going home. Let her know that this manufacturing planner will update her when auth is received. Avis called back from [facility]. She stated, she just received the auth from patient's insurance, but will need to call her admission nurse to see if they can do her admission today. Updated nurse, Annia, and she put in for COVID swab. P: DCP to await hearing back from [facility], as it's after 1400, and uncertain if they can accept today. If so, will update hospitalist and request that he do ordes. Pearl Brown RN/Commercial Loan Manager
[2021-07-27] MEDS: ACETAMINOPHEN 325 MG TABLET 975 MG PO (14:21)
[2021-07-27 14:55] LABS: COVID19 -Nasal RAPID Negative (Negative)
[2021-07-27] MEDS: GABAPENTIN 600 MG TABLET 1200 MG PO (20:44)
[2021-07-27] MEDS: TRAZODONE 50 MG TABLET PO (20:44)
[2021-07-28] VITALS: BP 101/58; PULSE 76; RESP 19; TEMP 36.4; O2SAT 93
[2021-07-28 04:00] VITALS: BP 151/75; PULSE 66; RESP 21; TEMP 36.2; O2SAT 97
[2021-07-28 08:00] VITALS: BP 109/53; PULSE 73; RESP 16; O2SAT 98
[2021-07-28] MEDS: lamoTRIgine 100 MG TABLET 300 MG PO (08:18)
[2021-07-28] MEDS: DOXYCYCLINE HYCLATE 100 MG TABLET PO (08:19)
[2021-07-28] MEDS: lisinopriL 10 MG TABLET PO (08:19)
[2021-07-28] MEDS: BUPRENORPHINE/NALOXONE 8MG/2MG 1 TAB SL (08:19)
[2021-07-28] MEDS: FLUoxetine 20 MG CAPSULE 40 MG PO (08:19)
[2021-07-28] MEDS: GABAPENTIN 300 MG CAPSULE 900 MG PO (08:19)
[2021-07-28] MEDS: cephALEXin 250 MG CAPSULE 500 MG PO (08:19)
[2021-07-28] MEDS: ACETAMINOPHEN 325 MG TABLET 975 MG PO (08:20)
[2021-07-28] MEDS: SODIUM CHLORIDE 0.9% FLUSH 10 ML IV (08:21)
--- NOTE | 2021-07-28 08:24 | P.DS_ITS ---
History of Present Illness History of Present Illness Chief complaint: Weakness Narrative: Per Dr. Stubbs This is a 62-year-old female patient with history of cerebral palsy, chronic low back pain and pancreatitis presents to the ER via EMS with concerns for sepsis. Patient was treated yesterday by PCP for bilateral lower extremity cellulitis. Was given a dose of bactrim in the clinic but did not take 2nd dose. She fell out of her wheel chair last night and could not get up. EMS noted low BP, gave dose of ceftriaxone and LR bolus. BP remained low and was started on levophed. She remains on small amounts of levophed currently. She denies recent fever, chills, cough, shortness of breath, abdominal pain, nausea, vomiting. Laboratory evaluation revealed a mild leukocytosis with WBC of 14.6, other than this her initial CBC was unremarkable.? Chemistries revealed a mild NEPTALI with a creatinine of 1.2 up from her baseline of 0.7 is 0.8.? Lactic acid but stable at 2.2.? Troponin was negative.? ProBNP was mildly elevated 185.? Procalcitonin was 1.28.? Urinalysis was contaminated but there was no evidence of active infection.? COVID-19 testing was negative.? Patient was admitted to the ICU for further management. Discharge Providers Provider Date of admission: 07/23/21 06:44 Discharge Date: 07/28/21 Primary care physician: VICTOR HUGO Thornton Consults: 07/23/21 09:20 Consult to Tele-cancer registry coordinator Routine Comment: Consulting Provider: [employer] Reason for consultation: Recreation Therapy Director services 07/24/21 10:17 Consult to Occupational Therapy Evaluate & Treat Comment: Physician Instructions: Evaluate and treat Consult to Physical Therapy Evaluate & Treat Comment: Physician Instructions: Evaluate and Treat Discharge provider: David Duncan MD Summary Hospital Course Discharge Diagnosis: 1. Septic shock secondary to cellulitis 2. NEPTALI 3. Hypertension 4. Bilateral lower extremity edema 5. Chronic low back pain 6. Substance abuse history, opioid dependence 7. Cereberal palsy 8. Morbid obesity, BMI 42.9 Hospital Course: Ms. Qiu was admitted with septic shock due to lower extremity celllulitis. DVT study was negative. She was initially on levophed, but this was weaned off quickly. She improved but had continued brawny skin changes likely chronic and secondary to venous insufficiency. She was discharged with oral antibiotics with keflex and doxycycline. She had a mild NEPTALI that improved with treatment. She was chronic lower extremity swelling and should have her legs wrapped once her cellulitis resolves. She has a history of substance use with opiates and is chronically on suboxone and is well controlled with this medication. CODE: Full Exam Vital Signs (past 8 hours): - 07/28/21 04:00 07/28/21 08:00 Temperature 97.1 F L Pulse Rate 66 73 Respiratory Rate 21 16 Blood Pressure 151/75 H 109/53 L Pulse Oximetry 97 98 Oxygen Delivery Method Room Air Oxygen Flow Rate 0 Narrative Exam Narrative: General:? no acute distress. Lungs:? clear bilaterally Cardio:?regular rate and rhyhtm no murmurs Abdomen: soft, nontender, nondistended, no organomegaly Skin:?left tibial erythema, likely chronic component present with tenderness of the lower leg. Right leg mild erythema and minimal tenderness and no warmth Objective Labs Result Diagrams: 07/26/21 05:08 07/26/21 05:08 Labs: Laboratory Results - last 24 hr 07/27/21 14:18 SARS-CoV-2 (PCR) Negative [facility] Medical History Achilles tendon injury Cellulitis Cerebral palsy Flesh-eating bacteria History of esophageal dilatation History of esophageal stricture Sepsis Surgical History History of dilatation and curettage Hx of total knee arthroplasty Status post appendectomy Status post surgery (06/23/14) Family History Mother Cardiac disease Father Diabetes mellitus COPD (chronic obstructive pulmonary disease) Brother In good health Social History household members: none Smoking Status: Never smoker alcohol intake: current Discharge Plan Discharge Plan Patient Disposition: SNF Transfer to: [facility] Provider Discharge Comment: transfer to SNF for rehab Discharge orders & Medications Prescriptions: New cephalexin 250 mg Capsule 500 mg PO TID Qty: 9 0RF tramadol 50 mg Tablet 50 mg PO TID PRN (Reason: Pain, Moderate (4-6)) Qty: 10 0RF doxycycline hyclate 100 mg Tablet 100 mg PO BID Qty: 6 0RF Continued trazodone 50 mg tablet 50 mg PO HS Qty: 30 2RF albuterol sulfate 90 mcg/actuation HFA aerosol inhaler 2 puff Inhalation Q4H PRN (Reason: Wheezing) 0RF lisinopril 10 mg Tablet 10 mg PO DAILY Qty: 30 0RF fluoxetine 20 mg capsule 40 mg PO QDAY 0RF lamotrigine [Lamictal] 100 mg tablet 300 mg PO QDAY 0RF gabapentin [Neurontin] 600 mg tablet 1,200 mg PO BEDTIME 0RF gabapentin [Neurontin] 300 mg capsule 900 mg PO QAM 0RF ibuprofen 400 mg Tablet 400 mg PO Q6H PRN (Reason: Pain (Scale Score 1-3)) 0RF buprenorphine-naloxone 8-2 mg tablet, sublingual 1 tab SUBLINGUAL TID Qty: 10 0RF Label Comments: PLACE ONE(1) TABLET UNDER THE TONGUE THREE(3) TIMES DAILY MUST LAST 28 DAYS dose change 06/24/21 Follow up/Referrals: Aleksandra Peters ARNP [Primary Care Provider] - Discharge Health Status Multidrug resistant organism: No MDRO Diet/Activity/Treatments Diet: Regular Liquid consistency: Normal/Thin Food texture: Regular [facility] Rehab type: Physical therapy and Occupational therapy Discharge Data Primary Care Provider: Aleksandra Peters VTE Deep Vein Thrombosis/Pulmonary Embolism Present on Admission: No
--- NOTE | 2021-07-28 08:53 | CM.DPC ---
DCP Cont: Patient is to be discharging to [facility] today. Updated hospitalist, Dr. 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 Orders, DC Summary, and PASSR was faxed to [facility], along with scripts, vaccination information, and recent COVID results. Updated white board at main nurses station, and nurse, Annia, is aware of discharge and time, and patient was made aware yesterday. 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 Pearl Brown, MEGGAN/Bilingual Sales Consultant
== END 2021-07-28 11:30 | DRG 871 ==
LOC: ED 05:11 → AC 06:54 → ICU 09:51 → AC 07-24 15:06 → ICU 07-24 15:06
PROVIDERS: Internal Medicine; Admitting Provider Nurse Practitioner Family; Emergency Provider Emergency Medicine; Family Provider Nurse Practitioner Family; PCP Nurse Practitioner Family; Referring Provider Emergency Medicine; Visit Provider Nurse Practitioner Family
DX: A41.9 Sepsis, unspecified organism (principal); R65.21 Severe sepsis with septic shock; N17.9 Acute kidney failure, unspecified; L03.116 Cellulitis of left lower limb; L03.115 Cellulitis of right lower limb; F11.20 Opioid dependence, uncomplicated; Z68.41 Body mass index [BMI] 40.0-44.9, adult; G89.29 Other chronic pain; M54.50 Low back pain, unspecified; G80.9 Cerebral palsy, unspecified; I10 Essential (primary) hypertension; E66.01 Morbid (severe) obesity due to excess calories; Z20.822 Contact with and (suspected) exposure to COVID-19
CPT/HCPCS: 36415; 71045; 80053; 81001; 81003; 82550; 83605; 83880; 84145; 84484; 85025; 85379; 87040; 87635; 87797; 93306; 93970; 94640; 94760; 94762; 96365; 96366; 96367; 96368; 97110; 97161; 97166; 97530; 97535; 99284; C9803; A9270; J0696; J1642; J1650; J7613; Q9957

== ENCOUNTER → 2021-11-25 13:59 | Outpatient (CLI) | payer MEDICARE, SELFPAY ==
[2021-07-23 11:56] VITALS: BMI 43.7
--- NOTE | 2021-11-25 | DI.ECHO.S_ITS ---
[place] +---------+ [facility] +---------+ : : [address] : : : : [id number] : : : : Phone: [phone]+ Echocardiogram Report + + :Name: FABIEN CHEATHAM Study Date: 11/25/2021 Height: 66 in : :[facility] ReadingLocation: Weight: 250 lb: : Gender: Female BSA: 2.2 m2 : :: 1955 Age: 66 yrs BP: 95/58 mmHg: :Reason For Study: Hypertension : :Ordering Physician: KEI, : :GER Allison Performed By: Nathanael Kevin : :Referring: GER CHOUDHURY : + + Interpretation Summary Normal left ventricle size with ejection fraction 60-65%. Mildly dilated left atrium. Mild mitral regurgitation. Mild tricuspid regurgitation. The right ventricular systolic pressure is estimated to be at least 41 mmHg based on an estimated right atrial pressure of 8 mm Hg. Comparison is made with the echocardiogram of 07/23/2021, there has been no signicant change. Procedure: A two-dimensional transthoracic echocardiogram with color flow and Doppler was performed. The study quality was technically difficult. Comparison is made with the echocardiogram of 07/23/2021. The patient was in normal sinus rhythm during the exam. Left Ventricle: The left ventricle is normal in size and wall thickness. The ejection fraction is estimated to be 60-65%. There are no focal wall motion abnormalities. Diastolic function could not be accurately assessed due to contradictory data. Right Ventricle: The right ventricle is normal in size and function. Atria: The left atrium is mildly dilated. Right atrial size is normal. The interatrial septum grossly appears intact with no obvious evidence for an atrial septal defect. Mitral Valve: The mitral valve is normal in structure and function. There is mild mitral regurgitation. Aortic Valve: The aortic valve is normal in structure and function. No aortic regurgitation is present. Tricuspid Valve: The tricuspid valve is normal in structure and function. There is mild tricuspid regurgitation. The right ventricular systolic pressure is estimated to be at least 41 mmHg based on an estimated right atrial pressure of 8 mm Hg. Pulmonic Valve: The pulmonic valve is not well seen, but is grossly normal. There is no pulmonic valvular regurgitation. Great Vessels: The aortic root is normal size. The dimensions of the ascending aorta are normal. The inferior vena cava was not well visualized. The IVC is dilated (diameter is greater than 2.1 cm) yet it collapses greater than 50% with a sniff. This suggests a right atrial pressure of 8 mm Hg. Pericardium/ Pleura There is no pericardial effusion. There is no pleural effusion. MMode/2D Measurements & Calculations LVIDd: 4.6 cm LVOT diam: 1.9 cm LVIDs: 3.2 cm Ao root diam: 2.6 cm FS: 30.4 % asc Aorta Diam: 3.3 cm IVSd: 1.1 cm LVPWd: 1.0 cm LV hackett. diameter/BSA (cm/m^2): 2.1 LV sys. diameter/BSA (cm/m^2): 1.5 LA dimension: 4.2 cm RA long axis: 5.4 cm LA A2 area: 19.7 cm2 IVC diam: 2.2 cm LA A4 area: 26.8 cm2 LA length (vol): 5.6 cm LA vol: 79.7 ml LA vol index: 36.3 ml/m2 TAPSE_phl: 2.7 cm Doppler Measurements & Calculations Ao V2 max: 221.0 cm/sec LVOT Max Augusto: 190.0 cm/sec Ao V2 mean: 156.0 cm/sec LV V1 max P.4 mmHg Ao max P.0 mmHg LV V1 VTI: 37.7 cm Ao mean P.0 mmHg MARIA ISABEL(I,D): 2.5 cm2 Ao V2 VTI: 42.4 cm MARIA ISABEL(V,D): 2.4 cm2 sev ratio: 0.89 MARIA ISABEL indexed to BSA (cm^2/m^2): 1.1 MV E max augusto: 111.0 cm/sec TR max augusto: 289.0 cm/sec MV A max augusto: 129.0 cm/sec TR max P.4 mmHg MV E/A: 0.86 Med Peak E' Augusto: 7.7 cm/sec E/E' med: 14.3 Lat Peak E' Augusto: 11.9 cm/sec E/E' lat: 9.3 E/e' average: 11.8 MV dec time: 0.25 sec SV(LVOT): 106.9 ml AV VR_phl: 0.86 MARIA ISABEL(VTI)/BSA_phl: 1.1 MV P1/2t-pr_phl: 73.0 msec Electronically signed by: Micah Mcgraw on Reading Physician:11/25/2021 04:31 PM
== END ==
PROVIDERS: Family Provider Nurse Practitioner Family; PCP Nurse Practitioner Family; Referring Provider Nurse Practitioner Family; Visit Provider Nurse Practitioner Family
DX: M81.0 Age-related osteoporosis without current pathological fracture (principal); R06.01 Orthopnea; I08.1 Rheumatic disorders of both mitral and tricuspid valves; I10 Essential (primary) hypertension; Z13.820 Encounter for screening for osteoporosis; Z78.0 Asymptomatic menopausal state; Z92.23 Personal history of estrogen therapy
CPT/HCPCS: 77080; 93306

== ENCOUNTER 2022-01-15 19:58 | Observation (INO) | payer MEDICARE, MEDICAID, SELFPAY ==
[2021-07-23 11:56] VITALS: BMI 43.7
[2022-01-15] VITALS (12 sets, daily range): BP systolic 107–128; BP diastolic 52–57; PULSE 81–89; RESP 15–33; O2SAT 97–99; BMI 41.9
--- NOTE | 2022-01-15 21:22 | DI.RAD.S_ITS ---
PROCEDURE: XR CHEST 1V INDICATIONS: chest pain TECHNIQUE: One view of the chest was acquired. COMPARISON: [facility], CR, XR CHEST 1V, 07/23/2021, 5:18. FINDINGS: Surgical changes and devices: None. Lungs and pleura: There is pulmonary vascular prominence suggestive of pulmonary edema. No pleural effusions or pneumothorax. Mediastinum: Mediastinal contours are unchanged. Heart size is enlarged. Bones and chest wall: No suspicious bony lesions. Overlying soft tissues appear unremarkable. IMPRESSION: 1. Pulmonary vascular prominence suggestive of pulmonary edema. Dictated by: Oh Thomas M.D. on 01/15/2022 at 22:55 Approved by: Oh Thomas M.D. on 01/15/2022 at 22:56
--- NOTE | 2022-01-15 21:49 | ED_ITS ---
HPI - Weakness General Chief complaint: Weakness Stated complaint: weak Time Seen by Provider: 01/15/22 21:49 Source: EMS Mode of arrival: EMS Limitations: no limitations History of Present Illness HPI Narrative: This is a 66-year-old cerebral palsy, chronic low back pain and prior pancreatitis who presents for increasing weakness and multiple falls while trying to transfer from bed to her motorized wheelchair. Patient has been scooting around her home and becoming increasingly debilitated. She lives independently without any other home caregivers or home health care on [place]. She denies fevers or chills no headache, no chest pain, no shortness of breath, no nausea or vomiting, no diarrhea, no constipation, no urinary symptoms. She does have bowel or bladder incontinence secondary to her cerebral palsy. Patient denies any new rashes. She does have a decubitus on her bottom that started a couple weeks ago. She was taken to the local clinic today on [place] and they transferred her [place] as [place] is requiring [place]. Patient notes she is had bilateral Achilles tendon surgery. She is allergic to clinda. No tobacco, alcohol or illicit. Related Data Home Medications Medication Instructions Recorded Confirmed albuterol sulfate 90 mcg/actuation 2 puff inhalation Q4H PRN Wheezing 05/09/18 07/23/21 aerosol inhaler fluoxetine 20 mg capsule 40 mg PO QDAY 07/23/21 07/23/21 gabapentin 300 mg capsule 900 mg PO QAM 07/23/21 07/23/21 (Neurontin) gabapentin 600 mg tablet 1,200 mg PO BEDTIME 07/23/21 07/23/21 (Neurontin) lamotrigine 100 mg tablet 300 mg PO QDAY 07/23/21 07/23/21 (Lamictal) ibuprofen 400 mg tablet 400 mg PO Q6H PRN Pain (Scale 07/24/21 07/24/21 Score 1-3) Previous Rx's Medication Instructions Recorded trazodone 50 mg tablet 50 mg PO HS #30 tabs 03/02/18 lisinopril 10 mg tablet 10 mg PO DAILY #30 tabs 05/11/18 buprenorphine 8 mg-naloxone 2 mg 1 tab sublingual TID #10 tabs 07/28/21 sublingual tablet cephalexin 250 mg capsule 500 mg PO TID #9 caps 07/28/21 doxycycline hyclate 100 mg tablet 100 mg PO BID #6 tabs 07/28/21 tramadol 50 mg tablet 50 mg PO TID PRN Pain, Moderate 07/28/21 (4-6) #10 tabs Allergies Allergy/AdvReac Type Severity Reaction Status Date / Time clindamycin Allergy Mild RASH & N/V Verified 01/15/22 20:08 Review of Systems Review of Systems ROS Unobtainable: All systems reviewed & are unremarkable except as noted in HPI and below Patient History Medical History Achilles tendon injury Cellulitis Cerebral palsy Flesh-eating bacteria History of esophageal dilatation History of esophageal stricture Sepsis Surgical History History of dilatation and curettage Hx of total knee arthroplasty Status post appendectomy Status post surgery (06/23/14) Family History Mother Cardiac disease Father Diabetes mellitus COPD (chronic obstructive pulmonary disease) Brother In good health Social History household members: none Smoking Status: Never smoker alcohol intake: current Smoking Status: Never smoker alcohol intake frequency: holidays/special occasions only Substance Use Type: does not use Exam Narrative Exam Narrative: GENERAL: Alert and oriented x three, obese female in mild distress. HEENT: Head normocephalic, patient has several small abrasions on her forehead and nose, EOMI, pupils reactive, face symmetric, dry mucous membranes NECK: Supple, full range of motion CARDIOVASCULAR: Regular rate and rhythm without murmurs, rubs or gallops. No JVD. RESPIRATORY: Breath sounds equal bilaterally, no wheezes rales or rhonchi. No tachypnea accessory muscle use speaks in full sentences. ABDOMEN: Soft, nontender. Normoactive bowel sounds all 4 quadrants. No guarding or rebound, rigidity, no mass : No CVA tenderness EXTREMITIES: Normal range of motion, no clubbing. Mild edema medially bila terally. Neurovascularly intact. Several small areas of ulceration on lower extremities NEUROLOGICAL: Cranial nerves II through XII grossly intact. Moving all extremities SKIN: Warm, dry, no petechiae, no rashes or lesions. Decubitus on sacrum. Initial Vital Signs Initial Vital Signs: Vital Signs Pulse Rate 88 01/15/22 20:05 Respiratory Rate 16 01/15/22 20:05 Pulse Oximetry 98 01/15/22 20:05 Oxygen Delivery Method 01/15/22 20:05 Course Orders Ordered: ED Orders 01/15/22 21:00 Ictotest Urine Stat Urinalysis and Microscopic Stat 01/15/22 21:15 Blood Culture Stat 01/15/22 21:19 COVID19 -Nasal RAPID/Pre-Proc Stat 01/15/22 21:22 XR chest 1V Stat 01/15/22 21:42 Complete Blood Count AUTO DIFF Stat Comprehensive Metabolic Panel Stat Lactate (Lactic Acid) Stat Lipase Stat Magnesium Stat Procalcitonin Stat Troponin & CK Cardiac Panel Stat 01/15/22 21:58 Consult to [facility] – [place] - Curriculum Assistant Principal Stat 01/15/22 22:06 EKG-12 Lead Stat 01/15/22 23:38 US abdomen complete Stat 01/16/22 01:12 Consult to Physical Therapy Evaluate & Treat 01/16/22 03:00 Basic Metabolic Panel Routine Complete Blood Count AUTO DIFF Routine Acetaminophen (Acetaminophen 325 Mg Tablet) 650 mg PO Q6HR PRN PRN Reason: Fever/Mild Pain (1-3) Heparin Sodium (Porcine) (Heparin 5,000 Unit/Ml Vial) 5,000 unit SUBCUT BID VIGNESH Sodium Chloride (Normal Saline 0.9%) 1,000 mls @ 150 mls/hr IV CONT VIGNESH Last Admin: 01/15/22 22:42 Dose: 150 mls/hr Documented By: ABIGAIL Sodium Chloride (Normal Saline 0.9%) 1,000 mls @ 150 mls/hr IV CONT VIGNESH Ondansetron HCl (Ondansetron 4 Mg/2 Ml Inj) 4 mg IV Q8HR PRN PRN Reason: Nausea And Vomiting Discontinued Medications Dextrose (Dextrose 50 % In Water 25 Gm/50 Ml Syringe) 25 gm IV NOW ONE Stop: 01/15/22 23:37 Last Admin: 01/16/22 00:19 Dose: 25 gm Documented By: JACLYN Ceftriaxone Sodium 1,000 mg/ (Sodium Chloride) 100 mls @ 200 mls/hr IV NOW ONE Stop: 01/15/22 22:08 Last Infusion: 01/15/22 23:35 Dose: 0 mls/hr Documented By: Admin: 01/15/22 22:40 Dose: 200 mls/hr Documented By: ABIGAIL Calcium Gluconate 4.65 meq/ (Sodium Chloride) 60 mls @ 180 mls/hr IV NOW ONE Stop: 01/15/22 23:55 Last Admin: 01/16/22 00:18 Dose: 180 mls/hr Documented By: JACLYN Insulin Human Regular (Insulin Regular 100 Unit/Ml 3 Ml Vial) 5 unit IV NOW ONE Stop: 01/15/22 23:37 Last Admin: 01/16/22 00:19 Dose: 5 unit Documented By: JACLYN Co-signed By: ABIGAIL Morphine Sulfate (Morphine 4 Mg/Ml Inj) 4 mg IV NOW ONE Stop: 01/15/22 22:02 Last Admin: 01/16/22 02:14 Dose: 4 mg Documented By: ROXANN Sodium Bicarbonate (Sodium Bicarb 8.4% Syringe) 50 meq IV NOW ONE Stop: 01/15/22 23:37 Last Admin: 01/16/22 00:19 Dose: 50 meq Documented By: JACLYN Consultations Consultation #1: Dr. Duncan, hospitalist accepts for inpatient admission for hyperkalemia with acute kidney injury and hypermagnesemia. Suspected to be secondary to dehydration patient does have possible UTI and was started on IV antibiotics. Vital Signs Vital signs: Vital Signs - 8 hr 01/15/22 21:11 01/15/22 21:20 01/15/22 21:20 Pulse Rate 86 81 Respiratory Rate Blood Pressure 110/55 L Pulse Oximetry 99 99 Oxygen Delivery Method 01/15/22 21:30 01/15/22 21:31 01/15/22 21:31 Pulse Rate 89 85 Respiratory Rate Blood Pressure 128/54 L Pulse Oximetry 99 99 Oxygen Delivery Method 01/15/22 22:00 01/15/22 22:10 01/15/22 22:10 Pulse Rate 85 85 Respiratory Rate 15 17 Blood Pressure 128/57 L Pulse Oximetry 99 99 Oxygen Delivery Method Room Air 01/15/22 22:30 01/15/22 22:31 01/15/22 22:31 Pulse Rate 86 86 Respiratory Rate 18 24 Blood Pressure 118/55 L Pulse Oximetry 97 97 Oxygen Delivery Method 01/15/22 23:00 01/15/22 23:00 01/15/22 23:30 Pulse Rate 87 85 Respiratory Rate 27 H 25 H Blood Pressure 107/52 L Pulse Oximetry 98 99 Oxygen Delivery Method 01/15/22 23:31 01/15/22 23:31 01/16/22 00:00 Pulse Rate 85 86 Respiratory Rate 33 H Blood Pressure 107/53 L Pulse Oximetry 99 99 Oxygen Delivery Method 01/16/22 00:01 01/16/22 00:01 01/16/22 00:30 Pulse Rate 80 80 Respiratory Rate 13 Blood Pressure 136/59 L Pulse Oximetry 98 98 Oxygen Delivery Method 01/16/22 00:31 01/16/22 00:31 Pulse Rate 81 Respiratory Rate Blood Pressure 130/58 L Pulse Oximetry 98 Oxygen Delivery Method MDM - Weakness Lab Data Result diagrams: 01/16/22 03:00 01/16/22 03:00 Labs: Lab Results 01/15/22 01/15/22 01/15/22 Range/Units 21:00 21:19 21:42 WBC 9.3 (4.5-11.0) X10^3/uL RBC 3.81 L (4.0-5.2) X10^6/uL Hgb 11.1 L (12.0-16.0) g/dL Hct 34.0 L (36-46) % MCV 89.3 (80-100) fL MCH 29.0 (26-34) PG MCHC 32.5 (30-36) % RDW 15.2 H (11.6-14.8) % Plt Count 224 (150-400) X10^3/uL Neut % (Auto) 67.7 (50-75) % Lymph % (Auto) 14.4 L (25-40) % [place] % (Auto) 15.4 H (3-14) % Eos % (Auto) 1.8 L (2-4) % Baso % (Auto) 0.7 (0-2) % Neut # (Auto) 6300 (1275-5232) /uL Lymph # (Auto) 1300 (4216-2921) /uL [place] # (Auto) 1400 H (0-900) /uL Eos # (Auto) 200 (0-450) /uL Baso # (Auto) 100 (0-100) /uL Sodium (137-145) mmol/L Potassium (3.4-5.1) mmol/L Chloride (98-107) mmol/L Carbon Dioxide (22-32) mmol/L BUN (7-17) mg/dL Creatinine (0.52-1.04) mg/dL Estimated GFR (>60) mL/min BUN/Creatinine Ratio (6-22) Glucose (80-110) mg/dL Lactate (0.7-2.1) mmol/L Calcium (8.4-10.2) mg/dL Magnesium (1.6-2.3) mg/dL Total Bilirubin (0.2-1.3) mg/dL AST (14-36) IU/L ALT (<35) IU/L Alkaline Phosphatase (38-126) U/L Total Creatine Kinase (30-135) U/L CK-MB (CK-2) (<2.37) ng/mL CK-MB (CK-2) Rel Index (1.5-5.0) % Troponin I (0.01-0.034) ng/mL Total Protein (6.3-8.2) g/dL Albumin (3.5-5.0) g/dL Globulin (1.7-4.1) g/dL Albumin/Globulin Ratio (1.0-2.8) Lipase (23-300) U/L Procalcitonin (<0.5) ng/mL Urine Color Yellow Urine Appearance Clear Urine pH 5.5 (4.5-8.0) Ur Specific [place] 1.020 (1.000-1.035) Urine Protein Trace H (Negative) Urine Glucose (UA) Negative (Negative) g/dL Urine Ketones 2+ H (NEGATIVE) Urine Occult Blood Trace-lysed (Negative) Urine Nitrate Negative (Negative) Urine Bilirubin 2+ H (NEGATIVE) Ur Bilirubin Confirm Negative (Negative) Urine Urobilinogen 1.0 (0.2) E.U./dL Ur Leukocyte Esterase Trace H (NEGATIVE) Urine RBC 0-1/hpf (0-5/HPF) Urine WBC 0-1/hpf (0-5/HPF) Ur Squamous Epith Cells 10-30 /hpf H (0-5/HPF) Urine Bacteria Few (2-10) H (None) Ur Culture Indicated? Cult not indicated SARS-CoV-2 (PCR) Negative (Negative) 01/15/22 01/15/22 01/15/22 Range/Units 21:42 21:42 21:42 WBC (4.5-11.0) X10^3/uL RBC (4.0-5.2) X10^6/uL Hgb (12.0-16.0) g/dL Hct (36-46) % MCV (80-100) fL MCH (26-34) PG MCHC (30-36) % RDW (11.6-14.8) % Plt Count (150-400) X10^3/uL Neut % (Auto) (50-75) % Lymph % (Auto) (25-40) % [place] % (Auto) (3-14) % Eos % (Auto) (2-4) % Baso % (Auto) (0-2) % Neut # (Auto) (5901-5114) /uL Lymph # (Auto) (1936-1837) /uL [place] # (Auto) (0-900) /uL Eos # (Auto) (0-450) /uL Baso # (Auto) (0-100) /uL Sodium 138 (137-145) mmol/L Potassium 6.0 H (3.4-5.1) mmol/L Chloride 107 (98-107) mmol/L Carbon Dioxide 20 L (22-32) mmol/L BUN 31 H (7-17) mg/dL Creatinine 1.30 H (0.52-1.04) mg/dL Estimated GFR 45 L (>60) mL/min BUN/Creatinine Ratio 23.8 H (6-22) Glucose 83 (80-110) mg/dL Lactate 1.3 (0.7-2.1) mmol/L Calcium 9.0 (8.4-10.2) mg/dL Magnesium 2.4 H (1.6-2.3) mg/dL Total Bilirubin 0.6 (0.2-1.3) mg/dL AST 30 (14-36) IU/L ALT 31 (<35) IU/L Alkaline Phosphatase 129 H (38-126) U/L Total Creatine Kinase 171 H (30-135) U/L CK-MB (CK-2) 4.26 H (<2.37) ng/mL CK-MB (CK-2) Rel Index 2.5 (1.5-5.0) % Troponin I < 0.012 (0.01-0.034) ng/mL Total Protein 7.0 (6.3-8.2) g/dL Albumin 4.2 (3.5-5.0) g/dL Globulin 2.8 (1.7-4.1) g/dL Albumin/Globulin Ratio 1.5 (1.0-2.8) Lipase 56 (23-300) U/L Procalcitonin 0.12 (<0.5) ng/mL Urine Color Urine Appearance Urine pH (4.5-8.0) Ur Specific [place] (1.000-1.035) Urine Protein (Negative) Urine Glucose (UA) (Negative) g/dL Urine Ketones (NEGATIVE) Urine Occult Blood (Negative) Urine Nitrate (Negative) Urine Bilirubin (NEGATIVE) Ur Bilirubin Confirm (Negative) Urine Urobilinogen (0.2) E.U./dL Ur Leukocyte Esterase (NEGATIVE) Urine RBC (0-5/HPF) Urine WBC (0-5/HPF) Ur Squamous Epith Cells (0-5/HPF) Urine Bacteria (None) Ur Culture Indicated? SARS-CoV-2 (PCR) (Negative) Point of Care Testing Glucose POC 67 Imaging Data Chest x-ray: Radiologist Impression: [address] [address] XRay Report Signed Patient: Tanya Qiu MR#: [id number] : 1955 Acct:[id number] Age/Sex: 66 / F Date of Service: 01/15/22 Loc: ED Accession Number: [id number] ?? Procedure: XR chest 1V Ordering Provider: Margarita Swift D.O. PROCEDURE:? XR CHEST 1V ? INDICATIONS:? chest pain ? TECHNIQUE:? One view of the chest was acquired.? ? COMPARISON:? [facility], CR, XR CHEST 1V, 07/23/2021, 5:18. ? FINDINGS:? ? Surgical changes and devices:? None.? ? Lungs and pleura:? There is pulmonary vascular prominence suggestive of pulmonary edema.? No pleural effusions or pneumothorax.? ? Mediastinum:? Mediastinal contours are unchanged.? Heart size is enlarged. ? Bones and chest wall:? No suspicious bony lesions.? Overlying soft tissues appear unremarkable.? ? IMPRESSION:? ? 1. Pulmonary vascular prominence suggestive of pulmonary edema. ? ? Dictated by: Oh Thomas M.D. on 01/15/2022 at 22:55 ? ? Approved by: Oh Thomas M.D. on 01/15/2022 at 22:56?? ECG Data Attestation: I personally reviewed and interpreted this ECG as follows: Prior ECG tracings: available for review Interpretation: Sinus rhythm left bundle-branch, rate 84 ID 202 QRS of [address]TC [address] change. New left bundle-branch MDM Narrative Medical decision making narrative: 66-year-old female with known cerebral palsy who presents for increasing weakness and falls from her bed to motorized wheelchair. Patient is found to have hyperkalemia likely contributing to her weakness, acute kidney injury, hypermagnesemia, patient has incontinence urine sample shows leuks suspicious for UTI. Ultrasound does not show any obvious obvious obstructive changes. Patient does have gallstones but is nontender right upper quadrant on exam. She was covered with dose of IV antibiotic. She received fluids. Patient not appear to be septic or meet criteria does not starting at 30 cc/kilos bolus. Patient did receive IV medications for her hyperkalemia, she is a new left bundle-branch block on EKG in comparison to priors. Case discussed with hospitalist who accepts for inpatient admission. Critical Care Time Critical Care Time Critical Care Time: Yes Total Critical Care Time: 35 Attestation: The high probability of a clinically significant, sudden or life threatening deterioration of the [cardiac] system(s) required my full and direct attention, intervention and personal management. The aggregate critical care time was [] minutes. This time is in addition to time spent performing reported procedures but includes the following: [x] Data Review and interpretation [x] Patient assessment and monitoring of vital signs [x] Documentation [x] Medication orders and management Discharge Plan Departure Patient Disposition: Admitted As Inpatient Clinical Impression: Hyperkalemia, Anemia, Acute kidney injury, Hypermagnesemia, Acute UTI Admit Date/Time: 01/16/22 01:19 Admit Provider: David Duncan
[2022-01-15 21:54] LABS: Appearance Urine UA CLEAR; Bilirubin Urine UA 2+ (NEGATIVE); Color Urine UA YELLOW; Glucose Urine UA NEGATIVE (Negative); Ketones Urine UA 2+ (NEGATIVE); Leukocyte Esterase Urine UA TRACE (NEGATIVE); Nitrite Urine UA NEGATIVE (Negative); Occult Blood Urine UA TRACE-LYSED (Negative); Protein Urine UA TRACE (Negative)
[2022-01-15 21:57] LABS: pH Urine UA 5.5 (4.5-8.0)
[2022-01-15 21:59] LABS: Add Manual Diff / Slide Review NO; Basophils Absolute Auto 100 /uL (0-100); Basophils Percent Auto 0.7 % (0-2); Eosinophils Absolute Auto 200 /uL (0-450); Eosinophils Percent Auto 1.8 % (2-4); Hemoglobin 11.1 g/dL (12.0-16.0); Lymphocytes Absolute Auto 1300 /uL (1100-4500); Lymphocytes Percent Auto 14.4 % (25-40); Mean Corpuscular HGB Conc 32.5 % (30-36); Mean Corpuscular Volume 89.3 fL (80-100); Monocytes Absolute Auto 1400 /uL (0-900); Monocytes Percent Auto 15.4 % (3-14); Neutrophils Absolute Auto 6300 /uL (1500-7000); Neutrophils Percent Auto 67.7 % (50-75); Platelet Count 224 X10^3/uL (150-400); Red Blood Cell Count 3.81 X10^6/uL (4.0-5.2); Red Cell Distribution Width 15.2 % (11.6-14.8); White Blood Cell Count 9.3 X10^3/uL (4.5-11.0)
[2022-01-15 22:01] LABS: Ictotest Urine Negative (Negative)
[2022-01-15 22:02] LABS: Bacteria Urine Few (2-10); Culture Indicated Urine Cult Not Indicated; RBC Urine 0-1/HPF (0-5/HPF); Squamous Epithelial Cell Urine 10-30 /HPF (0-5/HPF); WBC Urine 0-1/HPF (0-5/HPF)
[2022-01-15 22:19] LABS: Alanine Aminotransferase 31 IU/L (<35); Albumin 4.2 g/dL (3.5-5.0); Albumin Globulin Ratio 1.5 (1.0-2.8); Alkaline Phosphatase 129 U/L (38-126); Aspartate Aminotransferase 30 IU/L (14-36); BUN Creatinine Ratio 23.8 (6-22); Bilirubin Total 0.6 mg/dL (0.2-1.3); Blood Urea Nitrogen 31 mg/dL (7-17); Carbon Dioxide 20 mmol/L (22-32); Chloride 107 mmol/L (98-107); Creatine Kinase 171 U/L (30-135); Estimated Glomerular Filt Rate 45 mL/min (>60); Globulin 2.8 g/dL (1.7-4.1); Glucose 83 mg/dL (80-110); HEMOLYSIS < 15 (0-50); Lipase 56 U/L (23-300); Magnesium 2.4 mg/dL (1.6-2.3); Sodium 138 mmol/L (137-145)
[2022-01-15 22:23] LABS: Lactate (Lactic Acid) 1.3 mmol/L (0.7-2.1)
[2022-01-15 22:29] LABS: Troponin I < 0.012 ng/mL (0.01-0.034)
[2022-01-15 22:33] LABS: CKMB % Relative Index 2.5 % (1.5-5.0); Creatine Kinase MB 4.26 ng/mL (<2.37)
[2022-01-15 22:34] LABS: COVID19 -Nasal RAPID Negative (Negative)
[2022-01-15 22:35] LABS: Procalcitonin 0.12 ng/mL (<0.5)
[2022-01-15] MEDS: cefTRIAXone 1,000 MG in SODIUM CHLORIDE 0.9% 100 ML 200 MG IV (22:40)
[2022-01-15] MEDS: SODIUM CHLORIDE 0.9% 1,000 ML 150 ML IV (22:42)
--- NOTE | 2022-01-15 23:38 | DI.US.S_ITS ---
PROCEDURE: US ABDOMEN COMPLETE INDICATIONS: RENAL FAILURE; ELEVATED LFT TECHNIQUE: Real-time scanning was performed of the abdominal and retroperitoneal organs, with image documentation. COMPARISON: [facility], US, US ABDOMEN COMPLETE, 04/28/2018, 16:44. FINDINGS: Suboptimal evaluation secondary to body habitus. Liver: The partially visualized liver demonstrates slightly increased echogenicity suggestive of fatty infiltration. The left hepatic lobe is not well seen. Gallbladder: Multiple nonmobile clustered gallstones are demonstrated with the largest measuring up to approximately 0.9 cm. No gallbladder wall thickening, pericholecystic fluid, or reported sonographic Peters's sign. Biliary ducts: Intrahepatic bile ducts are non-dilated. Extrahepatic bile duct caliber is at the upper limits of normal, measuring up to 0.6 cm. Pancreas: Visualized portions of the pancreas appear grossly sonographically normal. Spleen: Spleen is normal in size and homogeneous in echotexture. Kidneys: Right kidney measures 10.2 cm long; left kidney measures 10.5 cm long. No hydronephrosis. Aorta: Visualized aorta is normal in caliber at less than 3 cm. The proximal and distal aorta are not well visualized. Iliacs: Proximal common iliac arteries are not well seen. IVC: Intrahepatic inferior vena cava is patent. Miscellaneous: No free abdominal fluid. IMPRESSION: 1. No evidence of hydronephrosis. 2. Limited evaluation of the liver demonstrates suspected hepatic steatosis. 3. Cholelithiasis without definite evidence of cholecystitis. However, there are suspected impacted gallstones in the gallbladder neck. Dictated by: Oh Thomas M.D. on 01/16/2022 at 1:26 Approved by: Oh Thomas M.D. on 01/16/2022 at 1:29
[2022-01-16] VITALS (12 sets, daily range): BP systolic 117–160; BP diastolic 58–77; PULSE 70–89; RESP 13–22; TEMP 36.2–36.8; O2SAT 94–99; BMI 41.9
[2022-01-16] MEDS: CALCIUM GLUCONATE 4.65 MEQ in SODIUM CHLORIDE 0.9% 50 ML 180 MEQ IV (00:18)
[2022-01-16] MEDS: INSULIN REGULAR 100 UNIT/ML 3 ML VIAL IV (00:19)
[2022-01-16] MEDS: SODIUM BICARB 8.4% SYRINGE 50 MEQ IV (00:19)
[2022-01-16] MEDS: DEXTROSE 50 % IN WATER 25 GM/50 ML SYRINGE IV (00:19)
--- NOTE | 2022-01-16 01:15 | P.HP_ITS ---
History of Present Illness History of Present Illness Date Patient Seen: 01/16/22 Time Patient Seen: 01:30 Chief complaint: weak Narrative: Ms. Qiu is a 66W with PMH cerebral palsy, chronic back pain, lower extremity edema secondary to venous stasis who presents with falls and weakness. She lives alone and has been having decreasing strength. She has no caregivers and lives on [address]. She does not remember which medications she is taking. She has had multiple medications prescribed to her recently including lisinopril, HCTZ, furosemide, torsemide, and spironolactone. All these are documented in the chart within the last year. However the patient is not sure which of these if any she is taking. Most recently it does look like she was prescribed torsemide. She does note significant urinary volume over the last few days. She has not had any nausea, vomiting, or diarrhea. She has had a sacral decub that has developed within the last week. In the ED workup was done, vitals notable for normal blood pressure. Labs notable for WBC 9.3, hgb 11.1, plts 224. Na 138, K 6.0, creatinine 1.30. UA trace leuks, 10-30 squam epithelial cells. Chest xray with pulmonary vascular prominence. She was ordered for IV fluid, dextrose, insulin, calcium and admit mary for further treatment. Patient History Medical History Achilles tendon injury Cellulitis Cerebral palsy Flesh-eating bacteria History of esophageal dilatation History of esophageal stricture Sepsis Surgical History History of dilatation and curettage Hx of total knee arthroplasty Status post appendectomy Status post surgery (06/23/14) Family & Social History Family History Mother Cardiac disease Father Diabetes mellitus COPD (chronic obstructive pulmonary disease) Brother In good health Social History: household members none Safety & Behavioral: Feels Safe in Current Yes Environment Been Physically Hurt or No Threatened By a Person Tobacco & Substance use: Smoking Status Never smoker alcohol intake current alcohol intake frequency holiday/special occasion Substance Use Type does not use Meds Home Medications and Allergies Home Medications Medication Instructions Recorded Confirmed Type trazodone 50 mg tablet 50 mg PO HS #30 tabs 03/02/18 07/23/21 Rx albuterol sulfate 90 mcg/actuation 2 puff inhalation Q4H PRN Wheezing 05/09/18 07/23/21 History aerosol inhaler lisinopril 10 mg tablet 10 mg PO DAILY #30 tabs 05/11/18 07/23/21 Rx fluoxetine 20 mg capsule 40 mg PO QDAY 07/23/21 07/23/21 History gabapentin 300 mg capsule 900 mg PO QAM 07/23/21 07/23/21 History (Neurontin) gabapentin 600 mg tablet 1,200 mg PO BEDTIME 07/23/21 07/23/21 History (Neurontin) lamotrigine 100 mg tablet 300 mg PO QDAY 07/23/21 07/23/21 History (Lamictal) ibuprofen 400 mg tablet 400 mg PO Q6H PRN Pain (Scale 07/24/21 07/24/21 History Score 1-3) buprenorphine 8 mg-naloxone 2 mg 1 tab sublingual TID #10 tabs 07/28/21 07/24/21 Rx sublingual tablet cephalexin 250 mg capsule 500 mg PO TID #9 caps 07/28/21 Rx doxycycline hyclate 100 mg tablet 100 mg PO BID #6 tabs 07/28/21 Rx tramadol 50 mg tablet 50 mg PO TID PRN Pain, Moderate 07/28/21 Rx (4-6) #10 tabs Allergies Allergy/AdvReac Type Severity Reaction Status Date / Time clindamycin Allergy Mild RASH & N/V Verified 01/15/22 20:08 Review of Systems Review of Systems Narrative: 14 systems reviewed and negative aside from what is noted in HPI Exam Vital Signs (past 8 hours): - 01/15/22 20:05 01/15/22 21:11 01/15/22 21:20 Pulse Rate 88 86 81 Respiratory Rate 16 Blood Pressure Pulse Oximetry 98 99 99 Oxygen Delivery Method Room Air 01/15/22 21:20 01/15/22 21:30 01/15/22 21:31 Pulse Rate 89 Respiratory Rate Blood Pressure 110/55 L 128/54 L Pulse Oximetry 99 Oxygen Delivery Method 01/15/22 21:31 01/15/22 22:00 01/15/22 22:10 Pulse Rate 85 85 85 Respiratory Rate 15 17 Blood Pressure Pulse Oximetry 99 99 99 Oxygen Delivery Method Room Air 01/15/22 22:10 01/15/22 22:30 01/15/22 22:31 Pulse Rate 86 86 Respiratory Rate 18 24 Blood Pressure 128/57 L Pulse Oximetry 97 97 Oxygen Delivery Method 01/15/22 22:31 01/15/22 23:00 01/15/22 23:00 Pulse Rate 87 Respiratory Rate 27 H Blood Pressure 118/55 L 107/52 L Pulse Oximetry 98 Oxygen Delivery Method 01/15/22 23:30 01/15/22 23:31 01/15/22 23:31 Pulse Rate 85 85 Respiratory Rate 25 H 33 H Blood Pressure 107/53 L Pulse Oximetry 99 99 Oxygen Delivery Method 01/16/22 00:00 01/16/22 00:01 01/16/22 00:01 Pulse Rate 86 80 Respiratory Rate 13 Blood Pressure 136/59 L Pulse Oximetry 99 98 Oxygen Delivery Method 01/16/22 00:30 01/16/22 00:31 01/16/22 00:31 Pulse Rate 80 81 Respiratory Rate Blood Pressure 130/58 L Pulse Oximetry 98 98 Oxygen Delivery Method Oxygen Delivery Method Room Air Narrative Exam Narrative: GEN: no acute distress HEENT: moist mucous membranes, PERRL NECK: trachea midline, no JVD PULM: clear bilaterally, no wheezes, rhonchi, rales CV: regular rate and rhythm, no murmurs ABD: soft, nontender, nondistended, no organomegaly EXT: 1+ edema bilaterally NEURO: awake alert oriented, no focal deficits SKIN: sacral decub ulcer Objective Labs Result Diagrams: 01/15/22 21:42 01/15/22 21:42 Labs: Laboratory Results - last 24 hr 01/15/22 01/15/22 01/15/22 21:00 21:19 21:42 WBC 9.3 RBC 3.81 L Hgb 11.1 L Hct 34.0 L MCV 89.3 MCH 29.0 MCHC 32.5 RDW 15.2 H Plt Count 224 Neut % (Auto) 67.7 Lymph % (Auto) 14.4 L [place] % (Auto) 15.4 H Eos % (Auto) 1.8 L Baso % (Auto) 0.7 Neut # (Auto) 6300 Lymph # (Auto) 1300 [place] # (Auto) 1400 H Eos # (Auto) 200 Baso # (Auto) 100 Sodium Potassium Chloride Carbon Dioxide BUN Creatinine Estimated GFR BUN/Creatinine Ratio Glucose Lactate Calcium Magnesium Total Bilirubin AST ALT Alkaline Phosphatase Total Creatine Kinase CK-MB (CK-2) CK-MB (CK-2) Rel Index Troponin I Total Protein Albumin Globulin Albumin/Globulin Ratio Lipase Procalcitonin Urine Color Yellow Urine Appearance Clear Urine pH 5.5 Ur Specific [place] 1.020 Urine Protein Trace H Urine Glucose (UA) Negative Urine Ketones 2+ H Urine Occult Blood Trace-lysed Urine Nitrate Negative Urine Bilirubin 2+ H Ur Bilirubin Confirm Negative Urine Urobilinogen 1.0 Ur Leukocyte Esterase Trace H Urine RBC 0-1/hpf Urine WBC 0-1/hpf Ur Squamous Epith Cells 10-30 /hpf H Urine Bacteria Few (2-10) H Ur Culture Indicated? Cult not indicated SARS-CoV-2 (PCR) Negative 01/15/22 01/15/22 01/15/22 21:42 21:42 21:42 WBC RBC Hgb Hct MCV MCH MCHC RDW Plt Count Neut % (Auto) Lymph % (Auto) [place] % (Auto) Eos % (Auto) Baso % (Auto) Neut # (Auto) Lymph # (Auto) [place] # (Auto) Eos # (Auto) Baso # (Auto) Sodium 138 Potassium 6.0 H Chloride 107 Carbon Dioxide 20 L BUN 31 H Creatinine 1.30 H Estimated GFR 45 L BUN/Creatinine Ratio 23.8 H Glucose 83 Lactate 1.3 Calcium 9.0 Magnesium 2.4 H Total Bilirubin 0.6 AST 30 ALT 31 Alkaline Phosphatase 129 H Total Creatine Kinase 171 H CK-MB (CK-2) 4.26 H CK-MB (CK-2) Rel Index 2.5 Troponin I < 0.012 Total Protein 7.0 Albumin 4.2 Globulin 2.8 Albumin/Globulin Ratio 1.5 Lipase 56 Procalcitonin 0.12 Urine Color Urine Appearance Urine pH Ur Specific [place] Urine Protein Urine Glucose (UA) Urine Ketones Urine Occult Blood Urine Nitrate Urine Bilirubin Ur Bilirubin Confirm Urine Urobilinogen Ur Leukocyte Esterase Urine RBC Urine WBC Ur Squamous Epith Cells Urine Bacteria Ur Culture Indicated? SARS-CoV-2 (PCR) Assessment & Plan Assessment & Plan narrative: Ms. Qiu is a 66W with PMH cerebral palsy, HTN, obesity, chronic lower leg edema who present with weakness found to have NEPTALI and hyperkalemia. 1. NEPTALI with hyperkalemia -suspect secondary medications and dehydration -multiple recent med lists with torsemide, furosemide, lisinopril, hctz, and spironolactone all in med lists within the last year ---patient unclear of what she is taking, would benefit from home eval and assistance to make sure has right meds -hold MOISE, diuretics, spironlactone -continue IV fluids -did receive insulin, calcium, dextrose in ED -follow potassium closely 2. Questionable UTI -UA positive for leuks, but contatminated with multiple squam epithelial cells -received IV abx in ED, doubt UTI, hold abx -follow up culture 3. Hypertension -hold anti-hypertensives for now 4. Lower extremity swelling, chronic, likely venous insufficiency -hold diuretics for now 5. Chronic low back pain with history of opioid dependence and substance abuse -continue suboxone 6. Cerebral palsy -baseline is ambulatory -uses assistive devices -consult PT 7. Morbid obesity -BMI 42 -follow up with outpatient team 8. Sacral decub -PT eval -may benefit from outpatient care CODE: Full Proxy: Brother I have utilized all available resources to reconcile the patient's home medic ations. Time Spent With Patient Critical Care time: I spent a total of [] minutes of critical care time on this patient's care today; this time is exclusive of procedural time. Quality MIPS - Admit I confirm the patient?s Advance Care Plan is present, Code status is documented, Surrogate decision maker is in patient?s record [If Yes, STOP here]: Yes
[2022-01-16] MEDS: MORPHINE 4 MG/ML INJ IV (02:14)
[2022-01-16 03:19] LABS: Blood Urea Nitrogen 26 mg/dL (7-17); Calcium 8.7 mg/dL (8.4-10.2); Carbon Dioxide 21 mmol/L (22-32); Chloride 109 mmol/L (98-107); Estimated Glomerular Filt Rate 50 mL/min (>60); Glucose 66 mg/dL (80-110); HEMOLYSIS < 15 (0-50); Potassium 4.9 mmol/L (3.4-5.1); Sodium 139 mmol/L (137-145)
[2022-01-16 03:28] LABS: Add Manual Diff / Slide Review NO; Basophils Absolute Auto 0 /uL (0-100); Basophils Percent Auto 0.6 % (0-2); Eosinophils Absolute Auto 100 /uL (0-450); Eosinophils Percent Auto 1.5 % (2-4); Hematocrit 30.7 % (36-46); Lymphocytes Absolute Auto 1200 /uL (1100-4500); Lymphocytes Percent Auto 14.6 % (25-40); Mean Corpuscular HGB Conc 32.5 % (30-36); Mean Corpuscular Hemoglobin 28.7 PG (26-34); Mean Corpuscular Volume 88.2 fL (80-100); Monocytes Absolute Auto 1200 /uL (0-900); Monocytes Percent Auto 15.4 % (3-14); Neutrophils Absolute Auto 5400 /uL (1500-7000); Neutrophils Percent Auto 67.9 % (50-75); Platelet Count 211 X10^3/uL (150-400); Red Blood Cell Count 3.48 X10^6/uL (4.0-5.2); Red Cell Distribution Width 15.6 % (11.6-14.8); White Blood Cell Count 7.9 X10^3/uL (4.5-11.0)
--- NOTE | 2022-01-16 05:06 | PC.NURSE ---
report was givenf by Jailene BRODERICK.
[2022-01-16] MEDS: SODIUM CHLORIDE 0.9% 1,000 ML 150 ML IV (05:20)
--- NOTE | 2022-01-16 05:34 | PC.NURSE ---
Shift Note: At 0130H, patient arrived from the ED by stretcher, accompanied by ZOOLOGY TECHNICAL OFFICER, is alert and orientedx4, at room air, denies any breathing issues, no signs of distress, vital signs are within acceptable limits. Breath sounds are bilaterally diminished at both lung thompson. Active bowel tones noted. Skin bruising noted from face and scattered throughout the body as patient has multiple falls at home. Patient connected to monitoring equipment and purewick was placed with adequate yellowish urine output. Will continue to monitor.
--- NOTE | 2022-01-16 09:20 | PT.IIE ---
Surgical History (Last Reviewed 01/16/22 @ 01:43 by David Duncan MD) History of dilatation and curettage Hx of total knee arthroplasty Status post appendectomy Status post surgery (06/23/14) Medical History (Last Reviewed 01/16/22 @ 01:43 by David Duncan MD) Achilles tendon injury Cellulitis Cerebral palsy Flesh-eating bacteria History of esophageal dilatation History of esophageal stricture Sepsis Physical Therapy Inpatient Evaluation/Re-Eval M1 PT/OT-IP Prior Functional Status Start: 01/16/22 12:21 Freq: NEEDED Status: Active Protocol: Document 01/16/22 09:20 AB (Rec: 01/16/22 12:41 AB [email or web address]) Medical Review Prior Functional Status Medical History Reviewed Yes Communication able to make needs known Mobility and Gait pt stated that she is modified independent with all mobilities but mostly uses her w/c for mobility; able to stand pivot transfer to w/c; ambulates from the toilet door to the toilet since w/c will not fit into the toilet and pt holds on to the wall/sink to ambulate. pt stated that she uses her manual w/c indoors and her electric w/c outdoors Prior Functional Level (Other details) pt has h/o falls and stated that she already had ~ 10 falls this year Social History Household Members none Living Arrangements Apartment/Condo Number of Floors (Floors) One Floor Number of Stairs To Enter/Railing? no steps to enter Home Environment Tub/Shower Home Equipment Manual Wheelchair,Power Wheelchair/Scooter,Tub Transfer Bench,Hand Held Shower,Grab Bars Near Toilet, Grab Bars In Shower M2 PT-IP Current Condition Start: 01/16/22 12:21 Freq: NEEDED Status: Active Protocol: Document 01/16/22 09:20 AB (Rec: 01/16/22 12:41 AB [email or web address]) Physical Therapy Current Condition Current Condition Evaluation Date 01/16/22 Treatment Diagnosis UTI; hypokalemia; difficulty in walking Onset Date 01/16/22 M3 PT-IP Subjective Start: 01/16/22 12:21 Freq: NEEDED Status: Active Protocol: Document 01/16/22 09:20 AB (Rec: 01/16/22 12:41 AB [email or web address]) Subjective Physical Therapy Visit Type Type Initial Evaluation Visit Start Time 09:20 Visit Stop Time 10:00 Total Visit Minutes 40 Number of ALL PURPOSE CLERK Visits 0 Physical Therapy Visit Comments Patient Comments agreeable to do PT Therapy Pain Assessment Pain When Pain Assessed At Rest Pain Present Pain Present Pain Reported Location Right Knee Intensity 4 Scale Used Numeric (0 - 10) Pain Management Techniques Distraction,Modification of Treatment,Re-positioning, Timing of Activity with Medications M4 PT-IP Mobility and Gait Start: 01/16/22 12:21 Freq: NEEDED Status: Active Protocol: Document 01/16/22 09:20 AB (Rec: 01/16/22 12:41 [email or web address]) PT-Bed Mobility Assessment Supine to Sit Supine to Sit Maximum Assistance,Head of Bed Elevated,Bedrails PT-Transfer Assessment Sit to and From Stand Sit to and from Stand Maximum Assistance,1 Person Assistance,Use of Upper Extremities Equipment Transfer Assistive Device Gait Belt,Front Wheeled Walker Orthotic/Prosthetic Devices or Brace: No Transfers Transfer Destination Chair Transfer Technique Stand Step Pivot Transfer Ability Level of Assist Maximum Assistance,1 Person Assistance,2 Person Assistance ,Use of Upper Extremities Comments Mobility Comments completed supine to sit max A and max cues. Assisted with brief management. completed sit to stand max A and max cues and able to maintain standing using FWW for support max A while assisted with brief management. completed step transfer to chair using FWW max A x 1-2 and max cues. pt presents with increase lateral trunk lean to the L. positioned pt on the chair. call light and table placed within reach. M5 PT-IP Objective Assessments Start: 01/16/22 12:21 Freq: NEEDED Status: Active Protocol: Document 01/16/22 09:20 AB (Rec: 01/16/22 12:41 [email or web address]) Orientation Orientation/Cognition Level of Alertness Alert Orientation Name,Place,Situation Safety Awareness Decreased Safety Awareness Memory Description Short Term Impaired Gross Range of Motion Lower Extremity ROM Assessment Bilaterally Impaired Impairments B ankle DF tightness Strength Lower Extremity Strength Assessment Bilaterally Impaired Hip 3+/5 Knee 3+/5 Muscle Tone Muscle Tone WNL Yes M6 PT-IP Treatment Start: 01/16/22 12:21 Freq: NEEDED Status: Active Protocol: Document 01/16/22 09:20 AB (Rec: 01/16/22 12:41 [email or web address]) Physical Therapy Treatment Education Education Provided Safety M7 PT-IP Assessment and Plan Start: 01/16/22 12:21 Freq: NEEDED Status: Active Protocol: Document 01/16/22 09:20 AB (Rec: 01/16/22 12:41 AB [id number]) PT Summary Assessment and Plan Potential Rehabilitation Potential Fair Status of Condition at Evaluation Evolving Summary Impairments Pain,ROM,Strength,Balance, Coordination,Sensation,Tone, Cognition,Bed Mobility, Transfers,Gait,Activity Tolerance Assessment Summary pt requiring max A x 1-2 and max cues with mobility and unable to ambulate at this time. pt also has dx CP contributing to current functional level. pt will require SNF rehab to improve mobility. Goals Bed Mobility Goal Minimal Assistance Transfer Goal Minimal Assistance,Front Wheeled Walker Gait Goal Minimal Assistance,Front Wheel Walker Gait Distance 20 Other Goals improve bed mobility, transfers using FWW SBA, ambulation using FWW SBA 30 ft Days to Meet Goals 10 Frequency of Treatment Frequency Of Treatment Once a Day Treatment Plan Physical Therapy Treatment Plan Bed Mobility Training,Transfer Training,Gait Training, Therapeutic Exercise,Balance Retraining,Discharge Planning, Hot or Cold Pack,Neuromuscular Re-ed,Coordination Retraining ,Manual Therapy Precautions Other Precautions falls Recommendations To Nursing Amount of Assist Needed 2 Person Assist Discharge Recommendations PT Discharge Recommendations SNF Rehab Transportation Needs at Discharge Wheelchair/Cabulance
[2022-01-16] MEDS: ACETAMINOPHEN 325 MG TABLET 650 MG PO (10:35)
--- NOTE | 2022-01-16 10:44 | PC.RNWOUND ---
Buttocks Patient stands up from chair with walker and 2 assist. There is a 0.5 x 0.5 x 0.05cm open area to the right buttock, which patient says is a popped blister that has been there a couple of weeks, I think. This wound presents as a Stage 2 pressure injury, partial-thickness wound which extends through the epidermis and into the dermis. A bordered foam dressing is placed for protection and a waffle cushion placed on chair in room. Patient is helped back into bed where primary nurse places purewick per patient request. Multiple bruising noted to upper legs/ abdomen, small abrasions to bridge of nose, hx of falls. Also various small scattered abrasions to arms, bruising to arms. Patient tolerates cares well, heels floated off bed surface on pillow.
[2022-01-16] MEDS: carvediloL 3.125 MG TABLET 6.25 MG PO ×2 (11:40→20:40)
--- NOTE | 2022-01-16 12:41 | PC.NURSE ---
Patient gave permission for brother and sister in law to be given updates and ok for discharge planning coordination as they will take care of patient's apartment and cat.
[2022-01-16] MEDS: HEPARIN 5,000 UNIT/ML VIAL 5000 UNIT SUBCUT (20:41)
[2022-01-17] VITALS (9 sets, daily range): BP systolic 109–120; BP diastolic 48–55; PULSE 71–95; RESP 16–18; TEMP 36.8–37; O2SAT 94–98
[2022-01-17 02:44] LABS: Acinetobacter baumannii Not Detected (Not Detect); Candida albicans Not Detected (Not Detect); Candida glabrata Not Detected (Not Detect); Candida krusei Not Detected (Not Detect); Candida parapsilosis Not Detected (Not Detect); Candida tropicalis Not Detected (Not Detect); E. coli Not Detected (Not Detect); Enterobacter cloacae complex Not Detected (Not Detect); Enterobacteriaceae species Not Detected (Not Detect); Enterococcus species Not Detected (Not Detect); Haemophilus influenzae Not Detected (Not Detect); Listeria monocytogenes Not Detected (Not Detect); Neisseria meningitidis Not Detected (Not Detect); Proteus species Not Detected (Not Detect); Pseudomonas aeruginosa Not Detected (Not Detect); Serratia marcescens Not Detected (Not Detect); Staphylococcus species Not Detected (Not Detect); Streptococcus agalactiae (Gr B Not Detected (Not Detect); Streptococcus pneumonia Not Detected (Not Detect); Streptococcus pyogenes (Gr A) Not Detected (Not Detect); Streptococcus species Not Detected (Not Detect)
[2022-01-17] MEDS: ACETAMINOPHEN 325 MG TABLET 650 MG PO (06:12)
--- NOTE | 2022-01-17 08:19 | CM.DANOTE ---
Initial DCP Assessment Note Pt is a 66 yo female, resident of [place], arrives by EMS 01.15.22 for weakness and multiple falls at home while attempting transfer from bed to wheelchair. ER Narrative: Dr. Duncan, hospitalist accepts for inpatient admission for hyperkalemia with acute kidney injury and hypermagnesemia. Suspected to be secondary to dehydration patient does have possible UTI and was started on IV antibiotics. Sent 01.16.22 to [facility] admission review which returned as a recommendation for observation status. Patient observation from 01.16.22 PCP: Aleksandra Peters Payer: Audie PLUMMER MCR Met w/patient, introduced self and role. Patient is pleasant, compliant with care, states I know I need more care and states she is agreeable to SNF stay while patient/family determine next steps in increasing care either at patient's apartment or moving into an JAIL Patient unsure if she has completed a [facility] application and refers this TICKET CLERK to Terrie Fontana at the [facility] P# [phone] cell [phone]. Terrie has been assisting patient for years in resource development. Placed call to Terrie 01.16.22 and had to LM Patient has felt weaker than usual recently and has had a difficult time self transferring. PMH includes Cerebral Palsy, chronic back pain, and lower extremity edema secondary to venous stasis. Placed call to patient's brother and NICOLAS; Clayton and Sandra Qiu P# [phone] home Sandra [place] P# [phone]. Family state concern about patient returning home at this time and describe patient scooting on the floor, on her bottom, to get around when she falls out of her w/c and does not have the strength to get back in. Clayton and Sandra are 75 yo with strained relationship w/patient and refer to Terrie for detailed information re finances and [facility] process. Family state they want to be helpful and supportive to patient, however, will not be capable of physically caring for her either in patient's home or their own Discussed referral with [facility]. Will likely seek alt SNF options, patient agreeable to anywhere SERGIO [place] Discharge Planning/Care Management CM Discharge Assessment Start: 01/17/22 08:10 Freq: Status: Active Protocol: Document 01/17/22 08:16 ISA (Rec: 01/17/22 08:19 ISA [id number]) Discharge Planning Assessment Assigned Manager Cosmetics SERGIO Bolden DPOA/Assigned Designee Name Clayton Qiu, brother (DPOA? Clayton looking for ppk) Contact Information [phone] Advance Directives? Yes: polst Advance Directives on File Yes History Provided By Patient,Family Member,Medical Record Prior Living Arrangements Apartment/Condo Household Members none Type of transporation used prior to Relies on Others admit Independent with ADL's No Is patient alert and oriented? Yes Patient/Family Preference Long-Term Facility Discharge Plan Long-Term Facility Transportation Arrangement TBD Referrals Initiated Long-Term,Medicaid Application Additional Comment Sent referral to [facility]. Awaiting response from [facility]; [facility] pending (?) SNF/HH Preference Hx [facility]. Patient agreeable to alt facilities being faxed as needed Has Agency SNF been contacted Yes
[2022-01-17] MEDS: carvediloL 3.125 MG TABLET 6.25 MG PO ×2 (09:08→20:37)
[2022-01-17] MEDS: HEPARIN 5,000 UNIT/ML VIAL 5000 UNIT SUBCUT ×2 (09:15→20:37)
--- NOTE | 2022-01-17 11:30 | PT.IPTN ---
Physical Therapy Treatment Note M2 PT-IP Current Condition Start: 01/16/22 12:21 Freq: NEEDED Status: Active Protocol: Document 01/16/22 09:20 AB (Rec: 01/16/22 12:41 AB [id number]) Physical Therapy Current Condition Current Condition Evaluation Date 01/16/22 Treatment Diagnosis UTI; hypokalemia; difficulty in walking Onset Date 01/16/22 M3 PT-IP Subjective Start: 01/16/22 12:21 Freq: NEEDED Status: Active Protocol: Document 01/17/22 11:30 AB (Rec: 01/17/22 12:10 AB [id number]) Subjective Physical Therapy Visit Type Type Treatment Note Visit Start Time 11:30 Visit Stop Time 11:52 Total Visit Minutes 22 Number of CUSTOMER MANAGEMENT SPECIALIST Visits 0 Physical Therapy Visit Comments Patient Comments agreeable to do PT M4 PT-IP Mobility and Gait Start: 01/16/22 12:21 Freq: NEEDED Status: Active Protocol: Document 01/17/22 11:30 AB (Rec: 01/17/22 12:10 AB [id number]) PT-Bed Mobility Assessment Supine to Sit Supine to Sit Maximum Assistance,Head of Bed Elevated,Bedrails Scooting Scooting to Edge of Bed Maximum Assistance PT-Transfer Assessment Sit to and From Stand Sit to and from Stand Maximum Assistance,1 Person Assistance,2 Person Assistance ,Use of Upper Extremities Equipment Transfer Assistive Device Front Wheeled Walker Orthotic/Prosthetic Devices or Brace: No Transfers Transfer Destination Chair Transfer Technique Stand Step Pivot Transfer Ability Level of Assist Maximum Assistance,2 Person Assistance,Use of Upper Extremities Comments Mobility Comments completed supine to sit max a and max cues with HOB elevated . required max A for scooting to EOB. NAC in room to assist. pt needing brief change. pt completed sit to stand from EOB x 2 requiring max A x 1-2 and max cues. pt required max A for standing balance using FWW for support while NAC assisted with brief management. pt completed step transfer to chair using FWW max A x 2 and max cues. positioned pt on the chair. call light and table placed within reach. M5 PT-IP Objective Assessments Start: 01/16/22 12:21 Freq: NEEDED Status: Active Protocol: Document 01/16/22 09:20 AB (Rec: 01/16/22 12:41 AB [email or web address]) Orientation Orientation/Cognition Level of Alertness Alert Orientation Name,Place,Situation Safety Awareness Decreased Safety Awareness Memory Description Short Term Impaired Gross Range of Motion Lower Extremity ROM Assessment Bilaterally Impaired Impairments B ankle DF tightness Strength Lower Extremity Strength Assessment Bilaterally Impaired Hip 3+/5 Knee 3+/5 Muscle Tone Muscle Tone WNL Yes M6 PT-IP Treatment Start: 01/16/22 12:21 Freq: NEEDED Status: Active Protocol: Document 01/17/22 11:30 AB (Rec: 01/17/22 12:10 AB [email or web address]) Physical Therapy Treatment Education Education Provided Safety M7 PT-IP Assessment and Plan Start: 01/16/22 12:21 Freq: NEEDED Status: Active Protocol: Document 01/17/22 11:30 AB (Rec: 01/17/22 12:10 AB [email or web address]) PT Summary Assessment and Plan Potential Rehabilitation Potential Fair Summary Impairments Pain,ROM,Strength,Balance, Coordination,Sensation,Tone, Cognition,Bed Mobility, Transfers,Gait,Activity Tolerance Progress Towards Goals Slow Progress due to Medical Issues,Slow Progress due to Activity Tolerance,Slow Progress - Other Assessment Summary pt continues to require max A x 1-2 with mobility and with decrease activity tolerance affecting function. pt will require SNF rehab to improve overall strength and functional independence. Goals Bed Mobility Goal Minimal Assistance Transfer Goal Minimal Assistance,Front Wheeled Walker Gait Goal Minimal Assistance,Front Wheel Walker Gait Distance 20 Other Goals improve bed mobility, transfers using FWW SBA, ambulation using FWW SBA 30 ft Days to Meet Goals 10 Frequency of Treatment Frequency Of Treatment Once a Day Treatment Plan Physical Therapy Treatment Plan Bed Mobility Training,Transfer Training,Gait Training, Therapeutic Exercise,Balance Retraining,Discharge Planning, Hot or Cold Pack,Neuromuscular Re-ed,Coordination Retraining ,Manual Therapy Precautions Other Precautions falls Recommendations To Nursing Amount of Assist Needed 2 Person Assist Discharge Recommendations PT Discharge Recommendations SNF Rehab Transportation Needs at Discharge Wheelchair/Cabulance
--- NOTE | 2022-01-17 14:41 | PM.PN.1 ---
Subjective Subjective Date Patient Seen: 01/17/22 Time Patient Seen: 08:00 Interval history: Today she has no complaints. She does not feel she can take care of herself at home. Exam Vital Signs (past 8 hours): - 01/17/22 09:08 01/17/22 07:42 01/17/22 11:48 Temperature 98.5 F 98.4 F Pulse Rate 82 82 75 Respiratory Rate 18 18 Blood Pressure 113/48 L 113/48 L 120/54 L Pulse Oximetry 95 94 Oxygen Flow Rate 0 0 Oxygen Delivery Method Room Air Oxygen Flow Rate 0 Narrative Exam Narrative: GEN: no acute distress PULM: clear bilaterally, no wheezes, rhonchi, rales CV: regular rate and rhythm, no murmurs ABD: soft, nontender, nondistended, no organomegaly NEURO: awake alert oriented, no focal deficits SKIN: sacral decub ulcer Objective Labs Result Diagrams: 01/16/22 03:00 01/16/22 03:00 Labs: Laboratory Results - last 24 hr 01/17/22 20:42 A. baumannii (PCR) Not detected Josie albicans (PCR) Not detected C. glabrata (PCR) Not detected C. krusei (PCR) Not detected C. parapsilosis (PCR) Not detected C. tropicalis (PCR) Not detected Enterobacteriac sp PCR Not detected E. cloacae complex PCR Not detected Enterococcus sp PCR Not detected E. coli (PCR) Not detected H. influenzae (PCR) Not detected Klebsiella oxytoca PCR Not detected Klebsiella pneumoniae Not detected List. monocytogenes PCR Not detected N. meningitidis (PCR) Not detected Proteus species (PCR) Not detected Serratia marcescens PCR Not detected Staphylococcus sp PCR Not detected Staph aureus (PCR) Not detected mecA-Methicil Res Gene Not Reportable Streptococcus sp PCR Not detected Group A Strep (PCR) Not detected Strep agalactiae (PCR) Not detected Strep pneumoniae (PCR) Not detected P. aeruginosa (PCR) Not detected Mark Anthony/B-Vanco Res Genes Not Reportable KPC-Carbap Res Gene PCR Not Reportable PFSH Medical History Achilles tendon injury Cellulitis Cerebral palsy Flesh-eating bacteria History of esophageal dilatation History of esophageal stricture Sepsis Surgical History History of dilatation and curettage Hx of total knee arthroplasty Status post appendectomy Status post surgery (06/23/14) Family History Mother Cardiac disease Father Diabetes mellitus COPD (chronic obstructive pulmonary disease) Brother In good health Social History household members: none Smoking Status: Never smoker alcohol intake: current Assessment & Plan Assessment & Plan narrative: Ms. Qiu is a 66W with PMH cerebral palsy, HTN, obesity, chronic lower leg edema who present with weakness found to have NEPTALI and hyperkalemia. 1. NEPTALI with hyperkalemia, resolved -suspect secondary medications and dehydration -multiple recent med lists with torsemide, furosemide, lisinopril, hctz, and spironolactone all in med lists within the last year ---patient unclear of what she is taking, would benefit from home eval and assistance to make sure has right meds -hold MOISE, diuretics, spironlactone -IV fluids stopped -did receive insulin, calcium, dextrose in ED -follow potassium closely 2. Contaminated urine -UA positive for leuks, but contatminated with multiple squam epithelial cells -received IV abx in ED, doubt UTI, hold abx -follow up culture 3. Hypertension -hold anti-hypertensives for now 4. Lower extremity swelling, chronic, likely venous insufficiency -hold diuretics for now 5. Chronic low back pain with history of opioid dependence and substance abuse -continue suboxone 6. Cerebral palsy -baseline is ambulatory -uses assistive devices -consult PT 7. Morbid obesity -BMI 42 -follow up with outpatient team 8. Sacral decub -PT eval -may benefit from outpatient wound care Dispo: patient medically stable for discharge, CM working on dispo Time Spent With Patient Critical Care time: I spent a total of [] minutes of critical care time on this patient's care today; this time is exclusive of procedural time. Quality VTE Deep Vein Thrombosis/Pulmonary Embolism Present on Admission: No
--- NOTE | 2022-01-17 15:21 | CM.DPNOTE ---
DCP Note Spoke w/Terrie w/the [facility]; Terrie never completed the fpc care CARRILLO application with patient. Terrie hopeful patient does not return to her apartment w/o increase in assistance; Terrie states patient's apt is not well kept and is not a safe environment for patient at this time. Explained that this CM team would take great effort to refer patient/family to the available short term and termite treater helper care resources, however, this team may not be able to resolve the ongoing, chronic challenges in securing increased care for patient during this hospital stay. That responsibility remains with patient and family. Terrie states understanding and remains hopeful a facility placement is available to patient LTC CARRILLO collin completed today and faxed to [facility]. Expedited request for review completed and faxed to home and community services. BRANNON Jones, has now sent SNF referrals to Mily [facility], Alexandria Yu, [facility] and Benjamin Bronx from Emily at [facility]; she is considering patient, both for short term rehab with [facility] (if authorized) and potentially fpc care if [facility] administrators will approve. Emily returns Thursday and will call CM team to discuss further. No bed availability today or Thursday. PASRR completed. Call from patient's sister in law Sandra; updated w/above (w/patient's permission). Sandra is hopeful to tour [facility]. Requested that Clayton and Sandra drop off or fax patient's DPOA ppk if they have it available (which Clayton states assigns him as DPOA) Placement efforts continue. Patient working w/therapies, cannot transfer independently at this time and has no one available to physically assist her at home JW
[2022-01-17] MEDS: SODIUM CHLORIDE 0.9% FLUSH 10 ML IV (20:42)
--- NOTE | 2022-01-17 22:57 | PC.NURSE ---
Addendum entered by Ninfa Swartz R.N. 01/18/22 00:24: Attempted to do orthostatic vitals. Had patient stand with walker and 2 assist at side of bed but was unable to tolerate standing long enough to get BP. Original Note: Patient is alert and oriented but forgetful. Breath sounds CTA with RA sat of 95%. HRR. Denies nausea. BT present and is passing flatus. Incontinent of urine so Purewick is being used with suction set at 40mmHg. Is able to assist in repositioning but does not move on her own so staff is repositioning q2h. Gait not assessed but reportedly needed to use Efrain on previous shift. Allevyn dressing to right buttock is CDI. Denies pain. Fall risk score is high and bed alarm is activated.
[2022-01-18] VITALS (9 sets, daily range): BP systolic 107–155; BP diastolic 50–67; PULSE 63–88; RESP 18; TEMP 36.9–37.6; O2SAT 94–96
[2022-01-18] MEDS: ACETAMINOPHEN 325 MG TABLET 650 MG PO ×2 (00:31→15:10)
--- NOTE | 2022-01-18 07:24 | PM.PN.1 ---
Subjective Subjective Date Patient Seen: 01/18/22 Interval history: She continues to feel quite weak and unable to return home. She is hopeful of placement at an adult family home or assisted living facility but with her degree of weakness likely needs rehab at residential. She tells me that she lives in her own apartment on [address] alone. Or 1 of the barriers has been waiting for her Medicaid application to be completed and approved. She is reported to be a hoarder with an unsafe living situation at home. Exam Vital Signs (past 8 hours): - 01/17/22 23:26 01/18/22 00:27 01/18/22 04:43 Temperature 98.5 F 99.7 F H Pulse Rate 87 78 Pulse Rate [Orthostatic Lying] 85 Pulse Rate [Orthostatic Sitting] 88 Respiratory Rate 16 18 Blood Pressure 115/54 L 107/50 L Blood Pressure [Orthostatic Lying] 130/66 Blood Pressure [Orthostatic Sitting] 120/57 L Pulse Oximetry 94 94 Oxygen Delivery Method Room Air Oxygen Flow Rate 0 Narrative Exam Narrative: Alert and oriented x3. No apparent distress Heart is regular rate and rhythm without murmur Right base lung crackles present Extremities have no ankle edema Objective Labs Result Diagrams: 01/16/22 03:00 01/16/22 03:00 [facility] Medical History Achilles tendon injury Cellulitis Cerebral palsy Flesh-eating bacteria History of esophageal dilatation History of esophageal stricture Sepsis Surgical History History of dilatation and curettage Hx of total knee arthroplasty Status post appendectomy Status post surgery (06/23/14) Family History Mother Cardiac disease Father Diabetes mellitus COPD (chronic obstructive pulmonary disease) Brother In good health Social History household members: none Smoking Status: Never smoker alcohol intake: current Assessment & Plan Assessment & Plan narrative: Ms. Qiu is a 66W with PMH cerebral palsy, HTN, obesity, chronic lower leg edema who presented with weakness found to have NEPTALI and hyperkalemia. 1. NEPTALI with hyperkalemia, resolved -suspect secondary medications and dehydration -multiple recent med lists with torsemide, furosemide, lisinopril, hctz, and spironolactone all in med lists within the last year ---patient unclear of what she is taking, would benefit from home eval and assistance to make sure has right meds -hold MOISE, diuretics, spironolactone -IV fluids stopped -did receive insulin, calcium, dextrose in ED -follow potassium closely 2. Contaminated urine -UA positive for leuks, but contatminated with multiple squam epithelial cells -received IV abx in ED, doubt UTI, hold abx -follow up culture 3. Hypertension -hold anti-hypertensives except for Metoprolol for now 4. Lower extremity swelling, chronic, likely venous insufficiency -hold diuretics for now 5. Chronic low back pain with history of opioid dependence and substance abuse -continue suboxone 6. Cerebral palsy -baseline is ambulatory -uses assistive devices -PT following 7. Morbid obesity -BMI 42 -follow up with outpatient team 8. Sacral decub -PT eval -may benefit from outpatient wound care Dispo: patient medically stable for discharge, CM working on disposition, likely to a SNF once her Medicaid application is completed and approved. The facilities concern is that she could turn into a long-term care patient. Time Spent With Patient Critical Care time: I spent a total of [] minutes of critical care time on this patient's care today; this time is exclusive of procedural time. Quality VTE Deep Vein Thrombosis/Pulmonary Embolism Present on Admission: No
[2022-01-18] MEDS: carvediloL 3.125 MG TABLET 6.25 MG PO ×2 (08:21→20:26)
[2022-01-18] MEDS: HEPARIN 5,000 UNIT/ML VIAL 5000 UNIT SUBCUT ×2 (08:22→20:25)
[2022-01-18] MEDS: SODIUM CHLORIDE 0.9% FLUSH 10 ML IV ×2 (08:28→20:26)
--- NOTE | 2022-01-18 10:20 | PT.IPTN ---
Physical Therapy Treatment Note M2 PT-IP Current Condition Start: 01/16/22 12:21 Freq: NEEDED Status: Active Protocol: Document 01/16/22 09:20 AB (Rec: 01/16/22 12:41 AB [email or web address]) Physical Therapy Current Condition Current Condition Evaluation Date 01/16/22 Treatment Diagnosis UTI; hypokalemia; difficulty in walking Onset Date 01/16/22 M3 PT-IP Subjective Start: 01/16/22 12:21 Freq: NEEDED Status: Active Protocol: Document 01/18/22 10:20 AB (Rec: 01/18/22 11:41 AB [email or web address]) Subjective Physical Therapy Visit Type Type Treatment Note Visit Start Time 10:20 Visit Stop Time 10:45 Total Visit Minutes 25 Number of DATA CONVERSION DEVELOPER Visits 0 Physical Therapy Visit Comments Patient Comments agreeable to do PT M4 PT-IP Mobility and Gait Start: 01/16/22 12:21 Freq: NEEDED Status: Active Protocol: Document 01/18/22 10:20 AB (Rec: 01/18/22 11:41 AB [email or web address]) PT-Bed Mobility Assessment Supine to Sit Supine to Sit Minimal Assistance,Head of Bed Elevated,Bedrails PT-Transfer Assessment Sit to and From Stand Sit to and from Stand Moderate Assistance,Maximum Assistance,1 Person Assistance ,Use of Upper Extremities Equipment Transfer Assistive Device Gait Belt,Front Wheeled Walker Orthotic/Prosthetic Devices or Brace: No Transfers Transfer Destination Chair Transfer Technique Stand Step Pivot Transfer Ability Level of Assist Maximum Assistance,1 Person Assistance,2 Person Assistance ,Use of Upper Extremities Comments Mobility Comments completed supine to sit min A and cues with HOB elevated. able to sit on EOB SBA. scooted to EOB min A. completed sit to stand mod to max A and cues and step transfer to chair using FWW max A x 1-2 and max cues. requires assist with weight shifthing to be able to move LLE. positioned pt on chair. call light and table placed within reach. M5 PT-IP Objective Assessments Start: 01/16/22 12:21 Freq: NEEDED Status: Active Protocol: Document 01/16/22 09:20 AB (Rec: 01/16/22 12:41 AB [id number]) Orientation Orientation/Cognition Level of Alertness Alert Orientation Name,Place,Situation Safety Awareness Decreased Safety Awareness Memory Description Short Term Impaired Gross Range of Motion Lower Extremity ROM Assessment Bilaterally Impaired Impairments B ankle DF tightness Strength Lower Extremity Strength Assessment Bilaterally Impaired Hip 3+/5 Knee 3+/5 Muscle Tone Muscle Tone WNL Yes M6 PT-IP Treatment Start: 01/16/22 12:21 Freq: NEEDED Status: Active Protocol: Document 01/18/22 10:20 AB (Rec: 01/18/22 11:41 AB [email or web address]) Physical Therapy Treatment Education Education Provided Safety M7 PT-IP Assessment and Plan Start: 01/16/22 12:21 Freq: NEEDED Status: Active Protocol: Document 01/18/22 10:20 AB (Rec: 01/18/22 11:41 AB [email or web address]) PT Summary Assessment and Plan Potential Rehabilitation Potential Fair Summary Impairments Pain,ROM,Strength,Balance, Coordination,Sensation,Tone, Cognition,Bed Mobility, Transfers,Gait,Activity Tolerance Progress Towards Goals Slow Progress due to Medical Issues,Slow Progress due to Activity Tolerance,Slow Progress - Other Assessment Summary pt improving slowly and requires max A x 1-2 using FWW for transfers but unable to ambulate. continues to have decrease activity tolerance affecting mobility. pt will require SNF rehab to improve strength and mobility. Goals Bed Mobility Goal Minimal Assistance Transfer Goal Minimal Assistance,Front Wheeled Walker Gait Goal Minimal Assistance,Front Wheel Walker Gait Distance 20 Other Goals improve bed mobility, transfers using FWW SBA, ambulation using FWW SBA 30 ft Days to Meet Goals 10 Frequency of Treatment Frequency Of Treatment Once a Day Treatment Plan Physical Therapy Treatment Plan Bed Mobility Training,Transfer Training,Gait Training, Therapeutic Exercise,Balance Retraining,Discharge Planning, Hot or Cold Pack,Neuromuscular Re-ed,Coordination Retraining ,Manual Therapy Precautions Other Precautions falls Recommendations To Nursing Amount of Assist Needed Mechanical Lift Discharge Recommendations PT Discharge Recommendations SNF Rehab Transportation Needs at Discharge Wheelchair/Cabulance
--- NOTE | 2022-01-18 21:18 | PC.NURSE ---
Patient is alert and oriented. Breath sounds diminished at bases but CTA with RA sat of 96%. HRR w/BP of 142/67; BP has been labile. Denies nausea. BT present and abdomen is soft; last BM was 01/15. Has Pure Wick set at 40mmHg but is also incontinent of urine. Is being repositioned q2h as not able to move by herself; waffle cushion is under her in bed and pillows used for repositioning. Allevyn dressing to buttock is CDI. Is being transferred out of bed by PT during the day and then Efrain is used to get patient back to bed. Denies pain. Fall risk score is high and bed alarm is activated.
[2022-01-19] VITALS (8 sets, daily range): BP systolic 121–146; BP diastolic 46–77; PULSE 63–72; RESP 16–20; TEMP 36.5–37.2; O2SAT 95–97
[2022-01-19] MEDS: ACETAMINOPHEN 325 MG TABLET 650 MG PO ×3 (02:19→21:19)
--- NOTE | 2022-01-19 07:49 | P.PN_ITS ---
Subjective Subjective Date Patient Seen: 01/19/22 Interval history: She is doing well but is still too weak to return home to independent living due to her baseline cerebral palsy and advancing age. There was an attempt to finalize her transition to care home care today but that seems to have been unsuccessful so she remains another night. She has no new complaints. Exam Vital Signs (past 8 hours): - 01/19/22 00:27 01/19/22 04:37 01/19/22 04:37 Temperature 98.8 F 99.0 F Pulse Rate 71 63 Pulse Rate [Orthostatic Lying] 63 Pulse Rate [Orthostatic Sitting] 72 Respiratory Rate 18 17 Blood Pressure 139/59 L 138/60 Blood Pressure [Orthostatic Lying] 138/60 Blood Pressure [Orthostatic Sitting] 135/51 L Pulse Oximetry 95 97 Oxygen Flow Rate 01/19/22 04:37 Temperature Pulse Rate Pulse Rate [Orthostatic Lying] Pulse Rate [Orthostatic Sitting] Respiratory Rate Blood Pressure Blood Pressure [Orthostatic Lying] Blood Pressure [Orthostatic Sitting] Pulse Oximetry Oxygen Flow Rate 0 Oxygen Delivery Method Room Air Oxygen Flow Rate 0 Narrative Exam Narrative: Alert and oriented x3. No apparent distress. Heart is regular rate and rhythm without murmur Lungs are clear to auscultation bilaterally Extremities have no ankle edema Objective Labs Result Diagrams: 01/16/22 03:00 01/16/22 03:00 [facility] Medical History Achilles tendon injury Cellulitis Cerebral palsy Flesh-eating bacteria History of esophageal dilatation History of esophageal stricture Sepsis Surgical History History of dilatation and curettage Hx of total knee arthroplasty Status post appendectomy Status post surgery (06/23/14) Family History Mother Cardiac disease Father Diabetes mellitus COPD (chronic obstructive pulmonary disease) Brother In good health Social History household members: none Smoking Status: Never smoker alcohol intake: current Assessment & Plan Assessment & Plan narrative: Ms. Qiu is a 66W with PMH cerebral palsy, HTN, obesity, chronic lower leg edema who presented with weakness found to have NEPTALI and hyperkalemia. 1. NEPTALI with hyperkalemia, resolved -suspect secondary medications and dehydration -multiple recent med lists with torsemide, furosemide, lisinopril, hctz, and spironolactone all in med lists within the last year ---patient unclear of what she is taking, would benefit from home eval and assistance to make sure has right meds -hold MOISE, diuretics, spironolactone -IV fluids stopped -did receive insulin, calcium, dextrose in ED -follow potassium closely 2. Contaminated urine -UA positive for leuks, but contatminated with multiple squam epithelial cells -received IV abx in ED, doubt UTI, hold abx -follow up culture 3. Hypertension -hold anti-hypertensives except for Metoprolol for now 4. Lower extremity swelling, chronic, likely venous insufficiency -hold diuretics for now 5. Chronic low back pain with history of opioid dependence and substance abuse -continue suboxone 6. Cerebral palsy -baseline is ambulatory -uses assistive devices -PT following 7. Morbid obesity -BMI 42 -follow up with outpatient team 8. Sacral decub -PT eval -may benefit from outpatient wound care Dispo: patient medically stable for discharge, CM working on disposition, likely to a SNF once her Medicaid application is completed and approved.? The facilities hesitation seems to be the fact that she could turn into a long-term care patient. Time Spent With Patient Critical Care time: I spent a total of [] minutes of critical care time on this patient's care today; this time is exclusive of procedural time. Quality VTE Deep Vein Thrombosis/Pulmonary Embolism Present on Admission: No
[2022-01-19] MEDS: carvediloL 3.125 MG TABLET 6.25 MG PO ×2 (08:14→21:20)
[2022-01-19] MEDS: SODIUM CHLORIDE 0.9% FLUSH 10 ML IV ×2 (08:15→21:19)
[2022-01-19] MEDS: HEPARIN 5,000 UNIT/ML VIAL 5000 UNIT SUBCUT ×2 (08:15→21:19)
--- NOTE | 2022-01-19 14:50 | PT.IPTN ---
Physical Therapy Treatment Note M2 PT-IP Current Condition Start: 01/16/22 12:21 Freq: NEEDED Status: Active Protocol: Document 01/16/22 09:20 AB (Rec: 01/16/22 12:41 AB [email or web address]) Physical Therapy Current Condition Current Condition Evaluation Date 01/16/22 Treatment Diagnosis UTI; hypokalemia; difficulty in walking Onset Date 01/16/22 M3 PT-IP Subjective Start: 01/16/22 12:21 Freq: NEEDED Status: Active Protocol: Document 01/19/22 14:50 AW (Rec: 01/19/22 15:02 AW [id number]) Subjective Physical Therapy Visit Type Type Treatment Note Visit Start Time 14:27 Visit Stop Time 14:50 Total Visit Minutes 23 Number of REMOTE ADVISOR Visits 0 Physical Therapy Visit Comments Patient Comments agreeable to do PT M4 PT-IP Mobility and Gait Start: 01/16/22 12:21 Freq: NEEDED Status: Active Protocol: Document 01/19/22 14:50 AW (Rec: 01/19/22 15:02 AW [id number]) PT-Bed Mobility Assessment Supine to Sit Supine to Sit Minimal Assistance,Head of Bed Elevated,Bedrails Scooting Scooting to Edge of Bed Minimal Assistance PT-Transfer Assessment Sit to and From Stand Sit to and from Stand Moderate Assistance,Maximum Assistance,1 Person Assistance ,2 Person Assistance,Use of Upper Extremities Equipment Transfer Assistive Device Gait Belt,Front Wheeled Walker Orthotic/Prosthetic Devices or Brace: No Transfers Transfer Destination Chair Transfer Technique Stand Step Pivot Transfer Ability Level of Assist Maximum Assistance,2 Person Assistance,Use of Upper Extremities Comments Mobility Comments Pt was able to sit up at R EOB min A. Instructed pt in QL walk to scoot forward and pt needed no more than CGA. Sit to stand with mod A x 2 but pt felt too weak to maintain. Second attempt, pt stood mod A x 2 and stood long enough for REAL ESTATE CLOSING COORDINATOR to complete pericare. Pt used FWW to complete step pivot transfer to chair set up on her right side. Max A x 2 required for transfer including max A/cues for weight shift to advance LLE. Both LE's showing increased tone during transfer and pt not able to place RLE flat on the ground. Max A for controlled descent to the chair. Pt was left with arielle sling in place for ease of transfer back to bed later but pt was encouraged to stay up at least until dinner. M5 PT-IP Objective Assessments Start: 01/16/22 12:21 Freq: NEEDED Status: Active Protocol: Document 01/16/22 09:20 AB (Rec: 01/16/22 12:41 AB [id number]) Orientation Orientation/Cognition Level of Alertness Alert Orientation Name,Place,Situation Safety Awareness Decreased Safety Awareness Memory Description Short Term Impaired Gross Range of Motion Lower Extremity ROM Assessment Bilaterally Impaired Impairments B ankle DF tightness Strength Lower Extremity Strength Assessment Bilaterally Impaired Hip 3+/5 Knee 3+/5 Muscle Tone Muscle Tone WNL Yes M6 PT-IP Treatment Start: 01/16/22 12:21 Freq: NEEDED Status: Active Protocol: Document 01/19/22 14:50 AW (Rec: 01/19/22 15:02 AW [id number]) Physical Therapy Treatment Education Education Provided Safety M7 PT-IP Assessment and Plan Start: 01/16/22 12:21 Freq: NEEDED Status: Active Protocol: Document 01/19/22 14:50 AW (Rec: 01/19/22 15:02 AW [id number]) PT Summary Assessment and Plan Potential Rehabilitation Potential Fair Summary Impairments Pain,ROM,Strength,Balance, Coordination,Sensation,Tone, Cognition,Bed Mobility, Transfers,Gait,Activity Tolerance Progress Towards Goals Slow Progress due to Medical Issues,Slow Progress due to Activity Tolerance,Slow Progress - Other Assessment Summary Pt remains unable to ambulate and requires max A x 2 for transfer with FWW. Increased LE tone is evident during transfers. Pt will require SNF rehab to improve strength and mobility. Goals Bed Mobility Goal Minimal Assistance Transfer Goal Minimal Assistance,Front Wheeled Walker Gait Goal Minimal Assistance,Front Wheel Walker Gait Distance 20 Other Goals improve bed mobility, transfers using FWW SBA, ambulation using FWW SBA 30 ft Days to Meet Goals 10 Frequency of Treatment Frequency Of Treatment Once a Day Treatment Plan Physical Therapy Treatment Plan Bed Mobility Training,Transfer Training,Gait Training, Therapeutic Exercise,Balance Retraining,Discharge Planning, Hot or Cold Pack,Neuromuscular Re-ed,Coordination Retraining ,Manual Therapy Precautions Other Precautions falls Recommendations To Nursing Amount of Assist Needed Mechanical Lift Discharge Recommendations PT Discharge Recommendations SNF Rehab Transportation Needs at Discharge Wheelchair/Cabulance
--- NOTE | 2022-01-19 15:51 | CM.DPC ---
DCP/continued: Reviewed chart. Left message with Emily at [facility] re: acceptance? No return phone call from [facility] today. Received call from NICOLAS/Sandra re: placement? NICOLAS reports that patient not safe to d/c home but that she is alert and oriented to make her own decisions. Per notes patient living in poor condition prior to admit. However, patient on comunity services through [facility]. Unclear up to this point what they have done as outpatient to assist patient with living conditions. Family unaware and report that they called [facility] with concern a few months ago? Spoke with Mitra at [facility], she reports that most of this current status is 'new' she declines reporting to A.P.S. However, admits to atrocious living conditions. Mitra reports patient active with psychiatry on [place] and that she never received red flag on patient's current status of caring for self? Multiple messages left to [facility]. Both family and Sofiaa aware that patient needs to be aware and agreeable to care home placement wherever it can be found otherwise, home with HH and A.P.S. P: Pending. LASHAE
--- NOTE | 2022-01-19 17:46 | PC.NURSE ---
Pt is AxOx4, very weak and needs 2 person assistance or sometimes needs arielle lift. VSS, c/o lower back pain and recieved PRN Tylenol with good effect. Pt is eating and drinking ok. Continue monitor.
[2022-01-20 05:00] VITALS: BP 151/75; PULSE 74; RESP 16; TEMP 36.8; O2SAT 95
[2022-01-20 07:54] VITALS: BP 154/77; PULSE 71; RESP 18; TEMP 36.6; O2SAT 96
--- NOTE | 2022-01-20 08:03 | CM.DPC ---
Addendum entered by Pearl Brown R.N. 01/20/22 15:24: Elena at [facility] has submitted auth for patient's [employer]. Addendum entered by Pearl Brown R.N. 01/20/22 14:14: Spoke to Elena at [facility]. She thinks that she can accept patient, and potentially, patient going on to [place] on exterminator helper care. She will work on getting auth through patient's insurance, [employer]. Libertad at [facility] is also reviewing, and did send referral to [facility] as well. Did update hospitalist that there is most likely an accepting facility, pending insurance auth. Elena had indicated that she has had patient before. If she gets auth in time, potentially can accept tomorrow. Let her know that Medicaid collin has been sent for processing, pending a CRYSTAL counter caser to be assigned. Addendum entered by Pearl Brown R.N. 01/20/22 12:38: Found out from Emily that after she consulted with nursing, can't accept patient, they have too many exterminator helper patients in the same situation. Called [facility] and spoke to Raquel, asking her if patient was yet assigned a CRYSTAL counter caser. Application for Medicaid has just been processed, and no counter caser as of yet has been assigned. Mili from [facility] called, since there is an open case, gave her update on patient, and she will be here at the hospital to see patient. Encouraged her to call medical records, if she needs notes on patient. Was informed that patient did do better with her P.T. today. Met with patient, this RN and OPERATING SYSTEMS SPECIALIST. She is hoping to get into an assisted living facility. Let her know that this is private pay, and not covered. Medicaid application has been submitted, but facilities are scarce, that accept. Let her know that this counter caser can reach out to facilities to see if there are places that can accept under her rehab with the possibility of converting over to exterminator helper. Called Elena at [facility] and asked her to review patient, for possibility of going over to [place] for prison care. Left Sarah at [facility] a message, for it is noted that referral was sent to her. Called Libertad at [facility], for notes indicate that referral was sent to them. She indicated, she had not received received referral, and to send again. Asked her if she had prison care beds, if someone comes for rehab and converts over. Libertad indicated, she can run this by her staff. Will fax her over the referral. Original Note: DCP Cont: Emily from [facility] had left a message stating, she was wanting to know if patient owns her own home, would affect her exterminator helper care coverage. Found out that patient does not, consulted with OPERATING SYSTEMS SPECIALIST. Emily also stated in the message that she needs to do an onsite visit. Went ahead and left Emily a message letting her know that patient does not own her own home, and asking her if she can come and see patient today, since she is medically stable. P: DCP to continue to work on discharge plan, and will await call back from Emily. If she can't take patient, home may be the next plan, with home health. OPERATING SYSTEMS SPECIALIST has already discussed this with patient's family. Pearl Brown, RN/Safety Equipment Testing Specialist
--- NOTE | 2022-01-20 09:05 | PC.RNWOUND ---
Patient positioned onto side in bed, dressing changed to right buttock stage 2 pressure injury, which was present on admission. Patient tolerates cares well. Will check back with a helper to help turn/hold patient for inspection of sacrogluteal area.
[2022-01-20 09:42] VITALS: BP 154/77
[2022-01-20] MEDS: carvediloL 3.125 MG TABLET 6.25 MG PO ×2 (09:42→20:20)
[2022-01-20] MEDS: SODIUM CHLORIDE 0.9% FLUSH 10 ML IV ×2 (09:43→20:22)
[2022-01-20] MEDS: HEPARIN 5,000 UNIT/ML VIAL 5000 UNIT SUBCUT ×2 (09:43→20:19)
[2022-01-20 11:00] VITALS: BP 144/73; PULSE 71; RESP 17; TEMP 36.7; O2SAT 96
--- NOTE | 2022-01-20 11:41 | PT.IPTN ---
Physical Therapy Treatment Note M2 PT-IP Current Condition Start: 01/16/22 12:21 Freq: NEEDED Status: Active Protocol: Document 01/20/22 11:18 SP (Rec: 01/20/22 13:35 SP [id number]) Physical Therapy Current Condition Current Condition Evaluation Date 01/16/22 Treatment Diagnosis UTI; hypokalemia; difficulty in walking Onset Date 01/16/22 M3 PT-IP Subjective Start: 01/16/22 12:21 Freq: NEEDED Status: Active Protocol: Document 01/20/22 11:18 SP (Rec: 01/20/22 13:35 SP [id number]) Subjective Physical Therapy Visit Type Type Treatment Note Visit Start Time 11:18 Visit Stop Time 11:41 Total Visit Minutes 23 Notes Nursing reported pt orthostatic in am pre tx for safety awareness. Vitals during CHIROPRACTIC CARE tx: supine: BP 143/77 HR 72 seated EOB: 144/89 HR 72 post transfer seated in chair: BP 151/71 HR 68 Nonsymptomatic throughout. Number of CHIROPRACTIC CARE Visits 1 Physical Therapy Visit Comments Patient Comments agreeable to do PT Therapy Pain Assessment Pain When Pain Assessed After Treatment Pain Present Pain Present Denied Pain M4 PT-IP Mobility and Gait Start: 01/16/22 12:21 Freq: NEEDED Status: Active Protocol: Document 01/20/22 11:18 SP (Rec: 01/20/22 13:35 SP [id number]) PT-Bed Mobility Assessment Supine to Sit Supine to Sit Minimal Assistance,Head of Bed Elevated,Bedrails Scooting Scooting to Edge of Bed Minimal Assistance PT-Transfer Assessment Sit to and From Stand Sit to and from Stand Moderate Assistance,2 Person Assistance,Use of Upper Extremities Equipment Transfer Assistive Device Gait Belt,Front Wheeled Walker Orthotic/Prosthetic Devices or Brace: No Transfers Transfer Destination Chair Transfer Technique Stand Step Pivot Transfer Ability Level of Assist Moderate Assistance,2 Person Assistance,Use of Upper Extremities Comments Mobility Comments Pt completed elevated supine> sit min A for trunk righting then scoot as needed while cued use bed rail on R. Sit> Stand Mod A x2 w/FWW,cued marching in place for standing strengthen assessment stable each LE and heavy BUE WB on FWW. SPT EOB> chair w/ FWW Mod A x2 self FWW repositioning with cues for spacial pivot/ back up, hand over hand support required with cues for reach back and slow descent to chair. Pt was reclined in chair/legs elevated. Gait Assessment Comments Gait Comments Unableto assess, transfer only bed>chair. PT-Balance Assessment Sitting Balance and Reactions Static Sitting Balance Ability Good Dynamic Sitting Balance Ability Fair Standing Balance and Reactions Static Standing Balance Ability Poor Dynamic Standing Balance Ability Poor Device Used FWW M5 PT-IP Objective Assessments Start: 01/16/22 12:21 Freq: NEEDED Status: Active Protocol: Document 01/16/22 09:20 AB (Rec: 01/16/22 12:41 AB [id number]) Orientation Orientation/Cognition Level of Alertness Alert Orientation Name,Place,Situation Safety Awareness Decreased Safety Awareness Memory Description Short Term Impaired Gross Range of Motion Lower Extremity ROM Assessment Bilaterally Impaired Impairments B ankle DF tightness Strength Lower Extremity Strength Assessment Bilaterally Impaired Hip 3+/5 Knee 3+/5 Muscle Tone Muscle Tone WNL Yes M6 PT-IP Treatment Start: 01/16/22 12:21 Freq: NEEDED Status: Active Protocol: Document 01/20/22 11:18 SP (Rec: 01/20/22 13:35 SP [id number]) Physical Therapy Treatment Education Education Provided Safety Other Treatments Other Treatment Performed Education continue transfers with nursing w/FWW to [facility]. M7 PT-IP Assessment and Plan Start: 01/16/22 12:21 Freq: NEEDED Status: Active Protocol: Document 01/20/22 11:18 SP (Rec: 01/20/22 13:35 SP [id number]) PT Summary Assessment and Plan Potential Rehabilitation Potential Fair Status of Condition at Evaluation Evolving Summary Impairments Pain,ROM,Strength,Balance, Coordination,Sensation,Tone, Cognition,Bed Mobility, Transfers,Gait,Activity Tolerance Progress Towards Goals Progressing Toward Goals,Slow Progress due to Activity Tolerance,Slow Progress - Other Assessment Summary Pt remains unable to ambulate, improved decrease assist with mobility Min A bedmobility, Mod A x2 STS and SPT bed>chair . Pt will require and agreeable to SNF rehab to improve strength and mobility. Pt stated would like to go to [facility] if needed. Goals Bed Mobility Goal Minimal Assistance Transfer Goal Minimal Assistance,Front Wheeled Walker Gait Goal Minimal Assistance,Front Wheel Walker Gait Distance 20 Other Goals improve bed mobility, transfers using FWW SBA, ambulation using FWW SBA 30 ft Days to Meet Goals 10 Frequency of Treatment Frequency Of Treatment Once a Day Treatment Plan Physical Therapy Treatment Plan Bed Mobility Training,Transfer Training,Gait Training, Therapeutic Exercise,Balance Retraining,Discharge Planning, Hot or Cold Pack,Neuromuscular Re-ed,Coordination Retraining ,Manual Therapy Other Recommendations and Next Treatment LE ex pre mobility, transfers Focus to BSC vs toilet, gait w/ FWW if able chair follow if needed . Precautions Other Precautions falls Recommendations To Nursing Amount of Assist Needed 2 Person Assist Discharge Recommendations PT Discharge Recommendations SNF Rehab Transportation Needs at Discharge Wheelchair/Cabulance
--- NOTE | 2022-01-20 12:28 | PM.PN.1 ---
Subjective Subjective Date Patient Seen: 01/20/22 Time Patient Seen: 08:00 Interval history: No complaints Exam Vital Signs (past 8 hours): - 01/20/22 05:00 01/20/22 07:54 01/20/22 09:42 Temperature 98.3 F 97.9 F Pulse Rate 74 71 Respiratory Rate 16 18 Blood Pressure 151/75 H 154/77 H 154/77 H Pulse Oximetry 95 96 Oxygen Flow Rate 0 0 01/20/22 11:00 Temperature 98.1 F Pulse Rate 71 Respiratory Rate 17 Blood Pressure 144/73 H Pulse Oximetry 96 Oxygen Flow Rate 0 Oxygen Delivery Method Room Air Oxygen Flow Rate 0 Narrative Exam Narrative: Alert and oriented x3. No apparent distress. CV: regular rate and rhythm without murmur PULM: clear to auscultation bilaterally Objective Labs Result Diagrams: 01/16/22 03:00 01/16/22 03:00 COUNTS INCLUDE 234 BEDS AT THE [facility] Medical History Achilles tendon injury Cellulitis Cerebral palsy Flesh-eating bacteria History of esophageal dilatation History of esophageal stricture Sepsis Surgical History History of dilatation and curettage Hx of total knee arthroplasty Status post appendectomy Status post surgery (06/23/14) Family History Mother Cardiac disease Father Diabetes mellitus COPD (chronic obstructive pulmonary disease) Brother In good health Social History household members: none Smoking Status: Never smoker alcohol intake: current Assessment & Plan Assessment & Plan narrative: Ms. Qiu is a 66W with PMH cerebral palsy, HTN, obesity, chronic lower leg edema who presented with weakness found to have NEPTALI and hyperkalemia. 1. NEPTALI with hyperkalemia, resolved -suspect secondary medications and dehydration -multiple recent med lists with torsemide, furosemide, lisinopril, hctz, and spironolactone all in med lists within the last year ---patient unclear of what she is taking, would benefit from home eval and assistance to make sure has right meds -hold MOISE, diuretics, spironolactone -IV fluids stopped -did receive insulin, calcium, dextrose in ED -follow potassium closely 2. Contaminated urine -UA positive for leuks, but contatminated with multiple squam epithelial cells -received IV abx in ED, doubt UTI, hold abx -follow up culture 3. Hypertension -hold anti-hypertensives except for Metoprolol for now 4. Lower extremity swelling, chronic, likely venous insufficiency -hold diuretics for now 5. Chronic low back pain with history of opioid dependence and substance abuse -continue suboxone 6. Cerebral palsy -baseline is ambulatory -uses assistive devices -PT following 7. Morbid obesity -BMI 42 -follow up with outpatient team 8. Sacral decub -PT eval -may benefit from outpatient wound care Dispo: patient medically stable for discharge, CM working on disposition Time Spent With Patient Critical Care time: I spent a total of [] minutes of critical care time on this patient's care today; this time is exclusive of procedural time. Quality VTE Deep Vein Thrombosis/Pulmonary Embolism Present on Admission: No
--- NOTE | 2022-01-20 13:11 | PC.RNWOUND ---
Patient sitting up in chair in room, transferred to chair via arielle lift. Will check back for inspection of sacrogluteal area.
--- NOTE | 2022-01-20 13:37 | PC.RNWOUND ---
Bilateral buttocks Patient arielle-transferred back to bed by truck driver instructor and wound nurse. Patient turns to left side with assist. Protective foam dressing removed for visualization of buttocks. Right buttock 0.3 x 0.3 x 0.05cm stage 2 pressure injury has scant serous exudate to removed dressing. Left buttock has a 0.3 x 0.3 x 0 small, red lesion directly across from this right buttock ulcer (see photo above), which is blanchable with epithelium intact at this time. There is also some partial-thickness skin loss to the gluteal cleft0.5 x 0.3 x 0.05cm consistent with intertriginous dermatitis in the gluteal cleft where moisture gets trapped in closed skin folds. A protective foam dressing is placed over this area. There is also a foam dressing to the left posterior upper thigh, which when peeled back reveals a 0.5 x 0.5 x 0.05cm abrasion with a scant amount of serous drainage. This is not located over a bony prominence and there is no discernable evidence of pressure to this area. Dressing is replaced and patient is positioned to left side with 30 degree tilt, heels floated off bed surface, head of bed at 30 degrees. There is a waffle cushion in chair which is placed between legs for cushioning. Patient tolerates cares well, denies pain, call mg in easy reach.
[2022-01-20 15:00] VITALS: BP 140/69; PULSE 68; RESP 17; TEMP 36.7; O2SAT 96
[2022-01-20 20:20] VITALS: BP 153/78; PULSE 72; RESP 18; TEMP 36.7; O2SAT 96
[2022-01-21] VITALS: BP 153/66; PULSE 68; RESP 18; TEMP 36.8; O2SAT 95
[2022-01-21 03:22] VITALS: BP 139/72; PULSE 66; RESP 18; TEMP 36.4; O2SAT 95
[2022-01-21 08:00] VITALS: BP 151/77; PULSE 63; RESP 22; TEMP 36.4; O2SAT 94
[2022-01-21] MEDS: HEPARIN 5,000 UNIT/ML VIAL 5000 UNIT SUBCUT (09:32)
[2022-01-21] MEDS: carvediloL 3.125 MG TABLET 6.25 MG PO (09:32)
[2022-01-21] MEDS: SODIUM CHLORIDE 0.9% FLUSH 10 ML IV (09:33)
--- NOTE | 2022-01-21 09:35 | CM.DPC ---
Addendum entered by Pearl Brown R.N. 01/21/22 13:37: Terrie, from [facility] called to see if patient had an accepting facility. Patient has given permission to update Terrie, as well as he [id number], Sandra, with any updates. Did update Terrie. Also, Sandra called, and updated her. 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 It is uncertain if [facility] can accept, but October at [facility] had mentioned contacting them to see if there are openings. [id number] is working on getting patient's apartment cleaned out. She also wanted to thank Mariangel and Radha for working on discharge plan. Addendum entered by Pearl Brown R.N. 01/21/22 11:56: MICHELE Jones music library assistant, has kindly assisted with getting orders faxed, updated hospitalist that patient was accepted to [facility] today. Orders are completed, and PASSR, orders, COVID results have all been sent. Upon meeting with patient prior, she was concerned that she was going to just be dumped off to [facility] permanently. Let her know that she is going there for rehab for now, but [facility] will follow up with longterm care, and will reach out to [facility], since they are their sister facility. Gave patient her phone so she could update her [id number]. Original Note: DCP Cont: October at [facility] has accepted patient, received insurance auth. Placed COVID order, updated patient. Updated nurse, Savannah. Will update hospitalist. P: Patient is to discharge to [facility] today, will ask hospitalist for orders. Pearl Brown RN/Assistant Manager Airside Operations
[2022-01-21] MEDS: polyethylene glycoL 3350 17 GM POWD.PACK PO (09:47)
--- NOTE | 2022-01-21 10:00 | PT.IPTN ---
Physical Therapy Treatment Note M2 PT-IP Current Condition Start: 01/16/22 12:21 Freq: NEEDED Status: Active Protocol: Document 01/20/22 11:18 SP (Rec: 01/20/22 13:35 SP [id number]) Physical Therapy Current Condition Current Condition Evaluation Date 01/16/22 Treatment Diagnosis UTI; hypokalemia; difficulty in walking Onset Date 01/16/22 M3 PT-IP Subjective Start: 01/16/22 12:21 Freq: NEEDED Status: Active Protocol: Document 01/21/22 10:00 AB (Rec: 01/21/22 12:35 AB [id number]) Subjective Physical Therapy Visit Type Type Treatment Note Visit Start Time 10:00 Visit Stop Time 10:22 Total Visit Minutes 22 Number of NECK BAND SETTER Visits 0 Physical Therapy Visit Comments Patient Comments agreeable to do PT M4 PT-IP Mobility and Gait Start: 01/16/22 12:21 Freq: NEEDED Status: Active Protocol: Document 01/21/22 10:00 AB (Rec: 01/21/22 12:35 AB [id number]) PT-Bed Mobility Assessment Supine to Sit Supine to Sit Standby Assistance PT-Transfer Assessment Sit to and From Stand Sit to and from Stand Minimal Assistance,Moderate Assistance,1 Person Assistance ,Use of Upper Extremities Equipment Transfer Assistive Device Gait Belt,Front Wheeled Walker Orthotic/Prosthetic Devices or Brace: No Transfers Transfer Destination Chair Transfer Technique Stand Step Pivot Transfer Ability Level of Assist Moderate Assistance,1 Person Assistance,Use of Upper Extremities Comments Mobility Comments pt completed supine to sit SBA with HOB elevated. completed sit to stand min to mod A and cues and step transfer to chair using FWW mod A. Pt refused to ambulate. positioned pt on the chair. call light and table placed within reach. M5 PT-IP Objective Assessments Start: 01/16/22 12:21 Freq: NEEDED Status: Active Protocol: Document 01/16/22 09:20 AB (Rec: 01/16/22 12:41 AB [id number]) Orientation Orientation/Cognition Level of Alertness Alert Orientation Name,Place,Situation Safety Awareness Decreased Safety Awareness Memory Description Short Term Impaired Gross Range of Motion Lower Extremity ROM Assessment Bilaterally Impaired Impairments B ankle DF tightness Strength Lower Extremity Strength Assessment Bilaterally Impaired Hip 3+/5 Knee 3+/5 Muscle Tone Muscle Tone WNL Yes M6 PT-IP Treatment Start: 01/16/22 12:21 Freq: NEEDED Status: Active Protocol: Document 01/21/22 10:00 AB (Rec: 01/21/22 12:35 AB [id number]) Physical Therapy Treatment Education Education Provided Safety M7 PT-IP Assessment and Plan Start: 01/16/22 12:21 Freq: NEEDED Status: Active Protocol: Document 01/21/22 10:00 AB (Rec: 01/21/22 12:35 AB [id number]) PT Summary Assessment and Plan Potential Rehabilitation Potential Fair Summary Impairments Pain,ROM,Strength,Balance, Coordination,Sensation,Tone, Cognition,Bed Mobility, Transfers,Gait,Activity Tolerance Progress Towards Goals Slow Progress due to Medical Issues,Slow Progress due to Activity Tolerance Assessment Summary pt improving slowly with mobility but will still need 24/ assist available for d/c. Pt will require SNF rehab to improve strength and mobility . Goals Bed Mobility Goal Minimal Assistance Transfer Goal Minimal Assistance,Front Wheeled Walker Gait Goal Minimal Assistance,Front Wheel Walker Gait Distance 20 Other Goals improve bed mobility, transfers using FWW SBA, ambulation using FWW SBA 30 ft Days to Meet Goals 10 Frequency of Treatment Frequency Of Treatment Once a Day Treatment Plan Physical Therapy Treatment Plan Bed Mobility Training,Transfer Training,Gait Training, Therapeutic Exercise,Balance Retraining,Discharge Planning, Hot or Cold Pack,Neuromuscular Re-ed,Coordination Retraining ,Manual Therapy Precautions Other Precautions falls Recommendations To Nursing Amount of Assist Needed 2 Person Assist Discharge Recommendations PT Discharge Recommendations SNF Rehab Transportation Needs at Discharge Wheelchair/Cabulance
--- NOTE | 2022-01-21 10:43 | P.DS_ITS ---
History of Present Illness History of Present Illness Chief complaint: weak Narrative: Ms. Qiu is a 66W with PMH cerebral palsy, chronic back pain, lower extremity edema secondary to venous stasis who presents with falls and weakness. She lives alone and has been having decreasing strength. She has no caregivers and lives on [address]. She does not remember which medications she is taking. She has had multiple medications prescribed to her recently including lisinopril, HCTZ, furosemide, torsemide, and spironolactone. All these are documented in the chart within the last year. However the patient is not sure which of these if any she is taking. Most recently it does look like she was prescribed torsemide. She does note significant urinary volume over the last few days. She has not had any nausea, vomiting, or diarrhea. She has had a sacral decub that has developed within the last week. In the ED workup was done, vitals notable for normal blood pressure. Labs notable for WBC 9.3, hgb 11.1, plts 224. Na 138, K 6.0, creatinine 1.30. UA trace leuks, 10-30 squam epithelial cells. Chest xray with pulmonary vascular prominence. She was ordered for IV fluid, dextrose, insulin, calcium and admitt ed for further treatment. Discharge Providers Provider Date of admission: 01/16/22 01:19 Discharge Date: 01/21/22 Primary care physician: VICTOR HUGO Thornton Consults: 01/15/22 21:58 [place] to [facility] Stat Comment: [facility] needed for:: Community Health Res Need 01/16/22 01:12 Consult to Physical Therapy Evaluate & Treat Comment: Physician Instructions: Evaluate and Treat 01/18/22 21:41 Consult to Inpatient Wound Care Nurse Routine Comment: Reason for consultation: blistered/excoriated areas on buttocks Discharge provider: David Duncan MD Summary Hospital Course Discharge Diagnosis: 1. NEPTALI with hyperkalemia 2. Falls 3. Hypertension 4. Chronic venous insufficiency 5. Chronic low back pain 6. Cerebral palsy 7. Morbid obesity Hospital Course: Ms. Qiu was admitted due to falls, acute kidney injury and high potassium. She has been prescribed multiple medications recently that may have contributed to this, and she was unaware which of those medications she was taking. Because of this most of her medications were held and she was given IV fluids and she felt improved. Her potassium and kidney injury returned to normal. She was quite weak, and was discharged to PT for rehab. She was kept off multiple of her meds that it appeared she recently been prescribed including suboxone (which had not been filled recently), torsemide, lasix, and spironolactone. She was continued on lisinopril for blood pressure. Exam Vital Signs (past 8 hours): - 01/21/22 03:22 01/21/22 08:00 Temperature 97.5 F L 97.6 F Pulse Rate 66 63 Respiratory Rate 18 22 Blood Pressure 139/72 151/77 H Pulse Oximetry 95 94 Oxygen Flow Rate 0 0 Oxygen Delivery Method Room Air Oxygen Flow Rate 0 Narrative Exam Narrative: Alert and oriented x3. No apparent distress. CV: regular rate and rhythm without murmur PULM: clear to auscultation bilaterally Objective Labs Result Diagrams: 01/16/22 03:00 01/16/22 03:00 [facility] Medical History Achilles tendon injury Cellulitis Cerebral palsy Flesh-eating bacteria History of esophageal dilatation History of esophageal stricture Sepsis Surgical History History of dilatation and curettage Hx of total knee arthroplasty Status post appendectomy Status post surgery (06/23/14) Family History Mother Cardiac disease Father Diabetes mellitus COPD (chronic obstructive pulmonary disease) Brother In good health Social History household members: none Smoking Status: Never smoker alcohol intake: current Discharge Plan Discharge Plan Patient Disposition: SNF Provider Discharge Comment: Ms. Peters was admitted with fall, kidney injury, and high potassium. This improved with treatment. She was discharged to SNF for PT. I certify the postop hospital senior living care is medically necessary on a continuing basis for any conditions for which he/ she received care during this hospitalization.: Yes The receiving facility has agreed to accept transfer and provide medical treatment.: Yes Discharge orders & Medications Prescriptions: New sennosides [senna] 8.6 mg Tablet 17.2 mg PO BEDTIME Qty: 20 0RF polyethylene glycol 3350 17 gram Powder In Packet 17 gm PO DAILY Qty: 20 0RF carvedilol [Coreg] 3.125 mg Tablet 6.25 mg PO BID Qty: 30 0RF Continued albuterol sulfate 90 mcg/actuation HFA aerosol inhaler 2 puff Inhalation Q4H PRN (Reason: Wheezing) lisinopril 10 mg Tablet 10 mg PO DAILY Qty: 30 0RF fluoxetine 20 mg capsule 40 mg PO QDAY lamotrigine [Lamictal] 100 mg tablet 300 mg PO QDAY gabapentin [Neurontin] 600 mg tablet 1,200 mg PO BEDTIME gabapentin [Neurontin] 300 mg capsule 900 mg PO QAM Discontinued trazodone 25 mg PO BEDTIME PRN (Reason: Insomnia) ibuprofen 400 mg Tablet 400 mg PO Q6H PRN (Reason: Pain (Scale Score 1-3)) cephalexin 250 mg Capsule 500 mg PO TID Qty: 9 0RF doxycycline hyclate 100 mg Tablet 100 mg PO BID Qty: 6 0RF buprenorphine-naloxone 8-2 mg tablet, sublingual 1 tab SUBLINGUAL TID Qty: 10 0RF Label Comments: PLACE ONE(1) TABLET UNDER THE TONGUE THREE(3) TIMES DAILY MUST LAST 28 DAYS dose change 06/24/21 Follow up/Referrals: Aleksandra Peters ARNP [Primary Care Provider] - Diet/Activity/Treatments Diet: Low-sodium Liquid consistency: Normal/Thin Food texture: Regular [facility] Rehab type: Physical therapy Discharge Data Primary Care Provider: Aleksandra Petres Attending Provider: David Duncan VTE Deep Vein Thrombosis/Pulmonary Embolism Present on Admission: No
[2022-01-21 10:56] LABS: COVID19 -Nasal RAPID Negative (Negative)
--- NOTE | 2022-01-21 14:05 | PC.NURSE ---
Transfer: Pt transfered to [facility]. Report called to admitting nurse. Reviewed hospital course, pt came in with diarrhea and dehydration. Now no bm x6 days. She doesn't want to much as she doesn't want diarrhea. Given miralax. Senna at bedtime. She is happy to start with that. Reviewed pt's skin condition. Her adl's which she needs max assist for standing at times. Partial assist w/oral care and hygiene. Does feed self. Pt hopes to get stronger to be able to go home. Questions were answered. Pt transfered to facility via their van.
== END 2022-01-21 14:00 ==
LOC: ED 21:49 → AC 01-16 01:19 → ICU 01-16 01:40 → AC 01-16 18:59
PROVIDERS: Admitting Provider Internal Medicine; Emergency Provider Emergency Medicine; Family Provider Nurse Practitioner Family; PCP Nurse Practitioner Family; Visit Provider Internal Medicine
DX: R53.1 Weakness (principal); G80.9 Cerebral palsy, unspecified; R29.6 Repeated falls; Z99.3 Dependence on wheelchair; N17.9 Acute kidney failure, unspecified; E87.5 Hyperkalemia; I10 Essential (primary) hypertension; E66.01 Morbid (severe) obesity due to excess calories; Z68.41 Body mass index [BMI] 40.0-44.9, adult; G89.29 Other chronic pain; M54.50 Low back pain, unspecified; F11.21 Opioid dependence, in remission; M79.89 Other specified soft tissue disorders; I87.8 Other specified disorders of veins; Z20.822 Contact with and (suspected) exposure to COVID-19
CPT/HCPCS: 36415; 71045; 76700; 80048; 80053; 81001; 82550; 82553; 82962; 83605; 83690; 83735; 84145; 84484; 85025; 87040; 87150; 87635; 87797; 93005; 96361; 96365; 96372; 96375; 97162; 97530; 99284; 99291; C9803; G0378; J0610; J0696; J1644; J2270

== ENCOUNTER → 2022-03-12 06:17 | Outpatient (ROUT) | payer MEDICARE, SELFPAY ==
[2022-01-16 01:59] VITALS: BMI 41.9
[2022-03-12 08:49] LABS: Add Manual Diff / Slide Review NO; Basophils Absolute Auto 0 /uL (0-100); Basophils Percent Auto 0.4 % (0-2); Eosinophils Absolute Auto 100 /uL (0-450); Eosinophils Percent Auto 0.9 % (2-4); Hematocrit 35.6 % (36-46); Hemoglobin 11.5 g/dL (12.0-16.0); Lymphocytes Absolute Auto 2100 /uL (1100-4500); Lymphocytes Percent Auto 29.4 % (25-40); Mean Corpuscular HGB Conc 32.3 % (30-36); Mean Corpuscular Volume 92.8 fL (80-100); Monocytes Absolute Auto 1000 /uL (0-900); Monocytes Percent Auto 13.4 % (3-14); Neutrophils Absolute Auto 4000 /uL (1500-7000); Neutrophils Percent Auto 55.9 % (50-75); Platelet Count 184 X10^3/uL (150-400); Red Blood Cell Count 3.84 X10^6/uL (4.0-5.2); Red Cell Distribution Width 15.4 % (11.6-14.8); White Blood Cell Count 7.1 X10^3/uL (4.5-11.0)
[2022-03-12 08:57] LABS: Alanine Aminotransferase 14 IU/L (<35); Albumin 3.5 g/dL (3.5-5.0); Albumin Globulin Ratio 1.3 (1.0-2.8); Alkaline Phosphatase 75 U/L (38-126); Aspartate Aminotransferase 15 IU/L (14-36); BUN Creatinine Ratio 23.1 (6-22); Bilirubin Total 0.3 mg/dL (0.2-1.3); Blood Urea Nitrogen 24 mg/dL (7-17); Calcium 8.6 mg/dL (8.4-10.2); Carbon Dioxide 25 mmol/L (22-32); Chloride 104 mmol/L (98-107); Estimated Glomerular Filt Rate 59 mL/min (>60); Globulin 2.6 g/dL (1.7-4.1); Glucose 87 mg/dL (80-110); HEMOLYSIS < 15 (0-50); Potassium 3.9 mmol/L (3.4-5.1); Sodium 138 mmol/L (137-145); Total Protein 6.1 g/dL (6.3-8.2)
== END ==
PROVIDERS: Family Provider Nurse Practitioner Family; PCP Nurse Practitioner Family; Visit Provider Nurse Practitioner Family
DX: D64.9 Anemia, unspecified (principal); N17.9 Acute kidney failure, unspecified; F10.90 Alcohol use, unspecified, uncomplicated
CPT/HCPCS: 36415; 80053; 85025

== ENCOUNTER → 2022-03-19 12:47 | Outpatient (CLI) | payer MEDICARE, MEDICAID, SELFPAY ==
[2022-01-16 01:59] VITALS: BMI 41.9
--- NOTE | 2022-03-19 | DI.RAD.S_ITS ---
PROCEDURE: XR SHOULDER LT MIN 2V INDICATIONS: Pain in left shoulder TECHNIQUE: 3 views of the shoulder were acquired. COMPARISON: [facility], CR, XR CHEST 1V, 07/23/2021, 5:18. FINDINGS: Bones: Chronic appearing deformity involving left humeral head is seen likely represent old injury. Severe glenohumeral joint osteoarthritic changes are seen with extensive remodeling and osteolysis. No acute fracture or dislocation. No suspicious bony lesions. Visualized ribs appear intact. Soft tissues: No suspicious soft tissue calcifications. IMPRESSION: Severe glenohumeral joint osteoarthritis with extensive remodeling , osteolysis and chronic appearing deformity of left femoral head as above. No gross acute fracture or dislocation. No gross soft tissue abnormalities. Dictated by: Vicente Livingston M.D. on 03/19/2022 at 15:04 Approved by: Vicente Livingston M.D. on 03/19/2022 at 15:06
--- NOTE | 2022-03-19 | DI.RAD.S_ITS ---
PROCEDURE: XR KNEE RT 3V INDICATIONS: Pain in right knee TECHNIQUE: 3 views of the knee were acquired. COMPARISON: [facility], , KNEE 1-2 VIEWS LEFT, 09/12/2014, 17:19. FINDINGS: Bones: No fractures or dislocations. Moderate tricompartmental osteoarthritis is seen most notably in medial femoral tibial compartment with joint space narrowing, subchondral sclerosis and marginal osteophyte formation. No suspicious bony lesions. Soft tissues: Moderate to large suprapatellar joint effusion is seen. No suspicious soft tissue calcifications. IMPRESSION: Moderate tricompartmental osteoarthritis most notably in medial femoral tibial compartment. Moderate to large suprapatellar joint effusion. No fracture or dislocation. Dictated by: Vicente Livingston M.D. on 03/19/2022 at 15:03 Approved by: Vicente Livingston M.D. on 03/19/2022 at 15:04
== END ==
PROVIDERS: Family Provider Nurse Practitioner Family; PCP Nurse Practitioner Family; Referring Provider Nurse Practitioner Family; Visit Provider Nurse Practitioner Family
DX: M17.11 Unilateral primary osteoarthritis, right knee (principal); M19.012 Primary osteoarthritis, left shoulder; M25.461 Effusion, right knee; M25.561 Pain in right knee; M25.512 Pain in left shoulder; M75.00 Adhesive capsulitis of unspecified shoulder
CPT/HCPCS: 73030; 73562

== ENCOUNTER → 2022-03-26 18:07 | Outpatient (ROUT) | payer MEDICARE, SELFPAY ==
[2022-01-16 01:59] VITALS: BMI 41.9
[2022-03-26 18:58] LABS: Influenza A - CEPHEID Flu A NEGATIVE (NEGATIVE); Influenza B - CEPHEID Flu B NEGATIVE (NEGATIVE)
== END ==
PROVIDERS: Family Provider Nurse Practitioner Family; PCP Nurse Practitioner Family; Visit Provider Nurse Practitioner Family
DX: J00 Acute nasopharyngitis [common cold] (principal)
CPT/HCPCS: 87502

== ENCOUNTER → 2022-04-02 06:13 | Outpatient (ROUT) | payer MEDICARE, SELFPAY ==
[2022-01-16 01:59] VITALS: BMI 41.9
[2022-04-02 09:05] LABS: BUN Creatinine Ratio 25.8 (6-22); Blood Urea Nitrogen 23 mg/dL (7-17); Calcium 8.8 mg/dL (8.4-10.2); Carbon Dioxide 28 mmol/L (22-32); Chloride 104 mmol/L (98-107); Estimated Glomerular Filt Rate > 60 mL/min (>60); Glucose 132 mg/dL (80-110); HEMOLYSIS < 15 (0-50); Potassium 4.7 mmol/L (3.4-5.1); Sodium 139 mmol/L (137-145)
== END ==
PROVIDERS: Family Provider Nurse Practitioner Family; PCP Nurse Practitioner Family; Visit Provider Nurse Practitioner Family
DX: Z51.81 Encounter for therapeutic drug level monitoring (principal)
CPT/HCPCS: 36415; 80048

== ENCOUNTER → 2022-12-10 07:21 | Outpatient (ROUT) | payer MEDICARE, SELFPAY ==
[2022-01-16 01:59] VITALS: BMI 41.9
[2022-12-10 08:24] LABS: Add Manual Diff / Slide Review NO; Basophils Absolute Auto 0 /uL (0-100); Basophils Percent Auto 0.4 % (0-2); Eosinophils Absolute Auto 100 /uL (0-450); Eosinophils Percent Auto 2.1 % (2-4); Hematocrit 33.4 % (36-46); Hemoglobin 11.1 g/dL (12.0-16.0); Lymphocytes Absolute Auto 1900 /uL (1100-4500); Lymphocytes Percent Auto 29.9 % (25-40); Mean Corpuscular HGB Conc 33.2 % (30-36); Mean Corpuscular Hemoglobin 30.6 PG (26-34); Mean Corpuscular Volume 92.4 fL (80-100); Monocytes Absolute Auto 800 /uL (0-900); Monocytes Percent Auto 12.7 % (3-14); Neutrophils Absolute Auto 3600 /uL (1500-7000); Neutrophils Percent Auto 54.9 % (50-75); Platelet Count 153 X10^3/uL (150-400); Red Blood Cell Count 3.62 X10^6/uL (4.0-5.2); Red Cell Distribution Width 13.9 % (11.6-14.8); White Blood Cell Count 6.5 X10^3/uL (4.5-11.0)
[2022-12-10 08:36] LABS: Alanine Aminotransferase 14 IU/L (<35); Albumin 3.6 g/dL (3.5-5.0); Albumin Globulin Ratio 1.5 (1.0-2.8); Alkaline Phosphatase 124 U/L (38-126); Aspartate Aminotransferase 15 IU/L (14-36); BUN Creatinine Ratio 30.9 (6-22); Bilirubin Total 0.2 mg/dL (0.2-1.3); Blood Urea Nitrogen 43 mg/dL (7-17); Calcium 8.5 mg/dL (8.4-10.2); Carbon Dioxide 29 mmol/L (22-32); Chloride 102 mmol/L (98-107); Estimated Glomerular Filt Rate 41 mL/min (>60); Globulin 2.4 g/dL (1.7-4.1); Glucose 167 mg/dL (80-110); HEMOLYSIS < 15 (0-50); Magnesium 2.4 mg/dL (1.6-2.3); Potassium 4.4 mmol/L (3.4-5.1); Sodium 137 mmol/L (137-145)
[2022-12-10 08:45] LABS: Erythrocyte Sedimentation Rate 35 MM/HR (0-20)
== END ==
PROVIDERS: Family Provider Nurse Practitioner Family; PCP Nurse Practitioner Family; Visit Provider Registered Nurse
DX: B99.9 Unspecified infectious disease (principal)
CPT/HCPCS: 36415; 80053; 83735; 85025; 85651; 86140

== ENCOUNTER → 2022-12-31 10:52 | Outpatient (ROUT) | payer MEDICARE, SELFPAY ==
[2022-01-16 01:59] VITALS: BMI 41.9
[2022-12-31 11:04] LABS: Appearance Urine UA CLEAR; Bilirubin Urine UA NEGATIVE (NEGATIVE); Color Urine UA YELLOW; Glucose Urine UA 2+ g/dL (Negative); Ketones Urine UA NEGATIVE (NEGATIVE); Leukocyte Esterase Urine UA NEGATIVE (NEGATIVE); Nitrite Urine UA NEGATIVE (Negative); Occult Blood Urine UA NEGATIVE (Negative); Protein Urine UA TRACE (Negative); Urobilinogen Urine UA 0.2 E.U./dL (0.2)
[2022-12-31 11:06] LABS: pH Urine UA 6.5 (4.5-8.0)
[2022-12-31 11:08] LABS: Bacteria Urine None Seen; Culture Indicated Urine Cult Not Indicated; RBC Urine None Seen (0-5/HPF); Squamous Epithelial Cell Urine None Seen (0-5/HPF); Urine Comments Microscopic Normal; WBC Urine None Seen (0-5/HPF)
== END ==
PROVIDERS: Family Provider Nurse Practitioner Family; PCP Nurse Practitioner Family; Visit Provider Nurse Practitioner Family
DX: R53.83 Other fatigue (principal); R53.1 Weakness
CPT/HCPCS: 81001

== ENCOUNTER → 2023-03-11 08:04 | Outpatient (ROUT) | payer MEDICARE, SELFPAY ==
[2022-01-16 01:59] VITALS: BMI 41.9
[2023-03-11 09:02] LABS: Thyroid Stimulating Hormone 2.84 uIU/mL (0.47-4.68)
== END ==
PROVIDERS: Family Provider Nurse Practitioner Family; PCP Nurse Practitioner Family; Visit Provider Nurse Practitioner Family
DX: R53.83 Other fatigue (principal)
CPT/HCPCS: 36415; 84443

== ENCOUNTER 2023-04-12 20:41 | Inpatient (IN) | payer MEDICARE, MEDICAID, SELFPAY ==
[2022-01-16 01:59] VITALS: BMI 41.9
[2023-04-12] VITALS (15 sets, daily range): BP systolic 78–159; BP diastolic 51–93; PULSE 73–85; RESP 20; TEMP 36.7; O2SAT 91–98; BMI 45.1
--- NOTE | 2023-04-12 20:46 | DI.RAD.S_ITS ---
PROCEDURE: XR ANKLE RT MIN 3V INDICATIONS: fall, swelling, pain TECHNIQUE: 2 views of the ankle were acquired. COMPARISON: None. FINDINGS: Bones: Diffuse osteopenia. Severe degenerative changes of the tibiotalar, subtalar and midfoot joints. There is a nondisplaced fracture of the distal right fibula above the syndesmosis. No definite dislocation. Ankle joint is difficult to evaluate given patient positioning. Soft tissues: No tibiotalar joint effusion. Achilles tendon appears normal. Moderate soft tissue swelling of the right ankle. IMPRESSION: Moderate diffuse osteopenia. Nondisplaced distal right fibular fracture. No definite dislocation or malalignment. Severe background degenerative changes of the right ankle and midfoot. Dictated by: Vinay Lackey M.D. on 04/12/2023 at 21:23 Approved by: Vinay Lackey M.D. on 04/12/2023 at 21:27
[2023-04-12] MEDS: ALBUTEROL 2.5 MG/3 ML NEB (ADULT) INH (21:37)
--- NOTE | 2023-04-12 21:37 | PC.NURSE ---
This RN checks on patient. Audible expiratory wheezing heard. Pt reports history of asthma and using an inhaler at home. Pt oxygen saturation at 90% at RA. RT called. Provider to be made aware.
[2023-04-12] MEDS: OXYCODONE IR 5 MG TABLET 10 MG PO (22:44)
[2023-04-13] VITALS (40 sets, daily range): BP systolic 87–150; BP diastolic 40–85; PULSE 65–87; RESP 14–20; TEMP 36.2–36.6; O2SAT 91–96; BMI 45.0
[2023-04-13] MEDS: SODIUM CHLORIDE 0.9% 1,000 ML 1000 ML IV ×2 (00:04→12:07)
[2023-04-13 00:36] LABS: Add Manual Diff / Slide Review NO; Basophils Absolute Auto 100 /uL (0-100); Eosinophils Absolute Auto 100 /uL (0-450); Eosinophils Percent Auto 1.4 % (2-4); Hematocrit 32.6 % (36-46); Hemoglobin 10.9 g/dL (12.0-16.0); Lymphocytes Absolute Auto 1800 /uL (1100-4500); Mean Corpuscular HGB Conc 33.4 % (30-36); Mean Corpuscular Hemoglobin 30.4 PG (26-34); Mean Corpuscular Volume 91.1 fL (80-100); Monocytes Absolute Auto 600 /uL (0-900); Monocytes Percent Auto 7.4 % (3-14); Neutrophils Absolute Auto 5400 /uL (1500-7000); Neutrophils Percent Auto 68.2 % (50-75); Platelet Count 131 X10^3/uL (150-400); Red Blood Cell Count 3.58 X10^6/uL (4.0-5.2); Red Cell Distribution Width 13.5 % (11.6-14.8)
[2023-04-13 00:45] LABS: Lactate (Lactic Acid) 1.3 mmol/L (0.7-2.1)
[2023-04-13 00:46] LABS: Alanine Aminotransferase 19 IU/L (<35); Albumin 3.7 g/dL (3.5-5.0); Albumin Globulin Ratio 1.4 (1.0-2.8); Alkaline Phosphatase 119 U/L (38-126); Aspartate Aminotransferase 20 IU/L (14-36); BUN Creatinine Ratio 29.1 (6-22); Bilirubin Total 0.6 mg/dL (0.2-1.3); Blood Urea Nitrogen 65 mg/dL (7-17); Carbon Dioxide 29 mmol/L (22-32); Chloride 98 mmol/L (98-107); Estimated Glomerular Filt Rate 23 mL/min (>60); Globulin 2.6 g/dL (1.7-4.1); Glucose 275 mg/dL (80-110); HEMOLYSIS < 15 (0-50); Potassium 5.2 mmol/L (3.4-5.1); Sodium 133 mmol/L (137-145); Total Protein 6.3 g/dL (6.3-8.2)
--- NOTE | 2023-04-13 01:19 | DI.US.S_ITS ---
PROCEDURE: US RENAL COMPLETE INDICATIONS: artie TECHNIQUE: Real-time scanning was performed of the kidneys and bladder, with image documentation. COMPARISON: None. FINDINGS: Evaluation is markedly limited secondary to patient body habitus and bowel gas. Kidneys: Kidneys are mildly atrophic. Right kidney measures 9.1 cm long; left kidney measures 9.1 cm long. Renal cortical echotexture is grossly normal. No hydronephrosis or definite nephrolithiasis. Evaluation for solid mass lesions is limited. Bladder: Pre-void bladder volume is 271 mL. Post-void residual is 17 mL. Pre-void images demonstrate no intraluminal masses or stones. On pre-void images, no ureteral jets are noted with color Doppler interrogation. (Of note, ureteral jets may not be detectable in up to 25% of cases due to insufficient differences in specific gravity between ureteral and bladder urine). Miscellaneous: No free pelvic fluid. IMPRESSION: Evaluation is markedly limited secondary to patient body habitus and bowel gas. 1. Within these limitations, no hydronephrosis or definite nephrolithiasis bilaterally. Evaluation for solid mass lesions is limited. 2. Mild bilateral renal atrophy. 3. Normal sonographic appearance of urinary bladder. Postvoid residual of 17 mL. I agree with the preliminary report. Dictated by: Patricia West M.D. on 04/13/2023 at 7:44 Approved by: Patricia West M.D. on 04/13/2023 at 7:48
--- NOTE | 2023-04-13 02:04 | ED.LOWEXIN ---
HPI - Extremity Injury (Lower) General Chief Complaint: Extremity Injury, Lower Stated Complaint: GLF Time Seen by Provider: 04/12/23 22:20 Source: patient and EMS Mode of arrival: EMS History of Present Illness HPI Narrative: 67-year-old female with a history of cerebral palsy hypertension and a previous acute kidney injury presents with right lower extremity pain. Says that she had her legs ?gave way? and she collapsed onto her right ankle causing right ankle pain. Banana bag of weight-bearing since then. Denies fevers denies chest pain or shortness of breath no nausea or vomiting did not hit her head says that she is been eating and drinking normally. Related Data Home Medications Medication Instructions Recorded Confirmed albuterol sulfate 90 mcg/actuation 2 puff inhalation Q4H PRN Wheezing 05/09/18 01/17/22 aerosol inhaler fluoxetine 20 mg capsule 40 mg PO QDAY 07/23/21 01/17/22 gabapentin 300 mg capsule 900 mg PO QAM 07/23/21 01/17/22 (Neurontin) gabapentin 600 mg tablet 1,200 mg PO BEDTIME 07/23/21 01/17/22 (Neurontin) lamotrigine 100 mg tablet 300 mg PO QDAY 07/23/21 01/17/22 (Lamictal) Previous Rx's Medication Instructions Recorded lisinopril 10 mg tablet 10 mg PO DAILY #30 tabs 05/11/18 carvedilol 3.125 mg tablet (Coreg) 6.25 mg (2 x 3.125 mg) PO BID #30 01/21/22 tabs polyethylene glycol 3350 17 gram 17 gm PO DAILY #20 ea 01/21/22 oral powder packet sennosides 8.6 mg tablet (senna) 17.2 mg (2 x 8.6 mg) PO BEDTIME 01/21/22 #20 tabs Allergies Allergy/AdvReac Type Severity Reaction Status Date / Time clindamycin Allergy Mild RASH & N/V Verified 01/15/22 20:08 Patient History Medical History (Updated 04/13/23 @ 01:19 by Silvino Messina MD) Cerebral palsy History of esophageal dilatation History of esophageal stricture Flesh-eating bacteria Achilles tendon injury Sepsis Cellulitis Surgical History History of dilatation and curettage Hx of total knee arthroplasty Status post surgery (06/23/14) Status post appendectomy Family History Mother Cardiac disease Father Diabetes mellitus COPD (chronic obstructive pulmonary disease) Brother In good health Social History household members: none Smoking Status: Never smoker alcohol intake: former Smoking Status: Never smoker alcohol intake frequency: holidays/special occasions only Substance Use Type: does not use Exam Initial Vital Signs Initial Vital Signs: Vital Signs Temperature 98.0 F 04/12/23 20:46 Pulse Rate 85 04/12/23 20:46 Respiratory Rate 20 04/12/23 20:46 Blood Pressure 159/93 H 04/12/23 20:46 Pulse Oximetry 95 04/12/23 20:46 Oxygen Delivery Method Room Air 04/12/23 20:46 Const General: No acute distress HENMT Head: normocephalic and atraumatic Neck Neck: full ROM and supple Resp Effort & Inspection: normal respiratory effort Auscultation: clear to auscultation bilaterally Cardio Rate: regular rate Rhythm: regular rhythm Heart Sounds: S1 normal and S2 normal Back/Spine/Pelvis Back: No back tenderness Skin General: no rashes or lesions noted Neuro General: patient alert and patient oriented x3 Extrem Right lower extremity: normal to inspection (There is some swelling around the lateral malleolus. She is tender over th) Procedures Orthopedic Splinting/Casting Right ankle had an Orthoglass posterior splint with stirrup applied. Pulses and capillary refill are intact following splinting. Splint was applied : Post splinting neuro exam: intact Placed by: Nursing Course Course Course Narrative: Patient presented with right ankle pain. This is after a ground level fall, initially had no other complaints although did report that she had been generally weak. Prior to discharge she was noted to be persistently hypotensive. This prompted lab work and a L of normal saline were administered. Her blood pressure improved with normal saline. Patient reported she had some changes in her psychiatric medications recently but no changes in blood pressure medications that she could recall. Decision to Admit Date: 04/13/23 Decision to Admit time: 02:09 Orders Ordered: ED Orders 04/12/23 20:46 XR ankle RT min 3V Stat 04/13/23 00:15 Magnesium Routine 12/11/23 01:19 US renal complete Stat 04/13/23 01:20 EKG-12 Lead Stat 04/13/23 02:18 Education, smoking cessation ONGOING 04/13/23 02:30 Basic Metabolic Panel DAILY Complete Blood Count AUTO DIFF DAILY Acetaminophen (Acetaminophen 325 Mg Tablet) 650 mg PO Q6H PRN PRN Reason: Fever/Mild Pain (1-3) Hydrocodone Bitart/Acetaminophen (Hydrocodone/Acet 5/325 Tablet) 1 tab PO Q4H PRN PRN Reason: Pain, Moderate (4-6) Albuterol (Albuterol Hfa Mdi 60 Puff/8 Gm Inhaler) 2 puff INH Q4H PRN PRN Reason: Wheezing Calcium Carbonate (Calcium Carbonate 500 Mg Tab) 1,000 mg PO Q4HR PRN PRN Reason: Dyspepsia Carvedilol (Carvedilol 3.125 Mg Tablet) 6.25 mg PO BID COUNTS INCLUDE 234 BEDS AT THE [facility] Fluoxetine HCl (Fluoxetine 20 Mg Capsule) 40 mg PO DAILY COUNTS INCLUDE 234 BEDS AT THE [facility] Last Admin: 04/13/23 03:48 Dose: Not Given Documented By: AM Gabapentin (Gabapentin 300 Mg Capsule) 900 mg PO DAILY COUNTS INCLUDE 234 BEDS AT THE [facility] Last Admin: 04/13/23 03:48 Dose: Not Given Documented By: AM Heparin Sodium (Porcine) (Heparin 5,000 Unit/Ml Vial) 5,000 unit SUBCUT BID COUNTS INCLUDE 234 BEDS AT THE [facility] Sodium Chloride (Normal Saline 0.9%) 1,000 mls @ 125 mls/hr IV CONT COUNTS INCLUDE 234 BEDS AT THE [facility] Last Admin: 04/13/23 03:48 Dose: 125 mls/hr Documented By: AM Lamotrigine (Lamotrigine 100 Mg Tablet) 300 mg PO DAILY COUNTS INCLUDE 234 BEDS AT THE [facility] Last Admin: 04/13/23 03:48 Dose: Not Given Documented By: AM Morphine Sulfate (Morphine 4 Mg/Ml Inj) 3 mg IV Q2H PRN PRN Reason: Pain, Severe (7-10) Naloxone HCl (Naloxone 0.4 Mg/Ml Vial) 0.2 mg IV Q2MIN PRN PRN Reason: Opiate Reversal Ondansetron HCl (Ondansetron 4 Mg/2 Ml Inj) 4 mg IV Q6H PRN PRN Reason: Nausea And Vomiting Polyethylene Glycol (Polyethylene Glycol 3350 17 Gm Powd.Pack) 17 gm PO DAILY COUNTS INCLUDE 234 BEDS AT THE [facility] Sennosides (Sennosides 8.6 Mg Tablet) 17.2 mg PO BEDTIME VIGNESH Discontinued Medications Albuterol (Albuterol 2.5 Mg/3 Ml Neb (Adult)) 2.5 mg INH NOW ONE Stop: 04/12/23 21:37 Last Admin: 04/12/23 21:37 Dose: 2.5 mg Documented By: Sodium Chloride (Normal Saline 0.9%) 1,000 mls @ 1,000 mls/hr IV BOLUS ONE Stop: 04/13/23 00:47 Last Infusion: 04/13/23 01:04 Dose: Infused Documented By: Admin: 04/13/23 00:04 Dose: 1,000 mls/hr Documented By: ANASTACIO Morphine Sulfate (Morphine 4 Mg/Ml Inj) 3 mg IV Q2HR VIGNESH Oxycodone HCl (Oxycodone Ir 5 Mg Tablet) 10 mg PO NOW ONE Stop: 04/12/23 22:32 Last Admin: 04/12/23 22:44 Dose: 10 mg Documented By: EDGAR Consultations Consultation #1: D/W Dr Rodriguez. hospitalist, accepts admission Vital Signs Vital signs: Vital Signs - 8 hr 04/12/23 20:46 04/12/23 21:42 04/12/23 22:00 Temperature 98.0 F Pulse Rate 85 79 Respiratory Rate 20 Blood Pressure 159/93 H 100/56 L Pulse Oximetry 95 98 Oxygen Delivery Method Room Air 04/12/23 22:00 04/12/23 22:30 04/12/23 22:30 Temperature Pulse Rate 76 80 Respiratory Rate Blood Pressure 111/55 L Pulse Oximetry 92 93 Oxygen Delivery Method Room Air Room Air 04/12/23 23:00 04/12/23 23:30 04/12/23 23:31 Temperature Pulse Rate 73 81 79 Respiratory Rate Blood Pressure Pulse Oximetry 95 93 93 Oxygen Delivery Method 04/12/23 23:32 04/12/23 23:32 04/12/23 23:33 Temperature Pulse Rate 77 75 Respiratory Rate Blood Pressure 123/58 L Pulse Oximetry 92 94 Oxygen Delivery Method 04/12/23 23:33 04/12/23 23:35 04/12/23 23:35 Temperature Pulse Rate 80 Respiratory Rate Blood Pressure 84/56 L 87/54 L Pulse Oximetry 94 Oxygen Delivery Method 04/12/23 23:37 04/12/23 23:37 04/12/23 23:41 Temperature Pulse Rate 77 Respiratory Rate Blood Pressure 94/53 L 78/51 L Pulse Oximetry 93 Oxygen Delivery Method 04/12/23 23:41 04/12/23 23:45 04/12/23 23:45 Temperature Pulse Rate 78 82 Respiratory Rate Blood Pressure 81/57 L Pulse Oximetry 94 94 Oxygen Delivery Method 04/12/23 23:48 04/12/23 23:48 04/12/23 23:55 Temperature Pulse Rate 78 77 Respiratory Rate Blood Pressure 95/54 L Pulse Oximetry 91 95 Oxygen Delivery Method 04/12/23 23:55 04/13/23 00:00 04/13/23 00:30 Temperature Pulse Rate 77 74 Respiratory Rate Blood Pressure 123/58 L Pulse Oximetry 95 93 Oxygen Delivery Method 04/13/23 00:40 04/13/23 00:40 04/13/23 00:45 Temperature Pulse Rate 73 Respiratory Rate Blood Pressure 113/58 L 111/56 L Pulse Oximetry 95 Oxygen Delivery Method 04/13/23 00:45 04/13/23 00:51 04/13/23 00:51 Temperature Pulse Rate 73 73 Respiratory Rate Blood Pressure 96/51 L Pulse Oximetry 95 94 Oxygen Delivery Method 04/13/23 00:55 04/13/23 00:55 04/13/23 01:00 Temperature Pulse Rate 73 Respiratory Rate Blood Pressure 95/50 L 93/54 L Pulse Oximetry 95 Oxygen Delivery Method 04/13/23 01:00 04/13/23 01:05 04/13/23 01:05 Temperature Pulse Rate 70 71 Respiratory Rate Blood Pressure 108/58 L Pulse Oximetry 93 95 Oxygen Delivery Method 04/13/23 01:10 04/13/23 01:10 04/13/23 01:15 Temperature Pulse Rate 72 Respiratory Rate Blood Pressure 114/58 L 119/58 L Pulse Oximetry 96 Oxygen Delivery Method 04/13/23 01:15 04/13/23 01:20 04/13/23 01:20 Temperature Pulse Rate 79 74 Respiratory Rate Blood Pressure 116/59 L Pulse Oximetry 94 94 Oxygen Delivery Method 04/13/23 01:26 04/13/23 01:26 04/13/23 01:30 Temperature Pulse Rate 76 77 Respiratory Rate Blood Pressure 150/60 H Pulse Oximetry 95 94 Oxygen Delivery Method 04/13/23 01:30 04/13/23 01:35 04/13/23 01:35 Temperature Pulse Rate 70 Respiratory Rate Blood Pressure 141/65 H 113/58 L Pulse Oximetry 94 Oxygen Delivery Method 04/13/23 01:40 04/13/23 01:40 04/13/23 01:45 Temperature Pulse Rate 71 72 Respiratory Rate Blood Pressure 120/60 Pulse Oximetry 94 95 Oxygen Delivery Method 04/13/23 01:45 04/13/23 01:50 04/13/23 01:50 Temperature Pulse Rate 73 Respiratory Rate Blood Pressure 124/60 124/59 L Pulse Oximetry 93 Oxygen Delivery Method 04/13/23 01:55 04/13/23 01:55 04/13/23 02:00 Temperature Pulse Rate 70 75 Respiratory Rate Blood Pressure 118/56 L Pulse Oximetry 93 93 Oxygen Delivery Method 04/13/23 02:00 04/13/23 02:05 04/13/23 02:05 Temperature Pulse Rate 77 Respiratory Rate Blood Pressure 120/62 126/60 Pulse Oximetry 94 Oxygen Delivery Method 04/13/23 02:16 04/13/23 02:16 04/13/23 02:21 Temperature Pulse Rate 65 Respiratory Rate Blood Pressure 137/85 125/60 Pulse Oximetry 93 Oxygen Delivery Method 04/13/23 02:21 Temperature Pulse Rate 74 Respiratory Rate Blood Pressure Pulse Oximetry 94 Oxygen Delivery Method MDM - Extremity Injury (Lower) Lab Data 04/12/23 00:15 04/12/23 00:15 Labs: Lab Results 04/12/23 04/13/23 Range/Units 00:15 00:15 WBC 8.0 (4.5-11.0) X10^3/uL RBC 3.58 L (4.0-5.2) X10^6/uL Hgb 10.9 L (12.0-16.0) g/dL Hct 32.6 L (36-46) % MCV 91.1 (80-100) fL MCH 30.4 (26-34) PG MCHC 33.4 (30-36) % RDW 13.5 (11.6-14.8) % Plt Count 131 L (150-400) X10^3/uL Neut % (Auto) 68.2 (50-75) % Lymph % (Auto) 22.0 L (25-40) % [place] % (Auto) 7.4 (3-14) % Eos % (Auto) 1.4 L (2-4) % Baso % (Auto) 1.0 (0-2) % Neut # (Auto) 5400 (4252-6749) /uL Lymph # (Auto) 1800 (3304-3443) /uL [place] # (Auto) 600 (0-900) /uL Eos # (Auto) 100 (0-450) /uL Baso # (Auto) 100 (0-100) /uL Sodium 133 L (137-145) mmol/L Potassium 5.2 H (3.4-5.1) mmol/L Chloride 98 (98-107) mmol/L Carbon Dioxide 29 (22-32) mmol/L BUN 65 H (7-17) mg/dL Creatinine 2.23 H (0.52-1.04) mg/dL Estimated GFR 23 L (>60) mL/min BUN/Creatinine Ratio 29.1 H (6-22) Glucose 275 H (80-110) mg/dL Lactate 1.3 (0.7-2.1) mmol/L Calcium 9.0 (8.4-10.2) mg/dL Magnesium 2.6 H (1.6-2.3) mg/dL Total Bilirubin 0.6 (0.2-1.3) mg/dL AST 20 (14-36) IU/L ALT 19 (<35) IU/L Alkaline Phosphatase 119 (38-126) U/L Total Protein 6.3 (6.3-8.2) g/dL Albumin 3.7 (3.5-5.0) g/dL Globulin 2.6 (1.7-4.1) g/dL Albumin/Globulin Ratio 1.4 (1.0-2.8) Imaging Data Extremity x-ray #1: My Impression: Nondisplaced fracture distal fibula Radiologist's Impression: Nondisplaced fracture distal fibula remal ultrasound: Radiologist's Impression: Preliminary report showed no sonographic findings for hydronephrosis mild bilateral renal atrophy small urinary bladder postvoid residual of 17 mL ECG Data Interpretation: Normal sinus rhythm with left bundle-branch block, no acute ST segment changes, prolonged OK interval Treatment and disposition Social Determinants of Health that impact treatment or disposition: Patient lives in a [facility] facility Shared decision making:: Discussed finding of acute kidney injury and concern for close follow-up. Patient agreeable for admission and IV hydration MDM Narrative Medical decision making narrative: 67-year-old female presenting with an ankle injury after a ground level fall. Incidental finding of hypotension which prompted labs, noted to have an acute kidney injury on labs. Admitted for further evaluation of her NEPTALI and hydration. Discharge Plan Departure Patient Disposition: Admitted as Observation Clinical Impression: NEPTALI (acute kidney injury), Acute hypotension Ankle fracture, right Qualifiers: Encounter type: initial encounter Fracture type: closed Qualified Code(s): S82.891A - Other fracture of right lower leg, initial encounter for closed fracture Admit Date/Time: 04/13/23 02:24 Admit Provider: Humble Rodriguez
--- NOTE | 2023-04-13 02:17 | ED_ITS ---
HPI - Extremity Injury (Lower) General Chief Complaint: Extremity Injury, Lower Stated Complaint: GLF Time Seen by Provider: 04/12/23 22:20 Source: patient and EMS Mode of arrival: EMS History of Present Illness HPI Narrative: 67-year-old female complaining of right ankle pain after a ground level fall. Says that her legs gave way and she collapsed onto her right ankle while attempting to transfer. She has a history of cerebral palsy. Says that she is been feeling more weak recently. Has not had any recent adjustment in her blood pressure medications sounds like some of her chronic pain medications have recently been adjusted. She is not having fevers she is not having chest pain or shortness of breath. Related Data Home Medications Medication Instructions Recorded Confirmed albuterol sulfate 90 mcg/actuation 2 puff inhalation Q4H PRN Wheezing 05/09/18 01/17/22 aerosol inhaler fluoxetine 20 mg capsule 40 mg PO QDAY 07/23/21 01/17/22 gabapentin 300 mg capsule 900 mg PO QAM 07/23/21 01/17/22 (Neurontin) gabapentin 600 mg tablet 1,200 mg PO BEDTIME 07/23/21 01/17/22 (Neurontin) lamotrigine 100 mg tablet 300 mg PO QDAY 07/23/21 01/17/22 (Lamictal) Previous Rx's Medication Instructions Recorded lisinopril 10 mg tablet 10 mg PO DAILY #30 tabs 05/11/18 carvedilol 3.125 mg tablet (Coreg) 6.25 mg (2 x 3.125 mg) PO BID #30 01/21/22 tabs polyethylene glycol 3350 17 gram 17 gm PO DAILY #20 ea 01/21/22 oral powder packet sennosides 8.6 mg tablet (senna) 17.2 mg (2 x 8.6 mg) PO BEDTIME 01/21/22 #20 tabs Allergies Allergy/AdvReac Type Severity Reaction Status Date / Time clindamycin Allergy Mild RASH & N/V Verified 01/15/22 20:08 Patient History Medical History (Updated 04/13/23 @ 01:19 by Silvino Messina MD) Cerebral palsy History of esophageal dilatation History of esophageal stricture Flesh-eating bacteria Achilles tendon injury Sepsis Cellulitis Surgical History History of dilatation and curettage Hx of total knee arthroplasty Status post surgery (06/23/14) Status post appendectomy Family History Mother Cardiac disease Father Diabetes mellitus COPD (chronic obstructive pulmonary disease) Brother In good health Social History household members: none Smoking Status: Never smoker alcohol intake: current Smoking Status: Never smoker alcohol intake frequency: holidays/special occasions only Substance Use Type: does not use Exam Initial Vital Signs Initial Vital Signs: Vital Signs Temperature 98.0 F 04/12/23 20:46 Pulse Rate 85 04/12/23 20:46 Respiratory Rate 20 04/12/23 20:46 Blood Pressure 159/93 H 04/12/23 20:46 Pulse Oximetry 95 04/12/23 20:46 Oxygen Delivery Method Room Air 04/12/23 20:46 Const General: No acute distress HENMT Head: normocephalic and atraumatic Neck Neck: full ROM and supple Resp Effort & Inspection: normal respiratory effort Auscultation: clear to auscultation bilaterally Cardio Rate: regular rate Rhythm: regular rhythm Heart Sounds: S1 normal and S2 normal Skin General: no rashes or lesions noted Neuro General: patient alert and patient oriented x3 Extrem Other: Swelling and tenderness over the right lateral malleolus. No deformity of the lower extremity pulses and sensation are intact in the right foot. Procedures Orthopedic Splinting/Casting Injury #1: Lower Extremity Injury Location: ankle (Right) Post splinting neuro exam: intact Post splinting vascular exam: intact Additional Comments: Ortho glass posterior splint with stirrup applied by nursing staff under physician supervision Course Course Course Narrative: Patient presented with right ankle pain was not found to have a nondisplaced distal fibula fracture. Prior to discharge she was noted to be hypotensive this prompted lab work and a L of saline was administered. Considered but do not suspect sepsis, this does not appear to be a traumatic injury it maybe iatrogenic related to her blood pressure medications. Decision to Admit Date: 04/13/23 Decision to Admit time: 02:28 Orders Ordered: ED Orders 04/12/23 20:46 XR ankle RT min 3V Stat 04/13/23 01:19 US renal complete Stat 04/13/23 01:20 EKG-12 Lead Stat Discontinued Medications Albuterol (Albuterol 2.5 Mg/3 Ml Neb (Adult)) 2.5 mg INH NOW ONE Stop: 04/12/23 21:37 Last Admin: 04/12/23 21:37 Dose: 2.5 mg Documented By: Sodium Chloride (Normal Saline 0.9%) 1,000 mls @ 1,000 mls/hr IV BOLUS ONE Stop: 04/13/23 00:47 Last Infusion: 04/13/23 01:04 Dose: Infused Documented By: Admin: 04/13/23 00:04 Dose: 1,000 mls/hr Documented By: ANASTACIO Oxycodone HCl (Oxycodone Ir 5 Mg Tablet) 10 mg PO NOW ONE Stop: 04/12/23 22:32 Last Admin: 04/12/23 22:44 Dose: 10 mg Documented By: EDGAR Consultations Consultation #1: D/W Dr Rodriguez, hospitalist accepts admission Vital Signs Vital signs: Vital Signs - 8 hr 04/12/23 20:46 04/12/23 21:42 04/12/23 22:00 Temperature 98.0 F Pulse Rate 85 79 Respiratory Rate 20 Blood Pressure 159/93 H 100/56 L Pulse Oximetry 95 98 Oxygen Delivery Method Room Air 04/12/23 22:00 04/12/23 22:30 04/12/23 22:30 Temperature Pulse Rate 76 80 Respiratory Rate Blood Pressure 111/55 L Pulse Oximetry 92 93 Oxygen Delivery Method Room Air Room Air 04/12/23 23:00 04/12/23 23:30 04/12/23 23:31 Temperature Pulse Rate 73 81 79 Respiratory Rate Blood Pressure Pulse Oximetry 95 93 93 Oxygen Delivery Method 04/12/23 23:32 04/12/23 23:32 04/12/23 23:33 Temperature Pulse Rate 77 75 Respiratory Rate Blood Pressure 123/58 L Pulse Oximetry 92 94 Oxygen Delivery Method 04/12/23 23:33 04/12/23 23:35 04/12/23 23:35 Temperature Pulse Rate 80 Respiratory Rate Blood Pressure 84/56 L 87/54 L Pulse Oximetry 94 Oxygen Delivery Method 04/12/23 23:37 04/12/23 23:37 04/12/23 23:41 Temperature Pulse Rate 77 Respiratory Rate Blood Pressure 94/53 L 78/51 L Pulse Oximetry 93 Oxygen Delivery Method 04/12/23 23:41 04/12/23 23:45 04/12/23 23:45 Temperature Pulse Rate 78 82 Respiratory Rate Blood Pressure 81/57 L Pulse Oximetry 94 94 Oxygen Delivery Method 04/12/23 23:48 04/12/23 23:48 04/12/23 23:55 Temperature Pulse Rate 78 77 Respiratory Rate Blood Pressure 95/54 L Pulse Oximetry 91 95 Oxygen Delivery Method 04/12/23 23:55 04/13/23 00:00 04/13/23 00:30 Temperature Pulse Rate 77 74 Respiratory Rate Blood Pressure 123/58 L Pulse Oximetry 95 93 Oxygen Delivery Method 04/13/23 00:40 04/13/23 00:40 04/13/23 00:45 Temperature Pulse Rate 73 Respiratory Rate Blood Pressure 113/58 L 111/56 L Pulse Oximetry 95 Oxygen Delivery Method 04/13/23 00:45 04/13/23 00:51 04/13/23 00:51 Temperature Pulse Rate 73 73 Respiratory Rate Blood Pressure 96/51 L Pulse Oximetry 95 94 Oxygen Delivery Method 04/13/23 00:55 04/13/23 00:55 04/13/23 01:00 Temperature Pulse Rate 73 Respiratory Rate Blood Pressure 95/50 L 93/54 L Pulse Oximetry 95 Oxygen Delivery Method 04/13/23 01:00 04/13/23 01:05 04/13/23 01:05 Temperature Pulse Rate 70 71 Respiratory Rate Blood Pressure 108/58 L Pulse Oximetry 93 95 Oxygen Delivery Method 04/13/23 01:10 04/13/23 01:10 04/13/23 01:15 Temperature Pulse Rate 72 Respiratory Rate Blood Pressure 114/58 L 119/58 L Pulse Oximetry 96 Oxygen Delivery Method 04/13/23 01:15 04/13/23 01:20 04/13/23 01:20 Temperature Pulse Rate 79 74 Respiratory Rate Blood Pressure 116/59 L Pulse Oximetry 94 94 Oxygen Delivery Method 04/13/23 01:26 04/13/23 01:26 04/13/23 01:30 Temperature Pulse Rate 76 77 Respiratory Rate Blood Pressure 150/60 H Pulse Oximetry 95 94 Oxygen Delivery Method 04/13/23 01:30 04/13/23 01:35 04/13/23 01:35 Temperature Pulse Rate 70 Respiratory Rate Blood Pressure 141/65 H 113/58 L Pulse Oximetry 94 Oxygen Delivery Method 04/13/23 01:40 04/13/23 01:40 04/13/23 01:45 Temperature Pulse Rate 71 72 Respiratory Rate Blood Pressure 120/60 Pulse Oximetry 94 95 Oxygen Delivery Method 04/13/23 01:45 04/13/23 01:50 04/13/23 01:50 Temperature Pulse Rate 73 Respiratory Rate Blood Pressure 124/60 124/59 L Pulse Oximetry 93 Oxygen Delivery Method 04/13/23 01:55 04/13/23 01:55 Temperature Pulse Rate 70 Respiratory Rate Blood Pressure 118/56 L Pulse Oximetry 93 Oxygen Delivery Method MDM - Extremity Injury (Lower) Lab Data Lab results narrative: CBC with diff is unremarkable, lactic is normal, CMP remarkable for acute kidney injury with creatinine of 2.23 no baseline normal recently 04/12/23 00:15 04/12/23 00:15 Labs: Lab Results 04/12/23 Range/Units 00:15 WBC 8.0 (4.5-11.0) X10^3/uL RBC 3.58 L (4.0-5.2) X10^6/uL Hgb 10.9 L (12.0-16.0) g/dL Hct 32.6 L (36-46) % MCV 91.1 (80-100) fL MCH 30.4 (26-34) PG MCHC 33.4 (30-36) % RDW 13.5 (11.6-14.8) % Plt Count 131 L (150-400) X10^3/uL Neut % (Auto) 68.2 (50-75) % Lymph % (Auto) 22.0 L (25-40) % [place] % (Auto) 7.4 (3-14) % Eos % (Auto) 1.4 L (2-4) % Baso % (Auto) 1.0 (0-2) % Neut # (Auto) 5400 (0775-1661) /uL Lymph # (Auto) 1800 (7422-1395) /uL [place] # (Auto) 600 (0-900) /uL Eos # (Auto) 100 (0-450) /uL Baso # (Auto) 100 (0-100) /uL Sodium 133 L (137-145) mmol/L Potassium 5.2 H (3.4-5.1) mmol/L Chloride 98 (98-107) mmol/L Carbon Dioxide 29 (22-32) mmol/L BUN 65 H (7-17) mg/dL Creatinine 2.23 H (0.52-1.04) mg/dL Estimated GFR 23 L (>60) mL/min BUN/Creatinine Ratio 29.1 H (6-22) Glucose 275 H (80-110) mg/dL Lactate 1.3 (0.7-2.1) mmol/L Calcium 9.0 (8.4-10.2) mg/dL Total Bilirubin 0.6 (0.2-1.3) mg/dL AST 20 (14-36) IU/L ALT 19 (<35) IU/L Alkaline Phosphatase 119 (38-126) U/L Total Protein 6.3 (6.3-8.2) g/dL Albumin 3.7 (3.5-5.0) g/dL Globulin 2.6 (1.7-4.1) g/dL Albumin/Globulin Ratio 1.4 (1.0-2.8) Imaging Data Extremity x-ray #1: My Impression: Independent review of right ankle films, nondisplaced distal fibula fracture Radiologist's Impression: Moderate diffuse osteopenia. Nondisplaced distal right fibular fracture. No definite dislocation or malalignment. Severe background degenerative changes of the right ankle and midfoot. ECG Data Interpretation: ECG shows sinus rhythm at 79, there is left bundle-branch block, there are no peak T-waves. [facility] Narrative Medical decision making narrative: 58-year-old female who presented with a ground level fall and right ankle pain. Prior to discharge she was noted to be hypotensive, this prompted laboratory evaluation as well as IV fluid administration. On labs she was noted to have evidence of an acute kidney injury. Hypotension was not associated with fever leukocytosis. I do not think that the patient is septic. Ultrasound of the kidneys has been ordered. She was given IV fluids with improvement in her blood pressure she will be admitted to the hospitalist service Discharge Plan Departure Patient Disposition: Admitted as Observation Clinical Impression: NEPTALI (acute kidney injury), Acute hypotension Ankle fracture, right Qualifiers: Encounter type: initial encounter Fracture type: closed Qualified Code(s): S 82.891A - Other fracture of right lower leg, initial encounter for closed fracture Admit Date/Time: 04/13/23 02:24 Admit Provider: Humble Rodriguez
--- NOTE | 2023-04-13 03:32 | PM.HP.1 ---
History of Present Illness History of Present Illness Date Patient Seen: 04/13/23 Time Patient Seen: 03:32 Chief complaint: GLF Narrative: The pt is a 67 yo with cerebral palsy who lives at [facility] who was trying to turn to use the toilet and fell. She was unable to get up so EMS was called and she was found to have a distal fibula fracture. Her BP was low, but we do not know what her baseline is, one liter of NS was given and labs drawn. Her Cr was elevated to 2.3. She denies any recent infections, N/V/diarrhea, no recent UTI and no recent change in her medications. The pt normally uses a wheelchair but can bear weight on legs, Lately she has been having worsening weakness. [facility] Medical History (Updated 04/13/23 @ 01:19 by Silvino Messina MD) Cerebral palsy History of esophageal dilatation History of esophageal stricture Flesh-eating bacteria Achilles tendon injury Sepsis Cellulitis Surgical History History of dilatation and curettage Hx of total knee arthroplasty Status post surgery (06/23/14) Status post appendectomy Family History Mother Cardiac disease Father Diabetes mellitus COPD (chronic obstructive pulmonary disease) Brother In good health Social History household members: none Smoking Status: Never smoker alcohol intake: current Meds Home Medications and Allergies Home Medications Medication Instructions Recorded Confirmed Type albuterol sulfate 90 mcg/actuation 2 puff inhalation Q4H PRN Wheezing 05/09/18 01/17/22 History aerosol inhaler lisinopril 10 mg tablet 10 mg PO DAILY #30 tabs 05/11/18 01/17/22 Rx fluoxetine 20 mg capsule 40 mg PO QDAY 07/23/21 01/17/22 History gabapentin 300 mg capsule 900 mg PO QAM 07/23/21 01/17/22 History (Neurontin) gabapentin 600 mg tablet 1,200 mg PO BEDTIME 07/23/21 01/17/22 History (Neurontin) lamotrigine 100 mg tablet 300 mg PO QDAY 07/23/21 01/17/22 History (Lamictal) carvedilol 3.125 mg tablet (Coreg) 6.25 mg (2 x 3.125 mg) PO BID #30 01/21/22 Rx tabs polyethylene glycol 3350 17 gram 17 gm PO DAILY #20 ea 01/21/22 Rx oral powder packet sennosides 8.6 mg tablet (senna) 17.2 mg (2 x 8.6 mg) PO BEDTIME 01/21/22 Rx #20 tabs Allergies Allergy/AdvReac Type Severity Reaction Status Date / Time clindamycin Allergy Mild RASH & N/V Verified 01/15/22 20:08 Exam Vital Signs (past 8 hours): - 04/12/23 20:46 04/12/23 21:42 04/12/23 22:00 Temperature 98.0 F Pulse Rate 85 79 Respiratory Rate 20 Blood Pressure 159/93 H 100/56 L Pulse Oximetry 95 98 Oxygen Delivery Method Room Air 04/12/23 22:00 04/12/23 22:30 04/12/23 22:30 Temperature Pulse Rate 76 80 Respiratory Rate Blood Pressure 111/55 L Pulse Oximetry 92 93 Oxygen Delivery Method Room Air Room Air 04/12/23 23:00 04/12/23 23:30 04/12/23 23:31 Temperature Pulse Rate 73 81 79 Respiratory Rate Blood Pressure Pulse Oximetry 95 93 93 Oxygen Delivery Method 04/12/23 23:32 04/12/23 23:32 04/12/23 23:33 Temperature Pulse Rate 77 75 Respiratory Rate Blood Pressure 123/58 L Pulse Oximetry 92 94 Oxygen Delivery Method 04/12/23 23:33 04/12/23 23:35 04/12/23 23:35 Temperature Pulse Rate 80 Respiratory Rate Blood Pressure 84/56 L 87/54 L Pulse Oximetry 94 Oxygen Delivery Method 04/12/23 23:37 04/12/23 23:37 04/12/23 23:41 Temperature Pulse Rate 77 Respiratory Rate Blood Pressure 94/53 L 78/51 L Pulse Oximetry 93 Oxygen Delivery Method 04/12/23 23:41 04/12/23 23:45 04/12/23 23:45 Temperature Pulse Rate 78 82 Respiratory Rate Blood Pressure 81/57 L Pulse Oximetry 94 94 Oxygen Delivery Method 04/12/23 23:48 04/12/23 23:48 04/12/23 23:55 Temperature Pulse Rate 78 77 Respiratory Rate Blood Pressure 95/54 L Pulse Oximetry 91 95 Oxygen Delivery Method 04/12/23 23:55 04/13/23 00:00 04/13/23 00:30 Temperature Pulse Rate 77 74 Respiratory Rate Blood Pressure 123/58 L Pulse Oximetry 95 93 Oxygen Delivery Method 04/13/23 00:40 04/13/23 00:40 04/13/23 00:45 Temperature Pulse Rate 73 Respiratory Rate Blood Pressure 113/58 L 111/56 L Pulse Oximetry 95 Oxygen Delivery Method 04/13/23 00:45 04/13/23 00:51 04/13/23 00:51 Temperature Pulse Rate 73 73 Respiratory Rate Blood Pressure 96/51 L Pulse Oximetry 95 94 Oxygen Delivery Method 04/13/23 00:55 04/13/23 00:55 04/13/23 01:00 Temperature Pulse Rate 73 Respiratory Rate Blood Pressure 95/50 L 93/54 L Pulse Oximetry 95 Oxygen Delivery Method 04/13/23 01:00 04/13/23 01:05 04/13/23 01:05 Temperature Pulse Rate 70 71 Respiratory Rate Blood Pressure 108/58 L Pulse Oximetry 93 95 Oxygen Delivery Method 04/13/23 01:10 04/13/23 01:10 04/13/23 01:15 Temperature Pulse Rate 72 Respiratory Rate Blood Pressure 114/58 L 119/58 L Pulse Oximetry 96 Oxygen Delivery Method 04/13/23 01:15 04/13/23 01:20 04/13/23 01:20 Temperature Pulse Rate 79 74 Respiratory Rate Blood Pressure 116/59 L Pulse Oximetry 94 94 Oxygen Delivery Method 04/13/23 01:26 04/13/23 01:26 04/13/23 01:30 Temperature Pulse Rate 76 77 Respiratory Rate Blood Pressure 150/60 H Pulse Oximetry 95 94 Oxygen Delivery Method 04/13/23 01:30 04/13/23 01:35 04/13/23 01:35 Temperature Pulse Rate 70 Respiratory Rate Blood Pressure 141/65 H 113/58 L Pulse Oximetry 94 Oxygen Delivery Method 04/13/23 01:40 04/13/23 01:40 04/13/23 01:45 Temperature Pulse Rate 71 72 Respiratory Rate Blood Pressure 120/60 Pulse Oximetry 94 95 Oxygen Delivery Method 04/13/23 01:45 04/13/23 01:50 04/13/23 01:50 Temperature Pulse Rate 73 Respiratory Rate Blood Pressure 124/60 124/59 L Pulse Oximetry 93 Oxygen Delivery Method 04/13/23 01:55 04/13/23 01:55 04/13/23 02:00 Temperature Pulse Rate 70 75 Respiratory Rate Blood Pressure 118/56 L Pulse Oximetry 93 93 Oxygen Delivery Method 04/13/23 02:00 04/13/23 02:05 04/13/23 02:05 Temperature Pulse Rate 77 Respiratory Rate Blood Pressure 120/62 126/60 Pulse Oximetry 94 Oxygen Delivery Method 04/13/23 02:16 04/13/23 02:16 04/13/23 02:21 Temperature Pulse Rate 65 Respiratory Rate Blood Pressure 137/85 125/60 Pulse Oximetry 93 Oxygen Delivery Method 04/13/23 02:21 04/13/23 02:27 04/13/23 02:27 Temperature Pulse Rate 74 69 Respiratory Rate Blood Pressure 119/76 Pulse Oximetry 94 92 Oxygen Delivery Method 04/13/23 02:30 04/13/23 02:31 04/13/23 02:31 Temperature Pulse Rate 70 73 Respiratory Rate Blood Pressure 101/49 L Pulse Oximetry 93 94 Oxygen Delivery Method 04/13/23 02:34 04/13/23 02:34 04/13/23 02:36 Temperature Pulse Rate 70 Respiratory Rate Blood Pressure 113/51 L 102/62 Pulse Oximetry 93 Oxygen Delivery Method 04/13/23 02:36 04/13/23 02:46 04/13/23 02:46 Temperature Pulse Rate 67 70 Respiratory Rate Blood Pressure 90/55 L Pulse Oximetry 93 93 Oxygen Delivery Method Room Air 04/13/23 02:51 04/13/23 02:51 04/13/23 02:54 Temperature Pulse Rate 69 70 Respiratory Rate Blood Pressure 93/51 L Pulse Oximetry 92 91 Oxygen Delivery Method Room Air 04/13/23 02:55 04/13/23 03:19 04/13/23 03:19 Temperature 97.6 F Pulse Rate 87 Respiratory Rate 14 Blood Pressure 88/53 L 122/51 L Pulse Oximetry 94 94 Oxygen Delivery Method Room Air Oxygen Delivery Method Room Air Const General: cooperative and comfortable Resp Effort & Inspection: normal respiratory effort Auscultation: clear to auscultation bilaterally Cardio Rate: regular rate Rhythm: regular rhythm GI Inspection: obesity Auscultation: normal bowel sounds Objective Labs 04/12/23 00:15 04/12/23 00:15 Labs: Laboratory Results - last 24 hr 04/12/23 00:15 WBC 8.0 RBC 3.58 L Hgb 10.9 L Hct 32.6 L MCV 91.1 MCH 30.4 MCHC 33.4 RDW 13.5 Plt Count 131 L Neut % (Auto) 68.2 Lymph % (Auto) 22.0 L [place] % (Auto) 7.4 Eos % (Auto) 1.4 L Baso % (Auto) 1.0 Neut # (Auto) 5400 Lymph # (Auto) 1800 [place] # (Auto) 600 Eos # (Auto) 100 Baso # (Auto) 100 Sodium 133 L Potassium 5.2 H Chloride 98 Carbon Dioxide 29 BUN 65 H Creatinine 2.23 H Estimated GFR 23 L BUN/Creatinine Ratio 29.1 H Glucose 275 H Lactate 1.3 Calcium 9.0 Total Bilirubin 0.6 AST 20 ALT 19 Alkaline Phosphatase 119 Total Protein 6.3 Albumin 3.7 Globulin 2.6 Albumin/Globulin Ratio 1.4 Assessment & Plan Assessment and plan (1) Acute hypotension: Status: Acute (2) NEPTALI (acute kidney injury): Status: Acute (3) Ankle fracture, right: Qualifiers: Encounter type: initial encounter Fracture type: closed Qualified Code(s): S82.891A - Other fracture of right lower leg, initial encounter for closed fracture Status: Acute Plan DUe to the pt's compromised GFR, will admit for IVF's, repeat labs in am, she was making urine in the ER, and asymptomatic from that. Will have PT/OT evaluate the pt's strenght and ADL's, She lives in an assisted care facility and may need a higher level of care temporarily. Labs reviewed and I spoke with the ER provider regarding admission. Home meds reviewed with pt.
[2023-04-13] MEDS: SODIUM CHLORIDE 0.9% 1,000 ML 125 ML IV ×3 (03:48→21:11)
[2023-04-13 03:56] LABS: Magnesium 2.6 mg/dL (1.6-2.3)
--- NOTE | 2023-04-13 08:09 | P.HP_ITS ---
History of Present Illness History of Present Illness Date Patient Seen: 04/13/23 Time Patient Seen: 03:32 Chief complaint: GLF Narrative: The pt is a 67 yo with cerebral palsy who lives at [facility] who was trying to turn to use the toilet and fell. She was unable to get up so EMS was called and she was found to have a distal fibula fracture. Her BP was low, but we do not know what her baseline is, one liter of NS was given and labs drawn. Her Cr was elevated to 2.3. She denies any recent infections, N/V/diarrhea, no recent UTI and no recent change in her medications. The pt normally uses a wheelchair but can bear weight on legs, Lately she has been having worsening weakness. [facility] Medical History (Updated 04/13/23 @ 12:39 by Yaquelin Spears PA-C) Cerebral palsy History of esophageal dilatation History of esophageal stricture Flesh-eating bacteria Achilles tendon injury Sepsis Cellulitis Surgical History History of dilatation and curettage Hx of total knee arthroplasty Status post surgery (06/23/14) Status post appendectomy Family History Mother Cardiac disease Father Diabetes mellitus COPD (chronic obstructive pulmonary disease) Brother In good health Social History household members: none Smoking Status: Never smoker alcohol intake: former Meds Home Medications and Allergies Home Medications Medication Instructions Recorded Confirmed Type albuterol sulfate 90 mcg/actuation 2 puff inhalation Q4H PRN Wheezing 05/09/18 01/17/22 History aerosol inhaler lisinopril 10 mg tablet 10 mg PO DAILY #30 tabs 05/11/18 04/13/23 Rx fluoxetine 20 mg capsule 40 mg PO QDAY 07/23/21 04/13/23 History gabapentin 300 mg capsule 900 mg PO QAM 07/23/21 04/13/23 History (Neurontin) gabapentin 600 mg tablet 1,200 mg PO BEDTIME 07/23/21 04/13/23 History (Neurontin) lamotrigine 100 mg tablet 300 mg PO QDAY 07/23/21 04/13/23 History (Lamictal) acetaminophen 500 mg tablet 500 mg PO Q6H PRN pain 04/13/23 04/13/23 History buspirone 5 mg tablet 5 mg PO TID 04/13/23 04/13/23 History calcium carbonate 200 mg calcium 500 mg PO Q4HR PRN Dyspepsia 04/13/23 04/13/23 History (500 mg) chewable tablet (Antacid (calcium carbonate)) carvedilol 3.125 mg tablet 3.125 mg PO DAILY 04/13/23 04/13/23 History celecoxib 200 mg capsule 200 mg PO DAILY 04/13/23 04/13/23 History cetirizine 10 mg tablet 10 mg PO DAILY 04/13/23 04/13/23 History cyclobenzaprine 10 mg tablet 10 mg PO DAILY 04/13/23 04/13/23 History fluoxetine 20 mg capsule 20 mg PO DAILY 04/13/23 04/13/23 History furosemide 40 mg tablet 40 mg PO DAILY 04/13/23 04/13/23 History melatonin 3 mg tablet 6 mg PO BEDTIME 04/13/23 04/13/23 History oxycodone 5 mg tablet 5 mg PO Q6HR PRN Pain (Scale Score 04/13/23 04/13/23 History 4-6) polyethylene glycol 3350 17 gram 17 g PO BID PRN Constipation 04/13/23 04/13/23 History oral powder packet sennosides 17.2 mg tablet 17.2 mg PO DAILY PRN Constipation 04/13/23 04/13/23 History terbinafine HCl 250 mg tablet 250 mg PO DAILY 04/13/23 04/13/23 History trazodone 50 mg tablet 25 mg PO BEDTIME sleep 04/13/23 04/13/23 History Allergies Allergy/AdvReac Type Severity Reaction Status Date / Time clindamycin Allergy Mild RASH & N/V Verified 01/15/22 20:08 Review of Systems Review of Systems Narrative: All other systems reviewed with the patient and are negative unless otherwise stated. Exam Vital Signs (past 8 hours): - 04/13/23 00:30 04/13/23 00:40 04/13/23 00:40 Temperature Pulse Rate 74 73 Respiratory Rate Blood Pressure 113/58 L Pulse Oximetry 93 95 Oxygen Delivery Method 04/13/23 00:45 04/13/23 00:45 04/13/23 00:51 Temperature Pulse Rate 73 Respiratory Rate Blood Pressure 111/56 L 96/51 L Pulse Oximetry 95 Oxygen Delivery Method 04/13/23 00:51 04/13/23 00:55 04/13/23 00:55 Temperature Pulse Rate 73 73 Respiratory Rate Blood Pressure 95/50 L Pulse Oximetry 94 95 Oxygen Delivery Method 04/13/23 01:00 04/13/23 01:00 04/13/23 01:05 Temperature Pulse Rate 70 71 Respiratory Rate Blood Pressure 93/54 L Pulse Oximetry 93 95 Oxygen Delivery Method 04/13/23 01:05 04/13/23 01:10 04/13/23 01:10 Temperature Pulse Rate 72 Respiratory Rate Blood Pressure 108/58 L 114/58 L Pulse Oximetry 96 Oxygen Delivery Method 04/13/23 01:15 04/13/23 01:15 04/13/23 01:20 Temperature Pulse Rate 79 74 Respiratory Rate Blood Pressure 119/58 L Pulse Oximetry 94 94 Oxygen Delivery Method 04/13/23 01:20 04/13/23 01:26 04/13/23 01:26 Temperature Pulse Rate 76 Respiratory Rate Blood Pressure 116/59 L 150/60 H Pulse Oximetry 95 Oxygen Delivery Method 04/13/23 01:30 04/13/23 01:30 04/13/23 01:35 Temperature Pulse Rate 77 70 Respiratory Rate Blood Pressure 141/65 H Pulse Oximetry 94 94 Oxygen Delivery Method 04/13/23 01:35 04/13/23 01:40 04/13/23 01:40 Temperature Pulse Rate 71 Respiratory Rate Blood Pressure 113/58 L 120/60 Pulse Oximetry 94 Oxygen Delivery Method 04/13/23 01:45 04/13/23 01:45 04/13/23 01:50 Temperature Pulse Rate 72 Respiratory Rate Blood Pressure 124/60 124/59 L Pulse Oximetry 95 Oxygen Delivery Method 04/13/23 01:50 04/13/23 01:55 04/13/23 01:55 Temperature Pulse Rate 73 70 Respiratory Rate Blood Pressure 118/56 L Pulse Oximetry 93 93 Oxygen Delivery Method 04/13/23 02:00 04/13/23 02:00 04/13/23 02:05 Temperature Pulse Rate 75 Respiratory Rate Blood Pressure 120/62 126/60 Pulse Oximetry 93 Oxygen Delivery Method 04/13/23 02:05 04/13/23 02:16 04/13/23 02:16 Temperature Pulse Rate 77 65 Respiratory Rate Blood Pressure 137/85 Pulse Oximetry 94 93 Oxygen Delivery Method 04/13/23 02:21 04/13/23 02:21 04/13/23 02:27 Temperature Pulse Rate 74 69 Respiratory Rate Blood Pressure 125/60 Pulse Oximetry 94 92 Oxygen Delivery Method 04/13/23 02:27 04/13/23 02:30 04/13/23 02:31 Temperature Pulse Rate 70 Respiratory Rate Blood Pressure 119/76 101/49 L Pulse Oximetry 93 Oxygen Delivery Method 04/13/23 02:31 04/13/23 02:34 04/13/23 02:34 Temperature Pulse Rate 73 70 Respiratory Rate Blood Pressure 113/51 L Pulse Oximetry 94 93 Oxygen Delivery Method 04/13/23 02:36 04/13/23 02:36 04/13/23 02:46 Temperature Pulse Rate 67 70 Respiratory Rate Blood Pressure 102/62 Pulse Oximetry 93 93 Oxygen Delivery Method Room Air 04/13/23 02:46 04/13/23 02:51 04/13/23 02:51 Temperature Pulse Rate 69 Respiratory Rate Blood Pressure 90/55 L 93/51 L Pulse Oximetry 92 Oxygen Delivery Method 04/13/23 02:54 04/13/23 02:55 04/13/23 03:19 Temperature Pulse Rate 70 Respiratory Rate Blood Pressure 88/53 L Pulse Oximetry 91 94 Oxygen Delivery Method Room Air Room Air 04/13/23 03:19 Temperature 97.6 F Pulse Rate 87 Respiratory Rate 14 Blood Pressure 122/51 L Pulse Oximetry 94 Oxygen Delivery Method Oxygen Delivery Method Room Air Narrative Exam Narrative: GEN: no acute distress HEENT: moist mucous membranes, PERRL NECK: trachea midline, no JVD CV: regular rate and rhythm, no murmurs PULM: clear bilaterally ABD: soft, nontender, nondistended, no organomegaly EXT: warm and well perfused with no edema NEURO: awake, alert, oriented, no focal deficits Objective Labs 04/13/23 08:37 04/13/23 08:37 Labs: Laboratory Results - last 24 hr 04/12/23 04/13/23 00:15 00:15 WBC 8.0 RBC 3.58 L Hgb 10.9 L Hct 32.6 L MCV 91.1 MCH 30.4 MCHC 33.4 RDW 13.5 Plt Count 131 L Neut % (Auto) 68.2 Lymph % (Auto) 22.0 L [place] % (Auto) 7.4 Eos % (Auto) 1.4 L Baso % (Auto) 1.0 Neut # (Auto) 5400 Lymph # (Auto) 1800 [place] # (Auto) 600 Eos # (Auto) 100 Baso # (Auto) 100 Sodium 133 L Potassium 5.2 H Chloride 98 Carbon Dioxide 29 BUN 65 H Creatinine 2.23 H Estimated GFR 23 L BUN/Creatinine Ratio 29.1 H Glucose 275 H Lactate 1.3 Calcium 9.0 Magnesium 2.6 H Total Bilirubin 0.6 AST 20 ALT 19 Alkaline Phosphatase 119 Total Protein 6.3 Albumin 3.7 Globulin 2.6 Albumin/Globulin Ratio 1.4 Assessment & Plan Assessment and plan (1) Acute hypotension: Status: Acute Plan: Holding BP meds. Giving IVF and patient appears dry. (2) NEPTALI (acute kidney injury): Status: Acute Plan: Cr now downtrending with IVF. (3) Ankle fracture, right: Qualifiers: Encounter type: initial encounter Fracture type: closed Qualified Code(s): S82.891A - Other fracture of right lower leg, initial encounter for closed fracture Status: Acute Plan: Ortho said nonoperable. Rec walking boot and WBAT. Recommended Vit D and calcium supplements. F/up in ortho clinic in 2-3 weeks. Plan Dispo: Pending PT james.
[2023-04-13] MEDS: HEPARIN 5,000 UNIT/ML VIAL 5000 UNIT SUBCUT ×2 (08:18→21:11)
[2023-04-13] MEDS: GABAPENTIN 300 MG CAPSULE 900 MG PO (08:18)
[2023-04-13] MEDS: polyethylene glycoL 3350 17 GM POWD.PACK PO (08:18)
[2023-04-13] MEDS: carvediloL 3.125 MG TABLET 6.25 MG PO (08:18)
[2023-04-13] MEDS: FLUoxetine 20 MG CAPSULE 40 MG PO (08:18)
[2023-04-13] MEDS: lamoTRIgine 100 MG TABLET 300 MG PO (08:18)
[2023-04-13] MEDS: HYDROCODONE/ACET 5/325 TABLET 1 TAB PO (08:19)
[2023-04-13] MEDS: ACETAMINOPHEN 325 MG TABLET 650 MG PO ×3 (08:19→18:30)
[2023-04-13 08:51] LABS: Add Manual Diff / Slide Review NO; Basophils Absolute Auto 0 /uL (0-100); Basophils Percent Auto 0.4 % (0-2); Eosinophils Absolute Auto 100 /uL (0-450); Eosinophils Percent Auto 1.5 % (2-4); Hematocrit 35.8 % (36-46); Hemoglobin 11.7 g/dL (12.0-16.0); Lymphocytes Absolute Auto 1700 /uL (1100-4500); Mean Corpuscular HGB Conc 32.8 % (30-36); Mean Corpuscular Hemoglobin 30.3 PG (26-34); Mean Corpuscular Volume 92.3 fL (80-100); Monocytes Absolute Auto 700 /uL (0-900); Monocytes Percent Auto 10.2 % (3-14); Neutrophils Absolute Auto 4000 /uL (1500-7000); Neutrophils Percent Auto 61.9 % (50-75); Platelet Count 119 X10^3/uL (150-400); Red Blood Cell Count 3.87 X10^6/uL (4.0-5.2); Red Cell Distribution Width 13.5 % (11.6-14.8); White Blood Cell Count 6.5 X10^3/uL (4.5-11.0)
[2023-04-13 09:06] LABS: BUN Creatinine Ratio 29.9 (6-22); Blood Urea Nitrogen 59 mg/dL (7-17); Calcium 8.9 mg/dL (8.4-10.2); Carbon Dioxide 27 mmol/L (22-32); Chloride 102 mmol/L (98-107); Estimated Glomerular Filt Rate 27 mL/min (>60); Glucose 255 mg/dL (80-110); HEMOLYSIS 21 (0-50); Potassium 4.6 mmol/L (3.4-5.1); Sodium 135 mmol/L (137-145)
[2023-04-13 09:52] LABS: Hemoglobin A1C% w Est Avg Glu 10.4 % (4.0-6.0)
--- NOTE | 2023-04-13 11:27 | P.CONS_ITS ---
History of Present Illness Consult details Date Patient Seen: 04/13/23 Time Patient Seen: 12:30 Chief complaint: GLF Narrative: Ms Qiu is a pleasant 67 yo woman who is a resident of [facility]. She has a h/o limited mobility of the right ankle and was turning in her bathroom last night when she fell to the ground with her foot turned underneath her. She was brought to the ED at and found to have a right distal fibula fracture. She has a h/o cerebral palsy that affects her right- sided motor function; she has a history of right-sided Achilles lengthening x 2. She has a history of left total knee arthroplasty by Dr Orantes. On my visit today, she is sitting up in bed and eating lunch with no complaints. She has not yet worked w/ PT since admission. Meds Home Medications and Allergies Home Medications Medication Instructions Recorded Confirmed Type albuterol sulfate 90 mcg/actuation 2 puff inhalation Q4H PRN Wheezing 05/09/18 01/17/22 History aerosol inhaler lisinopril 10 mg tablet 10 mg PO DAILY #30 tabs 05/11/18 04/13/23 Rx fluoxetine 20 mg capsule 40 mg PO QDAY 07/23/21 04/13/23 History gabapentin 300 mg capsule 900 mg PO QAM 07/23/21 04/13/23 History (Neurontin) gabapentin 600 mg tablet 1,200 mg PO BEDTIME 07/23/21 04/13/23 History (Neurontin) lamotrigine 100 mg tablet 300 mg PO QDAY 07/23/21 04/13/23 History (Lamictal) acetaminophen 500 mg tablet 500 mg PO Q6H PRN pain 04/13/23 04/13/23 History buspirone 5 mg tablet 5 mg PO TID 04/13/23 04/13/23 History calcium carbonate 200 mg calcium 500 mg PO Q4HR PRN Dyspepsia 04/13/23 04/13/23 History (500 mg) chewable tablet (Antacid (calcium carbonate)) carvedilol 3.125 mg tablet 3.125 mg PO DAILY 04/13/23 04/13/23 History celecoxib 200 mg capsule 200 mg PO DAILY 04/13/23 04/13/23 History cetirizine 10 mg tablet 10 mg PO DAILY 04/13/23 04/13/23 History cyclobenzaprine 10 mg tablet 10 mg PO DAILY 04/13/23 04/13/23 History fluoxetine 20 mg capsule 20 mg PO DAILY 04/13/23 04/13/23 History furosemide 40 mg tablet 40 mg PO DAILY 04/13/23 04/13/23 History melatonin 3 mg tablet 6 mg PO BEDTIME 04/13/23 04/13/23 History oxycodone 5 mg tablet 5 mg PO Q6HR PRN Pain (Scale Score 04/13/23 04/13/23 History 4-6) polyethylene glycol 3350 17 gram 17 g PO BID PRN Constipation 04/13/23 04/13/23 History oral powder packet sennosides 17.2 mg tablet 17.2 mg PO DAILY PRN Constipation 04/13/23 04/13/23 History terbinafine HCl 250 mg tablet 250 mg PO DAILY 04/13/23 04/13/23 History trazodone 50 mg tablet 25 mg PO BEDTIME sleep 04/13/23 04/13/23 History Allergies Allergy/AdvReac Type Severity Reaction Status Date / Time clindamycin Allergy Mild RASH & N/V Verified 01/15/22 20:08 Review of Systems Review of Systems ROS: Yes All systems reviewed with the patient and are negative except as otherwise documented Musculoskeletal Musculoskeletal: Reports as per HPI Exam Vital Signs (past 8 hours): - 04/13/23 08:00 04/13/23 08:05 04/13/23 08:18 Temperature 97.8 F Pulse Rate 74 87 Respiratory Rate 18 Blood Pressure 112/52 L 120/54 L 104/52 L Pulse Oximetry 94 Oxygen Delivery Method Oxygen Flow Rate 0 04/13/23 08:21 Temperature Pulse Rate Respiratory Rate Blood Pressure Pulse Oximetry 94 Oxygen Delivery Method Room Air Oxygen Flow Rate 0 Oxygen Delivery Method Room Air Oxygen Flow Rate 0 Const General: cooperative, comfortable and well developed Orientation: alert, awake and oriented x3 HENMT Head: normocephalic and atraumatic Ears: hearing grossly normal bilaterally Neck Neck: normal visual inspection Resp Effort & Inspection: normal respiratory effort and able to speak in complete sentences Cardio Rate: regular rate Extrem Other: Right ankle w/ short leg posterior splint in place. Pt able to wiggle toes without issue. Sensation to light touch intact throughout RLE. Objective Labs 04/13/23 08:37 04/13/23 08:37 Labs: Laboratory Results - last 24 hr 04/12/23 04/13/23 04/13/23 00:15 00:15 08:37 WBC 8.0 6.5 RBC 3.58 L 3.87 L Hgb 10.9 L 11.7 L Hct 32.6 L 35.8 L MCV 91.1 92.3 MCH 30.4 30.3 MCHC 33.4 32.8 RDW 13.5 13.5 Plt Count 131 L 119 L Neut % (Auto) 68.2 61.9 Lymph % (Auto) 22.0 L 26.0 [place] % (Auto) 7.4 10.2 Eos % (Auto) 1.4 L 1.5 L Baso % (Auto) 1.0 0.4 Neut # (Auto) 5400 4000 Lymph # (Auto) 1800 1700 [place] # (Auto) 600 700 Eos # (Auto) 100 100 Baso # (Auto) 100 0 Sodium 133 L 135 L Potassium 5.2 H 4.6 Chloride 98 102 Carbon Dioxide 29 27 BUN 65 H 59 H Creatinine 2.23 H 1.97 H Estimated GFR 23 L 27 L BUN/Creatinine Ratio 29.1 H 29.9 H Glucose 275 H 255 H Hemoglobin A1c 10.4 H Lactate 1.3 Calcium 9.0 8.9 Magnesium 2.6 H Total Bilirubin 0.6 AST 20 ALT 19 Alkaline Phosphatase 119 Total Protein 6.3 Albumin 3.7 Globulin 2.6 Albumin/Globulin Ratio 1.4 [facility] Medical History (Updated 04/13/23 @ 12:39 by Yaquelin Spears PA-C) Cerebral palsy History of esophageal dilatation History of esophageal stricture Flesh-eating bacteria Achilles tendon injury Sepsis Cellulitis Surgical History History of dilatation and curettage Hx of total knee arthroplasty Status post surgery (06/23/14) Status post appendectomy Family History Mother Cardiac disease Father Diabetes mellitus COPD (chronic obstructive pulmonary disease) Brother In good health Social History household members: none Tobacco & Substance Use Smoking Status: Never smoker alcohol intake: former Assessment & Plan Assessment and plan (1) Ankle fracture, right: Qualifiers: Encounter type: initial encounter Fracture type: closed Qualified Code(s): S82.891A - Other fracture of right lower leg, initial encounter for closed fracture Status: Acute Plan: Nonoperative, nondisplaced distal fibula fracture. Walking boot to right lower extremity, weightbearing as tolerated while wearing boot. May have off to sleep and shower, but do not bear weight on ankle if boot is off. Recommend calcium and vitamin D supplementation. Return to assisted living based on hospitalist and PT recommendations. Follow up in ortho office in 2-3 weeks for repeat imaging and advancement of activity as appropriate. (2) Arthritis of ankle, right, degenerative: Status: Acute (3) Osteopenia of right ankle: Status: Acute
[2023-04-13] MEDS: INSULIN LISPRO 100 UNIT/ML 3ML VIAL SUBCUT ×3 (12:07→21:11)
[2023-04-13] MEDS: OXYCODONE IR 10 MG TABLET PO (12:35)
--- NOTE | 2023-04-13 14:33 | PT.IIE ---
Current Diagnoses Hypotension, unspecified (04/13/23) Primary osteoarthritis, right ankle and foot (04/13/23) Other specified disorders of bone density and structure, right ankle and foot (04/13/23) Acute kidney failure, unspecified (04/13/23) Other fracture of right lower leg, initial encounter for closed fracture (04/13/23) Surgical History (Last Reviewed 04/13/23 @ 12:34 by Yaquelin Spears PA-C) History of dilatation and curettage Hx of total knee arthroplasty Status post appendectomy Status post surgery (06/23/14) Medical History (Last Reviewed 04/13/23 @ 12:34 by Yaquelin Spears PA-C) Achilles tendon injury Cellulitis Cerebral palsy Flesh-eating bacteria History of esophageal dilatation History of esophageal stricture Sepsis Physical Therapy Inpatient Evaluation/Re-Eval M1 PT/OT-IP Prior Functional Status Start: 04/13/23 08:32 Freq: NEEDED Status: Active Protocol: Document 04/13/23 13:48 MB (Rec: 04/13/23 14:33 MB [id number]) Medical Review Prior Functional Status Medical History Reviewed Yes Communication PT did not ask pt about baseline diet Mobility and Gait Transfers only from w/c to commode, bed, shower chair/ bench. Pt used bar in BR to help with transfer. Activities of Daily Living and IADL's Pt states that she occ has help for dressing, bathing and transfers as needed. Social History Household Members none Living Arrangements Assisted Living Number of Floors (Floors) One Floor Number of Stairs To Enter/Railing? Accessible facility, pt lives at [facility] Environment Walk in Shower Home Equipment Tub Transfer Bench,Hand Held Shower,Hospital Bed,Bed Rails, Grab Bars Near Toilet,Grab Bars In Shower Employment Status Unemployed M2 PT-IP Current Condition Start: 04/13/23 08:32 Freq: NEEDED Status: Active Protocol: Document 04/13/23 13:48 MB (Rec: 04/13/23 14:33 MB [id number]) Physical Therapy Current Condition Current Condition Evaluation Date 04/13/23 Treatment Diagnosis R nondisplaced distal fibular fracture M3 PT-IP Subjective Start: 04/13/23 08:32 Freq: NEEDED Status: Active Protocol: Document 04/13/23 13:48 MB (Rec: 04/13/23 14:33 MB [id number]) Subjective Physical Therapy Visit Type Type Initial Evaluation Visit Start Time 13:48 Visit Stop Time 14:15 Total Visit Minutes 27 Number of CHARGE GANG WEIGHER Visits 0 Physical Therapy Visit Comments Patient Comments Pt states that she would like to get back to [facility]. Therapy Pain Assessment Pain When Pain Assessed At Rest Pain Present Pain Present Pain Reported Location RIGHT ankle Intensity 2 Scale Used Stephen (Faces) Description Acute Pain Management Techniques Modification of Treatment,Re- positioning,Timing of Activity with Medications M4 PT-IP Mobility and Gait Start: 04/13/23 08:32 Freq: NEEDED Status: Active Protocol: Document 04/13/23 13:48 MB (Rec: 04/13/23 14:33 MB [id number]) PT-Bed Mobility Assessment Supine to Sit Supine to Sit Independent,1 Person Assistance,Head of Bed Elevated,Bedrails Sit to Supine Sit to Supine Independent,1 Person Assistance,Head of Bed Elevated,Bedrails Scooting Scooting to Edge of Bed Standby Assistance PT-Transfer Assessment Sit to and From Stand Sit to and from Stand Maximum Assistance,1 Person Assistance,Use of Upper Extremities Equipment Transfer Assistive Device Gait Belt,Front Wheeled Walker Comments Mobility Comments PT sees order for ortho boot for right foot and pt has splint donned. There is no boot or post-op shoe in the room. PT speaks with attending and ortho PA and they clear PT to obtain either as appropriate for pt. Pt right ankle presents with inversion in setting of CP, tone changes and weakness. PT is concerned about skin integrity in the splint with WB as well as lateral ankle skin integrity inside a walking/CAM boot given inversion position. PT will reassess pt's position as well as available supplies next treatment date. PT-Balance Assessment Sitting Balance and Reactions Static Sitting Balance Ability Good Dynamic Sitting Balance Ability Good M5 PT-IP Objective Assessments Start: 04/13/23 08:32 Freq: NEEDED Status: Active Protocol: Document 04/13/23 13:48 MB (Rec: 04/13/23 14:33 MB [id number]) Orientation Orientation/Cognition Level of Alertness Alert Orientation Name,Age,Birthday,Month,Year, Day of Week,Place,Situation Language Function Ability No Deficits Noted Safety Awareness Understands Safety Issues Memory Description No Deficits Noted Gross Range of Motion Upper Extremity ROM Impairments Defer to OT Lower Extremity ROM Assessment Right Impaired Impairments R distal extremity is splinted Strength Lower Extremity Strength Assessment Right Impaired Comments Strength Comments Pt does not tolerate MMT, left LE is grossly functional Sensation Assessment Sensation Gross Sensation WNL M6 PT-IP Treatment Start: 04/13/23 08:32 Freq: NEEDED Status: Active Protocol: Document 04/13/23 13:48 MB (Rec: 04/13/23 14:33 MB [id number]) Physical Therapy Treatment Education Education Provided Precautions,Weight Bearing Status,Safety Other Treatments Other Treatment Performed See above about boot/RLE comments M7 PT-IP Assessment and Plan Start: 04/13/23 08:32 Freq: NEEDED Status: Active Protocol: Document 04/13/23 13:48 MB (Rec: 04/13/23 14:33 MB [id number]) PT Summary Assessment and Plan Potential Rehabilitation Potential Fair Status of Condition at Evaluation Evolving Summary Impairments Pain,Strength,Balance,Bed Mobility,Transfers,Activity Tolerance Progress Towards Goals Slow Progress due to Pain Assessment Summary Pt is a 67 y/o female who fell at her [facility], when transferring in the BR and sustained a non-displaced right distal fibular fracture. She is WBAT and has ortho boot ordered. PT looks at supplies of ortho boots and they are too tall for pt's leg length and her leg girth is larger. Also, pt's right foot is in inverted position, even in the splint, and so unsure if WBAT in a CAM walker/ortho boot is a good option for her skin integrity. Attending and ortho PA clear PT to provide either post-op shoe with foot in splint (PT is currently favoring this option) or ortho walking boot. This occurs after assessment today and PT can reassess next date. Pt is Mod I for bed mobility with HOB increased and heavy use of rails. She is unable to stand up well using UEs, RW, PT assist at gait belt and left foot: her right foot in splint tends to WB. Goals Bed Mobility Goal Independent Transfer Goal Standby Assistance,Front Wheeled Walker Other Goals Pt was non-ambulatory at baseline. She transfers at the bar in the BR and this will not be able to be recreated from the bed in the hospital setting. Will attempt transfer /SPT with LRAD. Frequency of Treatment Frequency Of Treatment Once a Day Treatment Plan Physical Therapy Treatment Plan Bed Mobility Training,Transfer Training,Therapeutic Exercise ,Balance Retraining,Discharge Planning Precautions Other Precautions WBAT RLE in splint with post- op shoe or without splint and in ortho/CAM walking boot Weight Bearing Status Weight Bearing Status Weight Bear as Tolerated Recommendations To Nursing Amount of Assist Needed Total Assistance Discharge Recommendations PT Discharge Recommendations Home vs SNF Transportation Needs at Discharge Stretcher/Ambulance
[2023-04-13] MEDS: HYDROMORPHONE 0.5 MG INJ IV (15:16)
--- NOTE | 2023-04-13 16:17 | CM.DANOTE ---
Initial DCP Assessment Note Pt is a 67 yo female, resident at [facility] x1 year, arrives after GLF and subsequent ankle fx, non-operable. PT recommending home vs SNF today, patient awaiting a boot per notes, WBAT. PCP: Aleksandra Roque Payer: [facility] Reviewed chart, met w/patient to introduce self and role and to review discharge plan. Patient reports she is mostly in her wheelchair and can self transfer off/on the toilet and in/out of bed. Explained that patient may not be able to return directly back to [facility] d/t her injury. Patient may require additional assist. Patient states understanding and is okay with [facility]. Patient review her concern many times this visit about losing her bed at [facility] and would like this CM team to discuss with [facility]. Patient has CARRILLO, says her participation fee is $1,681 per mo at [facility]. Referral discussed with Rahel at [facility]- they are not contracted w/patient's insurance however there may be an exception since [facility] is [facility] sister facility. Plan: Discharge to SNF is anticipated, [facility] reviewing. [facility] auth required PASRR ----> Likely Hospital Exempt Discharge, Home med- Prozac. CM team needs to review and complete PASRR, signature as needed. CM team following closely for coordination of discharge plan. SERGIO Orourke Discharge Planning/Care Management CM Discharge Assessment Start: 04/13/23 16:14 Freq: Status: Active Protocol: Document 04/13/23 16:14 ISA (Rec: 04/13/23 16:17 ISA [id number]) Discharge Planning Assessment Assigned Sports Equipment Supervisor SERGIO Bolden DPOA/Assigned Designee Name Clayton Qiu brother Contact Information [phone] Advance Directives? Yes: polst Advance Directives on File Yes History Provided By Patient,Medical Record Prior Living Arrangements Assisted Living Household Members none Type of transporation used prior to Relies on Others admit Facility Name Admitted From: [facility] Willing to Return to Facility? Yes: Patient okay with [facility] upon discharge Independent with ADL's No Is patient alert and oriented? Yes Needs Assistance With Bathing,Grooming,Meal Prep, Toileting,Managing Medications ,Home Chores / Shopping Patient/Family Preference Half-Way Facility Barriers to Discharge Yes Comment Expected to need time at [facility] before return to [facility] Discharge Plan Half-Way Facility Transportation Arrangement TBD Referrals Initiated Half-Way Additional Comment Sent referral to [facility]. Medicare choice list reviewed on patient electronic tablet with SNF/HH Preference [facility] Has Agency SNF been contacted Yes Whiteboard Updated in Patient Room with Yes name and ext. # of Sports Equipment Supervisor
[2023-04-13] MEDS: OXYCODONE IR 5 MG TABLET PO (18:30)
[2023-04-13] MEDS: SENNOSIDES 8.6 MG TABLET 17.2 MG PO (21:12)
[2023-04-14] MEDS: OXYCODONE IR 5 MG TABLET PO (00:12)
[2023-04-14] MEDS: ACETAMINOPHEN 325 MG TABLET 650 MG PO ×2 (00:13→06:44)
[2023-04-14 01:51] VITALS: BP 94/48; PULSE 72; RESP 20; TEMP 36.1; O2SAT 94
[2023-04-14 02:00] VITALS: BP 88/46
[2023-04-14] MEDS: SODIUM CHLORIDE 0.9% 500 ML 1000 ML IV (02:10)
[2023-04-14 03:00] VITALS: BP 101/50
[2023-04-14] MEDS: ALBUTEROL 2.5 MG/3 ML NEB (ADULT) INH (03:13)
[2023-04-14 06:00] VITALS: O2SAT 95
[2023-04-14 06:41] LABS: Add Manual Diff / Slide Review NO; Basophils Absolute Auto 0 /uL (0-100); Basophils Percent Auto 0.3 % (0-2); Eosinophils Absolute Auto 100 /uL (0-450); Eosinophils Percent Auto 1.1 % (2-4); Hematocrit 30.7 % (36-46); Hemoglobin 10.2 g/dL (12.0-16.0); Lymphocytes Absolute Auto 1700 /uL (1100-4500); Lymphocytes Percent Auto 33.9 % (25-40); Mean Corpuscular HGB Conc 33.2 % (30-36); Mean Corpuscular Hemoglobin 30.9 PG (26-34); Mean Corpuscular Volume 93.2 fL (80-100); Monocytes Absolute Auto 500 /uL (0-900); Neutrophils Absolute Auto 2800 /uL (1500-7000); Neutrophils Percent Auto 55.7 % (50-75); Platelet Count 113 X10^3/uL (150-400); Red Blood Cell Count 3.29 X10^6/uL (4.0-5.2); Red Cell Distribution Width 13.7 % (11.6-14.8); White Blood Cell Count 5.1 X10^3/uL (4.5-11.0)
[2023-04-14] MEDS: SODIUM CHLORIDE 0.9% 1,000 ML 125 ML IV (06:44)
[2023-04-14 06:49] VITALS: BP 122/45; PULSE 72; RESP 19; TEMP 36.2; O2SAT 95
[2023-04-14 06:49] LABS: BUN Creatinine Ratio 26.4 (6-22); Blood Urea Nitrogen 48 mg/dL (7-17); Carbon Dioxide 25 mmol/L (22-32); Chloride 107 mmol/L (98-107); Estimated Glomerular Filt Rate 30 mL/min (>60); Glucose 217 mg/dL (80-110); HEMOLYSIS < 15 (0-50); Potassium 4.6 mmol/L (3.4-5.1); Sodium 136 mmol/L (137-145)
--- NOTE | 2023-04-14 08:46 | PT-IP ANOTE ---
PT checks in on pt's foot/ortho boot/splint situation again. Pt states that her right foot never goes flat d/t CP changes. It always has some inversion. PT spoke with hospitalist and ortho PA yesterday and PT looked at hospital supply of post-op shoes and walking boots. PT is concerned about all of these options. Nsg and PT agree that home lending officer or orthopedist is best person to evaluate what the patient needs for safe WBAT RLE s/p fibular fracture as she may not safely be able to wear post op boot given inverted foot position.
[2023-04-14] MEDS: INSULIN LISPRO 100 UNIT/ML 3ML VIAL SUBCUT (08:47)
[2023-04-14] MEDS: polyethylene glycoL 3350 17 GM POWD.PACK PO (08:47)
[2023-04-14] MEDS: lamoTRIgine 100 MG TABLET 300 MG PO (08:47)
[2023-04-14] MEDS: GABAPENTIN 300 MG CAPSULE 900 MG PO (08:47)
[2023-04-14] MEDS: FLUoxetine 20 MG CAPSULE 40 MG PO (08:48)
[2023-04-14] MEDS: OXYCODONE IR 10 MG TABLET PO (08:48)
[2023-04-14] MEDS: HEPARIN 5,000 UNIT/ML VIAL 5000 UNIT SUBCUT (08:49)
--- NOTE | 2023-04-14 10:54 | PM.PN.1 ---
Subjective Subjective Date Patient Seen: 04/14/23 Time Patient Seen: 10:54 Interval history: Pain is mild. Wearing the boot as directed. Denies numbness and tingling. Exam Vital Signs (past 8 hours): - 04/14/23 03:00 04/14/23 03:13 04/14/23 06:00 Temperature Pulse Rate Respiratory Rate Blood Pressure 101/50 L Pulse Oximetry 95 Oxygen Delivery Method Room Air Room Air Oxygen Flow Rate 04/14/23 06:49 Temperature 97.1 F L Pulse Rate 72 Respiratory Rate 19 Blood Pressure 122/45 L Pulse Oximetry 95 Oxygen Delivery Method Oxygen Flow Rate 0 Oxygen Delivery Method Room Air Oxygen Flow Rate 0 Narrative Exam Narrative: 67-year-old female sitting at edge of bed in no apparent distress. Her brace/walking boot is in place. Motor functions intact distally. Sensation grossly intact to light touch. Const General: cooperative and comfortable Nutritional Appearance: well nourished Orientation: alert Objective Labs 04/14/23 05:50 04/14/23 05:50 Labs: Laboratory Results - last 24 hr 04/14/23 05:50 WBC 5.1 RBC 3.29 L Hgb 10.2 L Hct 30.7 L MCV 93.2 MCH 30.9 MCHC 33.2 RDW 13.7 Plt Count 113 L Neut % (Auto) 55.7 Lymph % (Auto) 33.9 [place] % (Auto) 9.0 Eos % (Auto) 1.1 L Baso % (Auto) 0.3 Neut # (Auto) 2800 Lymph # (Auto) 1700 [place] # (Auto) 500 Eos # (Auto) 100 Baso # (Auto) 0 Sodium 136 L Potassium 4.6 Chloride 107 Carbon Dioxide 25 BUN 48 H Creatinine 1.82 H Estimated GFR 30 L BUN/Creatinine Ratio 26.4 H Glucose 217 H Calcium 8.0 L PFSH Medical History Cerebral palsy History of esophageal dilatation History of esophageal stricture Flesh-eating bacteria Achilles tendon injury Sepsis Cellulitis Surgical History History of dilatation and curettage Hx of total knee arthroplasty Status post surgery (06/23/14) Status post appendectomy Family History Mother Cardiac disease Father Diabetes mellitus COPD (chronic obstructive pulmonary disease) Brother In good health Social History household members: none Smoking Status: Never smoker alcohol intake: former Assessment & Plan Assessment & Plan narrative: Nondisplaced distal fibula fracture, right Walking boot to be worn at all times, weight-bearing as tolerated Recommend calcium and vitamin-D supplementation Follow up in orthopedic outpatient clinic in 2-3 weeks with repeat imaging Return to assisted living per hospitalist when stable
--- NOTE | 2023-04-14 10:55 | P.DS_ITS ---
History of Present Illness History of Present Illness Chief complaint: GLF Narrative: The pt is a 67 yo with cerebral palsy who lives at [facility] who was trying to turn to use the toilet and fell. She was unable to get up so EMS was called and she was found to have a distal fibula fracture. Her BP was low, but we do not know what her baseline is, one liter of NS was given and labs drawn. Her Cr was elevated to 2.3. She denies any recent infections, N/V/diarrhea, no recent UTI and no recent change in her medications. The pt normally uses a wheelchair but can bear weight on legs, Lately she has been having worsening weakness. Discharge Providers Provider Date of admission: 04/13/23 02:24 Discharge Date: 04/14/23 Primary care physician: VICTOR HUGO Rouqe Consults: 04/13/23 08:15 Consult to Orthopedic Surgery Routine Comment: Consulting Provider: Dariela Orantes Reason for consultation: R ankle fracture 04/13/23 08:22 Consult to Occupational Therapy Evaluate & Treat Comment: Physician Instructions: Evaluate and treat Consult to Physical Therapy Evaluate & Treat Comment: Physician Instructions: Evaluate and Treat 04/13/23 23:42 Consult to Dietitian, Adult Routine Comment: Reason For Exam: A1C 10.4 Discharge provider: Farhad Costello DO Summary Hospital Course Discharge Diagnosis: (1) Acute hypotension: Status: Resolved Plan: Holding BP meds. Giving IVF and patient appears dry. BP improved. (2) NEPTALI (acute kidney injury): Status: Acute Plan: Cr now downtrending with IVF. (3) Ankle fracture, right: Qualifiers: Encounter type: initial encounter Fracture type: closed Qualified Code(s): S82.891A - Other fracture of right lower leg, initial encounter for closed fracture Status: Acute Plan: Ortho said nonoperable. Rec splint + her home orthotic and WBAT. Recommended Vit D and calcium supplements. F/up in ortho clinic in 2-3 weeks. Hospital Course: Admitted for fall resulting in R ankle fracture. Non-operable per ortho and splint was recommended. She will f/up in ortho clinic. HH rec by PT. Had NEPTALI and hypotension which improved with IVF. [facility]. Placed on calcium and vit D supplements. Exam Vital Signs (past 8 hours): - 12/11/23 00:30 04/13/23 00:40 04/13/23 00:40 Temperature Pulse Rate 74 73 Respiratory Rate Blood Pressure 113/58 L Pulse Oximetry 93 95 Oxygen Delivery Method 04/13/23 00:45 04/13/23 00:45 04/13/23 00:51 Temperature Pulse Rate 73 Respiratory Rate Blood Pressure 111/56 L 96/51 L Pulse Oximetry 95 Oxygen Delivery Method 04/13/23 00:51 04/13/23 00:55 04/13/23 00:55 Temperature Pulse Rate 73 73 Respiratory Rate Blood Pressure 95/50 L Pulse Oximetry 94 95 Oxygen Delivery Method 04/13/23 01:00 04/13/23 01:00 04/13/23 01:05 Temperature Pulse Rate 70 71 Respiratory Rate Blood Pressure 93/54 L Pulse Oximetry 93 95 Oxygen Delivery Method 04/13/23 01:05 04/13/23 01:10 04/13/23 01:10 Temperature Pulse Rate 72 Respiratory Rate Blood Pressure 108/58 L 114/58 L Pulse Oximetry 96 Oxygen Delivery Method 04/13/23 01:15 04/13/23 01:15 04/13/23 01:20 Temperature Pulse Rate 79 74 Respiratory Rate Blood Pressure 119/58 L Pulse Oximetry 94 94 Oxygen Delivery Method 04/13/23 01:20 04/13/23 01:26 04/13/23 01:26 Temperature Pulse Rate 76 Respiratory Rate Blood Pressure 116/59 L 150/60 H Pulse Oximetry 95 Oxygen Delivery Method 04/13/23 01:30 04/13/23 01:30 04/13/23 01:35 Temperature Pulse Rate 77 70 Respiratory Rate Blood Pressure 141/65 H Pulse Oximetry 94 94 Oxygen Delivery Method 04/13/23 01:35 04/13/23 01:40 04/13/23 01:40 Temperature Pulse Rate 71 Respiratory Rate Blood Pressure 113/58 L 120/60 Pulse Oximetry 94 Oxygen Delivery Method 04/13/23 01:45 04/13/23 01:45 04/13/23 01:50 Temperature Pulse Rate 72 Respiratory Rate Blood Pressure 124/60 124/59 L Pulse Oximetry 95 Oxygen Delivery Method 04/13/23 01:50 04/13/23 01:55 04/13/23 01:55 Temperature Pulse Rate 73 70 Respiratory Rate Blood Pressure 118/56 L Pulse Oximetry 93 93 Oxygen Delivery Method 04/13/23 02:00 04/13/23 02:00 04/13/23 02:05 Temperature Pulse Rate 75 Respiratory Rate Blood Pressure 120/62 126/60 Pulse Oximetry 93 Oxygen Delivery Method 04/13/23 02:05 04/13/23 02:16 04/13/23 02:16 Temperature Pulse Rate 77 65 Respiratory Rate Blood Pressure 137/85 Pulse Oximetry 94 93 Oxygen Delivery Method 04/13/23 02:21 04/13/23 02:21 04/13/23 02:27 Temperature Pulse Rate 74 69 Respiratory Rate Blood Pressure 125/60 Pulse Oximetry 94 92 Oxygen Delivery Method 04/13/23 02:27 04/13/23 02:30 04/13/23 02:31 Temperature Pulse Rate 70 Respiratory Rate Blood Pressure 119/76 101/49 L Pulse Oximetry 93 Oxygen Delivery Method 04/13/23 02:31 04/13/23 02:34 04/13/23 02:34 Temperature Pulse Rate 73 70 Respiratory Rate Blood Pressure 113/51 L Pulse Oximetry 94 93 Oxygen Delivery Method 04/13/23 02:36 04/13/23 02:36 04/13/23 02:46 Temperature Pulse Rate 67 70 Respiratory Rate Blood Pressure 102/62 Pulse Oximetry 93 93 Oxygen Delivery Method Room Air 04/13/23 02:46 04/13/23 02:51 04/13/23 02:51 Temperature Pulse Rate 69 Respiratory Rate Blood Pressure 90/55 L 93/51 L Pulse Oximetry 92 Oxygen Delivery Method 04/13/23 02:54 04/13/23 02:55 04/13/23 03:19 Temperature Pulse Rate 70 Respiratory Rate Blood Pressure 88/53 L Pulse Oximetry 91 94 Oxygen Delivery Method Room Air Room Air 04/13/23 03:19 Temperature 97.6 F Pulse Rate 87 Respiratory Rate 14 Blood Pressure 122/51 L Pulse Oximetry 94 Oxygen Delivery Method Oxygen Delivery Method Room Air Narrative Exam Narrative: GEN: no acute distress HEENT: moist mucous membranes, PERRL NECK: trachea midline, no JVD CV: regular rate and rhythm, no murmurs PULM: clear bilaterally ABD: soft, nontender, nondistended, no organomegaly EXT: warm and well perfused with no edema, splint on R ankle NEURO: awake, alert, oriented, no focal deficits Objective Labs 04/14/23 05:50 04/14/23 05:50 Labs: Laboratory Results - last 24 hr 04/14/23 05:50 WBC 5.1 RBC 3.29 L Hgb 10.2 L Hct 30.7 L MCV 93.2 MCH 30.9 MCHC 33.2 RDW 13.7 Plt Count 113 L Neut % (Auto) 55.7 Lymph % (Auto) 33.9 [place] % (Auto) 9.0 Eos % (Auto) 1.1 L Baso % (Auto) 0.3 Neut # (Auto) 2800 Lymph # (Auto) 1700 [place] # (Auto) 500 Eos # (Auto) 100 Baso # (Auto) 0 Sodium 136 L Potassium 4.6 Chloride 107 Carbon Dioxide 25 BUN 48 H Creatinine 1.82 H Estimated GFR 30 L BUN/Creatinine Ratio 26.4 H Glucose 217 H Calcium 8.0 L PFSH Medical History (Updated 04/13/23 @ 14:37 by Yaquelin Spears PA-C) Cerebral palsy History of esophageal dilatation History of esophageal stricture Flesh-eating bacteria Achilles tendon injury Sepsis Cellulitis Surgical History History of dilatation and curettage Hx of total knee arthroplasty Status post surgery (06/23/14) Status post appendectomy Family History Mother Cardiac disease Father Diabetes mellitus COPD (chronic obstructive pulmonary disease) Brother In good health Social History household members: none Smoking Status: Never smoker alcohol intake: former Discharge Plan Discharge Plan Patient Disposition: Home Health Service Discharge orders & Medications Prescriptions: New oxycodone 5 mg Tablet 5 mg PO Q4HR PRN (Reason: Pain, Moderate (4-6)) Qty: 20 0RF calcium carbonate [Calcium 600] 600 mg calcium (1,500 mg) tablet 600 mg PO DAILY Qty: 30 0RF cholecalciferol (vitamin D3) [Vitamin D3] 50 mcg (2,000 unit) capsule 50 mcg PO DAILY Qty: 30 0RF Continued albuterol sulfate 90 mcg/actuation HFA aerosol inhaler 2 puff Inhalation Q4H PRN (Reason: Wheezing) lisinopril 10 mg Tablet 10 mg PO DAILY Qty: 30 0RF celecoxib 200 mg capsule 200 mg PO DAILY cyclobenzaprine 10 mg tablet 10 mg PO DAILY furosemide 40 mg tablet 40 mg PO DAILY buspirone 5 mg tablet 5 mg PO TID trazodone 50 mg tablet 25 mg PO BEDTIME polyethylene glycol 3350 17 gram Powder In Packet 17 g PO BID PRN (Reason: Constipation) cetirizine 10 mg tablet 10 mg PO DAILY melatonin 3 mg tablet 6 mg PO BEDTIME acetaminophen 500 mg Tablet 500 mg PO Q6H PRN (Reason: pain) carvedilol 3.125 mg tablet 3.125 mg PO DAILY terbinafine HCl 250 mg tablet 250 mg PO DAILY calcium carbonate [Antacid (calcium carbonate)] 200 mg calcium (500 mg) tablet,chewable 500 mg PO Q4HR PRN (Reason: Dyspepsia) fluoxetine 20 mg capsule 20 mg PO DAILY oxycodone 5 mg tablet 5 mg PO Q6HR PRN (Reason: Pain (Scale Score 4-6)) sennosides 17.2 mg Tablet 17.2 mg PO DAILY PRN (Reason: Constipation) fluoxetine 20 mg capsule 40 mg PO QDAY lamotrigine [Lamictal] 100 mg tablet 300 mg PO QDAY gabapentin [Neurontin] 600 mg tablet 1,200 mg PO BEDTIME gabapentin [Neurontin] 300 mg capsule 900 mg PO QAM Follow up/Referrals: Alie Salmeron ARNP [Primary Care Provider] - 1 Week Dariela Orantes MD [Physician] - 1 Week (Call for appt in ortho office w/ Dr Orantes.) Diet/Activity/Treatments Activity: Weightbearing as tolerated to right leg w/ walking boot in place. May have boot off to sleep and shower, but do not put weight on right foot if boot is off. Cold/Heat Therapy: Ice to right ankle as needed for pain. Visit Report/Discharge Packet Instructions: DI for Fracture Stand Alone Forms: Patient Portal/API, Stroke Signs & Symptoms Discharge Data Primary Care Provider: Alie Salmeron
--- NOTE | 2023-04-14 11:26 | PT.IPTN ---
Current Diagnoses Cerebral palsy, unspecified (04/13/23) Hypotension, unspecified (04/13/23) Primary osteoarthritis, right ankle and foot (04/13/23) Other specified disorders of bone density and structure, right ankle and foot (04/13/23) Acute kidney failure, unspecified (04/13/23) Other fracture of right lower leg, initial encounter for closed fracture (04/13/23) Physical Therapy Treatment Note M2 PT-IP Current Condition Start: 04/13/23 08:32 Freq: NEEDED Status: Active Protocol: Document 04/13/23 13:48 MB (Rec: 04/13/23 14:33 MB [id number]) Physical Therapy Current Condition Current Condition Evaluation Date 04/13/23 Treatment Diagnosis R nondisplaced distal fibular fracture M3 PT-IP Subjective Start: 04/13/23 08:32 Freq: NEEDED Status: Active Protocol: Document 04/14/23 08:30 MB (Rec: 04/14/23 11:26 MB [id number]) Subjective Physical Therapy Visit Type Type Treatment Note Visit Start Time 08:30 Visit Stop Time 11:14 Total Visit Minutes 90 Notes Split treatment. 30' a.m. treatment coordinating correct right boot for pt with nsg, MD, pt and ortho. 60' later to don her custom shoe on right foot after cleared by ortho, get tegaderm, get pt's w/c, assess mobility, coordinate d/ c with SW, pt and nsg Number of OYSTER FLOATER Visits 0 Physical Therapy Visit Comments Patient Comments The stars are aligned for me today. Thank you so much. I really want to get back to [facility]. M4 PT-IP Mobility and Gait Start: 04/13/23 08:32 Freq: NEEDED Status: Active Protocol: Document 04/14/23 08:30 MB (Rec: 04/14/23 11:26 MB [id number]) PT-Bed Mobility Assessment Supine to Sit Supine to Sit Standby Assistance,1 Person Assistance,Head of Bed Elevated,Bedrails Scooting Scooting to Edge of Bed Standby Assistance PT-Transfer Assessment Sit to and From Stand Sit to and from Stand Moderate Assistance,1 Person Assistance,Use of Upper Extremities Equipment Transfer Assistive Device Gait Belt,Front Wheeled Walker Orthotic/Prosthetic Devices or Brace: Yes Transfers Transfer Destination Wheelchair Transfer Technique Stand Step Pivot Transfer Ability Level of Assist Contact Guard Assistance, Minimal Assistance,1 Person Assistance,Use of Upper Extremities Comments Mobility Comments PT and nsg assist pt with dressing and pt is max A to don tubagrip on right LE and to lace up her custom boot/ orthotic and CLINICAL LEADER at [facility] usually does this for her. Pt typically requires assistance for transfers and does not use RW often and this is available and so used with PT today. Then, pt steps to the w /c. Gait Assessment Gait Gait Assistance Required: Contact Guard Assist,Minimum Assistance,1 Person Assist Distance (Feet) 1 Able to Maintain Weight Bearing Status Yes During Gait Assistive Devices Assistive Device Gait Belt,Front Wheeled Walker Orthotic/Prosthetic Devices or Brace: Yes Gait Deviations General Gait Pattern Decreased Stride Length, Decreased Feet Clearance, Flexed Trunk,Step-to Gait,Wide Based Gait Factors Limiting Gait Function Factors Limiting Gait Function Decreased Activity Tolerance, Decreased Strength, Incoordination,Poor Balance Comments Gait Comments Pt has delay with stepping with left foot and she does not c/o pain in right foot with WB and stepping PT-Balance Assessment Sitting Balance and Reactions Static Sitting Balance Ability Fair Dynamic Sitting Balance Ability Fair Standing Balance and Reactions Static Standing Balance Ability Fair Dynamic Standing Balance Ability Fair Device Used RW M5 PT-IP Objective Assessments Start: 04/13/23 08:32 Freq: NEEDED Status: Active Protocol: Document 04/13/23 13:48 MB (Rec: 04/13/23 14:33 MB [id number]) Orientation Orientation/Cognition Level of Alertness Alert Orientation Name,Age,Birthday,Month,Year, Day of Week,Place,Situation Language Function Ability No Deficits Noted Safety Awareness Understands Safety Issues Memory Description No Deficits Noted Gross Range of Motion Upper Extremity ROM Impairments Defer to OT Lower Extremity ROM Assessment Right Impaired Impairments R distal extremity is splinted Strength Lower Extremity Strength Assessment Right Impaired Comments Strength Comments Pt does not tolerate MMT, left LE is grossly functional Sensation Assessment Sensation Gross Sensation WNL M6 PT-IP Treatment Start: 04/13/23 08:32 Freq: NEEDED Status: Active Protocol: Document 04/13/23 13:48 MB (Rec: 04/13/23 14:33 MB [id number]) Physical Therapy Treatment Education Education Provided Precautions,Weight Bearing Status,Safety Other Treatments Other Treatment Performed See above about boot/RLE comments M7 PT-IP Assessment and Plan Start: 04/13/23 08:32 Freq: NEEDED Status: Active Protocol: Document 04/14/23 08:30 MB (Rec: 04/14/23 11:26 MB [id number]) PT Summary Assessment and Plan Summary Impairments Strength,Balance,Coordination, Bed Mobility,Gait,Activity Tolerance Progress Towards Goals Slow Progress due to Activity Tolerance Assessment Summary Pt is a pleasant lady who ortho clears to wear her previously made right orthotic boot/shoe on her right foot s /p distal fib fracture and WBAT. Pt admits to not wearing it much at baseline and that she fell when barefoot as she had preferred barefoot at baseline. She knows she now must wear the boot. She requires assistance for all dressing tasks and the transfer today as well as w/c mobility long distance. She reports having good trust and assistance from her caregivers at [facility] and she wishes to d/c there with HH. Plan discussed with all providers and everyone in agreement. Pt d/cing presently. Goals Bed Mobility Goal Independent Transfer Goal Standby Assistance,Front Wheeled Walker Other Goals Pt was non-ambulatory at baseline. She transfers at the bar in the and this will not be able to be recreated from the bed in the hospital setting. Will attempt transfer /SPT with LRAD. Frequency of Treatment Frequency Of Treatment Once a Day Treatment Plan Physical Therapy Treatment Plan Bed Mobility Training,Transfer Training,Therapeutic Exercise ,Balance Retraining,Discharge Planning Precautions Other Precautions Pt to wear her custom-made orthotic shoe on right foot per ortho Weight Bearing Status Weight Bearing Status Weight Bear as Tolerated Recommendations To Nursing Amount of Assist Needed 1 Person Assist Discharge Recommendations PT Discharge Recommendations Home with 24/11 Assist Available,Home Health Transportation Needs at Discharge Private Vehicle
--- NOTE | 2023-04-14 11:32 | CM.DPC ---
DCP Continued DRYING FRAME OPERATOR reviewed EMR. DRYING FRAME OPERATOR coordinated with PT frequently throughout morning re: dcp with patient's boot. Per PT/Ortho surg, cleared for home with boot. Per hospitalist, medically cleared for dc. DRYING FRAME OPERATOR entered room and introduced self and role. Patient accompanied by PT at bedside. Patient eagerly wants to return to [facility]. Patient agreeable to [facility]- reports having it in past. DRYING FRAME OPERATOR spoke with Aleksandra at [facility]. Agreeable to taking pt back with [facility] to follow for PT. DRYING FRAME OPERATOR placed verbal order from provider for HH. DRYING FRAME OPERATOR completed face to face and gave to CC Karen to scan into chart. DRYING FRAME OPERATOR spoke with Jocelyn at [facility]. Kindly agreed to review- confirms accepts insurance. Sees no red flags why would not be able to accept. DRYING FRAME OPERATOR gave signed med sheet/scripts/signed dc summary to RN for pt to take with her to [facility]. Updated PT/RN/fire extinguisher charger on dcp. DRYING FRAME OPERATOR spoke with Rahel at [facility] to cancel referral request. Plan: dc back to [facility] with [facility] to follow. CM team will continue to follow as needed. SERGIO Martinez
--- NOTE | 2023-04-14 12:43 | PC.NURSE ---
Transfer: Pt transfered back to facility. On arrival the staff member (Our PT) was told they had been in the process to come and see her to see if they could care for her. Apparrently they agreed to accept her. Have called several times to give report with out success. Message left with lining printer to have the admitting nurse call this repairer typewriter back. Pt felt she able to transfer back w/out problems and wanted to go.
== END 2023-04-14 12:45 | disposition home health service (06) | DRG 563 ==
LOC: ED 04-13 01:21 → AC 04-13 08:17
PROVIDERS: Student in an Organized Health Care Education/Training Program; Admitting Provider Internal Medicine; Emergency Provider Emergency Medicine; Family Provider Nurse Practitioner Family; PCP Nurse Practitioner Family; Referring Provider Emergency Medicine; Visit Provider Internal Medicine
DX: S82.831A Other fracture of upper and lower end of right fibula, initial encounter for closed fracture (principal); N17.9 Acute kidney failure, unspecified; M85.871 Other specified disorders of bone density and structure, right ankle and foot; I95.9 Hypotension, unspecified; W18.30XA Fall on same level, unspecified, initial encounter; G80.9 Cerebral palsy, unspecified; E11.9 Type 2 diabetes mellitus without complications
CPT/HCPCS: 29515; 36415; 73610; 76770; 80048; 80053; 82962; 83036; 83605; 83735; 85025; 93010; 94640; 97161; 97530; 97535; 99284; A9270; J1170; J1644; J1815; J7613

== ENCOUNTER 2023-04-16 15:10 | Emergency (ER) | payer MEDICARE, MEDICAID, SELFPAY ==
[2023-04-13 03:20] VITALS: BMI 45.0
[2023-04-16] VITALS (21 sets, daily range): BP systolic 109–190; BP diastolic 66–87; PULSE 73–87; RESP 18; TEMP 36.7; O2SAT 93–98; BMI 34.1
--- NOTE | 2023-04-16 15:34 | PC.NURSE ---
Pt reports taking 5 mg oxycodone between [id number] Dariela Orantes for post op px.
--- NOTE | 2023-04-16 16:32 | DI.US.S_ITS ---
PROCEDURE: US [facility] VENOUS LOW EXTREM RT INDICATIONS: SWELLING TECHNIQUE: Real-time imaging, as well as color and pulse Doppler interrogation, were performed of the lower extremity deep veins from the inguinal ligament to the popliteal fossa, with documentation of the visualized calf veins. COMPARISON: [facility], [facility] VENOUS LOW EXTREM RT, 07/01/2019, 18:45. FINDINGS: The common femoral, femoral, and the popliteal are free of intraluminal thrombus. The calf veins are scrutinized, yet they are not well seen, secondary to the distal lower extremity soft tissue edema. Color and pulse Doppler demonstrate normal phasic intraluminal flow. There is normal augmentation response to distal compression maneuver. IMPRESSION: No findings of lower extremity deep venous thrombosis. Calf veins not well seen, secondary to distal lower extremity soft tissue edema. Dictated by: Mannie Hernandez M.D. on 04/16/2023 at 16:25 Approved by: Mannie Hernandez M.D. on 04/16/2023 at 16:26
--- NOTE | 2023-04-16 18:14 | ED.EXTPRO ---
HPI - Extremity Problem General Chief complaint: Extremity Problem,Nontraumatic Stated complaint: red/warm right ankle,recent fracture Time Seen by Provider: 04/16/23 16:32 Source: patient and EMS Mode of arrival: EMS History of Present Illness HPI Narrative: Patient is 67-year-old history of cerebral palsy newly diagnosed diabetes 10 new right distal fibular fracture multiple previous Achilles tendon surgeries presents today with right leg arrest female from assisted living facility concern for infection. Patient has not had any fever or chills no increased pain. She was seen and evaluated in the ED on April 13 after a fall where she fractured her ankle. She was then admitted to the hospital due to acute kidney injury. She is no chest pain palpitations or shortness breath. She was discharged home on the . She would significantly improved creatinine 1.82 after IV fluids. Her vitals are stable without significant hypotension tachycardia or hypoxia or fever. She has no increased pain Related Data Home Medications Medication Instructions Recorded Confirmed albuterol sulfate 90 mcg/actuation 2 puff inhalation Q4H PRN Wheezing 05/09/18 01/17/22 aerosol inhaler fluoxetine 20 mg capsule 40 mg PO QDAY 07/23/21 04/13/23 gabapentin 300 mg capsule 900 mg PO QAM 07/23/21 04/13/23 (Neurontin) gabapentin 600 mg tablet 1,200 mg PO BEDTIME 07/23/21 04/13/23 (Neurontin) lamotrigine 100 mg tablet 300 mg PO QDAY 07/23/21 04/13/23 (Lamictal) acetaminophen 500 mg tablet 500 mg PO Q6H PRN pain 04/13/23 04/13/23 buspirone 5 mg tablet 5 mg PO TID 04/13/23 04/13/23 carvedilol 3.125 mg tablet 3.125 mg PO DAILY 04/13/23 04/13/23 celecoxib 200 mg capsule 200 mg PO DAILY 04/13/23 04/13/23 cetirizine 10 mg tablet 10 mg PO DAILY 04/13/23 04/13/23 cyclobenzaprine 10 mg tablet 10 mg PO DAILY 04/13/23 04/13/23 fluoxetine 20 mg capsule 20 mg PO DAILY 04/13/23 04/13/23 furosemide 40 mg tablet 40 mg PO DAILY 04/13/23 04/13/23 melatonin 3 mg tablet 6 mg PO BEDTIME 04/13/23 04/13/23 oxycodone 5 mg tablet 5 mg PO Q6HR PRN Pain (Scale Score 04/13/23 04/13/23 4-6) polyethylene glycol 3350 17 gram 17 g PO BID PRN Constipation 04/13/23 04/13/23 oral powder packet sennosides 17.2 mg tablet 17.2 mg PO DAILY PRN Constipation 04/13/23 04/13/23 terbinafine HCl 250 mg tablet 250 mg PO DAILY 04/13/23 04/13/23 trazodone 50 mg tablet 25 mg PO BEDTIME sleep 04/13/23 04/13/23 Previous Rx's Medication Instructions Recorded lisinopril 10 mg tablet 10 mg PO DAILY #30 tabs 05/11/18 calcium carbonate 600 mg calcium 600 mg PO DAILY #30 tabs 04/14/23 (1,500 mg) tablet cholecalciferol (vitamin D3) 50 50 mcg PO DAILY #30 caps 04/14/23 mcg (2,000 unit) capsule (Vitamin D3) oxycodone 5 mg tablet 5 mg PO Q4HR PRN Pain, Moderate 04/14/23 (4-6) #20 tabs cephalexin 500 mg capsule 500 mg PO TID #21 caps 04/16/23 Allergies Allergy/AdvReac Type Severity Reaction Status Date / Time clindamycin Allergy Mild RASH & N/V Verified 01/15/22 20:08 Patient History Medical History Cerebral palsy History of esophageal dilatation History of esophageal stricture Flesh-eating bacteria Achilles tendon injury Sepsis Cellulitis Surgical History History of dilatation and curettage Hx of total knee arthroplasty Status post surgery (06/23/14) Status post appendectomy Family History Mother Cardiac disease Father Diabetes mellitus COPD (chronic obstructive pulmonary disease) Brother In good health Social History household members: none Smoking Status: Never smoker alcohol intake: former Smoking Status: Never smoker alcohol intake frequency: other Substance Use Type: does not use Exam Initial Vital Signs Initial Vital Signs: Vital Signs Pulse Rate 80 12/14/23 15:13 Pulse Oximetry 98 04/16/23 15:13 GENERAL: Alert pleasant well-appearing 67-year-old and in no acute distress. HEENT: Head atraumatic,EOMI, pupils reactive, face symmetric, moist mucous membranes CARDIOVASCULAR: Regular rate and rhythm without murmurs, rubs or gallops. RESPIRATORY: Breath sounds equal bilaterally, no wheezes rales or rhonchi. ABDOMEN: Soft, nontender. Normoactive bowel sounds all 4 quadrants. No guarding or rebound. EXTREMITIES: Normal range of motion, no clubbing or edema. Neurovascularly intact NEUROLOGICAL: Alert and oriented x4. No cranial nerve deficits SKIN: Right lower extremity contusion noted eversion also present distal pedal pulse present my erythema no significant streaking minimal warm Course Orders Ordered: Discontinued Medications Cefazolin Sodium (Cephalexin 250 Mg Cap Prepack) 1 bottle MISC DIRECTED ONE Stop: 04/16/23 18:26 Last Admin: 04/16/23 18:45 Dose: 1 bottle Documented By: MS Vital Signs Vital signs: Vital Signs - 8 hr 04/16/23 15:13 04/16/23 15:16 04/16/23 15:23 Temperature 98.0 F 98.0 F Pulse Rate 80 80 75 Pulse Rate [Right Dorsalis Pedis] Respiratory Rate 18 18 Blood Pressure 109/68 109/68 Pulse Oximetry 98 96 97 Oxygen Delivery Method Room Air Room Air 04/16/23 15:25 04/16/23 15:30 04/16/23 15:36 Temperature 98.0 F Pulse Rate 75 80 Pulse Rate [Right Dorsalis Pedis] 74 Respiratory Rate 18 Blood Pressure 109/68 130/70 Pulse Oximetry 97 97 Oxygen Delivery Method Room Air 04/16/23 16:00 04/16/23 16:30 04/16/23 17:00 Temperature Pulse Rate 83 74 75 Pulse Rate [Right Dorsalis Pedis] Respiratory Rate Blood Pressure 144/70 H 145/66 H 158/70 H Pulse Oximetry 97 96 98 Oxygen Delivery Method 04/16/23 17:14 04/16/23 17:14 04/16/23 17:30 Temperature Pulse Rate 74 Pulse Rate [Right Dorsalis Pedis] Respiratory Rate Blood Pressure 159/78 H 160/83 H Pulse Oximetry 96 Oxygen Delivery Method 04/16/23 17:30 04/16/23 18:00 04/16/23 18:01 Temperature Pulse Rate 74 87 Pulse Rate [Right Dorsalis Pedis] Respiratory Rate Blood Pressure 174/80 H Pulse Oximetry 95 98 Oxygen Delivery Method 04/16/23 18:01 Temperature Pulse Rate 83 Pulse Rate [Right Dorsalis Pedis] Respiratory Rate Blood Pressure Pulse Oximetry 98 Oxygen Delivery Method MDM - Extremity (Nontraumatic) Imaging Data US - DVT: Radiologist's Impression: PROCEDURE: US [facility] LOW EXTREM RT INDICATIONS: SWELLING TECHNIQUE: Real-time imaging, as well as color and pulse Doppler interrogation, were performed of the lower extremity deep veins from the inguinal ligament to the popliteal fossa, with documentation of the visualized calf veins. COMPARISON: [facility], , [facility] VENOUS LOW EXTREM RT, 07/01/2019, 18:45. FINDINGS: The common femoral, femoral, and the popliteal are free of intraluminal thrombus. The calf veins are scrutinized, yet they are not well seen, secondary to the distal lower extremity soft tissue edema. Color and pulse Doppler demonstrate normal phasic intraluminal flow. There is normal augmentation response to distal compression maneuver. IMPRESSION: No findings of lower extremity deep venous thrombosis. Calf veins not well seen, secondary to distal lower extremity soft tissue edema. Dictated by: Mannie Hernandez M.D. on 04/16/2023 at 16:25 Approved by: Mannie Hernandez M.D. on 04/16/2023 at 16:26 [facility] Narrative Medical decision making narrative: Patient 67-year-old female presents today right leg erythema after fracture. She was admitted to the hospital overnight with NEPTALI. She would newly diagnosed diabetes she was recently started on insulin she feels like she is doing well on insulin though her is up and down still. She is no increased pain. Vitals are stable. She does have some mild erythema. Ultrasound does not show any evidence. I do not suspect sepsis but some mild cellulitis. Do not think blood work necessary today with recent blood work. Can be monitored and checked as an outpatient. sHe is given Keflex Discharge Plan Departure Patient Disposition: Home Clinical Impression: Cellulitis Instructions: DI for Cellulitis -- Adult Activity Restrictions/Additional Instructions: *You have been diagnosed with cellulitis *What to do: At this time you have mild cellulitis. No evidence of a DVT. He is continue to check your glucose and have blood work monitored as outpatient *Continue to take medications as directed Keflex 500 mg 3 times a day for 7 days--> [facility] *Follow up with your primary care provider in 2-3 days or call [phone] Follow-up with orthopedic, continue to wear orthopedic boot for fracture *Return to ER if you should have increasing redness fever nausea vomiting or any new, worsening or concerning symptoms Prescriptions: New cephalexin 500 mg capsule 500 mg PO TID Qty: 21 0RF No Action albuterol sulfate 90 mcg/actuation HFA aerosol inhaler 2 puff Inhalation Q4H PRN (Reason: Wheezing) lisinopril 10 mg Tablet 10 mg PO DAILY Qty: 30 0RF celecoxib 200 mg capsule 200 mg PO DAILY cyclobenzaprine 10 mg tablet 10 mg PO DAILY furosemide 40 mg tablet 40 mg PO DAILY buspirone 5 mg tablet 5 mg PO TID trazodone 50 mg tablet 25 mg PO BEDTIME polyethylene glycol 3350 17 gram Powder In Packet 17 g PO BID PRN (Reason: Constipation) cetirizine 10 mg tablet 10 mg PO DAILY melatonin 3 mg tablet 6 mg PO BEDTIME acetaminophen 500 mg Tablet 500 mg PO Q6H PRN (Reason: pain) carvedilol 3.125 mg tablet 3.125 mg PO DAILY terbinafine HCl 250 mg tablet 250 mg PO DAILY fluoxetine 20 mg capsule 20 mg PO DAILY oxycodone 5 mg tablet 5 mg PO Q6HR PRN (Reason: Pain (Scale Score 4-6)) sennosides 17.2 mg Tablet 17.2 mg PO DAILY PRN (Reason: Constipation) oxycodone 5 mg Tablet 5 mg PO Q4HR PRN (Reason: Pain, Moderate (4-6)) Qty: 20 0RF cholecalciferol (vitamin D3) [Vitamin D3] 50 mcg (2,000 unit) capsule 50 mcg PO DAILY Qty: 30 0RF calcium carbonate 600 mg calcium (1,500 mg) tablet 600 mg PO DAILY Qty: 30 0RF fluoxetine 20 mg capsule 40 mg PO QDAY lamotrigine [Lamictal] 100 mg tablet 300 mg PO QDAY gabapentin [Neurontin] 600 mg tablet 1,200 mg PO BEDTIME gabapentin [Neurontin] 300 mg capsule 900 mg PO QAM Referrals: Alie Salmeron ARNP [Primary Care Provider] - Stand Alone Forms: Patient Portal/API
[2023-04-16] MEDS: cephALEXin 250 MG CAP PREPACK 1 BOTTLE MISC (18:45)
--- NOTE | 2023-04-16 19:27 | PC.NURSE ---
Gave discharge report to nurseSaritha at [facility] at 19:22.
== END 2023-04-16 21:32 | disposition home or self-care (01) ==
PROVIDERS: Emergency Provider Emergency Medicine; Family Provider Nurse Practitioner Family; PCP Nurse Practitioner Family
DX: L03.115 Cellulitis of right lower limb (principal); E11.9 Type 2 diabetes mellitus without complications; Z79.4 Long term (current) use of insulin
CPT/HCPCS: 93971; 99283

== ENCOUNTER → 2023-04-22 13:17 | Outpatient (ROUT) | payer MEDICARE, MEDICAID, SELFPAY ==
[2023-04-13 03:20] VITALS: BMI 45.0
[2023-04-22 13:53] LABS: BUN Creatinine Ratio 25.3 (6-22); Blood Urea Nitrogen 55 mg/dL (7-17); Calcium 9.4 mg/dL (8.4-10.2); Carbon Dioxide 27 mmol/L (22-32); Chloride 101 mmol/L (98-107); Estimated Glomerular Filt Rate 24 mL/min (>60); Glucose 187 mg/dL (80-110); HEMOLYSIS < 15 (0-50); Sodium 135 mmol/L (137-145)
== END ==
PROVIDERS: Family Provider Nurse Practitioner Family; PCP Nurse Practitioner Family; Visit Provider Registered Nurse
DX: Z51.81 Encounter for therapeutic drug level monitoring (principal)
CPT/HCPCS: 36415; 80048

== ENCOUNTER → 2023-04-29 07:04 | Outpatient (ROUT) | payer MEDICARE, MEDICAID, SELFPAY ==
[2023-04-13 03:20] VITALS: BMI 45.0
[2023-04-29 08:34] LABS: BUN Creatinine Ratio 33.3 (6-22); Blood Urea Nitrogen 67 mg/dL (7-17); Calcium 8.7 mg/dL (8.4-10.2); Carbon Dioxide 30 mmol/L (22-32); Chloride 100 mmol/L (98-107); Estimated Glomerular Filt Rate 26 mL/min (>60); Glucose 175 mg/dL (80-110); HEMOLYSIS < 15 (0-50); Potassium 4.9 mmol/L (3.4-5.1); Sodium 134 mmol/L (137-145)
== END ==
PROVIDERS: Family Provider Nurse Practitioner Family; PCP Nurse Practitioner Family; Visit Provider Registered Nurse
DX: Z51.81 Encounter for therapeutic drug level monitoring (principal)
CPT/HCPCS: 36415; 80048

== ENCOUNTER 2023-07-09 10:47 | Emergency (ER) | payer MEDICARE, MEDICAID, SELFPAY ==
[2023-04-13 03:20] VITALS: BMI 45.0
[2023-07-09] VITALS (14 sets, daily range): BP systolic 139–196; BP diastolic 68–91; PULSE 69–83; RESP 15; TEMP 36.1–36.4; O2SAT 97–100; BMI 43.5
--- NOTE | 2023-07-09 11:37 | DI.US.S_ITS ---
PROCEDURE: US [facility] VENOUS LOW EXTREM BI INDICATIONS: EDEMA TECHNIQUE: Real-time imaging, as well as color and pulse Doppler interrogation, were performed of the deep veins of both legs from the inguinal ligament to the popliteal fossa, with documentation of the visualized calf veins. COMPARISON: [facility], , [facility] VENOUS LOW EXTREM BI, 07/23/2021, 12:10. FINDINGS: Right: The common femoral, femoral, popliteal, and the visualized calf veins are normally compressible, and free of intraluminal thrombus. Color and pulse Doppler demonstrate normal phasic intravascular flow. There is normal augmentation response to distal compression maneuver. Left: The common femoral, femoral, popliteal, and the visualized calf veins are normally compressible, and free of intraluminal thrombus. Color and pulse Doppler demonstrate normal phasic intravascular flow. There is normal augmentation response to distal compression maneuver. IMPRESSION: No findings of deep venous thrombosis in either lower extremity. Dictated by: Galen Olmos M.D. on 07/09/2023 at 12:31 Approved by: Galen Olmos M.D. on 07/09/2023 at 12:32
[2023-07-09 15:40] LABS: Add Manual Diff / Slide Review NO; Basophils Absolute Auto 0 /uL (0-100); Basophils Percent Auto 0.4 % (0-2); Eosinophils Absolute Auto 100 /uL (0-450); Eosinophils Percent Auto 1.2 % (2-4); Hematocrit 40.9 % (36-46); Hemoglobin 13.5 g/dL (12.0-16.0); Lymphocytes Absolute Auto 1300 /uL (1100-4500); Lymphocytes Percent Auto 16.4 % (25-40); Mean Corpuscular Hemoglobin 30.3 PG (26-34); Mean Corpuscular Volume 91.8 fL (80-100); Monocytes Absolute Auto 800 /uL (0-900); Monocytes Percent Auto 9.4 % (3-14); Neutrophils Absolute Auto 5800 /uL (1500-7000); Neutrophils Percent Auto 72.6 % (50-75); Platelet Count 163 X10^3/uL (150-400); Red Blood Cell Count 4.45 X10^6/uL (4.0-5.2); Red Cell Distribution Width 13.7 % (11.6-14.8)
--- NOTE | 2023-07-09 16:08 | ED.EXTPRO ---
HPI - Extremity Problem General Chief complaint: Extremity Problem,Nontraumatic Stated complaint: Right lower leg pain Time Seen by Provider: 07/09/23 13:53 Mode of arrival: Wheelchair History of Present Illness HPI Narrative: Patient here for 2 complaints. Patient most recently on doxycycline for 10 days for right leg cellulitis and a certainly helped a lot she states. The redness was at the bottom of her right knee but now had has shrunk down to just above her ankle circumferentially. It is dark in color and less red. She also complains of left upper mid thigh pain that started 6 days ago when she pivoted to go and turn while in the bathroom and felt pain in the muscle. Denies any fall or injury. Denies any chest pain or shortness of breath. No history of blood clots in legs or lungs. Related Data Home Medications Medication Instructions Recorded Confirmed albuterol sulfate 90 mcg/actuation 2 puff inhalation Q4H PRN Wheezing 05/09/18 01/17/22 aerosol inhaler fluoxetine 20 mg capsule 40 mg PO QDAY 07/23/21 04/13/23 gabapentin 300 mg capsule 900 mg PO QAM 07/23/21 04/13/23 (Neurontin) gabapentin 600 mg tablet 1,200 mg PO BEDTIME 07/23/21 04/13/23 (Neurontin) lamotrigine 100 mg tablet 300 mg PO QDAY 07/23/21 04/13/23 (Lamictal) acetaminophen 500 mg tablet 500 mg PO Q6H PRN pain 04/13/23 04/13/23 buspirone 5 mg tablet 5 mg PO TID 04/13/23 04/13/23 carvedilol 3.125 mg tablet 3.125 mg PO DAILY 04/13/23 04/13/23 celecoxib 200 mg capsule 200 mg PO DAILY 04/13/23 04/13/23 cetirizine 10 mg tablet 10 mg PO DAILY 04/13/23 04/13/23 cyclobenzaprine 10 mg tablet 10 mg PO DAILY 04/13/23 04/13/23 fluoxetine 20 mg capsule 20 mg PO DAILY 04/13/23 04/13/23 furosemide 40 mg tablet 40 mg PO DAILY 04/13/23 04/13/23 melatonin 3 mg tablet 6 mg PO BEDTIME 04/13/23 04/13/23 oxycodone 5 mg tablet 5 mg PO Q6HR PRN Pain (Scale Score 04/13/23 04/13/23 4-6) polyethylene glycol 3350 17 gram 17 g PO BID PRN Constipation 04/13/23 04/13/23 oral powder packet sennosides 17.2 mg tablet 17.2 mg PO DAILY PRN Constipation 04/13/23 04/13/23 terbinafine HCl 250 mg tablet 250 mg PO DAILY 04/13/23 04/13/23 trazodone 50 mg tablet 25 mg PO BEDTIME sleep 04/13/23 04/13/23 Previous Rx's Medication Instructions Recorded lisinopril 10 mg tablet 10 mg PO DAILY #30 tabs 05/11/18 calcium carbonate 600 mg calcium 600 mg PO DAILY #30 tabs 04/14/23 (1,500 mg) tablet cholecalciferol (vitamin D3) 50 50 mcg PO DAILY #30 caps 04/14/23 mcg (2,000 unit) capsule (Vitamin D3) oxycodone 5 mg tablet 5 mg PO Q4HR PRN Pain, Moderate 04/14/23 (4-6) #20 tabs cephalexin 500 mg capsule 500 mg PO TID #21 caps 04/16/23 doxycycline monohydrate 100 mg 100 mg PO BID #14 caps 07/09/23 capsule tramadol 50 mg tablet 50 mg PO Q8H PRN pain #15 tabs 07/09/23 Allergies Allergy/AdvReac Type Severity Reaction Status Date / Time clindamycin Allergy Mild RASH & N/V Verified 07/09/23 11:04 Review of Systems Review of Systems Narrative: GENERAL: negative chills, fatigue, malaise, fever, sweats. HEENT: negative sinus pain, ear pain, sore throat RESPIRATORY: negative dyspnea, cough CARDIOVASCULAR: negative chest pain, palpitations GASTROINTESTINAL: negative nausea, vomiting, abdominal pain : negative dysuria, frequency, hematuria MUSCULOSKELETAL: Positive muscle or bony pain SKIN: negative rash, skin lesions, positive erythema NEUROLOGIC: negative weakness, numbness ROS Unobtainable: All systems reviewed & are unremarkable except as noted in HPI and below Patient History Medical History Cerebral palsy History of esophageal dilatation History of esophageal stricture Flesh-eating bacteria Achilles tendon injury Sepsis Cellulitis Surgical History History of dilatation and curettage Hx of total knee arthroplasty Status post surgery (06/23/14) Status post appendectomy Family History Mother Cardiac disease Father Diabetes mellitus COPD (chronic obstructive pulmonary disease) Brother In good health Social History household members: none Smoking Status: Never smoker alcohol intake: former Smoking Status: Never smoker alcohol intake frequency: other Substance Use Type: does not use Exam Narrative Exam Narrative: GENERAL: in no distress, not toxic not dyspneic HEAD: Normocephalic. EYES: Pupils equal round ENT: Mucous membranes moist. EXTREMITIES: No gross deformities. Examination bilateral legs are grossly symmetric. Hips to toes exposed, skin exposed. There is circumferential darkening band of erythema just above the ankle 12 cm wide band. Mild tender to touch but no crepitus. No pain out of portion exam. Foot is warm soft and pink with brisk cap refills and strong pedal pulse. No necrotic tissue. No palpable cords or tenderness to the calf or thigh. Examination left lower extremity. Grossly symmetric to the right. Strong pedal pulse brisk cap refill to the toes wiggles toes. Feet is warm soft and pink. There is mild tenderness to the mid upper anterior thigh. Pain when flexing at the hip and knee. There is no no shortening rotation of the lower extremity. NEURO: AOx4. SKIN: Warm and dry PSYCH: Not anxious, is cooperative Initial Vital Signs Initial Vital Signs: Vital Signs Temperature 97.0 F L 07/09/23 11:04 Pulse Rate 70 07/09/23 11:04 Respiratory Rate 15 07/09/23 11:04 Blood Pressure 139/78 07/09/23 11:04 Pulse Oximetry 98 07/09/23 11:04 Oxygen Delivery Method Room Air 07/09/23 11:04 Course Orders Ordered: Discontinued Medications Doxycycline Hyclate (Doxycycline Hyclate 100 Mg Tablet) 100 mg PO NOW ONE Stop: 07/09/23 16:26 Last Admin: 07/09/23 16:33 Dose: 100 mg Documented By: ILSA Vital Signs Vital signs: Vital Signs - 8 hr 07/09/23 11:04 07/09/23 13:45 07/09/23 13:47 Temperature 97.0 F L 97.5 F L Pulse Rate 70 74 75 Respiratory Rate 15 Blood Pressure 139/78 Pulse Oximetry 98 100 100 Oxygen Delivery Method Room Air 07/09/23 13:47 07/09/23 14:00 07/09/23 14:00 Temperature Pulse Rate 69 Respiratory Rate Blood Pressure 153/70 H 158/68 H Pulse Oximetry 99 Oxygen Delivery Method 07/09/23 14:30 07/09/23 14:31 07/09/23 14:31 Temperature Pulse Rate 83 79 Respiratory Rate Blood Pressure 164/91 H Pulse Oximetry 98 97 Oxygen Delivery Method 07/09/23 15:00 07/09/23 15:01 07/09/23 15:01 Temperature Pulse Rate 72 77 Respiratory Rate Blood Pressure 172/85 H Pulse Oximetry 99 100 Oxygen Delivery Method 07/09/23 15:30 07/09/23 15:31 07/09/23 15:31 Temperature Pulse Rate 74 80 Respiratory Rate Blood Pressure 196/76 H Pulse Oximetry 99 99 Oxygen Delivery Method MDM - Extremity (Nontraumatic) Lab Data 07/09/23 15:15 07/09/23 15:15 Labs: Lab Results 07/09/23 Range/Units 15:15 WBC 8.0 (4.5-11.0) X10^3/uL RBC 4.45 (4.0-5.2) X10^6/uL Hgb 13.5 (12.0-16.0) g/dL Hct 40.9 (36-46) % MCV 91.8 (80-100) fL MCH 30.3 (26-34) PG MCHC 33.0 (30-36) % RDW 13.7 (11.6-14.8) % Plt Count 163 (150-400) X10^3/uL Neut % (Auto) 72.6 (50-75) % Lymph % (Auto) 16.4 L (25-40) % Carver % (Auto) 9.4 (3-14) % Eos % (Auto) 1.2 L (2-4) % Baso % (Auto) 0.4 (0-2) % Neut # (Auto) 5800 (3452-3557) /uL Lymph # (Auto) 1300 (7719-8988) /uL Carver # (Auto) 800 (0-900) /uL Eos # (Auto) 100 (0-450) /uL Baso # (Auto) 0 (0-100) /uL Sodium 139 (137-145) mmol/L Potassium 5.1 (3.4-5.1) mmol/L Chloride 104 (98-107) mmol/L Carbon Dioxide 27 (22-32) mmol/L BUN 52 H (7-17) mg/dL Creatinine 1.83 H (0.52-1.04) mg/dL Estimated GFR 30 L (>60) mL/min BUN/Creatinine Ratio 28.4 H (6-22) Glucose 108 (80-110) mg/dL Calcium 9.7 (8.4-10.2) mg/dL Total Bilirubin 0.6 (0.2-1.3) mg/dL AST 26 (14-36) IU/L ALT 18 (<35) IU/L Alkaline Phosphatase 127 H (38-126) U/L Total Protein 8.0 (6.3-8.2) g/dL Albumin 4.7 (3.5-5.0) g/dL Globulin 3.3 (1.7-4.1) g/dL Albumin/Globulin Ratio 1.4 (1.0-2.8) Urine Dip Bedside Urine Glucose Negative Bedside Urine Bilirubin - Negative Bedside Urine Ketone - Negative Urine Specific [place] 1.020 Bedside Urine Occult Blood - Negative Bedside Urine pH 5.5 Bedside Urine Protein - Negative Bedside Urine Urobilinogen - Negative Bedside Urine Nitrite - Negative Bedside Urine Leukocytes - Negative Esterase Imaging Data US - DVT: Radiologist's Impression: [address] [address] Ultrasound Report Signed Patient: Tanya Qiu MR#: [id number] : 1955 Acct:[id number] Age/Sex: 67 / F Date of Service: 07/09/23 Loc: ED Accession Number: [id number] Procedure: US periph venous low extrem bi Ordering Provider: John Kamara MD PROCEDURE: US PERIPH VENOUS LOW EXTREM BI INDICATIONS: EDEMA TECHNIQUE: Real-time imaging, as well as color and pulse Doppler interrogation, were performed of the deep veins of both legs from the inguinal ligament to the popliteal fossa, with documentation of the visualized calf veins. COMPARISON: [facility], US, US PERIPH VENOUS LOW EXTREM BI, 07/23/2021, 12:10. FINDINGS: Right: The common femoral, femoral, popliteal, and the visualized calf veins are normally compressible, and free of intraluminal thrombus. Color and pulse Doppler demonstrate normal phasic intravascular flow. There is normal augmentation response to distal compression maneuver. Left: The common femoral, femoral, popliteal, and the visualized calf veins are normally compressible, and free of intraluminal thrombus. Color and pulse Doppler demonstrate normal phasic intravascular flow. There is normal augmentation response to distal compression maneuver. IMPRESSION: No findings of deep venous thrombosis in either lower extremity. Dictated by: Galen Olmos M.D. on 07/09/2023 at 12:31 Approved by: Galen Olmos M.D. on 07/09/2023 at 12:[address] [facility] Narrative Medical decision making narrative: Patient here for 2 complaints. Patient most recently on doxycycline for 10 days for right leg cellulitis and a certainly helped a lot she states. The redness was at the bottom of her right knee but now had has shrunk down to just above her ankle circumferentially. It is dark in color and less red. She also complains of left upper mid thigh pain that started 6 days ago when she pivoted to go and turn while in the bathroom and felt pain in the muscle. Denies any fall or injury. Denies any chest pain or shortness of breath. No history of blood clots in legs or lungs. After history and exam CBC CMP doxycycline tramadol MDM CC: Cellulitis/leg pain Complicating co-morbidities: Chronic cellulitis Data collected from: Patient Medical records reviewed: Patient has been seen here in the last year for cellulitis, medical records reviewed. Treated for the leg as well. Differential considered: Includes but not limited to cellulitis necrotizing fasciitis DVT SVT muscular strain Exam documented above, pertinent findings include: Cellulitis right lower extremity, tender left thigh muscle Lab Test results independently reviewed as above. Pertinent findings: WBC 8.0 hemoglobin 13.5 Imaging studies independently reviewed: Bilateral ultrasound venous, no DVT Consultations: None indicated this time Treatments: doxycycline Re-evaluations: Reviewed with patient results and exam findings and imaging findings. She agrees for continuing and desires continuing doxycycline as it has helped her right leg. Short course of tramadol appropriate for muscle strain to the left thigh. Return precautions reviewed. She desires discharge home Discussion: Appropriate for discharge home. Exam is reassuring. Patient will continue doxycycline as it has helped her right leg and likely needs 1 more week of antibiotics. Muscular strain of the left thigh can be treated with tramadol short course and then follow up with primary care for re-evaluation and possible physical therapy. Orthopedics not indicated at this time Addendum. Patient at discharge stated that she is already on oxycodone at home. I informed her at this time would not be appropriate for additional narcotic pain medication for her thigh pain. Tramadol was originally prescribed but it was canceled. Diagnosis: Right leg cellulitis, left thigh strain Discharge Plan Departure Patient Disposition: Home Clinical Impression: Muscle strain Cellulitis Qualifiers: Site of cellulitis: extremity Site of cellulitis of extremity: lower extremity Laterality: right Qualified Code(s): L03.115 - Cellulitis of right lower limb Instructions: DI for Cellulitis -- Adult, DI for Muscle Strain Activity Restrictions/Additional Instructions: No driving operating machinery today or when taking prescribed pain medication. Antibiotic prescription doxycycline has been sent to your [facility] in [place] as you requested. Please continue your prescribed pain medication. See family doctor within a week for re-evaluation of your right leg/skin infection. You may need referral for physical therapy regarding the muscle strain in her left thigh. Return if worse if any questions or concerns Prescriptions: New doxycycline monohydrate 100 mg capsule 100 mg PO BID Qty: 14 0RF tramadol 50 mg tablet 50 mg PO Q8H PRN (Reason: pain) Qty: 15 0RF No Action albuterol sulfate 90 mcg/actuation HFA aerosol inhaler 2 puff Inhalation Q4H PRN (Reason: Wheezing) lisinopril 10 mg Tablet 10 mg PO DAILY Qty: 30 0RF celecoxib 200 mg capsule 200 mg PO DAILY cyclobenzaprine 10 mg tablet 10 mg PO DAILY furosemide 40 mg tablet 40 mg PO DAILY buspirone 5 mg tablet 5 mg PO TID trazodone 50 mg tablet 25 mg PO BEDTIME polyethylene glycol 3350 17 gram Powder In Packet 17 g PO BID PRN (Reason: Constipation) cetirizine 10 mg tablet 10 mg PO DAILY melatonin 3 mg tablet 6 mg PO BEDTIME acetaminophen 500 mg Tablet 500 mg PO Q6H PRN (Reason: pain) carvedilol 3.125 mg tablet 3.125 mg PO DAILY terbinafine HCl 250 mg tablet 250 mg PO DAILY fluoxetine 20 mg capsule 20 mg PO DAILY oxycodone 5 mg tablet 5 mg PO Q6HR PRN (Reason: Pain (Scale Score 4-6)) sennosides 17.2 mg Tablet 17.2 mg PO DAILY PRN (Reason: Constipation) oxycodone 5 mg Tablet 5 mg PO Q4HR PRN (Reason: Pain, Moderate (4-6)) Qty: 20 0RF cholecalciferol (vitamin D3) [Vitamin D3] 50 mcg (2,000 unit) capsule 50 mcg PO DAILY Qty: 30 0RF calcium carbonate 600 mg calcium (1,500 mg) tablet 600 mg PO DAILY Qty: 30 0RF cephalexin 500 mg capsule 500 mg PO TID Qty: 21 0RF fluoxetine 20 mg capsule 40 mg PO QDAY lamotrigine [Lamictal] 100 mg tablet 300 mg PO QDAY gabapentin [Neurontin] 600 mg tablet 1,200 mg PO BEDTIME gabapentin [Neurontin] 300 mg capsule 900 mg PO QAM Referrals: Alie Salmeron ARNP [Primary Care Provider] - Stand Alone Forms: Patient Portal/API
[2023-07-09 16:22] LABS: Alanine Aminotransferase 18 IU/L (<35); Albumin 4.7 g/dL (3.5-5.0); Albumin Globulin Ratio 1.4 (1.0-2.8); Alkaline Phosphatase 127 U/L (38-126); Aspartate Aminotransferase 26 IU/L (14-36); BUN Creatinine Ratio 28.4 (6-22); Bilirubin Total 0.6 mg/dL (0.2-1.3); Blood Urea Nitrogen 52 mg/dL (7-17); Calcium 9.7 mg/dL (8.4-10.2); Carbon Dioxide 27 mmol/L (22-32); Chloride 104 mmol/L (98-107); Estimated Glomerular Filt Rate 30 mL/min (>60); Globulin 3.3 g/dL (1.7-4.1); Glucose 108 mg/dL (80-110); HEMOLYSIS 24 (0-50); Potassium 5.1 mmol/L (3.4-5.1); Sodium 139 mmol/L (137-145)
[2023-07-09] MEDS: DOXYCYCLINE HYCLATE 100 MG TABLET PO (16:33)
== END 2023-07-09 16:42 | disposition home or self-care (01) ==
PROVIDERS: Emergency Provider Emergency Medicine; Family Provider Nurse Practitioner Family; PCP Nurse Practitioner Family
DX: L03.115 Cellulitis of right lower limb (principal); S76.912A Strain of unspecified muscles, fascia and tendons at thigh level, left thigh, initial encounter; X58.XXXA Exposure to other specified factors, initial encounter
CPT/HCPCS: 80053; 81003; 85025; 93970; 99283; 99284

== ENCOUNTER 2023-07-29 09:45 | Emergency (ER) | payer MEDICARE, MEDICAID, SELFPAY ==
[2023-04-13 03:20] VITALS: BMI 45.0
[2023-07-29] VITALS (115 sets, daily range): BP systolic 69–197; BP diastolic 32–94; PULSE 57–87; RESP 14–35; TEMP 34.5–37.1; O2SAT 93–100; BMI 44.5
--- NOTE | 2023-07-29 09:53 | DI.RAD.S_ITS ---
PROCEDURE: XR CHEST 1V INDICATIONS: gen weakness, hypoglycemia, hypotension TECHNIQUE: One view of the chest was acquired. COMPARISON: [facility], CR, XR CHEST 1V, 01/15/2022, 21:58. FINDINGS: Surgical changes and devices: None. Lungs and pleura: Mild patchy bilateral perihilar and diffuse reticulonodular pulmonary opacity. No pleural effusions or pneumothorax. Mediastinum: Mediastinal contours appear normal. Heart size is normal. Bones and chest wall: No suspicious bony lesions. Overlying soft tissues appear unremarkable. IMPRESSION: Mild atypical pneumonia. Dictated by: Galen Olmos M.D. on 07/29/2023 at 10:22 Approved by: Galen Olmos M.D. on 07/29/2023 at 10:22
--- NOTE | 2023-07-29 10:00 | ED.GENADULT ---
HPI - General Adult General Chief complaint: Weakness Stated complaint: lethargic, low sugar, low pressure Time Seen by Provider: 07/29/23 09:47 Source: patient and EMS Mode of arrival: EMS History of Present Illness HPI narrative: 67-year-old female presents by EMS from her nursing home facility for low blood glucose and low blood pressure. Patient had a point of care glucose Of 50. She was given orange juice and a rice crispy treat and her glucose improved to 85. When vitals were checked her blood pressure was in the 70s. She was transported for further evaluation. EN route IV fluids were initiated on arrival patient stated that she felt very tired but overall denied any other complaints.? Denies chest pain, shortness of breath, fever, chills, nausea, vomiting, any other complaints. skilled nursing stated that she is currently being treated for cellulitis of her RLE and is on her 3rd round of antibiotics. Shortly after arrival patient became very lethargic, difficult to arouse, with persistently low blood pressures despite IV fluids. For airway protection patient was intubated and central line placed. Related Data Home Medications Medication Instructions Recorded Confirmed albuterol sulfate 90 mcg/actuation 2 puff inhalation Q4H PRN Wheezing 05/09/18 01/17/22 aerosol inhaler fluoxetine 20 mg capsule 40 mg PO QDAY 07/23/21 04/13/23 gabapentin 300 mg capsule 900 mg PO QAM 07/23/21 04/13/23 (Neurontin) gabapentin 600 mg tablet 1,200 mg PO BEDTIME 07/23/21 04/13/23 (Neurontin) lamotrigine 100 mg tablet 300 mg PO QDAY 07/23/21 04/13/23 (Lamictal) acetaminophen 500 mg tablet 500 mg PO Q6H PRN pain 04/13/23 04/13/23 buspirone 5 mg tablet 5 mg PO TID 04/13/23 04/13/23 carvedilol 3.125 mg tablet 3.125 mg PO DAILY 04/13/23 04/13/23 celecoxib 200 mg capsule 200 mg PO DAILY 04/13/23 04/13/23 cetirizine 10 mg tablet 10 mg PO DAILY 04/13/23 04/13/23 cyclobenzaprine 10 mg tablet 10 mg PO DAILY 04/13/23 04/13/23 fluoxetine 20 mg capsule 20 mg PO DAILY 04/13/23 04/13/23 furosemide 40 mg tablet 40 mg PO DAILY 04/13/23 04/13/23 melatonin 3 mg tablet 6 mg PO BEDTIME 04/13/23 04/13/23 oxycodone 5 mg tablet 5 mg PO Q6HR PRN Pain (Scale Score 04/13/23 04/13/23 4-6) polyethylene glycol 3350 17 gram 17 g PO BID PRN Constipation 04/13/23 04/13/23 oral powder packet sennosides 17.2 mg tablet 17.2 mg PO DAILY PRN Constipation 04/13/23 04/13/23 terbinafine HCl 250 mg tablet 250 mg PO DAILY 04/13/23 04/13/23 trazodone 50 mg tablet 25 mg PO BEDTIME sleep 04/13/23 04/13/23 Previous Rx's Medication Instructions Recorded lisinopril 10 mg tablet 10 mg PO DAILY #30 tabs 05/11/18 calcium carbonate 600 mg calcium 600 mg PO DAILY #30 tabs 04/14/23 (1,500 mg) tablet cholecalciferol (vitamin D3) 50 50 mcg PO DAILY #30 caps 04/14/23 mcg (2,000 unit) capsule (Vitamin D3) oxycodone 5 mg tablet 5 mg PO Q4HR PRN Pain, Moderate 04/14/23 (4-6) #20 tabs cephalexin 500 mg capsule 500 mg PO TID #21 caps 04/16/23 doxycycline monohydrate 100 mg 100 mg PO BID #14 caps 07/09/23 capsule tramadol 50 mg tablet 50 mg PO Q8H PRN pain #15 tabs 07/09/23 Allergies Allergy/AdvReac Type Severity Reaction Status Date / Time clindamycin Allergy Mild RASH & N/V Verified 07/29/23 09:58 Review of Systems Review of Systems Narrative: Unable to obtain due to medical condition Patient History Medical History Cerebral palsy History of esophageal dilatation History of esophageal stricture Flesh-eating bacteria Achilles tendon injury Sepsis Cellulitis Surgical History History of dilatation and curettage Hx of total knee arthroplasty Status post surgery (06/23/14) Status post appendectomy Family History Mother Cardiac disease Father Diabetes mellitus COPD (chronic obstructive pulmonary disease) Brother In good health Social History household members: none Smoking Status: Never smoker alcohol intake: former Smoking Status: Never smoker alcohol intake frequency: other Substance Use Type: does not use Exam Initial Vital Signs Initial Vital Signs: Vital Signs Temperature 98.1 F 07/29/23 09:50 Pulse Rate 74 07/29/23 09:50 Respiratory Rate 14 07/29/23 09:50 Blood Pressure 80/47 L 07/29/23 09:50 Pulse Oximetry 99 07/29/23 09:50 Oxygen Delivery Method Room Air 07/29/23 09:50 Const: Awake, alert to voice, appears chronically unwell, debilitated Cardiac: regular rate, regular rhythm RESP: unlabored, clear bilaterally, no wheezing GI: Soft, nontender, nondistended, no rebound, no guarding MSK: Atraumatic, full range of motion, pulses equal Skin: Warm, Dry, intact, venous stasis changes bilateral lower extremities without evidence of acute cellulitis Neuro: AO x3, CN II-XII grossly intact, moves all extremities Procedures Central Line Placement Left IJ: Time Out Performed: Yes Patient Placed on Monitor/Pulse Ox: Yes MD Prep: mask, gown and gloves Central Line Prep: Chlorhexidine scrub Local Anesthetic: lidocaine 1% Amount of anesthesia used (mL): 5 Ultrasound Used for Placement: Yes Central Line Lumen Inserted: triple Post Procedure: sutured in place, good blood return, all ports aspirated, flushed, capped, sterile dressing applied and line stabilization device Post Procedure X-Ray: tip of catheter in good position Patient Tolerated Procedure: No complications Complications: none Intubation Time out performed: Yes sedative: Ketamine Mg Given: 100 paralytic: Rocuronium Mg Given: 60 Laryngoscope: Armida ET Tube Size: 7.5 ET Tube Uncuffed: No Tube Secured Depth (cm): 24 Tube Placement Confirmation: Visualized tube passing through cords, Equal breath sounds bilaterally, No breath sounds over epigastrium, Confirmation by capnometry and Chest Xray Patient Tolerated Procedure: Well and No complications Intubation Complications: none Course Orders Ordered: Discontinued Medications Sodium Chloride (Normal Saline 0.9%) 1,000 mls @ 1,000 mls/hr IV BOLUS ONE Stop: 07/29/23 10:52 Last Infusion: 07/29/23 11:00 Dose: Infused Documented By: [facility]EDS [facility] Admin: 07/29/23 10:30 Dose: 1,000 mls/hr Documented By: [facility] 234 [facility]EDS AT [facility] NOREPINEPHRINE BITARTRATE/D5W (Levophed) 4 mg in 250 mls @ 49.838 mls/hr IV TITRATE VIGNESH; Protocol Last Titration: 07/29/23 16:42 Dose: 0.025 mcg/kg/min, 12.459 mls/hr Documented By: [facility] Titration: 07/29/23 15:31 Dose: 0.025 mcg/kg/min, 12.459 mls/hr Documented By: [facility] Titration: 07/29/23 15:23 Dose: 0 mcg/kg/min, 0 mls/hr Documented By: [facility] Titration: 07/29/23 12:41 Dose: 0.025 mcg/kg/min, 12.459 mls/hr Documented By: [facility]S [facility] Titration: 07/29/23 12:31 Dose: 0 mcg/kg/min, 0.05 mls/hr Documented By: [facility] 234 [facility]S AT [facility] Titration: 07/29/23 10:55 Dose: 0 mcg/kg/min, 0.05 mls/hr Documented By: [facility] 234 [facility]EDS AT [facility] Titration: 07/29/23 10:49 Dose: 0.1 mcg/kg/min, 49.838 mls/hr Documented By: [facility] 234 BEDS AT [facility] Titration: 07/29/23 10:37 Dose: 0 mcg/kg/min, 0 mls/hr Documented By: [facility] 234 [facility]S AT [facility] Admin: 07/29/23 10:24 Dose: 0.1 mcg/kg/min, 49.838 mls/hr Documented By: [facility] 234 [facility]EDS AT [facility] Propofol (Propofol) 1,000 mg in 100 mls @ 3.987 mls/hr IV TITRATE VIGNESH; Protocol Last Titration: 07/29/23 16:42 Dose: 39.75 mcg/kg/min, 31.7 mls/hr Documented By: S Titration: 07/29/23 14:21 Dose: 39.75 mcg/kg/min, 31.7 mls/hr Documented By: [facility] Admin: 07/29/23 14:20 Dose: 37.62 mcg/kg/min, 30 mls/hr Documented By: S Titration: 07/29/23 14:20 Dose: Infused Documented By: S Titration: 07/29/23 12:10 Dose: 37.62 mcg/kg/min, 30 mls/hr Documented By: [facility] 234 BEDS AT [facility] Titration: 07/29/23 12:03 Dose: 20 mcg/kg/min, 15.948 mls/hr Documented By: [facility] 234 [facility]S AT [facility] Titration: 07/29/23 11:51 Dose: 15 mcg/kg/min, 11.961 mls/hr Documented By: [facility] 234 BEDS AT [facility] Admin: 07/29/23 10:37 Dose: 5 mcg/kg/min, 3.987 mls/hr Documented By: [facility] 234 BEDS AT [facility] Sodium Chloride (Normal Saline 0.9%) 1,000 mls @ 1,000 mls/hr IV BOLUS ONE Stop: 07/29/23 11:38 Last Infusion: 07/29/23 11:22 Dose: Infused Documented By: [facility] 234 B[facility]S AT [facility] Admin: 07/29/23 10:55 Dose: 1,000 mls/hr Documented By: [facility] 234 [facility]S AT [facility] Ceftriaxone Sodium 2,000 mg/ (Sodium Chloride) 100 mls @ 200 mls/hr IV NOW ONE Stop: 07/29/23 10:40 Last Infusion: 07/29/23 12:30 Dose: Infused Documented By: [facility] 234 BEDS AT [facility] Admin: 07/29/23 11:55 Dose: 200 mls/hr Documented By: [facility] 234 BEDS AT [facility] Fentanyl 1,000 mcg/ Dextrose 250 mls @ 16.613 mls/hr IV [facility]RATE [facility]; Protocol Last Titration: 07/29/23 16:42 Dose: 2 mcg/kg/hr, 66.45 mls/hr Documented By: [facility] Admin: 07/29/23 15:58 Dose: 2 mcg/kg/hr, 66.45 mls/hr Documented By: S Titration: 07/29/23 15:40 Dose: Infused Documented By: [facility] Titration: 07/29/23 12:12 Dose: 2 mcg/kg/hr, 66.45 mls/hr Documented By: [facility] 234 BEDS AT [facility] Titration: 07/29/23 12:03 Dose: 2 mcg/kg/hr, 66.45 mls/hr Documented By: [facility]CLUDE 234 BEDS AT [facility] Titration: 07/29/23 11:50 Dose: 1 mcg/kg/hr, 33.225 mls/hr Documented By: Admin: 07/29/23 11:41 Dose: 0.5 mcg/kg/hr, 16.613 mls/hr Documented By: BLADIMIR Azithromycin 500 mg/ Dextrose 250 mls @ 250 mls/hr IV NOW ONE Stop: 07/29/23 11:42 Last Infusion: 07/29/23 13:45 Dose: Infused Documented By: Admin: 07/29/23 12:30 Dose: 250 mls/hr Documented By: BLADIMIR Sodium Chloride (Normal Saline 0.9%) 1,000 mls @ 150 mls/hr IV BOLUS ONE Stop: 07/29/23 19:19 Last Infusion: 07/29/23 16:42 Dose: 150 mls/hr Documented By: Admin: 07/29/23 13:04 Dose: 150 mls/hr Documented By: BLADIMIR Ketamine HCl (Ketamine 500 Mg/5 Ml Inj) 100 mg IV NOW ONE Stop: 07/29/23 10:26 Last Admin: 07/29/23 10:28 Dose: 100 mg Documented By: BLADIMIR Midazolam HCl (Midazolam 2 Mg/2 Ml Vial) 5 mg IV Q1HR PRN PRN Reason: Agitation Stop: 08/01/23 12:17 Last Admin: 07/29/23 12:28 Dose: 5 mg Documented By: BLADIMIR Rocuronium [place] (Rocuronium 50 Mg/5 Ml Inj) 50 mg IV NOW ONE Stop: 07/29/23 10:35 Last Admin: 07/29/23 10:34 Dose: 50 mg Documented By: BLADIMIR Vital Signs Vital signs: Vital Signs - 8 hr 07/29/23 09:50 07/29/23 09:52 07/29/23 10:00 Temperature 98.1 F Pulse Rate 74 75 Respiratory Rate 14 29 H Blood Pressure 80/47 L 74/38 L Pulse Oximetry 99 93 Oxygen Delivery Method Room Air Oxygen Flow Rate 07/29/23 10:00 07/29/23 10:04 07/29/23 10:04 Temperature Pulse Rate 70 67 Respiratory Rate 14 14 Blood Pressure 69/35 L Pulse Oximetry 94 94 Oxygen Delivery Method Oxygen Flow Rate 07/29/23 10:08 07/29/23 10:08 07/29/23 10:10 Temperature Pulse Rate 69 Respiratory Rate 14 Blood Pressure 71/39 L 72/39 L Pulse Oximetry 93 Oxygen Delivery Method Oxygen Flow Rate 07/29/23 10:10 07/29/23 10:15 07/29/23 10:15 Temperature Pulse Rate 68 Respiratory Rate 14 Blood Pressure 71/39 L 71/39 L Pulse Oximetry 95 Oxygen Delivery Method Oxygen Flow Rate 07/29/23 10:15 07/29/23 10:20 07/29/23 10:20 Temperature Pulse Rate 66 57 L Respiratory Rate 14 Blood Pressure 150/67 H 69/43 L Pulse Oximetry 94 Oxygen Delivery Method Oxygen Flow Rate 07/29/23 10:20 07/29/23 10:21 07/29/23 10:21 Temperature Pulse Rate 68 68 Respiratory Rate 14 16 Blood Pressure 69/43 L Pulse Oximetry 94 94 Oxygen Delivery Method Non -Rebreather Non -Rebreather Transtracheal Catheter Mechanical Ventilation Oxygen Flow Rate 15 15 07/29/23 10:26 07/29/23 10:26 07/29/23 10:28 Temperature 94.1 F L 94.3 F L Pulse Rate 66 58 L Respiratory Rate 16 35 H Blood Pressure 150/67 H Pulse Oximetry 99 97 Oxygen Delivery Method Mechanical Ventilation Mechanical Ventilation Oxygen Flow Rate 07/29/23 10:28 07/29/23 10:30 07/29/23 10:31 Temperature 94.5 F L 94.5 F L Pulse Rate 64 64 Respiratory Rate 24 25 H Blood Pressure 142/65 H Pulse Oximetry 98 100 Oxygen Delivery Method Mechanical Ventilation Mechanical Ventilation Oxygen Flow Rate 07/29/23 10:31 07/29/23 10:32 07/29/23 10:32 Temperature 94.6 F L Pulse Rate 65 Respiratory Rate 24 Blood Pressure 165/72 H 166/74 H Pulse Oximetry 100 Oxygen Delivery Method Mechanical Ventilation Oxygen Flow Rate 07/29/23 10:34 07/29/23 10:34 07/29/23 10:36 Temperature 94.6 F L 94.6 F L Pulse Rate 69 80 Respiratory Rate 14 20 Blood Pressure 170/77 H Pulse Oximetry 100 100 Oxygen Delivery Method Mechanical Ventilation Mechanical Ventilation Oxygen Flow Rate 07/29/23 10:36 07/29/23 10:38 07/29/23 10:38 Temperature 94.8 F L Pulse Rate 87 Respiratory Rate 21 Blood Pressure 186/79 H 183/77 H Pulse Oximetry 100 Oxygen Delivery Method Mechanical Ventilation Oxygen Flow Rate 07/29/23 10:40 07/29/23 10:40 07/29/23 10:42 Temperature 94.8 F L 94.8 F L Pulse Rate 84 80 Respiratory Rate 16 16 Blood Pressure 157/68 H Pulse Oximetry 100 100 Oxygen Delivery Method Mechanical Ventilation Mechanical Ventilation Oxygen Flow Rate 07/29/23 10:42 07/29/23 10:44 07/29/23 10:44 Temperature 94.6 F L Pulse Rate 80 Respiratory Rate 17 Blood Pressure 143/67 H 139/61 Pulse Oximetry 100 Oxygen Delivery Method Mechanical Ventilation Oxygen Flow Rate 07/29/23 10:46 07/29/23 10:46 07/29/23 11:10 Temperature 94.6 F L 94.5 F L Pulse Rate 76 78 Respiratory Rate 16 16 Blood Pressure 115/58 L Pulse Oximetry 100 100 Oxygen Delivery Method Mechanical Ventilation Mechanical Ventilation Oxygen Flow Rate 07/29/23 11:12 07/29/23 11:14 07/29/23 11:16 Temperature 94.5 F L 94.6 F L 94.6 F L Pulse Rate 78 80 78 Respiratory Rate 15 Blood Pressure Pulse Oximetry 100 99 98 Oxygen Delivery Method Mechanical Ventilation Oxygen Flow Rate 07/29/23 11:18 07/29/23 11:20 07/29/23 11:20 Temperature 94.6 F L 94.6 F L Pulse Rate 76 79 Respiratory Rate Blood Pressure 169/76 H Pulse Oximetry 98 97 Oxygen Delivery Method Oxygen Flow Rate 07/29/23 11:22 07/29/23 11:24 07/29/23 11:24 Temperature 94.6 F L 94.6 F L Pulse Rate 76 76 Respiratory Rate Blood Pressure 197/91 H Pulse Oximetry 99 99 Oxygen Delivery Method Oxygen Flow Rate 07/29/23 11:26 07/29/23 11:28 07/29/23 11:30 Temperature 94.6 F L 94.6 F L 94.6 F L Pulse Rate 78 77 Respiratory Rate Blood Pressure Pulse Oximetry 98 96 Oxygen Delivery Method Oxygen Flow Rate 07/29/23 11:31 07/29/23 11:31 07/29/23 11:32 Temperature 94.6 F L 94.6 F L Pulse Rate 78 83 Respiratory Rate 27 H 21 Blood Pressure 173/76 H Pulse Oximetry 96 97 Oxygen Delivery Method Oxygen Flow Rate 07/29/23 11:34 07/29/23 11:36 07/29/23 11:38 Temperature 94.6 F L 94.6 F L 94.6 F L Pulse Rate 80 79 81 Respiratory Rate 16 22 Blood Pressure Pulse Oximetry 96 96 97 Oxygen Delivery Method Oxygen Flow Rate 07/29/23 11:40 07/29/23 11:41 07/29/23 11:41 Temperature 94.6 F L 94.6 F L Pulse Rate 77 78 Respiratory Rate 21 Blood Pressure 134/84 Pulse Oximetry 99 97 Oxygen Delivery Method Oxygen Flow Rate 07/29/23 11:42 07/29/23 11:44 07/29/23 11:46 Temperature 94.6 F L 94.6 F L 94.6 F L Pulse Rate 81 82 81 Respiratory Rate 27 H 20 Blood Pressure Pulse Oximetry 98 97 97 Oxygen Delivery Method Oxygen Flow Rate 07/29/23 11:47 07/29/23 11:48 07/29/23 11:50 Temperature 94.6 F L 94.6 F L Pulse Rate 75 78 77 Respiratory Rate 16 17 16 Blood Pressure Pulse Oximetry 97 97 Oxygen Delivery Method Oxygen Flow Rate 07/29/23 11:51 07/29/23 11:51 07/29/23 11:52 Temperature 94.6 F L 94.6 F L Pulse Rate 79 76 Respiratory Rate 19 Blood Pressure 140/94 H Pulse Oximetry 97 97 Oxygen Delivery Method Oxygen Flow Rate 07/29/23 11:54 07/29/23 11:56 07/29/23 11:56 Temperature 94.6 F L 94.6 F L Pulse Rate 75 73 Respiratory Rate 22 17 Blood Pressure 115/54 L Pulse Oximetry 98 98 Oxygen Delivery Method Oxygen Flow Rate 07/29/23 11:58 07/29/23 12:00 07/29/23 12:01 Temperature 94.6 F L 94.6 F L 94.6 F L Pulse Rate 73 74 75 Respiratory Rate 20 17 21 Blood Pressure Pulse Oximetry 98 98 98 Oxygen Delivery Method Oxygen Flow Rate 07/29/23 12:01 07/29/23 12:02 07/29/23 12:04 Temperature 94.6 F L 94.6 F L Pulse Rate 76 81 Respiratory Rate 19 20 Blood Pressure 120/70 Pulse Oximetry 98 95 Oxygen Delivery Method Oxygen Flow Rate 07/29/23 12:05 07/29/23 12:05 07/29/23 12:06 Temperature 94.6 F L 94.6 F L Pulse Rate 78 77 Respiratory Rate 20 21 Blood Pressure 134/79 Pulse Oximetry 96 97 Oxygen Delivery Method Oxygen Flow Rate 07/29/23 12:08 07/29/23 12:10 07/29/23 12:10 Temperature 94.6 F L 94.6 F L Pulse Rate 75 74 Respiratory Rate 22 22 Blood Pressure 131/66 Pulse Oximetry 98 99 Oxygen Delivery Method Oxygen Flow Rate 07/29/23 12:12 07/29/23 12:14 07/29/23 12:16 Temperature 94.6 F L 94.6 F L Pulse Rate 72 71 Respiratory Rate 22 22 Blood Pressure 120/54 L Pulse Oximetry 98 98 Oxygen Delivery Method Oxygen Flow Rate 07/29/23 12:16 07/29/23 12:18 07/29/23 12:20 Temperature 94.6 F L 94.6 F L 94.6 F L Pulse Rate 70 68 70 Respiratory Rate 22 22 22 Blood Pressure Pulse Oximetry 98 99 98 Oxygen Delivery Method Oxygen Flow Rate 07/29/23 12:20 07/29/23 12:22 07/29/23 12:24 Temperature 94.6 F L 94.6 F L Pulse Rate 71 72 Respiratory Rate 22 22 Blood Pressure 121/58 L Pulse Oximetry 97 97 Oxygen Delivery Method Oxygen Flow Rate 07/29/23 12:25 07/29/23 12:25 07/29/23 12:26 Temperature 94.6 F L 94.6 F L Pulse Rate 72 72 Respiratory Rate 22 22 Blood Pressure 97/49 L Pulse Oximetry 97 96 Oxygen Delivery Method Oxygen Flow Rate 07/29/23 12:28 07/29/23 12:30 07/29/23 12:30 Temperature 94.6 F L 94.6 F L Pulse Rate 72 70 Respiratory Rate 22 22 Blood Pressure 82/32 L Pulse Oximetry 98 97 Oxygen Delivery Method Oxygen Flow Rate 07/29/23 12:32 07/29/23 12:34 07/29/23 12:36 Temperature 94.6 F L 94.6 F L 94.6 F L Pulse Rate 71 70 68 Respiratory Rate 22 22 22 Blood Pressure Pulse Oximetry 97 96 97 Oxygen Delivery Method Oxygen Flow Rate 07/29/23 12:36 07/29/23 12:38 07/29/23 12:39 Temperature 94.6 F L Pulse Rate 67 Respiratory Rate 22 Blood Pressure 139/63 Pulse Oximetry 96 98 Oxygen Delivery Method Mechanical Ventilation Oxygen Flow Rate 07/29/23 12:40 07/29/23 12:41 07/29/23 12:41 Temperature 94.6 F L 94.6 F L Pulse Rate 70 72 Respiratory Rate 22 22 Blood Pressure 164/75 H Pulse Oximetry 97 97 Oxygen Delivery Method Oxygen Flow Rate 07/29/23 12:42 07/29/23 12:44 07/29/23 12:45 Temperature 94.6 F L 94.6 F L 94.6 F L Pulse Rate 74 74 73 Respiratory Rate 22 22 22 Blood Pressure Pulse Oximetry 97 97 96 Oxygen Delivery Method Oxygen Flow Rate 07/29/23 12:45 07/29/23 12:46 07/29/23 12:48 Temperature 94.6 F L 94.6 F L Pulse Rate 73 73 Respiratory Rate 22 22 Blood Pressure 127/58 L Pulse Oximetry 97 96 Oxygen Delivery Method Oxygen Flow Rate 07/29/23 12:50 07/29/23 12:50 07/29/23 12:52 Temperature 94.6 F L 94.6 F L Pulse Rate 73 73 Respiratory Rate 22 22 Blood Pressure 117/58 L Pulse Oximetry 96 96 Oxygen Delivery Method Oxygen Flow Rate 07/29/23 12:54 07/29/23 12:55 07/29/23 12:55 Temperature 94.6 F L 94.6 F L Pulse Rate 73 73 Respiratory Rate 22 22 Blood Pressure 123/60 Pulse Oximetry 96 96 Oxygen Delivery Method Oxygen Flow Rate 07/29/23 12:56 07/29/23 12:58 07/29/23 13:00 Temperature 94.6 F L 94.6 F L Pulse Rate 73 72 Respiratory Rate 22 22 Blood Pressure 125/59 L Pulse Oximetry 96 96 Oxygen Delivery Method Oxygen Flow Rate 07/29/23 13:00 07/29/23 13:02 07/29/23 13:04 Temperature 94.8 F L 94.8 F L 94.8 F L Pulse Rate 72 72 71 Respiratory Rate 22 22 22 Blood Pressure Pulse Oximetry 96 96 96 Oxygen Delivery Method Oxygen Flow Rate 07/29/23 13:05 07/29/23 13:05 07/29/23 13:06 Temperature 94.8 F L 94.8 F L Pulse Rate 72 71 Respiratory Rate 22 22 Blood Pressure 125/59 L Pulse Oximetry 96 96 Oxygen Delivery Method Oxygen Flow Rate 07/29/23 13:08 07/29/23 13:10 07/29/23 13:10 Temperature 94.8 F L 94.8 F L Pulse Rate 71 71 Respiratory Rate 22 22 Blood Pressure 124/59 L Pulse Oximetry 96 96 Oxygen Delivery Method Oxygen Flow Rate 07/29/23 13:12 Temperature 94.8 F L Pulse Rate 70 Respiratory Rate 22 Blood Pressure Pulse Oximetry 96 Oxygen Delivery Method Oxygen Flow Rate Medical Decision Making Lab Data 07/29/23 09:51 07/29/23 09:51 Labs: Lab Results 07/29/23 07/29/23 07/29/23 Range/Units 09:51 10:30 11:57 WBC 7.3 (4.5-11.0) X10^3/uL RBC 3.79 L (4.0-5.2) X10^6/uL Hgb 11.2 L (12.0-16.0) g/dL Hct 34.6 L (36-46) % MCV 91.3 (80-100) fL MCH 29.5 (26-34) PG MCHC 32.3 (30-36) % RDW 13.9 (11.6-14.8) % Plt Count 157 (150-400) X10^3/uL Neut % (Auto) 60.2 (50-75) % Lymph % (Auto) 27.1 (25-40) % [place] % (Auto) 10.5 (3-14) % Eos % (Auto) 1.7 L (2-4) % Baso % (Auto) 0.5 (0-2) % Neut # (Auto) 4400 (0401-4725) /uL Lymph # (Auto) 2000 (1012-6068) /uL [place] # (Auto) 800 (0-900) /uL Eos # (Auto) 100 (0-450) /uL Baso # (Auto) 0 (0-100) /uL PT 11.2 (9.4-12.5) SECONDS INR 1.0 (0.9-1.3) APTT 33 (25.1-36.5) SECONDS ABG Sample Site Left radial ABG pH 7.29 L* (7.35-7.45) ABG pCO2 49.6 H (35-45) mmHg ABG pO2 83 (80-100) mmHg ABG HCO3 24 (23-27) mmol/L ABG Total CO2 25 (23-27) mmol/L ABG O2 Saturation 95 (95-100) % ABG Base Excess -3.0 L (-2-3) mmol/L FiO2 40 Sodium 140 (137-145) mmol/L Potassium 4.6 (3.4-5.1) mmol/L Chloride 107 (98-107) mmol/L Carbon Dioxide 26 (22-32) mmol/L BUN 63 H (7-17) mg/dL Creatinine 1.94 H (0.52-1.04) mg/dL Estimated GFR 28 L (>60) mL/min BUN/Creatinine Ratio 32.5 H (6-22) Glucose 96 (80-110) mg/dL Lactate 1.4 (0.7-2.1) mmol/L Calcium 8.9 (8.4-10.2) mg/dL Total Bilirubin 0.7 (0.2-1.3) mg/dL AST 28 (14-36) IU/L ALT 22 (<35) IU/L Alkaline Phosphatase 109 (38-126) U/L Total Creatine Kinase 56 (30-135) U/L Troponin I < 0.012 (0.01-0.034) ng/mL NT-Pro-B Natriuret Pep 283 H (<125) pg/mL Total Protein 7.1 (6.3-8.2) g/dL Albumin 4.1 (3.5-5.0) g/dL Globulin 3.0 (1.7-4.1) g/dL Albumin/Globulin Ratio 1.4 (1.0-2.8) Procalcitonin 0.06 (<0.5) ng/mL Urine Color Yellow Urine Appearance Clear Urine pH 5.0 (4.5-8.0) Ur Specific [place] 1.015 (1.000-1.035) Urine Protein Negative (Negative) Urine Glucose (UA) Negative (Negative) g/dL Urine Ketones Negative (NEGATIVE) Urine Occult Blood Negative (Negative) Urine Nitrate Negative (Negative) Urine Bilirubin Negative (NEGATIVE) Urine Urobilinogen 0.2 (0.2) E.U./dL Ur Leukocyte Esterase Negative (NEGATIVE) Urine RBC None seen (0-5/HPF) Urine WBC None seen (0-5/HPF) Ur Squamous Epith Cells 1-5 /hpf (0-5/HPF) Urine Bacteria None seen (None) Ur Culture Indicated? Cult not indicated Vol Urine Centrifuged 10ml (spun) Chlamy pneumoniae PCR (Not Detect) Adenovirus (PCR) (Not Detect) B.parapertussis DNA PCR (Not Detecte) Coronavirus OC43 (PCR) (Not Detect) Coronavirus HKU1 (PCR) (Not Detect) Coronavirus 229E (PCR) (Not Detect) SARS-CoV-2 (PCR) (Not Detecte) Coronavirus NL63 (PCR) (Not Detect) Human Metapneumovir PCR (Not Detect) Influenza Type A (PCR) (Not Detect) Influenza Type B (PCR) (Not Detect) M. pneumoniae (PCR) (Not Detect) Parainfluenza 1 (PCR) (Not Detect) Parainfluenza 2 (PCR) (Not Detect) Parainfluenza 3 (PCR) (Not Detect) Parainfluenza 4 (PCR) (Not Detect) RSV (PCR) (Not Detect) Entero/Rhino (PCR) (Not Detect) 07/29/23 Range/Units 12:18 WBC (4.5-11.0) X10^3/uL RBC (4.0-5.2) X10^6/uL Hgb (12.0-16.0) g/dL Hct (36-46) % MCV (80-100) fL MCH (26-34) PG MCHC (30-36) % RDW (11.6-14.8) % Plt Count (150-400) X10^3/uL Neut % (Auto) (50-75) % Lymph % (Auto) (25-40) % [place] % (Auto) (3-14) % Eos % (Auto) (2-4) % Baso % (Auto) (0-2) % Neut # (Auto) (3771-0431) /uL Lymph # (Auto) (8006-3089) /uL [place] # (Auto) (0-900) /uL Eos # (Auto) (0-450) /uL Baso # (Auto) (0-100) /uL PT (9.4-12.5) SECONDS INR (0.9-1.3) APTT (25.1-36.5) SECONDS ABG Sample Site ABG pH (7.35-7.45) ABG pCO2 (35-45) mmHg ABG pO2 (80-100) mmHg ABG HCO3 (23-27) mmol/L ABG Total CO2 (23-27) mmol/L ABG O2 Saturation (95-100) % ABG Base Excess (-2-3) mmol/L FiO2 Sodium (137-145) mmol/L Potassium (3.4-5.1) mmol/L Chloride (98-107) mmol/L Carbon Dioxide (22-32) mmol/L BUN (7-17) mg/dL Creatinine (0.52-1.04) mg/dL Estimated GFR (>60) mL/min BUN/Creatinine Ratio (6-22) Glucose (80-110) mg/dL Lactate (0.7-2.1) mmol/L Calcium (8.4-10.2) mg/dL Total Bilirubin (0.2-1.3) mg/dL AST (14-36) IU/L ALT (<35) IU/L Alkaline Phosphatase (38-126) U/L Total Creatine Kinase (30-135) U/L Troponin I (0.01-0.034) ng/mL NT-Pro-B Natriuret Pep (<125) pg/mL Total Protein (6.3-8.2) g/dL Albumin (3.5-5.0) g/dL Globulin (1.7-4.1) g/dL Albumin/Globulin Ratio (1.0-2.8) Procalcitonin (<0.5) ng/mL Urine Color Urine Appearance Urine pH (4.5-8.0) Ur Specific [place] (1.000-1.035) Urine Protein (Negative) Urine Glucose (UA) (Negative) g/dL Urine Ketones (NEGATIVE) Urine Occult Blood (Negative) Urine Nitrate (Negative) Urine Bilirubin (NEGATIVE) Urine Urobilinogen (0.2) E.U./dL Ur Leukocyte Esterase (NEGATIVE) Urine RBC (0-5/HPF) Urine WBC (0-5/HPF) Ur Squamous Epith Cells (0-5/HPF) Urine Bacteria (None) Ur Culture Indicated? Vol Urine Centrifuged Chlamy pneumoniae PCR Not detected (Not Detect) Adenovirus (PCR) Not detected (Not Detect) B.parapertussis DNA PCR Not detected (Not Detecte) Coronavirus OC43 (PCR) Not detected (Not Detect) Coronavirus HKU1 (PCR) Not detected (Not Detect) Coronavirus 229E (PCR) Not detected (Not Detect) SARS-CoV-2 (PCR) Not detected (Not Detecte) Coronavirus NL63 (PCR) Not detected (Not Detect) Human Metapneumovir PCR Not detected (Not Detect) Influenza Type A (PCR) Not detected (Not Detect) Influenza Type B (PCR) Not detected (Not Detect) M. pneumoniae (PCR) Not detected (Not Detect) Parainfluenza 1 (PCR) Not detected (Not Detect) Parainfluenza 2 (PCR) Not detected (Not Detect) Parainfluenza 3 (PCR) Not detected (Not Detect) Parainfluenza 4 (PCR) Not detected (Not Detect) RSV (PCR) Not detected (Not Detect) Entero/Rhino (PCR) Not detected (Not Detect) Point of Care Testing Test Results Not applicable Glucose POC 130 Point of care testing: Point of Care Testing Test Results Not applicable Glucose POC [address] scan - head: Radiologist's Impression: PROCEDURE: CT HEAD/BRAIN WO CON INDICATIONS: AMS TECHNIQUE: Noncontrast 4.5 mm thick angled axial sections acquired from the foramen magnum to the vertex, with coronal and sagittal reformats. For radiation dose reduction, the following was used: automated exposure control, adjustment of mA and/or kV according to patient size. COMPARISON: None. FINDINGS: Image quality: Diagnostic. CSF spaces: Basal cisterns are patent. No extra-axial fluid collections. The ventricles are symmetric in size and shape. Brain: No intracranial bleeds or masses. There is cerebral volume loss for age, with resultant ventricular and sulcal prominence. There are periventricular and deep white matter chronic small vessel ischemic changes. There is intracranial internal carotid artery atherosclerosis. Skull and face: Calvarium and visualized facial bones appear intact, without suspicious lesions. Sinuses: Mild bilateral ethmoid sinus mucosal thickening. Visualized sinuses and mastoids are otherwise clear. IMPRESSION: No acute intracranial pathology. Dictated by: Galen Olmos M.D. on 07/29/2023 at 11:54 Approved by: Galen Olmos M.D. on 07/29/2023 at 11:55 Chest x-ray: Radiologist's Impression: PROCEDURE: XR CHEST 1V INDICATIONS: central line, NGT and ETT placement TECHNIQUE: One view of the chest was acquired. COMPARISON: [facility], XR CHEST 1V, 07/29/2023, 10:01. FINDINGS: Surgical changes and devices: ETT is present, tip of which is roughly 15 mm above the geovanna. Left-sided central venous catheter is present, tip of which is in the upper SVC. NGT extends into the gastric lumen. Lungs and pleura: Moderate bilateral pulmonary opacity. Bibasilar airspace opacity. No pleural effusions or pneumothorax. Mediastinum: Mediastinal contours appear normal. Heart size is normal. Bones and chest wall: Chronic left facet humeral head deformity. No suspicious bony lesions. Overlying soft tissues appear unremarkable. IMPRESSION: 1. Bilateral pneumonia. Dictated by: Galen Olmos M.D. on 07/29/2023 at 11:26 Approved by: Galen Olmos M.D. on 07/29/2023 at 11:27 CT scan - chest: Radiologist's Impression: PROCEDURE: CT CHEST WO CON INDICATIONS: ABNORMAL CXR TECHNIQUE: Noncontrast 5 mm thick sections acquired from the pulmonary apices to the posterior costophrenic angles. 1 mm lung window, 5 mm thick coronal and sagittal and 7 mm axial MIP reformats were then acquired. For radiation dose reduction, the following was used: automated exposure control, adjustment of mA and/or kV according to patient size. COMPARISON: [facility], XR CHEST 1V, 07/29/2023, 11:08. FINDINGS: Image quality: Diagnostic. Lower Neck: No enlarged lymph nodes. Thyroid: No thyroid nodules which require sonographic follow up, per consensus guidelines. Axillae: No enlarged lymph nodes. Chest Wall: Unremarkable. Bones: Unremarkable. Lungs and Pleura: No pneumothorax or pleural effusions. Patchy bilateral perihilar and basilar opacity is present as seen by plain film. Heart: Heart size is enlarged. Calcification of the coronary vasculature. No pericardial effusion. Thoracic Vessels: The aorta and pulmonary arteries demonstrate normal size. Mediastinum and Dana: No enlarged lymph nodes. Esophagus: No wall thickening. No hiatal hernia. The tip of the NGT has withdrawn into the distal esophagus. Upper Abdomen: Visualized upper abdomen solid organs and bowel loops appear normal. IMPRESSION: 1. Bilateral pneumonia, as diagnosed by same-day plain film. 2. Coronary artery disease. 3. NGT as above. Dictated by: Galen Olmos M.D. on 07/29/2023 at 12:18 Approved by: Galen Olmos M.D. on 07/29/2023 at 12:21 MDM Narrative Medical decision making narrative: Transport from nursing home facility for hypoglycemia and low blood pressures. Patient did have hypotension on arrival and IV fluids were continued. Accu-Chek within normal limits on arrival. Patient initially alert and oriented x3, seemed drowsy but answered questions appropriately. Shortly after patient arrival she became profoundly lethargic, responding only minimally to deep sternal rub and decision made to intubate patient for airway protection. Intubation and central line placed per procedure note. Preliminary chest x-ray shows bilateral pneumonia and empiric IV antibiotics ordered. Laboratory work is reviewed, significant for WBC count 7.3, hemoglobin 11.2, sodium 140, potassium 4.6, creatinine 1.94, GFR 28. Patient's kidney function at baseline per previous visits. Urinalysis negative for signs of acute infection. Respiratory panel negative. ABG shows pH 7.29, CO2 50, O2 83. Ventilator settings adjusted accordingly. CT scan of the head is negative for acute findings. CT chest shows bilateral pneumonia as described in the chest x-ray. Patient intubated and sedated on the ventilator. Discussed case with hospitalist Dr. Stubbs, who stated that due to patient's history of cerebral palsy and difficulty in weaning cerebral palsy patient is off of the vent she would be best served in a facility with pulmonology and higher ICU capabilities. Discussed with ICU DrAmara at [facility], who accepted patient for transfer. Critical Care Time Critical Care Time Critical Care Time: Yes Total Critical Care Time: 61 Attestation: Respiratory failure requiring intubation, central line placement. Frequent reassessments, ABG interpretation and ventilator titration, discussion with ICU paper bags sewing machine operator. Discharge Plan Departure Patient Disposition: [facility] Clinical Impression: Acute hypoxemic respiratory failure, Pneumonia Prescriptions: No Action albuterol sulfate 90 mcg/actuation HFA aerosol inhaler 2 puff Inhalation Q4H PRN (Reason: Wheezing) lisinopril 10 mg Tablet 10 mg PO DAILY Qty: 30 0RF celecoxib 200 mg capsule 200 mg PO DAILY cyclobenzaprine 10 mg tablet 10 mg PO DAILY furosemide 40 mg tablet 40 mg PO DAILY buspirone 5 mg tablet 5 mg PO TID trazodone 50 mg tablet 25 mg PO BEDTIME polyethylene glycol 3350 17 gram Powder In Packet 17 g PO BID PRN (Reason: Constipation) cetirizine 10 mg tablet 10 mg PO DAILY melatonin 3 mg tablet 6 mg PO BEDTIME acetaminophen 500 mg Tablet 500 mg PO Q6H PRN (Reason: pain) carvedilol 3.125 mg tablet 3.125 mg PO DAILY terbinafine HCl 250 mg tablet 250 mg PO DAILY fluoxetine 20 mg capsule 20 mg PO DAILY oxycodone 5 mg tablet 5 mg PO Q6HR PRN (Reason: Pain (Scale Score 4-6)) sennosides 17.2 mg Tablet 17.2 mg PO DAILY PRN (Reason: Constipation) oxycodone 5 mg Tablet 5 mg PO Q4HR PRN (Reason: Pain, Moderate (4-6)) Qty: 20 0RF cholecalciferol (vitamin D3) [Vitamin D3] 50 mcg (2,000 unit) capsule 50 mcg PO DAILY Qty: 30 0RF calcium carbonate 600 mg calcium (1,500 mg) tablet 600 mg PO DAILY Qty: 30 0RF cephalexin 500 mg capsule 500 mg PO TID Qty: 21 0RF fluoxetine 20 mg capsule 40 mg PO QDAY lamotrigine [Lamictal] 100 mg tablet 300 mg PO QDAY gabapentin [Neurontin] 600 mg tablet 1,200 mg PO BEDTIME gabapentin [Neurontin] 300 mg capsule 900 mg PO QAM doxycycline monohydrate 100 mg capsule 100 mg PO BID Qty: 14 0RF tramadol 50 mg tablet 50 mg PO Q8H PRN (Reason: pain) Qty: 15 0RF Referrals: Alie Salmeron ARNP [Primary Care Provider] - Stand Alone Forms: Patient Portal/API
[2023-07-29 10:03] LABS: Add Manual Diff / Slide Review NO; Basophils Absolute Auto 0 /uL (0-100); Basophils Percent Auto 0.5 % (0-2); Eosinophils Absolute Auto 100 /uL (0-450); Eosinophils Percent Auto 1.7 % (2-4); Hematocrit 34.6 % (36-46); Hemoglobin 11.2 g/dL (12.0-16.0); Lymphocytes Absolute Auto 2000 /uL (1100-4500); Lymphocytes Percent Auto 27.1 % (25-40); Mean Corpuscular HGB Conc 32.3 % (30-36); Mean Corpuscular Hemoglobin 29.5 PG (26-34); Mean Corpuscular Volume 91.3 fL (80-100); Monocytes Absolute Auto 800 /uL (0-900); Monocytes Percent Auto 10.5 % (3-14); Neutrophils Absolute Auto 4400 /uL (1500-7000); Neutrophils Percent Auto 60.2 % (50-75); Platelet Count 157 X10^3/uL (150-400); Red Blood Cell Count 3.79 X10^6/uL (4.0-5.2); Red Cell Distribution Width 13.9 % (11.6-14.8); White Blood Cell Count 7.3 X10^3/uL (4.5-11.0)
[2023-07-29 10:16] LABS: Alanine Aminotransferase 22 IU/L (<35); Albumin 4.1 g/dL (3.5-5.0); Albumin Globulin Ratio 1.4 (1.0-2.8); Alkaline Phosphatase 109 U/L (38-126); Aspartate Aminotransferase 28 IU/L (14-36); BUN Creatinine Ratio 32.5 (6-22); Bilirubin Total 0.7 mg/dL (0.2-1.3); Blood Urea Nitrogen 63 mg/dL (7-17); Calcium 8.9 mg/dL (8.4-10.2); Carbon Dioxide 26 mmol/L (22-32); Chloride 107 mmol/L (98-107); Creatine Kinase 56 U/L (30-135); Estimated Glomerular Filt Rate 28 mL/min (>60); Glucose 96 mg/dL (80-110); HEMOLYSIS 79 (0-50); Lactate (Lactic Acid) 1.4 mmol/L (0.7-2.1); Potassium 4.6 mmol/L (3.4-5.1); Sodium 140 mmol/L (137-145); Total Protein 7.1 g/dL (6.3-8.2)
[2023-07-29] MEDS: NOREPINEPHRINE BITARTRATE/D5W 4 MG/250 ML PLAST..BAG 49.838 MG IV (10:24)
[2023-07-29 10:27] LABS: Troponin I < 0.012 ng/mL (0.01-0.034)
[2023-07-29] MEDS: KETAMINE 500 MG/5 ML INJ 100 MG IV (10:28)
[2023-07-29] MEDS: SODIUM CHLORIDE 0.9% 1,000 ML 1000 ML IV ×2 (10:30→10:55)
[2023-07-29 10:31] LABS: Procalcitonin 0.06 ng/mL (<0.5)
[2023-07-29] MEDS: ROCURONIUM 50 MG/5 ML INJ IV (10:34)
[2023-07-29] MEDS: propofoL 1,000 MG/100 ML VIAL 3.987 MG IV (10:37)
[2023-07-29 11:04] LABS: Appearance Urine UA CLEAR; Bilirubin Urine UA NEGATIVE (NEGATIVE); Color Urine UA YELLOW; Glucose Urine UA NEGATIVE (Negative); Ketones Urine UA NEGATIVE (NEGATIVE); Leukocyte Esterase Urine UA NEGATIVE (NEGATIVE); Nitrite Urine UA NEGATIVE (Negative); Occult Blood Urine UA NEGATIVE (Negative); Protein Urine UA NEGATIVE (Negative); Specific Gravity Urine UA 1.015 (1.000-1.035); Urobilinogen Urine UA 0.2 E.U./dL (0.2)
--- NOTE | 2023-07-29 11:08 | DI.CT.S_ITS ---
PROCEDURE: CT HEAD/BRAIN WO CON INDICATIONS: AMS TECHNIQUE: Noncontrast 4.5 mm thick angled axial sections acquired from the foramen magnum to the vertex, with coronal and sagittal reformats. For radiation dose reduction, the following was used: automated exposure control, adjustment of mA and/or kV according to patient size. COMPARISON: None. FINDINGS: Image quality: Diagnostic. CSF spaces: Basal cisterns are patent. No extra-axial fluid collections. The ventricles are symmetric in size and shape. Brain: No intracranial bleeds or masses. There is cerebral volume loss for age, with resultant ventricular and sulcal prominence. There are periventricular and deep white matter chronic small vessel ischemic changes. There is intracranial internal carotid artery atherosclerosis. Skull and face: Calvarium and visualized facial bones appear intact, without suspicious lesions. Sinuses: Mild bilateral ethmoid sinus mucosal thickening. Visualized sinuses and mastoids are otherwise clear. IMPRESSION: No acute intracranial pathology. Dictated by: Galen Olmos M.D. on 07/29/2023 at 11:54 Approved by: Galen Olmos M.D. on 07/29/2023 at 11:55
--- NOTE | 2023-07-29 11:09 | DI.RAD.S_ITS ---
PROCEDURE: XR CHEST 1V INDICATIONS: central line, NGT and ETT placement TECHNIQUE: One view of the chest was acquired. COMPARISON: [facility], CR, XR CHEST 1V, 07/29/2023, 10:01. FINDINGS: Surgical changes and devices: ETT is present, tip of which is roughly 15 mm above the geovanna. Left-sided central venous catheter is present, tip of which is in the upper SVC. NGT extends into the gastric lumen. Lungs and pleura: Moderate bilateral pulmonary opacity. Bibasilar airspace opacity. No pleural effusions or pneumothorax. Mediastinum: Mediastinal contours appear normal. Heart size is normal. Bones and chest wall: Chronic left facet humeral head deformity. No suspicious bony lesions. Overlying soft tissues appear unremarkable. IMPRESSION: 1. Bilateral pneumonia. Dictated by: Galen Olmos M.D. on 07/29/2023 at 11:26 Approved by: Galen Olmos M.D. on 07/29/2023 at 11:27
[2023-07-29 11:11] LABS: Prothrombin Time 11.2 SECONDS (9.4-12.5)
[2023-07-29 11:11] LABS: Bacteria Urine None Seen; RBC Urine None Seen (0-5/HPF); Urine Volume 10mL (spun); WBC Urine None Seen (0-5/HPF)
[2023-07-29 11:12] LABS: Culture Indicated Urine Cult Not Indicated; Squamous Epithelial Cell Urine 1-5 /HPF (0-5/HPF)
--- NOTE | 2023-07-29 11:13 | DI.CT.S_ITS ---
PROCEDURE: CT CHEST WO CON INDICATIONS: ABNORMAL CXR TECHNIQUE: Noncontrast 5 mm thick sections acquired from the pulmonary apices to the posterior costophrenic angles. 1 mm lung window, 5 mm thick coronal and sagittal and 7 mm axial MIP reformats were then acquired. For radiation dose reduction, the following was used: automated exposure control, adjustment of mA and/or kV according to patient size. COMPARISON: [facility], CR, XR CHEST 1V, 07/29/2023, 11:08. FINDINGS: Image quality: Diagnostic. Lower Neck: No enlarged lymph nodes. Thyroid: No thyroid nodules which require sonographic follow up, per consensus guidelines. Axillae: No enlarged lymph nodes. Chest Wall: Unremarkable. Bones: Unremarkable. Lungs and Pleura: No pneumothorax or pleural effusions. Patchy bilateral perihilar and basilar opacity is present as seen by plain film. Heart: Heart size is enlarged. Calcification of the coronary vasculature. No pericardial effusion. Thoracic Vessels: The aorta and pulmonary arteries demonstrate normal size. Mediastinum and Dana: No enlarged lymph nodes. Esophagus: No wall thickening. No hiatal hernia. The tip of the NGT has withdrawn into the distal esophagus. Upper Abdomen: Visualized upper abdomen solid organs and bowel loops appear normal. IMPRESSION: 1. Bilateral pneumonia, as diagnosed by same-day plain film. 2. Coronary artery disease. 3. NGT as above. Dictated by: Galen Olmos M.D. on 07/29/2023 at 12:18 Approved by: Galen Olmos M.D. on 07/29/2023 at 12:21
[2023-07-29 11:18] LABS: PTT Partial Thromboplastin Tim 33 SECONDS (25.1-36.5)
[2023-07-29] MEDS: fentaNYL 1,000 MCG in DEXTROSE 5% IN WATER 230 ML 16.613 MCG IV (11:41)
--- NOTE | 2023-07-29 11:46 | RT ---
Patient transport to CT and back on LTV, ambu bag bedside. No incidence, patient tolerated. Vitals and ETCO2 remained the same. Patient back in ER room, left in care of RN.
[2023-07-29 11:48] LABS: NT-proBNP (BNP-Adult 18+) 283 pg/mL (<125)
[2023-07-29] MEDS: propofoL 200 MG/20 ML VIAL IV (11:52)
[2023-07-29] MEDS: cefTRIAXone 2,000 MG in SODIUM CHLORIDE 0.9% 100 ML 200 MG IV (11:55)
--- NOTE | 2023-07-29 12:04 | PC.NURSE ---
Upon arrival to ER patient was lethargic mentating I just feel very tired. Like I cant keep my eyes open Patient continued to decline in mental status. Hypotension persisted despite fluids. Patient moved to one. Set up for RSI. Patient pre oxygenated with 15lNEB. Patient medicated and intubated with 7.5 ET tube 24 at the teeth. Equal bilateral breath sounds and positive color change. Triple lumen Left IJ placed by Dr Vegas. OG tube inserted. Xray completed to confirm tube placements.
[2023-07-29 12:16] LABS: Fractionated Inspired Oxygen 40; HCO3 ABG 24 mmol/L (23-27); Oxygen Saturation ABG 95 % (95-100); PCO2 ABG 49.6 mmHg (35-45); PO2 ABG 83 mmHg (80-100); TCO2 ABG 25 mmol/L (23-27)
[2023-07-29 12:17] LABS: Allen Test for ABG Passed? Yes, Passed; Blood Gas Collection Site Left Radial
--- NOTE | 2023-07-29 12:19 | PC.NURSE ---
Patient restless, lifting head. Shaking head no. MD notified. Additional meds ordered for sedation.
[2023-07-29] MEDS: MIDAZOLAM 2 MG/2 ML VIAL 5 MG IV (12:28)
[2023-07-29] MEDS: AZITHROMYCIN 500 MG in DEXTROSE 5% IN WATER 250 ML 250 MG IV (12:30)
--- NOTE | 2023-07-29 12:44 | P.CALLCOV_ITS ---
Call Coverage Note Note Narrative of Care Provided: 67 F with PMH of cerebral palsy, lives at [facility] who presented with hypotension and hypogylcemia. She needed to be intubated in the emergency room. Called for admission for possible pneumonia. She has elevated creatinine as well, though baseline not clear based on past admissions. Discussed with tele-honeycomb blanket maker microelectronics assembler regarding treating patient at [facility], and given patient's history of CP with what appears to be a chronic progressive weakness based on previous admissions, along with history of esophageal strictures/dilatations in the past, recommend transfer for higher level of care (suspect patient will need either neurology or GI consultation) at this time.
--- NOTE | 2023-07-29 12:44 | PC.NURSE ---
patient intubated and sedated. CMS intact. Skin checked.
[2023-07-29 12:52] LABS: pH ABG 7.29 (7.35-7.45)
[2023-07-29] MEDS: SODIUM CHLORIDE 0.9% 1,000 ML 150 ML IV (13:04)
[2023-07-29 13:42] LABS: Adenovirus Not Detected (Not Detect); B. parapertussis Not Detected (Not Detecte); Bordetella pertussis Not Detected (Not Detect); Chlamydophila pneumoniae Not Detected (Not Detect); Coronavirus 229E Not Detected (Not Detect); Coronavirus HKU1 Not Detected (Not Detect); Coronavirus NL 63 Not Detected (Not Detect); Coronavirus OC43 Not Detected (Not Detect); Human Metapneumovirus Not Detected (Not Detect); Human Rhinovirus/Enterovirus Not Detected (Not Detect); Influenza A Not Detected (Not Detect); Influenza B Not Detected (Not Detect); Mycoplasma pneumoniae Not Detected (Not Detect); Parainfluenza Virus 1 Not Detected (Not Detect); Parainfluenza Virus 2 Not Detected (Not Detect); Parainfluenza Virus 3 Not Detected (Not Detect); Parainfluenza Virus 4 Not Detected (Not Detect); Respiratory Syncytial Virus Not Detected (Not Detect); SARS- CoV-2 Not Detected (Not Detecte)
[2023-07-29] MEDS: propofoL 1,000 MG/100 ML VIAL 30 MG IV (14:20)
--- NOTE | 2023-07-29 15:42 | PC.NURSE ---
this RN spoke moses Andrea at who reports that they have a bed for the patient. the patient can be sent to the ED entrance and can arrive anytime. Nurse to nurse report to be called to the transfer center at [phone] option 1. Maame Benito request that we call with an ETA of the patients arrival. charge, primary RN and provider aware.
[2023-07-29] MEDS: fentaNYL 1,000 MCG in DEXTROSE 5% IN WATER 230 ML 66.45 MCG IV (15:58)
== END 2023-07-29 17:04 | disposition short-term general hospital (02) ==
PROVIDERS: Emergency Provider Emergency Medicine; Family Provider Nurse Practitioner Family; PCP Nurse Practitioner Family
DX: J18.9 Pneumonia, unspecified organism (principal); J96.01 Acute respiratory failure with hypoxia; E16.2 Hypoglycemia, unspecified; I95.9 Hypotension, unspecified
CPT/HCPCS: 31500; 36415; 36600; 70450; 71045; 71250; 80053; 81001; 82550; 82805; 82962; 83605; 83880; 84145; 84484; 85025; 85610; 85730; 87040; 87633; 93005; 94799; 96365; 96366; 96368; 96375; 99285; 99291; J0696; J2250; J2704; J3010

== ENCOUNTER 2023-08-08 15:25 | Emergency (ER) | payer MEDICARE, MEDICAID, SELFPAY ==
[2023-04-13 03:20] VITALS: BMI 45.0
[2023-07-29 10:54] VITALS: RESP 16
[2023-07-29 14:34] VITALS: PULSE 69; RESP 22; O2SAT 97
[2023-08-08] VITALS (12 sets, daily range): BP systolic 124–150; BP diastolic 61–70; PULSE 72–80; RESP 14–24; O2SAT 88–99; BMI 44.8
--- NOTE | 2023-08-08 15:39 | ED.FEMALEGU ---
HPI - Female Genitourinary <Sarah Azizatabatha, DO - Last Filed: 08/14/23 07:20> General Chief complaint: Weakness Stated complaint: decreased urine output Time Seen by Provider: 08/08/23 15:27 History of Present Illness HPI Narrative: Patient 67-year-old female history of cerebral palsy, diabetes with recent pneumonia and intubation requiring ICU at [facility]. Today she is presenting with decreased urination, although she states that she did pee a little. She has some shortness of breath but not too bad. No fever chills or cough. She is some mild abdominal discomfort. No nausea or vomiting. She complains of severe leg pain last night she has chronic cellulitis and redness on her right leg it has not any worse today than normal. Left leg is within normal limits. Related Data Home Medications Medication Instructions Recorded Confirmed albuterol sulfate 90 mcg/actuation 2 puff inhalation Q4H PRN Wheezing 05/09/18 01/17/22 aerosol inhaler fluoxetine 20 mg capsule 40 mg PO QDAY 07/23/21 04/13/23 gabapentin 300 mg capsule 900 mg PO QAM 07/23/21 04/13/23 (Neurontin) gabapentin 600 mg tablet 1,200 mg PO BEDTIME 07/23/21 04/13/23 (Neurontin) lamotrigine 100 mg tablet 300 mg PO QDAY 07/23/21 04/13/23 (Lamictal) acetaminophen 500 mg tablet 500 mg PO Q6H PRN pain 04/13/23 04/13/23 buspirone 5 mg tablet 5 mg PO TID 04/13/23 04/13/23 carvedilol 3.125 mg tablet 3.125 mg PO DAILY 04/13/23 04/13/23 celecoxib 200 mg capsule 200 mg PO DAILY 04/13/23 04/13/23 cetirizine 10 mg tablet 10 mg PO DAILY 04/13/23 04/13/23 cyclobenzaprine 10 mg tablet 10 mg PO DAILY 04/13/23 04/13/23 fluoxetine 20 mg capsule 20 mg PO DAILY 04/13/23 04/13/23 furosemide 40 mg tablet 40 mg PO DAILY 04/13/23 04/13/23 melatonin 3 mg tablet 6 mg PO BEDTIME 04/13/23 04/13/23 oxycodone 5 mg tablet 5 mg PO Q6HR PRN Pain (Scale Score 04/13/23 04/13/23 4-6) polyethylene glycol 3350 17 gram 17 g PO BID PRN Constipation 04/13/23 04/13/23 oral powder packet sennosides 17.2 mg tablet 17.2 mg PO DAILY PRN Constipation 04/13/23 04/13/23 terbinafine HCl 250 mg tablet 250 mg PO DAILY 04/13/23 04/13/23 trazodone 50 mg tablet 25 mg PO BEDTIME sleep 04/13/23 04/13/23 Previous Rx's Medication Instructions Recorded lisinopril 10 mg tablet 10 mg PO DAILY #30 tabs 05/11/18 calcium carbonate 600 mg calcium 600 mg PO DAILY #30 tabs 04/14/23 (1,500 mg) tablet cholecalciferol (vitamin D3) 50 50 mcg PO DAILY #30 caps 04/14/23 mcg (2,000 unit) capsule (Vitamin D3) oxycodone 5 mg tablet 5 mg PO Q4HR PRN Pain, Moderate 04/14/23 (4-6) #20 tabs cephalexin 500 mg capsule 500 mg PO TID #21 caps 04/16/23 doxycycline monohydrate 100 mg 100 mg PO BID #14 caps 07/09/23 capsule tramadol 50 mg tablet 50 mg PO Q8H PRN pain #15 tabs 07/09/23 Allergies Allergy/AdvReac Type Severity Reaction Status Date / Time clindamycin Allergy Mild RASH & N/V Verified 07/29/23 09:58 Patient History <Sarah Mcarthur, - Last Filed: 08/14/23 07:20> Medical History Cerebral palsy History of esophageal dilatation History of esophageal stricture Flesh-eating bacteria Achilles tendon injury Sepsis Cellulitis Surgical History History of dilatation and curettage Hx of total knee arthroplasty Status post surgery (06/23/14) Status post appendectomy Family History Mother Cardiac disease Father Diabetes mellitus COPD (chronic obstructive pulmonary disease) Brother In good health alcohol intake frequency: other Last 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 HEENT: Head atraumatic,EOMI, pupils reactive, face symmetric, moist mucous membranes CARDIOVASCULAR: Regular rate and rhythm without murmurs, rubs or gallops. RESPIRATORY: Speaks in full sentences minimal wheeze ABDOMEN: Soft, nontender. Normoactive bowel sounds all 4 quadrants. No guarding or rebound. EXTREMITIES: Normal range of motion, no clubbing or edema. Neurovascularly intact NEUROLOGICAL: Alert and oriented x4. SKIN: Warm, dry, no laceration, no petechiae, no rashes or lesions. Right lower extremity chronic erythema and dry scaly skin <Margarita Vegas MD - Last Filed: 08/09/23 02:03> Initial Vital Signs Initial Vital Signs: Vital Signs Pulse Rate 79 08/08/23 16:00 Pulse Oximetry 96 08/08/23 16:00 Course <Sarah Mcarthur DO - Last Filed: 08/14/23 07:20> Orders Ordered: Discontinued Medications Albuterol (Albuterol 2.5 Mg/3 Ml Neb (Adult)) 2.5 mg INH NOW ONE Stop: 08/08/23 16:21 Last Admin: 08/08/23 16:29 Dose: 2.5 mg Documented By: MORGAN Albuterol/Ipratropium (Albuterol/Ipratropium 3 Ml Ampul) 3 ml INH NOW ONE Stop: 08/08/23 18:06 Last Admin: 08/08/23 18:19 Dose: 3 ml Documented By: LEAH Furosemide (Furosemide 40 Mg/4 Ml Vial) 40 mg IV NOW ONE Stop: 08/08/23 17:18 Last Admin: 08/08/23 17:36 Dose: 40 mg Documented By: MORGAN Vital Signs Vital signs: Vital Signs - 8 hr 08/08/23 18:19 08/08/23 18:30 08/08/23 19:00 Pulse Rate 73 75 74 Respiratory Rate 21 18 17 Blood Pressure Pulse Oximetry 95 97 96 Oxygen Delivery Method Room Air 08/08/23 19:12 08/08/23 19:12 08/08/23 19:30 Pulse Rate 73 72 Respiratory Rate 18 18 Blood Pressure 150/70 H Pulse Oximetry 97 96 Oxygen Delivery Method <Margarita Vegas MD - Last Filed: 08/09/23 02:03> Orders Ordered: Discontinued Medications Albuterol (Albuterol 2.5 Mg/3 Ml Neb (Adult)) 2.5 mg INH NOW ONE Stop: 08/08/23 16:21 Last Admin: 08/08/23 16:29 Dose: 2.5 mg Documented By: MORGAN Albuterol/Ipratropium (Albuterol/Ipratropium 3 Ml Ampul) 3 ml INH NOW ONE Stop: 08/08/23 18:06 Last Admin: 08/08/23 18:19 Dose: 3 ml Documented By: LEAH Furosemide (Furosemide 40 Mg/4 Ml Vial) 40 mg IV NOW ONE Stop: 08/08/23 17:18 Last Admin: 08/08/23 17:36 Dose: 40 mg Documented By: MORGAN Vital Signs Vital signs: Vital Signs - 8 hr 08/08/23 18:19 08/08/23 18:30 08/08/23 19:00 Pulse Rate 73 75 74 Respiratory Rate 21 18 17 Blood Pressure Pulse Oximetry 95 97 96 Oxygen Delivery Method Room Air 08/08/23 19:12 08/08/23 19:12 08/08/23 19:30 Pulse Rate 73 72 Respiratory Rate 18 18 Blood Pressure 150/70 H Pulse Oximetry 97 96 Oxygen Delivery Method MDM - Female Genitourinary <Sarah Mcarthur DO - Last Filed: 08/14/23 07:20> Lab Data 08/08/23 16:48 08/08/23 16:48 Labs: Lab Results 08/08/23 08/08/23 08/08/23 Range/Units 16:15 16:48 18:49 WBC 10.0 (4.5-11.0) X10^3/uL RBC 3.94 L (4.0-5.2) X10^6/uL Hgb 11.6 L (12.0-16.0) g/dL Hct 35.5 L (36-46) % MCV 90.0 (80-100) fL MCH 29.5 (26-34) PG MCHC 32.7 (30-36) % RDW 14.2 (11.6-14.8) % Plt Count 220 (150-400) X10^3/uL Neut % (Auto) 67.6 (50-75) % Lymph % (Auto) 20.0 L (25-40) % [place] % (Auto) 9.9 (3-14) % Eos % (Auto) 2.1 (2-4) % Baso % (Auto) 0.4 (0-2) % Neut # (Auto) 6800 (8742-6978) /uL Lymph # (Auto) 2000 (6837-8063) /uL [place] # (Auto) 1000 H (0-900) /uL Eos # (Auto) 200 (0-450) /uL Baso # (Auto) 0 (0-100) /uL PT 10.3 (9.4-12.5) SECONDS INR 0.9 (0.9-1.3) APTT 31 (25.1-36.5) SECONDS ABG Sample Site Left radial ABG pH 7.37 (7.35-7.45) ABG pCO2 47.5 H (35-45) mmHg ABG pO2 69 L (80-100) mmHg ABG HCO3 27 (23-27) mmol/L ABG Total CO2 29 H (23-27) mmol/L ABG O2 Saturation 93 L (95-100) % ABG Base Excess 2.0 (-2-3) mmol/L FiO2 21 Sodium 127 L (137-145) mmol/L Potassium 4.4 (3.4-5.1) mmol/L Chloride 86 L (98-107) mmol/L Carbon Dioxide 28 (22-32) mmol/L BUN 72 H (7-17) mg/dL Creatinine 6.08 H (0.52-1.04) mg/dL Estimated GFR 7 L (>60) mL/min BUN/Creatinine Ratio 11.8 (6-22) Glucose 134 H (80-110) mg/dL Calcium 8.9 (8.4-10.2) mg/dL Magnesium 2.6 H (1.6-2.3) mg/dL Total Bilirubin 0.6 (0.2-1.3) mg/dL AST 18 (14-36) IU/L ALT 24 (<35) IU/L Alkaline Phosphatase 137 H (38-126) U/L Total Creatine Kinase 85 (30-135) U/L Troponin I < 0.012 (0.01-0.034) ng/mL NT-Pro-B Natriuret Pep 494 H (<125) pg/mL Total Protein 7.4 (6.3-8.2) g/dL Albumin 4.4 (3.5-5.0) g/dL Globulin 3.0 (1.7-4.1) g/dL Albumin/Globulin Ratio 1.5 (1.0-2.8) Lipase 101 (23-300) U/L Urine Color Yellow Urine Appearance Sl cloudy Urine pH 5.5 (4.5-8.0) Ur Specific [place] <=1.005 (1.000-1.035) Urine Protein Trace H (Negative) Urine Glucose (UA) Trace H (Negative) g/dL Urine Ketones Negative (NEGATIVE) Urine Occult Blood 1+ H (Negative) Urine Nitrate Negative (Negative) Urine Bilirubin Negative (NEGATIVE) Urine Urobilinogen 0.2 (0.2) E.U./dL Ur Leukocyte Esterase 1+ H (NEGATIVE) Urine RBC None seen (0-5/HPF) Urine WBC 1-5/hpf (0-5/HPF) Ur Squamous Epith Cells 10-30 /hpf H D (0-5/HPF) Urine Bacteria Occasional (0-1) (None) Urine Yeast 5-10/hpf H (None) Ur Culture Indicated? Specimen cultured Vol Urine Centrifuged 10ml (spun) Ur Random Sodium 31 (30-90) mmol/L Urine Dip Bedside Urine Glucose Negative Bedside Urine Bilirubin - Negative Bedside Urine Ketone - Negative Urine Specific [place] 1.010 Bedside Urine Occult Blood + Bedside Urine pH 5.5 Bedside Urine Protein +/- 15 Bedside Urine Urobilinogen - Negative Bedside Urine Nitrite - Negative Bedside Urine Leukocytes + 70 Esterase Imaging Data Chest x-ray: Radiologist's Impression: PROCEDURE: XR CHEST 1V INDICATIONS: chest pain TECHNIQUE: One view of the chest was acquired. COMPARISON: [facility], , XR CHEST 1V, 07/29/2023, 11:08. FINDINGS: Surgical changes and devices: None. Lungs and pleura: Lungs are clear. No pleural effusions or pneumothorax. Mediastinum: Mediastinal contours appear normal. Heart size is normal. Bones and chest wall: No suspicious bony lesions. Overlying soft tissues appear unremarkable. IMPRESSION: No acute cardiopulmonary findings Approved by: Farrukh Rolle M.D. on 08/08/2023 at 16:14 ECG Data Attestation: I personally reviewed and interpreted this ECG as follows: Interpretation: Sinus rhythm rate 80 IN interval 232 QRS 186 QTC 565 left bundle-branch block no MDM Narrative Medical decision making narrative: MDM CC: Decreased urine output Complicating co-morbidities: Cerebral palsy recent pneumonia with intubation Corroborating data: [ ] Data collected from: [ ] Medical records reviewed: Yes Differential considered: Urinary retention, UTI, Exam documented above, pertinent findings include: Slight decreased breath sounds bilaterally no acute respiratory distress minimal abdominal pain Lab Test results independently reviewed as above. Pertinent findings: WBC 10.0, hemoglobin 11.6, hematocrit 35.5, platelets 220, sodium 127, potassium 4.4, chloride 86, carbon dioxide 28, BUN 72, creatinine 6.0 previously 1.94 on July 28, glucose 134, Mag 2.6, bili 0.6, AST 18, ALT 24, alk-phos 137, negative troponin, BNP 494 Independently reviewed EKG as above persistent left bundle no ischemic changes Imaging studies independently reviewed: Chest x-ray negative Consultations: [ ] Treatments: [ ] Re-evaluations: [ ] Discussion: Patient presents today decreased urine output she is found to be in acute renal failure. Patient will need to be transferred. Signed out to Dr. Ascencion Vegas - Discussed case with Dr. Stewart of nephrology at [facility], who will accept patient. Discussed case with hospitalist Dr. Mazariegos, who requested an ABG to assess for CO2 retention, but otherwise accepted patient. Patient transferred ED to ED at [facility] in stable condition. <Margarita Vegas MD - Last Filed: 08/09/23 02:03> Lab Data Labs: Lab Results 08/08/23 08/08/23 08/08/23 Range/Units 16:15 16:48 18:49 WBC 10.0 (4.5-11.0) X10^3/uL RBC 3.94 L (4.0-5.2) X10^6/uL Hgb 11.6 L (12.0-16.0) g/dL Hct 35.5 L (36-46) % MCV 90.0 (80-100) fL MCH 29.5 (26-34) PG MCHC 32.7 (30-36) % RDW 14.2 (11.6-14.8) % Plt Count 220 (150-400) X10^3/uL Neut % (Auto) 67.6 (50-75) % Lymph % (Auto) 20.0 L (25-40) % [place] % (Auto) 9.9 (3-14) % Eos % (Auto) 2.1 (2-4) % Baso % (Auto) 0.4 (0-2) % Neut # (Auto) 6800 (8535-3704) /uL Lymph # (Auto) 2000 (9361-7472) /uL [place] # (Auto) 1000 H (0-900) /uL Eos # (Auto) 200 (0-450) /uL Baso # (Auto) 0 (0-100) /uL PT 10.3 (9.4-12.5) SECONDS INR 0.9 (0.9-1.3) APTT 31 (25.1-36.5) SECONDS ABG Sample Site Left radial ABG pH 7.37 (7.35-7.45) ABG pCO2 47.5 H (35-45) mmHg ABG pO2 69 L (80-100) mmHg ABG HCO3 27 (23-27) mmol/L ABG Total CO2 29 H (23-27) mmol/L ABG O2 Saturation 93 L (95-100) % ABG Base Excess 2.0 (-2-3) mmol/L FiO2 21 Sodium 127 L (137-145) mmol/L Potassium 4.4 (3.4-5.1) mmol/L Chloride 86 L (98-107) mmol/L Carbon Dioxide 28 (22-32) mmol/L BUN 72 H (7-17) mg/dL Creatinine 6.08 H (0.52-1.04) mg/dL Estimated GFR 7 L (>60) mL/min BUN/Creatinine Ratio 11.8 (6-22) Glucose 134 H (80-110) mg/dL Calcium 8.9 (8.4-10.2) mg/dL Magnesium 2.6 H (1.6-2.3) mg/dL Total Bilirubin 0.6 (0.2-1.3) mg/dL AST 18 (14-36) IU/L ALT 24 (<35) IU/L Alkaline Phosphatase 137 H (38-126) U/L Total Creatine Kinase 85 (30-135) U/L Troponin I < 0.012 (0.01-0.034) ng/mL NT-Pro-B Natriuret Pep 494 H (<125) pg/mL Total Protein 7.4 (6.3-8.2) g/dL Albumin 4.4 (3.5-5.0) g/dL Globulin 3.0 (1.7-4.1) g/dL Albumin/Globulin Ratio 1.5 (1.0-2.8) Lipase 101 (23-300) U/L Urine Color Yellow Urine Appearance Sl cloudy Urine pH 5.5 (4.5-8.0) Ur Specific [place] <=1.005 (1.000-1.035) Urine Protein Trace H (Negative) Urine Glucose (UA) Trace H (Negative) g/dL Urine Ketones Negative (NEGATIVE) Urine Occult Blood 1+ H (Negative) Urine Nitrate Negative (Negative) Urine Bilirubin Negative (NEGATIVE) Urine Urobilinogen 0.2 (0.2) E.U./dL Ur Leukocyte Esterase 1+ H (NEGATIVE) Urine RBC None seen (0-5/HPF) Urine WBC 1-5/hpf (0-5/HPF) Ur Squamous Epith Cells 10-30 /hpf H D (0-5/HPF) Urine Bacteria Occasional (0-1) (None) Urine Yeast 5-10/hpf H (None) Ur Culture Indicated? Specimen cultured Vol Urine Centrifuged 10ml (spun) Ur Random Sodium 31 (30-90) mmol/L Urine Dip Bedside Urine Glucose Negative Bedside Urine Bilirubin - Negative Bedside Urine Ketone - Negative Urine Specific [place] 1.010 Bedside Urine Occult Blood + Bedside Urine pH 5.5 Bedside Urine Protein +/- 15 Bedside Urine Urobilinogen - Negative Bedside Urine Nitrite - Negative Bedside Urine Leukocytes + 70 Esterase MDM Narrative Medical decision making narrative: MDM CC: Decreased urine output Complicating co-morbidities: Cerebral palsy recent pneumonia with intubation Corroborating data: [ ] Data collected from: [ ] Medical records reviewed: [ ] Differential considered: Urinary retention, UTI, Exam documented above, pertinent findings include: Slight decreased breath sounds bilaterally no acute respiratory distress minimal abdominal pain Lab Test results independently reviewed as above. Pertinent findings: WBC 10.0, hemoglobin 11.6, hematocrit 35.5, platelets 220, sodium 127, potassium 4.4, chloride 86, carbon dioxide 28, BUN 72, creatinine 6.0 previously 1.94 on July 28, glucose 134, Mag 2.6, bili 0.6, AST 18, ALT 24, alk-phos 137, negative troponin, BNP 494 Independently reviewed EKG as above persistent left bundle no ischemic changes Imaging studies independently reviewed: Chest x-ray negative Consultations: [ ] Treatments: [ ] Re-evaluations: [ ] Discussion: Patient presents today decreased urine output she is found to be in acute renal failure. Patient will need to be transferred. Signed out to Dr. Ascencion Vegas - Discussed case with Dr. Stewart of nephrology at [facility], who will accept patient. Discussed case with hospitalist Dr. Mazariegos, who requested an ABG to assess for CO2 retention, but otherwise accepted patient. Patient transferred ED to ED at [facility] in stable condition. Discharge Plan Departure Patient Disposition: [facility] Clinical Impression: Acute renal failure Prescriptions: No Action albuterol sulfate 90 mcg/actuation HFA aerosol inhaler 2 puff Inhalation Q4H PRN (Reason: Wheezing) lisinopril 10 mg Tablet 10 mg PO DAILY Qty: 30 0RF celecoxib 200 mg capsule 200 mg PO DAILY cyclobenzaprine 10 mg tablet 10 mg PO DAILY furosemide 40 mg tablet 40 mg PO DAILY buspirone 5 mg tablet 5 mg PO TID trazodone 50 mg tablet 25 mg PO BEDTIME polyethylene glycol 3350 17 gram Powder In Packet 17 g PO BID PRN (Reason: Constipation) cetirizine 10 mg tablet 10 mg PO DAILY melatonin 3 mg tablet 6 mg PO BEDTIME acetaminophen 500 mg Tablet 500 mg PO Q6H PRN (Reason: pain) carvedilol 3.125 mg tablet 3.125 mg PO DAILY terbinafine HCl 250 mg tablet 250 mg PO DAILY fluoxetine 20 mg capsule 20 mg PO DAILY oxycodone 5 mg tablet 5 mg PO Q6HR PRN (Reason: Pain (Scale Score 4-6)) sennosides 17.2 mg Tablet 17.2 mg PO DAILY PRN (Reason: Constipation) oxycodone 5 mg Tablet 5 mg PO Q4HR PRN (Reason: Pain, Moderate (4-6)) Qty: 20 0RF cholecalciferol (vitamin D3) [Vitamin D3] 50 mcg (2,000 unit) capsule 50 mcg PO DAILY Qty: 30 0RF calcium carbonate 600 mg calcium (1,500 mg) tablet 600 mg PO DAILY Qty: 30 0RF cephalexin 500 mg capsule 500 mg PO TID Qty: 21 0RF fluoxetine 20 mg capsule 40 mg PO QDAY lamotrigine [Lamictal] 100 mg tablet 300 mg PO QDAY gabapentin [Neurontin] 600 mg tablet 1,200 mg PO BEDTIME gabapentin [Neurontin] 300 mg capsule 900 mg PO QAM doxycycline monohydrate 100 mg capsule 100 mg PO BID Qty: 14 0RF tramadol 50 mg tablet 50 mg PO Q8H PRN (Reason: pain) Qty: 15 0RF Referrals: Alie Salmeron ARNP [Primary Care Provider] -
[2023-08-08] MEDS: ALBUTEROL 2.5 MG/3 ML NEB (ADULT) INH (16:29)
--- NOTE | 2023-08-08 16:33 | PC.NURSE ---
pt urinated on bedside commode.
--- NOTE | 2023-08-08 16:53 | PC.NURSE ---
audible expiratory wheezing. pt states she has hx of asthma.
[2023-08-08 17:01] LABS: INR 0.9 (0.9-1.3); Prothrombin Time 10.3 SECONDS (9.4-12.5)
[2023-08-08 17:04] LABS: PTT Partial Thromboplastin Tim 31 SECONDS (25.1-36.5)
[2023-08-08 17:06] LABS: Alanine Aminotransferase 24 IU/L (<35); Albumin 4.4 g/dL (3.5-5.0); Albumin Globulin Ratio 1.5 (1.0-2.8); Alkaline Phosphatase 137 U/L (38-126); Aspartate Aminotransferase 18 IU/L (14-36); BUN Creatinine Ratio 11.8 (6-22); Bilirubin Total 0.6 mg/dL (0.2-1.3); Blood Urea Nitrogen 72 mg/dL (7-17); Calcium 8.9 mg/dL (8.4-10.2); Carbon Dioxide 28 mmol/L (22-32); Chloride 86 mmol/L (98-107); Creatine Kinase 85 U/L (30-135); Estimated Glomerular Filt Rate 7 mL/min (>60); Glucose 134 mg/dL (80-110); HEMOLYSIS < 15 (0-50); Lipase 101 U/L (23-300); Magnesium 2.6 mg/dL (1.6-2.3); Potassium 4.4 mmol/L (3.4-5.1); Sodium 127 mmol/L (137-145); Total Protein 7.4 g/dL (6.3-8.2)
[2023-08-08 17:07] LABS: Add Manual Diff / Slide Review NO; Basophils Absolute Auto 0 /uL (0-100); Basophils Percent Auto 0.4 % (0-2); Eosinophils Absolute Auto 200 /uL (0-450); Eosinophils Percent Auto 2.1 % (2-4); Hematocrit 35.5 % (36-46); Hemoglobin 11.6 g/dL (12.0-16.0); Lymphocytes Absolute Auto 2000 /uL (1100-4500); Mean Corpuscular HGB Conc 32.7 % (30-36); Mean Corpuscular Hemoglobin 29.5 PG (26-34); Monocytes Absolute Auto 1000 /uL (0-900); Monocytes Percent Auto 9.9 % (3-14); Neutrophils Absolute Auto 6800 /uL (1500-7000); Neutrophils Percent Auto 67.6 % (50-75); Platelet Count 220 X10^3/uL (150-400); Red Blood Cell Count 3.94 X10^6/uL (4.0-5.2); Red Cell Distribution Width 14.2 % (11.6-14.8)
[2023-08-08 17:17] LABS: NT-proBNP (BNP-Adult 18+) 494 pg/mL (<125); Troponin I < 0.012 ng/mL (0.01-0.034)
--- NOTE | 2023-08-08 17:17 | DI.US.S_ITS ---
PROCEDURE: US RENAL COMPLETE INDICATIONS: renal failure TECHNIQUE: Real-time scanning was performed of the kidneys and bladder, with image documentation. COMPARISON: [facility], , US RENAL COMPLETE, 04/13/2023, 2:03. FINDINGS: Kidneys: Kidneys are normal in size. Right kidney measures 10.4 cm long; left kidney measures 9.3 cm long. Right renal cortical thickness is 1.6 cm; left renal cortical thickness is 1.6 cm. Renal cortical echotexture is normal. No hydronephrosis or nephrolithiasis. No suspicious solid mass lesions. Bladder: Decompressed around a Baxter catheter. Ureteral jets not appreciated. Miscellaneous: No free pelvic fluid. IMPRESSION: Normal sonographic appearance of the kidneys. No hydronephrosis. Dictated by: Ishaan Lopez M.D. on 08/08/2023 at 18:13 Approved by: Ishaan Lopez M.D. on 08/08/2023 at 18:14
[2023-08-08] MEDS: FUROSEMIDE 40 MG/4 ML VIAL IV (17:36)
[2023-08-08 17:54] LABS: Appearance Urine UA SL CLOUDY; Bilirubin Urine UA NEGATIVE (NEGATIVE); Color Urine UA YELLOW; Glucose Urine UA TRACE g/dL (Negative); Ketones Urine UA NEGATIVE (NEGATIVE); Leukocyte Esterase Urine UA 1+ (NEGATIVE); Nitrite Urine UA NEGATIVE (Negative); Occult Blood Urine UA 1+ (Negative); Protein Urine UA TRACE (Negative); Specific Gravity Urine UA <=1.005 (1.000-1.035); Urobilinogen Urine UA 0.2 E.U./dL (0.2)
[2023-08-08 17:56] LABS: Sodium Urine Random 31 mmol/L (30-90)
[2023-08-08 18:15] LABS: pH Urine UA 5.5 (4.5-8.0)
[2023-08-08 18:19] LABS: RBC Urine None Seen (0-5/HPF); Urine Volume 10mL (spun)
[2023-08-08] MEDS: ALBUTEROL/IPRATROPIUM 3 ML AMPUL INH (18:19)
[2023-08-08 18:20] LABS: Bacteria Urine Occasional (0-1); Squamous Epithelial Cell Urine 10-30 /HPF (0-5/HPF); WBC Urine 1-5/HPF (0-5/HPF)
[2023-08-08 18:21] LABS: Culture Indicated Urine Specimen Cultured
[2023-08-08 18:56] LABS: Allen Test for ABG Passed? Yes, Passed; Blood Gas Collection Site Left Radial; Fractionated Inspired Oxygen 21; HCO3 ABG 27 mmol/L (23-27); Oxygen Saturation ABG 93 % (95-100); PCO2 ABG 47.5 mmHg (35-45); PO2 ABG 69 mmHg (80-100); TCO2 ABG 29 mmol/L (23-27); pH ABG 7.37 (7.35-7.45)
== END 2023-08-08 19:53 | disposition short-term general hospital (02) ==
PROVIDERS: Emergency Medicine; Emergency Provider Emergency Medicine; Family Provider Nurse Practitioner Family; PCP Nurse Practitioner Family
DX: N17.9 Acute kidney failure, unspecified (principal); I44.7 Left bundle-branch block, unspecified; R10.9 Unspecified abdominal pain; R07.9 Chest pain, unspecified
CPT/HCPCS: 36415; 36600; 51701; 51798; 71045; 76770; 80053; 81001; 81003; 82550; 82805; 83690; 83735; 83880; 84300; 84484; 85025; 85610; 85730; 87086; 93005; 94640; 96374; 99284; 99285; J1940; J7613

== ENCOUNTER → 2023-09-23 06:12 | Outpatient (ROUT) | payer MEDICARE, MEDICAID, SELFPAY ==
[2023-04-13 03:20] VITALS: BMI 45.0
[2023-07-29 10:54] VITALS: RESP 16
[2023-07-29 14:34] VITALS: PULSE 69; RESP 22; O2SAT 97
[2023-09-23 07:16] LABS: Alanine Aminotransferase 20 IU/L (<35); Albumin 3.8 g/dL (3.5-5.0); Albumin Globulin Ratio 1.8 (1.0-2.8); Alkaline Phosphatase 142 U/L (38-126); Aspartate Aminotransferase 26 IU/L (14-36); BUN Creatinine Ratio 24.8 (6-22); Bilirubin Total 0.3 mg/dL (0.2-1.3); Blood Urea Nitrogen 27 mg/dL (7-17); Calcium 9.1 mg/dL (8.4-10.2); Carbon Dioxide 31 mmol/L (22-32); Chloride 107 mmol/L (98-107); Estimated Glomerular Filt Rate 55 mL/min (>60); Globulin 2.1 g/dL (1.7-4.1); Glucose 113 mg/dL (80-110); HEMOLYSIS < 15 (0-50); Sodium 141 mmol/L (137-145); Total Protein 5.9 g/dL (6.3-8.2)
== END ==
PROVIDERS: Family Provider Nurse Practitioner Family; PCP Nurse Practitioner Family; Visit Provider Nurse Practitioner
DX: R60.0 Localized edema (principal)
CPT/HCPCS: 36415; 80053

== ENCOUNTER → 2023-11-18 06:21 | Outpatient (ROUT) | payer MEDICARE, MEDICAID, SELFPAY ==
[2023-04-13 03:20] VITALS: BMI 45.0
[2023-07-29 10:54] VITALS: RESP 16
[2023-07-29 14:34] VITALS: PULSE 69; RESP 22; O2SAT 97
[2023-11-18 07:35] LABS: Hematocrit 34.3 % (36-46); Hemoglobin 11.3 g/dL (12.0-16.0); Mean Corpuscular HGB Conc 32.9 % (30-36); Mean Corpuscular Hemoglobin 29.6 PG (26-34); Platelet Count 184 X10^3/uL (150-400); Red Blood Cell Count 3.82 X10^6/uL (4.0-5.2); White Blood Cell Count 7.9 X10^3/uL (4.5-11.0)
[2023-11-18 07:50] LABS: BUN Creatinine Ratio 26.1 (6-22); Blood Urea Nitrogen 79 mg/dL (7-17); Calcium 8.7 mg/dL (8.4-10.2); Carbon Dioxide 26 mmol/L (22-32); Chloride 98 mmol/L (98-107); Estimated Glomerular Filt Rate 16 mL/min (>60); Glucose 85 mg/dL (80-110); HEMOLYSIS 19 (0-50); Magnesium 2.4 mg/dL (1.6-2.3); Potassium 3.8 mmol/L (3.4-5.1); Sodium 137 mmol/L (137-145)
[2023-11-18 07:58] LABS: NT-proBNP (BNP-Adult 18+) 445 pg/mL (<125)
== END ==
PROVIDERS: Family Provider Nurse Practitioner Family; PCP Nurse Practitioner Family; Visit Provider Registered Nurse
DX: L03.90 Cellulitis, unspecified (principal)
CPT/HCPCS: 36415; 80048; 83735; 83880; 85027

== ENCOUNTER → 2023-12-02 06:10 | Outpatient (ROUT) | payer MEDICARE, MEDICAID, SELFPAY ==
[2023-04-13 03:20] VITALS: BMI 45.0
[2023-07-29 10:54] VITALS: RESP 16
[2023-07-29 14:34] VITALS: PULSE 69; RESP 22; O2SAT 97
[2023-12-02 07:42] LABS: BUN Creatinine Ratio 26.2 (6-22); Blood Urea Nitrogen 64 mg/dL (7-17); Calcium 8.8 mg/dL (8.4-10.2); Carbon Dioxide 26 mmol/L (22-32); Chloride 101 mmol/L (98-107); Estimated Glomerular Filt Rate 21 mL/min (>60); Glucose 97 mg/dL (80-110); HEMOLYSIS < 15 (0-50); Magnesium 2.3 mg/dL (1.6-2.3); Potassium 3.9 mmol/L (3.4-5.1); Sodium 137 mmol/L (137-145)
== END ==
PROVIDERS: Family Provider Nurse Practitioner Family; PCP Nurse Practitioner Family; Visit Provider Registered Nurse
DX: E87.8 Other disorders of electrolyte and fluid balance, not elsewhere classified (principal); N18.4 Chronic kidney disease, stage 4 (severe)
CPT/HCPCS: 36415; 80048; 83735

== ENCOUNTER → 2024-03-24 12:23 | Outpatient (ROUT) | payer MEDICARE, MEDICAID, SELFPAY ==
[2023-04-13 03:20] VITALS: BMI 45.0
[2023-07-29 10:54] VITALS: RESP 16
[2023-07-29 14:34] VITALS: PULSE 69; RESP 22; O2SAT 97
== END ==
PROVIDERS: Family Provider Nurse Practitioner Family; PCP Nurse Practitioner Family; Visit Provider Internal Medicine
DX: Z13.89 Encounter for screening for other disorder (principal)
CPT/HCPCS: 87086

== ENCOUNTER → 2024-03-28 12:02 | Outpatient (ROUT) | payer MEDICARE, MEDICAID, SELFPAY ==
[2023-04-13 03:20] VITALS: BMI 45.0
[2023-07-29 10:54] VITALS: RESP 16
[2023-07-29 14:34] VITALS: PULSE 69; RESP 22; O2SAT 97
[2024-03-28 12:10] LABS: Appearance Urine UA CLEAR; Bilirubin Urine UA NEGATIVE (NEGATIVE); Color Urine UA YELLOW; Glucose Urine UA NEGATIVE (Negative); Ketones Urine UA NEGATIVE (NEGATIVE); Leukocyte Esterase Urine UA NEGATIVE (NEGATIVE); Nitrite Urine UA NEGATIVE (Negative); Occult Blood Urine UA NEGATIVE (Negative); Protein Urine UA NEGATIVE (Negative); Specific Gravity Urine UA 1.015 (1.000-1.035); Urobilinogen Urine UA 0.2 E.U./dL (0.2)
[2024-03-28 12:12] LABS: Urine Volume 10mL (spun)
[2024-03-28 12:14] LABS: Bacteria Urine None Seen; Culture Indicated Urine Cult Not Indicated; RBC Urine None Seen (0-5/HPF); Squamous Epithelial Cell Urine 5-10 /HPF (0-5/HPF); WBC Urine None Seen (0-5/HPF)
== END ==
PROVIDERS: Family Provider Nurse Practitioner Family; PCP Nurse Practitioner Family; Visit Provider Internal Medicine
DX: R39.89 Other symptoms and signs involving the genitourinary system (principal)
CPT/HCPCS: 81001

== ENCOUNTER → 2024-04-06 06:23 | Outpatient (ROUT) | payer MEDICARE, MEDICAID, SELFPAY ==
[2023-04-13 03:20] VITALS: BMI 45.0
[2023-07-29 10:54] VITALS: RESP 16
[2023-07-29 14:34] VITALS: PULSE 69; RESP 22; O2SAT 97
[2024-04-06 08:07] LABS: Hematocrit 37.4 % (36-46); Hemoglobin 12.3 g/dL (12.0-16.0); Mean Corpuscular HGB Conc 32.9 % (30-36); Mean Corpuscular Hemoglobin 30.3 PG (26-34); Platelet Count 172 X10^3/uL (150-400); Red Blood Cell Count 4.06 X10^6/uL (4.0-5.2); Red Cell Distribution Width 13.7 % (11.6-14.8)
[2024-04-06 08:17] LABS: Hemoglobin A1C% w Est Avg Glu 5.6 % (4.0-6.0)
[2024-04-06 08:20] LABS: Alanine Aminotransferase 27 IU/L (<35); Albumin 3.9 g/dL (3.5-5.0); Alkaline Phosphatase 241 U/L (38-126); Aspartate Aminotransferase 29 IU/L (14-36); Bilirubin Total 0.8 mg/dL (0.2-1.3); Blood Urea Nitrogen 56 mg/dL (7-17); Carbon Dioxide 30 mmol/L (22-32); Chloride 99 mmol/L (98-107); Cholesterol 235 mg/dL (140-199); Estimated Glomerular Filt Rate 26 mL/min (>60); Glucose 82 mg/dL (80-110); HDL Cholesterol 57 mg/dL (40-60); HEMOLYSIS 22 (0-50); LDL Cholesterol Calculated 149 mg/dL (<100); Potassium 3.5 mmol/L (3.4-5.1); Sodium 137 mmol/L (137-145); Total Protein 5.9 g/dL (6.3-8.2); Triglycerides 143 mg/dL (35-150)
== END ==
PROVIDERS: Family Provider Nurse Practitioner Family; PCP Nurse Practitioner Family; Visit Provider Nurse Practitioner Family
DX: E11.9 Type 2 diabetes mellitus without complications (principal); E87.5 Hyperkalemia; I10 Essential (primary) hypertension
CPT/HCPCS: 36415; 80053; 80061; 83036; 85027

== ENCOUNTER → 2024-09-14 06:09 | Outpatient (ROUT) | payer OTHER, MEDICAID, SELFPAY ==
[2023-04-13 03:20] VITALS: BMI 45.0
[2023-07-29 10:54] VITALS: RESP 16
[2023-07-29 14:34] VITALS: PULSE 69; RESP 22; O2SAT 97
[2024-09-14 10:04] LABS: Hemoglobin A1C% w Est Avg Glu 5.4 % (4.0-6.0)
[2024-09-14 10:17] LABS: BUN Creatinine Ratio 25.4 (6-22); Blood Urea Nitrogen 54 mg/dL (7-17); Calcium 9.6 mg/dL (8.4-10.2); Carbon Dioxide 30 mmol/L (22-32); Chloride 95 mmol/L (98-107); Estimated Glomerular Filt Rate 24 mL/min (>60); Glucose 97 mg/dL (70-99); HEMOLYSIS < 15 (0-50); Magnesium 2.2 mg/dL (1.6-2.3); Potassium 4.3 mmol/L (3.4-5.1); Sodium 137 mmol/L (137-145)
[2024-09-14 10:25] LABS: Hematocrit 38.8 % (36-46); Hemoglobin 13.1 g/dL (12.0-16.0); Mean Corpuscular HGB Conc 33.7 % (30-36); Mean Corpuscular Hemoglobin 30.5 PG (26-34); Mean Corpuscular Volume 90.6 fL (80-100); Platelet Count 187 X10^3/uL (150-400); Red Blood Cell Count 4.28 X10^6/uL (4.0-5.2); Red Cell Distribution Width 12.6 % (11.6-14.8); White Blood Cell Count 9.2 X10^3/uL (4.5-11.0)
[2024-09-16 11:09] LABS: Lamotrigine Lamictal 5.3 ug/mL (2.0-20.0)
== END ==
LOC: LAB 06:09
PROVIDERS: Family Provider Nurse Practitioner Family; PCP Nurse Practitioner Family; Visit Provider Registered Nurse
DX: I10 Essential (primary) hypertension (principal); E11.9 Type 2 diabetes mellitus without complications; R60.0 Localized edema; Z51.81 Encounter for therapeutic drug level monitoring
CPT/HCPCS: 36415; 80048; 80175; 83036; 83735; 85027

== ENCOUNTER → 2024-10-12 06:04 | Outpatient (ROUT) | payer OTHER, MEDICAID, SELFPAY ==
[2023-04-13 03:20] VITALS: BMI 45.0
[2023-07-29 10:54] VITALS: RESP 16
[2023-07-29 14:34] VITALS: PULSE 69; RESP 22; O2SAT 97
[2024-10-12 08:10] LABS: BUN Creatinine Ratio 24.3 (6-22); Blood Urea Nitrogen 46 mg/dL (7-17); Calcium 9.2 mg/dL (8.4-10.2); Carbon Dioxide 29 mmol/L (22-32); Chloride 99 mmol/L (98-107); Estimated Glomerular Filt Rate 28 mL/min (>60); Glucose 116 mg/dL (70-99); HEMOLYSIS < 15 (0-50); Potassium 3.5 mmol/L (3.4-5.1); Sodium 137 mmol/L (137-145)
== END ==
LOC: LAB 06:04
PROVIDERS: Family Provider Nurse Practitioner Family; PCP Nurse Practitioner Family; Visit Provider Registered Nurse
DX: E11.22 Type 2 diabetes mellitus with diabetic chronic kidney disease (principal); N18.9 Chronic kidney disease, unspecified
CPT/HCPCS: 36415; 80048

== ENCOUNTER → 2024-11-17 06:35 | Outpatient (ROUT) | payer OTHER, MEDICAID, SELFPAY ==
[2023-04-13 03:20] VITALS: BMI 45.0
[2023-07-29 10:54] VITALS: RESP 16
[2023-07-29 14:34] VITALS: PULSE 69; RESP 22; O2SAT 97
[2024-11-17 08:07] LABS: Ammonia (NH3) 20 umol/L (9-30)
[2024-11-17 08:29] LABS: Blood Urea Nitrogen 29 mg/dL (7-17); Calcium 9.2 mg/dL (8.4-10.2); Carbon Dioxide 25 mmol/L (22-32); Chloride 99 mmol/L (98-107); Estimated Glomerular Filt Rate 37 mL/min (>60); Glucose 239 mg/dL (70-99); HEMOLYSIS < 15 (0-50); Magnesium 2.0 mg/dL (1.6-2.3); Potassium 3.1 mmol/L (3.4-5.1); Sodium 135 mmol/L (137-145)
== END ==
PROVIDERS: Family Provider Nurse Practitioner Family; PCP Nurse Practitioner Family; Visit Provider Registered Nurse
DX: I10 Essential (primary) hypertension (principal)
CPT/HCPCS: 36415; 80048; 82140; 83735

== ENCOUNTER → 2024-11-23 08:03 | Outpatient (ROUT) | payer OTHER, MEDICAID, SELFPAY ==
[2023-04-13 03:20] VITALS: BMI 45.0
[2023-07-29 10:54] VITALS: RESP 16
[2023-07-29 14:34] VITALS: PULSE 69; RESP 22; O2SAT 97
[2024-11-23 08:33] LABS: Ammonia (NH3) 16 umol/L (9-30)
[2024-11-23 09:54] LABS: Blood Urea Nitrogen 28 mg/dL (7-17); Calcium 9.0 mg/dL (8.4-10.2); Carbon Dioxide 24 mmol/L (22-32); Chloride 100 mmol/L (98-107); Estimated Glomerular Filt Rate 31 mL/min (>60); Glucose 114 mg/dL (70-99); HEMOLYSIS < 15 (0-50); Magnesium 1.8 mg/dL (1.6-2.3); Potassium 3.1 mmol/L (3.4-5.1); Sodium 135 mmol/L (137-145)
== END ==
PROVIDERS: Family Provider Nurse Practitioner Family; PCP Nurse Practitioner Family; Visit Provider Registered Nurse
DX: I10 Essential (primary) hypertension (principal)
CPT/HCPCS: 36415; 80048; 82140; 83735

== ENCOUNTER → 2025-02-08 06:16 | Outpatient (ROUT) | payer OTHER, MEDICAID, SELFPAY ==
[2023-04-13 03:20] VITALS: BMI 45.0
[2023-07-29 10:54] VITALS: RESP 16
[2023-07-29 14:34] VITALS: PULSE 69; RESP 22; O2SAT 97
[2025-02-08 07:44] LABS: Hemoglobin A1C% w Est Avg Glu 7.0 % (4.0-6.0)
== END ==
PROVIDERS: PCP Family Medicine; Visit Provider Family Medicine
DX: E11.9 Type 2 diabetes mellitus without complications (principal); Z79.4 Long term (current) use of insulin
CPT/HCPCS: 36415; 83036